=== PATIENT | female | born 1990 | race Caucasian/White ===

== ENCOUNTER 2019-12-25 09:53 | Emergency (ER) | payer OTHER, SELFPAY ==
[2019-12-25 10:19] VITALS: BP 121/73; PULSE 72; RESP 16; TEMP 36.8; O2SAT 100
--- NOTE | 2019-12-25 10:58 | ED.HA ---
HPI - Headache General Chief Complaint: Headache Stated Complaint: Migraine pain Time Seen by Provider: 12/25/19 10:40 Source: patient Mode of arrival: ambulatory Limitations: no limitations History of Present Illness HPI Narrative: This is a 39-year-old female that presents the emergency department for migraine x2 days. Reports history of migraines. Reports she is to be on a preventative medication for migraines, but did not like the way it made her feel. Reports a pounding left-sided headache. Reports she had taken Tylenol and ibuprofen at home without relief. Denies fever, vision changes, vomiting, numbness or weakness. Related Data Home Medications Medication Instructions Recorded Confirmed paliperidone [Invega] 3 mg PO QAM 12/25/19 Allergies Allergy/AdvReac Type Severity Reaction Status Date / Time latex Allergy Unknown Rash Verified 12/25/19 10:23 crab Allergy Unknown Verified 12/25/19 10:23 shellfish derived Allergy Unknown Verified 12/25/19 10:23 Review of Systems Review of Systems: Narrative: CONSTITUTIONAL: Denies fever EYES: Denies visual changes GASTROINTESTINAL: Denies vomiting NEUROLOGIC: Reports headache. Denies numbness, or weakness. All systems reviewed & are unremarkable except as noted in HPI and below PMFSH Past Medical History Medical History (Updated 12/25/19 @ 13:14 by Chrsita Masetrson PA-C) History of schizophrenia Social History Social History (Updated 12/25/19 @ 11:00 by Christa Masterson PA-C) Substance use: never Gender identity (if verbalized by the patient): Female Exam Narrative: Exam Narrative: GENERAL: Well-appearing, well-nourished, and in no acute distress. HEAD: Normocephalic, atraumatic. EYES: PERRLA and EOMI. ENT: Nares clear, no rhinorrhea or epistaxis. Mucous membranes moist. Oropharynx without tonsillar hypertrophy exudate or other lesions. Bilateral TMs pearly yates non-bulging NECK: Supple. No adenopathy or masses. Normal range of motion CHEST: Clear to auscultation. No respiratory distress. No wheezes rales or rhonchi HEART: Regular rate and rhythm. No murmur heard. Normal peripheral pulses. EXTREMITIES: Normal range of motion. No edema. SKIN: Warm, dry, no rash. NEURO: No focal deficits. Alert and oriented x3. Cranial nerves II through XII grossly intact PSYCH: Normal mood and affect Course Vital Signs Vital signs: Vital Signs Temperature 98.3 F 12/25/19 10:19 Pulse Rate 72 12/25/19 10:19 Respiratory Rate 16 12/25/19 10:19 Blood Pressure 121/73 12/25/19 10:19 Pulse Oximetry 100 12/25/19 10:19 Temperature 98.3 F 12/25/19 10:19 Pulse Rate 72 12/25/19 10:19 Respiratory Rate 16 12/25/19 10:19 Blood Pressure 121/73 12/25/19 10:19 Pulse Oximetry 100 12/25/19 10:19 MDM - Headache MDM Narrative Medical decision making narrative: Patient presents the emergency department for migraine x2 days. Reports history of migraines. She is afebrile and nontoxic-appearing. Patient is neurologically intact. Reports relief with migraine cocktail. Patient is stable and felt appropriate for further outpatient evaluation. She is to follow-up with her primary care doctor. She was given warnings to return to the ER Critical Care Time Critical Care Time Critical Care Time: No Discharge Plan Discharge Clinical Impression: Migraine Qualifiers: Migraine type: without aura Status migrainosus presence: without status migrainosus Intractability: not intractable Qualified Code(s): G43.009 - Migraine without aura, not intractable, without status migrainosus Patient Disposition: Home, Self-Care Condition: Stable Instructions: Migraine Headache (ED) Additional Instructions: Return to the emergency department if you experience fever, stiff neck, vision changes, vomiting, numbness, weakness, or any other symptoms that are concerning to you Remain well-hydrated. Tylenol or ibuprofen as needed for pain. Rest. Follow-u
[2019-12-25] MEDS: SODIUM CHLORIDE 0.9% IV 1,000 ML 999 ML IV CONT (11:19)
[2019-12-25] MEDS: METOCLOPRAMIDE HCL INJ 10 MG/2 ML VIAL IV PUSH (11:20)
[2019-12-25] MEDS: KETOROLAC 30 MG/ML VIAL (*BKC) IV PUSH (11:20)
--- NOTE | 2019-12-25 13:07 | PC.NURSE ---
Up in halls. Denies further headache.
== END 2019-12-25 13:35 | disposition home or self-care (01) ==
PROVIDERS: Emergency Provider Emergency Medicine
DX: G43.009 Migraine without aura, not intractable, without status migrainosus (principal); F20.9 Schizophrenia, unspecified
CPT/HCPCS: 96361; 96365; 96375; 99284; J0131; J1885; J2765; J7030

== ENCOUNTER 2019-12-28 15:53 | Emergency (ER) | payer OTHER, SELFPAY ==
[2019-12-28 16:00] VITALS: BP 125/84; PULSE 83; RESP 18; TEMP 37; O2SAT 100
[2019-12-28 17:21] VITALS: BP 123/72; PULSE 79; RESP 18; O2SAT 100
[2019-12-28] MEDS: SODIUM CHLORIDE 0.9% IV 1,000 ML 999 ML IV CONT (18:16)
[2019-12-28] MEDS: METOCLOPRAMIDE HCL INJ 10 MG/2 ML VIAL IV PUSH (18:16)
[2019-12-28] MEDS: diphenhydrAMINE HCl INJ 50 MG/ML VIAL 25 MG IV PUSH (18:16)
--- NOTE | 2019-12-28 18:37 | ED.HA ---
HPI - Headache General Chief Complaint: Headache Stated Complaint: migraine headache Time Seen by Provider: 12/28/19 16:57 Source: patient History of Present Illness HPI Narrative: 29 years old white female history of migraine headache since she was in the eighth grade. Been having sharp stabbing left frontal headache for months, get worse with stress, get better with beer. Patient been taking [id number] medication with intermittent improvement. Patient used to be on migraine headache medication, does not remember the name,. Patient lives with her family, unemployed, does not have a or a boyfriend. Related Data Home Medications Medication Instructions Recorded Confirmed paliperidone [Invega] 3 mg PO QAM 12/25/19 Allergies Allergy/AdvReac Type Severity Reaction Status Date / Time latex Allergy Unknown Rash Verified 12/25/19 10:23 crab Allergy Unknown Verified 12/25/19 10:23 shellfish derived Allergy Unknown Verified 12/25/19 10:23 Review of Systems Review of Systems: Narrative: CONSTITUTIONAL: Denies fever, chills, or sweats. EYES: Denies visual changes, redness, or discharge. ENT: Denies rhinorrhea, congestion, sore throat, or otalgia. CARDIOVASCULAR: Denies chest pain, palpitations, or edema. RESPIRATORY: Denies cough or dyspnea. GASTROINTESTINAL: Denies abdominal pain, nausea, vomiting, or diarrhea. GENITOURINARY: Denies dysuria or hematuria. SKIN: Denies rash or itching. MUSCULOSKELETAL: Denies back pain, joint pain, or myalgia. NEUROLOGIC: Denies headache, numbness, or weakness. PSYCHIATRIC: Denies anxiety or depression. PMFSH Past Medical History Medical History History of schizophrenia Social History Social History Substance use: never Gender identity (if verbalized by the patient): Female Exam Narrative: Exam Narrative: General appearance: Well-developed, well-nourished Skin: Normal color Head: Normocephalic, nontraumatic Eyes: Clear conjunctiva ENT: Oropharynx normal, ears normal, nose normal Neck: Supple, nontender Chest and respiratory: Airway patent, no respiratory distress, no accessory muscle use Heart: Regular rate/rhythm Abdomen: Soft, nontender, no organomegaly, quiet bowel sounds Vascular: Normal peripheral pulses, normal capillary refill. Musculoskeletal: Normal range of motion, nontender back Neurologic: Alert and oriented ?3, [employer] is normal as tested, no gross motor deficit Course Course Emergency Course: Improving Vital Signs Vital signs: Vital Signs Temperature 37.0 C 12/28/19 16:00 Pulse Rate 83 12/28/19 16:00 Respiratory Rate 18 12/28/19 16:00 Blood Pressure 125/84 12/28/19 16:00 Pulse Oximetry 100 12/28/19 16:00 Temperature 37.0 C 12/28/19 16:00 Pulse Rate 83 12/28/19 16:00 Respiratory Rate 18 12/28/19 16:00 Blood Pressure 125/84 12/28/19 16:00 Pulse Oximetry 100 12/28/19 16:00 MDM - Headache MDM Narrative Medical decision making narrative: Migraine headache high likely secondary to stress. I plan to give Reglan, Benadryl and Toradol. Patient headache resolved from 7 out of 10 to 1 out of 10 after IV Reglan and Benadryl. Resolved to 0 out of 10 after Toradol 30 mg IV once. Critical Care Time Critical Care Time Critical Care Time: No Discharge Plan Discharge Clinical Impression: Migraine Qualifiers: Migraine type: without aura Status migrainosus presence: without status migrainosus Intractability: not intractable Qualified Code(s): G43.009 - Migraine without aura, not intractable, without status migrainosus Patient Disposit
[2019-12-28] MEDS: KETOROLAC 30 MG/ML VIAL (*BKC) IV PUSH (18:52)
[2019-12-28 18:54] VITALS: BP 127/73; PULSE 80; RESP 18; O2SAT 100
--- NOTE | 2020-01-02 18:31 | PC.NURSE ---
LATE ENTRY This note is being entered to document information to the patient's record. The following information was omitted on [01/02/20], by [Kerry LAZARO stopped at 1915 on 12/28/19].
== END 2019-12-28 18:55 | disposition home or self-care (01) ==
PROVIDERS: Emergency Provider Emergency Medicine
DX: G43.009 Migraine without aura, not intractable, without status migrainosus (principal)
CPT/HCPCS: 96361; 96374; 96375; 99284; J1200; J1885; J2765; J7030

== ENCOUNTER → 2020-04-08 12:15 | Outpatient (CLI) | payer OTHER, SELFPAY ==
--- NOTE | ~2020-04-08 | XR_ITS ---
EXAMINATION: XR chest 2V EXAM DATE: 04/08/2020 12:32 INDICATION: Tobacco Use. TECHNIQUE: Frontal and lateral projections of the chest obtained and reviewed. There is no prior [place] for comparison. FINDINGS: The lungs are clear. There are no pleural effusions. The cardiomediastinal silhouette is within normal limits. There is no pneumothorax suspected. The bones and soft tissues are unremarkab le. IMPRESSION: Normal chest x-ray exam. Reviewed, dictated and finalized at location A. ETEER IMPRESSION: Normal chest x-ray exam.
== END ==
PROVIDERS: PCP Emergency Medicine; Visit Provider Emergency Medicine
DX: Z72.0 Tobacco use (principal)
CPT/HCPCS: 71046

== ENCOUNTER 2020-06-02 10:33 | Outpatient (CLI) | payer OTHER, SELFPAY ==
--- NOTE | 2020-06-03 11:37 | WPDNEUROLOGY ---
Neurology EEG Report General Information Date of Study: 06/02/20 TEST EEG DIAGNOSIS migraines CONDITION OF RECORDING awake and drowsy EEG NUMBER [id number] CLINICAL HISTORY patient reported she has been getting migraines for a couple of years. EEG DESCRIPTION Basic resting occipital frequency consists of medium to high voltage 8 to 10 hertz per 2nd alpha admixed with minimal amount of low-voltage 15 to 18 hertz per 2nd beta. Low-voltage beta activity seen diffusely during drowsiness. Photic stimulation produced normal response. Hyperventilation not done. Non paroxysmal. Nonfocal. Nonlateralizing. IMPRESSION Normal record no evidence of seizure-like activity or any focal slow activity clinical correlation recommended
== END 2020-06-02 10:34 | disposition home or self-care (01) ==
LOC: ANHNEURO 10:36
PROVIDERS: PCP Physician Assistant; Visit Provider Psychiatry & Neurology Neurology
DX: G43.909 Migraine, unspecified, not intractable, without status migrainosus (principal)
CPT/HCPCS: 95816

== ENCOUNTER 2020-07-04 11:11 | Outpatient (CLI) | payer OTHER, SELFPAY ==
--- NOTE | ~2020-07-04 | CT_ITS ---
EXAMINATION: CT brain wo con DATE: 07/04/2020 12:21 INDICATION: Left migraines for 5 months TECHNIQUE: Computed tomography (CT) of the head was performed without intravenous contrast. The mA wa s adjusted according to patient size. Iterative reconstruction technique was employed. Exam dose: 60 5.33 mGy-cm total exam DLP. COMPARISON: None FINDINGS: Cavum septum pellucidum and cavum birdie, anatomic variants. Normal ventricular size. Normal yates-white matter differentiation. No intracranial mass lesion or hemorrhage or cerebrovascular accident. No midline shift or mass effec t effect. No subdural or epidural hematoma. The orbital contents are unremarkable. Some soft tissue thickening in the mid to posterior right ethmoid. The included paranasal sinuses and mastoid air cells are otherwise normally developed and aerated. No fracture or bone destruction of the cranial vault. IMPRESSION: No significant intracranial abnormality Reviewed, dictated and finalized at [facility]. Reviewed, dictated and finalized at location A. MIC INTERPRETER
== END 2020-07-04 11:12 | disposition home or self-care (01) ==
PROVIDERS: PCP Emergency Medicine; Visit Provider Psychiatry & Neurology Neurology
DX: G43.909 Migraine, unspecified, not intractable, without status migrainosus (principal)
CPT/HCPCS: 70450

== ENCOUNTER 2020-09-09 02:39 | Emergency (ER) | payer OTHER, SELFPAY ==
--- NOTE | ~2020-09-09 | XR_ITS ---
EXAMINATION: XR chest 1V portable EXAM DATE: 09/09/2020 03:39 INDICATION: Cough for 2 weeks. TECHNIQUE: Portable AP frontal chest x-ray was obtained. Comparison is made to prior examination from 04/08/2020. FINDINGS: The lungs are clear. There are no pleural effusions. Cardiomediastinal silhouette is norm al. There is no pneumothorax suspected. The bones and soft tissues are unremarkable. IMPRESSION: No acute cardiopulmonary findings. Reviewed, dictated and finalized at location A.
[2020-09-09 02:45] VITALS: BP 129/86; PULSE 93; RESP 16; TEMP 36.8; O2SAT 98
--- NOTE | 2020-09-09 03:01 | ED.URI ---
HPI - URI/Sore Throat General Chief Complaint: Upper Respiratory Infection Stated Complaint: pna Time Seen by Provider: 09/09/20 02:48 History of Present Illness HPI Narrative: Cough, pleuritic chest pain and wheezing for the past 5-6 days. She is concerned that she may have pneumonia. She tried cough syrup without relief. No fever, chills, nausea, diarrhea. Related Data Home Medications Medication Instructions Recorded Confirmed paliperidone [Invega] 3 mg PO QAM 12/25/19 risperidone mg 09/09/20 Allergies Allergy/AdvReac Type Severity Reaction Status Date / Time latex Allergy Unknown Rash Verified 12/25/19 10:23 crab Allergy Unknown Verified 12/25/19 10:23 shellfish derived Allergy Unknown Verified 12/25/19 10:23 Review of Systems Review of Systems: All systems reviewed & are unremarkable except as noted in HPI and below Constitutional: Constitutional: Denies chills and Denies fever(s) ENT: Reports system reviewed and no additional complaints, except as documented and Denies sore throat Cardiovascular: Cardiovascular: Reports chest pain Respiratory: Respiratory: Reports cough, Reports dyspnea and Reports wheezing Gastrointestinal: Gastrointestinal: Denies diarrhea, Denies nausea and Denies vomiting Genitourinary: Genitourinary: Reports no additional female genitourinary complaints Neurologic: Reports system reviewed and no additional complaints, except as documented [facility] Past Medical History Medical History (Updated 09/09/20 @ 03:54 by Navneet Gross MD) History of schizophrenia Social History Social History Substance use: never Gender identity (if verbalized by the patient): Female Exam Const: General: healthy appearing, no acute distress and alert Orientation/consciousness: patient oriented x3 HENMT: Head: normal to inspection Neck: Neck: normal visual inspection and no lymphadenopathy Chest: Chest palpation & inspection: tenderness sternum Resp: Effort & Inspection: normal respiratory effort Auscultation: clear to auscultation bilaterally, no rales, no rhonchi and no wheezes Cardio: Jugular venous distension: no JVD Rate: regular rate Rhythm: regular rhythm Heart sounds: no murmurs GI: Inspection: non-distended GI Palp: Yes Soft to palpation and No Tenderness to palpation present (GI) Skin: General skin exam: normal color Neuro: General: patient oriented x3, moves all extremities, no focal motor deficits and CN's II-XI intact bilaterally Speech: normal speech Extrem: General: no edema Psych: Appearance: well kempt Affect: normal affect Course Vital Signs Vital signs: Vital Signs Temperature 36.8 C 09/09/20 02:45 Pulse Rate 93 09/09/20 02:45 Respiratory Rate 16 09/09/20 02:45 Blood Pressure 129/86 09/09/20 02:45 Pulse Oximetry 98 09/09/20 02:45 Temperature 36.8 C 09/09/20 02:45 Pulse Rate 93 09/09/20 02:45 Respiratory Rate 16 09/09/20 02:45 Blood Pressure 129/86 09/09/20 02:45 Pulse Oximetry 98 09/09/20 02:45 MDM - URI/Sore Throat Differential Diagnosis Differential diagnosis: Likely upper respiratory infection and other (Pneumonia) Medical Records Attestation: I reviewed the patient's medical records. Imaging Data My impression: Negative chest x-ray Discharge Plan Discharge Clinical Impression: Upper respiratory infection Qualifiers: URI type: unspecified URI Qualified Code(s): J06.9 - Acute upper respiratory infection, unspecified Patient Disposition: Home, Self-Care Condition: Stable Instructions: Upper Respiratory Infection (ED) Prescriptions: New benzonatate [Tessalon Perles] 100 mg capsule 100 mg PO TID PRN (Reason: cough) Qty: 30 RF: 0 No Action paliperidone [Invega] 1.5 mg Tablet Extended Release 24hr 3 mg PO QAM RF: 0 sumatriptan succinate [Imitrex] 25 mg tablet 25 mg PO ONCE Qty: 30 RF: 0 risperidone 1 mg table
== END 2020-09-09 04:05 | disposition home or self-care (01) ==
PROVIDERS: Emergency Provider Emergency Medicine; PCP Emergency Medicine
DX: J06.9 Acute upper respiratory infection, unspecified (principal); F20.9 Schizophrenia, unspecified
CPT/HCPCS: 71045; 99283

== ENCOUNTER 2020-11-11 16:32 | Emergency (ER) | payer OTHER, SELFPAY ==
[2020-11-11 16:41] VITALS: BP 127/69; PULSE 93; RESP 16; TEMP 36.3; O2SAT 99
--- NOTE | 2020-11-11 18:03 | PC.NURSE ---
Not in lobby when called to go to exam room.
== END 2020-11-12 03:21 | disposition left against medical advice (07) ==
LOC: ANHED 18:09
PROVIDERS: PCP Emergency Medicine
DX: R05 Cough (principal)
CPT/HCPCS: 99199

== ENCOUNTER 2020-11-13 17:06 | Emergency (ER) | payer OTHER, SELFPAY ==
--- NOTE | ~2020-11-13 | XR_ITS ---
XR knee RT 3V DATE: 11/13/2020 17:50 INDICATION: Pain and swelling since yesterday. No injury. TECHNIQUE: 3 views COMPARISON: None FINDINGS: No fracture or dislocation or joint effusion, radiopaque intra-articular loose body or saeid drocalcinosis or joint space narrowing. No periosteal reaction or bone destruction. IMPRESSION: Negative Reviewed, dictated and finalized at location A. IMPRESSION: Negative
--- NOTE | ~2020-11-13 | XR_ITS ---
XR knee LT 3V DATE: 11/13/2020 17:50 INDICATION: Pain and swelling throughout the knee since yesterday; no injury. TECHNIQUE: 3 views COMPARISON: None FINDINGS: No fracture or dislocation or joint effusion. Joint spaces are well preserved. No periostea l reaction or bone destruction. No radiopaque intra-articular loose body or chondrocalcinosis. IMPRESSION: Negative Reviewed, dictated and finalized at location A. IMPRESSION: Negative
[2020-11-13 17:14] VITALS: BP 124/72; PULSE 102; RESP 20; TEMP 36.5; O2SAT 99
--- NOTE | 2020-11-13 17:22 | ED.LOWEXIN ---
HPI - Extremity Injury (Lower) General Chief Complaint: Extremity Injury, Lower Stated Complaint: BILATERAL KNEE PAIN Time Seen by Provider: 11/13/20 17:08 History of Present Illness HPI Narrative: History limited by psychiatric illness Bilateral knee pain since this morning. Beter with them bent. Worse with walking. This is new pain. She tried ibuprofen without significant improvement. She also reports dry mouth and concern for dehydration, but she has been drinking without a problem. Related Data Home Medications Medication Instructions Recorded Confirmed paliperidone [Invega] 3 mg PO QAM 12/25/19 risperidone mg 09/09/20 Allergies Allergy/AdvReac Type Severity Reaction Status Date / Time latex Allergy Unknown Rash Verified 11/13/20 17:18 crab Allergy Unknown Verified 11/13/20 17:18 shellfish derived Allergy Unknown Verified 11/13/20 17:18 Review of Systems Review of Systems: All systems reviewed & are unremarkable except as noted in HPI and below Constitutional: Constitutional: Denies chills and Denies fever(s) ENT: Reports system reviewed and no additional complaints, except as documented Cardiovascular: Cardiovascular: Denies chest pain Respiratory: Respiratory: Denies dyspnea Gastrointestinal: Gastrointestinal: Reports no additional gastrointestinal complaints Musculoskeletal: Musculoskeletal: Denies back pain Neurologic: Reports system reviewed and no additional complaints, except as documented [facility] Past Medical History Medical History (Updated 11/14/20 @ 00:00 by Erasto Sanabria) History of schizophrenia Social History Social History Substance use: never Gender identity (if verbalized by the patient): Female Exam Const: General: healthy appearing, no acute distress and alert Orientation/consciousness: patient oriented x3 HENMT: Head: normal to inspection Resp: Effort & Inspection: normal respiratory effort Auscultation: clear to auscultation bilaterally Cardio: Rate: regular rate Rhythm: regular rhythm Skin: General skin exam: normal color Rashes: no rashes Wounds: no wounds Neuro: General: patient oriented x3, moves all extremities and no focal motor deficits Speech: normal speech Extrem: Other: Grossly normal knee exam. Mild anterior tenderness. Course Vital Signs Vital signs: Vital Signs Temperature 36.5 C 11/13/20 17:14 Pulse Rate 102 H 11/13/20 17:14 Respiratory Rate 20 11/13/20 17:14 Blood Pressure 124/72 11/13/20 17:14 Pulse Oximetry 99 11/13/20 17:14 Temperature 36.5 C 11/13/20 17:14 Pulse Rate 102 H 11/13/20 17:14 Respiratory Rate 20 11/13/20 17:14 Blood Pressure 124/72 11/13/20 17:14 Pulse Oximetry 99 11/13/20 17:14 MDM - Extremity Injury (Lower) MDM Narrative Medical decision making narrative: negative x-rays. Medical Records Attestation: I reviewed the patient's medical records. Discharge Plan Discharge Clinical Impression: Bilateral knee pain Patient Disposition: Home, Self-Care Condition: Stable Instructions: Knee Pain (ED) Prescriptions: No Action paliperidone [Invega] 1.5 mg Tablet Extended Release 24hr 3 mg PO QAM RF: 0 sumatriptan succinate [Imitrex] 25 mg tablet 25 mg PO ONCE Qty: 30 RF: 0 risperidone 1 mg tablet RF: 0 Follow-up/Referrals: Darrin Price MD [Primary Care Provider] -
[2020-11-13] MEDS: KETOROLAC 30 MG/ML VIAL (*BKC) IM (17:59)
[2020-11-13] MEDS: ACETAMINOPHEN 500 MG TABLET 1000 MG PO (17:59)
== END 2020-11-13 18:43 | disposition home or self-care (01) ==
PROVIDERS: Emergency Provider Emergency Medicine; PCP Emergency Medicine
DX: M25.562 Pain in left knee (principal); M25.561 Pain in right knee; F20.9 Schizophrenia, unspecified
CPT/HCPCS: 73562; 96372; 99284; A9270; J1885

== ENCOUNTER 2020-12-02 04:28 | Emergency (ER) | payer OTHER, SELFPAY ==
[2020-12-02 04:35] VITALS: BP 141/82; PULSE 91; RESP 17; TEMP 36.8; O2SAT 98
[2020-12-02] MEDS: diphenhydrAMINE HCl INJ 50 MG/ML VIAL 25 MG IV PUSH (05:02)
[2020-12-02] MEDS: KETOROLAC 30 MG/ML VIAL (*BKC) IV PUSH (05:04)
[2020-12-02] MEDS: METOCLOPRAMIDE HCL INJ 10 MG/2 ML VIAL IV PUSH (05:05)
[2020-12-02] MEDS: SODIUM CHLORIDE 0.9% IV 1,000 ML 999 ML IV CONT (05:05)
--- NOTE | 2020-12-02 05:23 | ED.GENADULT ---
HPI - General Adult General Chief complaint: Headache Stated complaint: migraine Time Seen by Provider: 12/02/20 04:38 History of Present Illness HPI narrative: Patient is a 30-year-old female presents emerged department with chief complaint of migraine headache. Patient reports she has history of migraines and reports that over the last day or 2 she has been having discomfort in her head. Patient states that she is felt a little foggy reports the light bothers her eyes reports she has felt nauseated. Patient reports she had one episode of emesis. The patient denies focal neurological deficit. Related Data Home Medications Medication Instructions Recorded Confirmed paliperidone [Invega] 3 mg PO QAM 12/25/19 11/24/20 risperidone mg 09/09/20 11/24/20 Allergies Allergy/AdvReac Type Severity Reaction Status Date / Time latex Allergy Unknown Rash Verified 11/24/20 15:33 crab Allergy Unknown Verified 11/24/20 15:33 shellfish derived Allergy Unknown Verified 11/24/20 15:33 Review of Systems Review of Systems: Narrative: A 10 system review of systems was completed on the patient and is negative except for what is stated in the HPI. Nursing and ancillary documentation was reviewed. [facility] Past Medical History Medical History (Updated 12/02/20 @ 05:24 by Larry Sawyer MD) History of schizophrenia Social History Social History Smoking status: Light tobacco smoker Alcohol intake: never Substance use: never Gender identity (if verbalized by the patient): Female Exam Narrative: Exam Narrative: GENERAL: Well-appearing, well-nourished, and in no acute distress. HEAD: Normocephalic, atraumatic. EYES: PERRLA and EOMI. ENT: Nares clear, no rhinorrhea or epistaxis. Mucous membranes moist. NECK: Supple. CHEST: Clear to auscultation. No respiratory distress. HEART: Regular rate and rhythm. No murmur heard. Normal peripheral pulses. ABDOMEN: Soft, nontender, nondistended, normal active bowel sounds. EXTREMITIES: Normal range of motion. No edema. SKIN: Warm, dry, no rash. NEURO: No focal deficits. Alert and oriented x3. PSYCH: Normal mood and affect. Course Vital Signs Vital signs: Vital Signs Temperature 36.8 C 12/02/20 04:35 Pulse Rate 91 12/02/20 04:35 Respiratory Rate 17 12/02/20 04:35 Blood Pressure 141/82 H 12/02/20 04:35 Pulse Oximetry 98 12/02/20 04:35 Temperature 36.8 C 12/02/20 04:35 Pulse Rate 72 12/02/20 05:54 Respiratory Rate 20 12/02/20 05:54 Blood Pressure 122/76 12/02/20 05:54 Pulse Oximetry 100 12/02/20 05:54 Medical Decision Making Vital Signs Vital Signs: Vital Signs Temperature 36.8 C 12/02/20 04:35 Pulse Rate 91 12/02/20 04:35 Respiratory Rate 17 12/02/20 04:35 Blood Pressure 141/82 H 12/02/20 04:35 Pulse Oximetry 98 12/02/20 04:35 Temperature 36.8 C 12/02/20 04:35 Pulse Rate 72 12/02/20 05:54 Respiratory Rate 20 12/02/20 05:54 Blood Pressure 122/76 12/02/20 05:54 Pulse Oximetry 100 12/02/20 05:54 Discharge Plan Discharge Clinical Impression: Migraine Qualifiers: Migraine type: unspecified Status migrainosus presence: without status migrainosus Intractability: not intractable Qualified Code(s): G43.909 - Migraine, unspecified, not intractable, without status migrainosus Patient Disposition: Home, Self-Care Condition: Stable Instructions: Antibiotic Form Prescriptions: No Action paliperidone [Invega] 1.5 mg Tablet Extended Release 24hr 3 mg PO QAM RF: 0 sumatriptan succinate [Imitrex] 25 mg tablet 25 mg PO ONCE Qty: 30 RF: 0 risperidone 1 mg tablet RF: 0 Follow-up/Referrals: Darrin Price MD [Primary Care Provider] - Time of Disposition: 06:03
[2020-12-02 05:54] VITALS: BP 122/76; PULSE 72; RESP 20; O2SAT 100
--- NOTE | 2020-12-02 06:24 | PC.NURSE ---
Pt stated during discharge that she didn't feel safe going home, I asked if she was being abused, she answer no, my mom just gets mad when i spend my SSI money, and I don't really feel wanted at home, I just don't have anywhere to go I gave the patient a list of shelters in the area. Dr. Sawyer and Charge nurse aware. Pt states thank you, this is a good resource.
[2020-12-02 06:27] VITALS: BP 124/76; PULSE 79; RESP 20; TEMP 36.8; O2SAT 100
== END 2020-12-02 06:28 | disposition home or self-care (01) ==
PROVIDERS: Emergency Provider Emergency Medicine; PCP Emergency Medicine
DX: G43.909 Migraine, unspecified, not intractable, without status migrainosus (principal); F20.9 Schizophrenia, unspecified; F17.200 Nicotine dependence, unspecified, uncomplicated
CPT/HCPCS: 96361; 96374; 96375; 99284; J1200; J1885; J2765; J7030

== ENCOUNTER 2020-12-04 15:24 | Emergency (ER) | payer OTHER, SELFPAY ==
--- NOTE | 2020-12-04 15:39 | PC.NURSE ---
Patient states she feels better and does not wish to be seen.
== END 2020-12-04 15:39 | disposition left against medical advice (07) ==
PROVIDERS: PCP Emergency Medicine
DX: Z53.21 Procedure and treatment not carried out due to patient leaving prior to being seen by health care provider (principal)
CPT/HCPCS: 99199

== ENCOUNTER 2021-01-04 03:49 | Emergency (ER) | payer OTHER, SELFPAY ==
[2021-01-04 03:54] VITALS: BP 116/78; PULSE 76; RESP 16; TEMP 37.1; O2SAT 99
--- NOTE | 2021-01-04 04:31 | ED.PSYCH ---
HPI - Psych General Chief Complaint: Psychiatric Symptoms Stated Complaint: I'm having a schizophrenic attack Time Seen by Provider: 01/04/21 04:21 History of Present Illness HPI Narrative: She reports that she was having auditory hallucinations. She did not like the things that the voices were saying to her and she needed to come to a safe place. She reports taking her medications as prescribed. No thoughts of harming herself or others. She reports that she is feeling better now Related Data Home Medications Medication Instructions Recorded Confirmed risperidone 2 mg HS 09/09/20 11/24/20 paliperidone palmitate [Invega 234 mg IM 01/04/21 Sustenna] Allergies Allergy/AdvReac Type Severity Reaction Status Date / Time latex Allergy Unknown Rash Verified 01/04/21 04:07 crab Allergy Unknown Verified 01/04/21 04:07 shellfish derived Allergy Unknown Verified 01/04/21 04:07 Review of Systems Review of Systems: All systems reviewed & are unremarkable except as noted in HPI and below PMFSH Past Medical History Medical History History of schizophrenia Social History Social History Smoking status: Light tobacco smoker Alcohol intake: never Substance use: never Gender identity (if verbalized by the patient): Female Exam Const: General: healthy appearing, no acute distress and alert Orientation/consciousness: patient oriented x3 HENMT: Head: normal to inspection Eyes: Pupils: Equal, round and reactive pupils present Resp: Effort & Inspection: normal respiratory effort Auscultation: clear to auscultation bilaterally Cardio: Rate: regular rate Rhythm: regular rhythm Skin: General skin exam: normal color Neuro: General: patient oriented x3, moves all extremities and CN's II-XI intact bilaterally Speech: normal speech Psych: Mental Status: mental status grossly normal Attitude: cooperative Course Vital Signs Vital signs: Vital Signs Temperature 37.1 C 01/04/21 03:54 Pulse Rate 76 01/04/21 03:54 Respiratory Rate 16 01/04/21 03:54 Blood Pressure 116/78 01/04/21 03:54 Pulse Oximetry 99 01/04/21 03:54 Temperature 37.1 C 01/04/21 03:54 Pulse Rate 76 01/04/21 03:54 Respiratory Rate 16 01/04/21 03:54 Blood Pressure 116/78 01/04/21 03:54 Pulse Oximetry 99 01/04/21 03:54 MDM - Psych MDM Narrative Medical decision making narrative: Feeling better. Not a harm to herself or others. Left without discharge papers Medical Records Attestation: I reviewed the patient's medical records. Discharge Plan Discharge Clinical Impression: Schizophrenia Qualifiers: Schizophrenia type: unspecified Qualified Code(s): F20.9 - Schizophrenia, unspecified Patient Disposition: Home, Self-Care Condition: Stable Instructions: Schizophrenia (ED) Prescriptions: No Action risperidone 1 mg tablet 2 mg HS RF: 0 Invega Sustenna 234 mg/1.5 mL syringe 234 mg IM RF: 0 Follow-up/Referrals: Darrin Price MD [Primary Care Provider] -
--- NOTE | 2021-01-04 05:33 | PC.NURSE ---
pt ambulated out of facility at this time, states she doesnt want to wait. notified.
== END 2021-01-04 05:34 | disposition home or self-care (01) ==
PROVIDERS: Emergency Provider Emergency Medicine; PCP Emergency Medicine
DX: F20.9 Schizophrenia, unspecified (principal); F17.200 Nicotine dependence, unspecified, uncomplicated
CPT/HCPCS: 99283

== ENCOUNTER 2021-02-04 02:19 | Emergency (ER) | payer OTHER, SELFPAY ==
--- NOTE | ~2021-02-04 | XR_ITS ---
EXAMINATION: XR elbow RT min 3V DATE: 02/04/2021 02:38 INDICATION: Right elbow pain. Fall. TECHNIQUE: 4 views of right elbow were obtained. COMPARISON: None. FINDINGS: Bone alignment is normal. No fracture. Joint spaces are well maintained. There is no elbow joint effusion. IMPRESSION: 1. Normal right elbow. Reviewed, dictated and finalized at location A. IMPRESSION: 1. Normal right elbow.
--- NOTE | 2021-02-04 04:00 | PC.NURSE ---
PT seen walking out the ED door. Pt left without being triaged or seen by provider.
== END 2021-02-04 04:00 | disposition left against medical advice (07) ==
PROVIDERS: Emergency Provider Emergency Medicine; PCP Emergency Medicine
DX: M25.521 Pain in right elbow (principal)
CPT/HCPCS: 73080; 99199

== ENCOUNTER 2021-02-07 07:36 | Emergency (ER) | payer OTHER, SELFPAY ==
[2021-02-07 07:51] VITALS: BP 132/78; PULSE 89; RESP 20; TEMP 36.8; O2SAT 100
[2021-02-07 08:23] LABS: Basophils Absolute Auto 0.1 K/mm3 (0.0-0.1); Basophils Percent Auto 1.4 % (0.2-1.2); Eosinophils Absolute Auto 0.4 K/mm3 (0-0.3); Eosinophils Percent Auto 6.6 % (0-4.4); Hematocrit 43.7 % (37.0-47.0); Hemoglobin 14.4 g/dL (12.0-15.0); Immature Granulocyte Absolute 0.02 K/mm3 (0.00-0.031); Immature Granulocyte Percent A 0.3 % (0-0.5); Lymphocytes Absolute Auto 1.62 K/mm3 (0.9-3.2); Mean Corpuscular Hemoglobin 32.1 pg (26-34); Mean Corpuscular Volume 97.3 fl (80-100); Monocytes Absolute Auto 0.8 K/mm3 (0.1-0.6); Monocytes Percent Auto 13.1 % (2.6-8.5); Neutrophils Absolute Auto 2.9 K/mm3 (1.3-6.7); Neutrophils Percent Auto 50.6 % (45.5-73.1); Platelet Count Result 214 k/mm3 (150-375); Red Blood Count 4.49 M/mm3 (4.2-5.4); White Blood Count 5.8 K/mm3 (4.5-10.0)
[2021-02-07 08:25] LABS: Add Urine Microscopic? NO; Appearance Urine Clear (Clear); Bilirubin Urine Negative (Negative); Blood Urine Negative (Negative); Color Urine Yellow (Yellow); Glucose Urine UA Negative (Negative); Ketones Urine Negative (Negative); Leukocyte Esterase Ur Negative LEU/UL (Negative); Nitrate Urine Negative (Negative); Protein Urine Negative (Negative); Specific Grav Ur 1.017 (1.001-1.035); Urobilinogen Urine Negative mg/dL (<2.0)
[2021-02-07 08:33] LABS: Alanine Aminotransferase 15 U/L (4-35); Albumin Level 4.4 g/dL (3.5-5.1); Alkaline Phosphatase 80 U/L (38-126); Anion Gap 9 mmol/L (8-16); Aspartate Amino Transferase 22 U/L (14-36); Bilirubin,Total 0.1 mg/dL (0.2-1.3); Blood Urea Nitrogen 8 mg/dL (7-17); Calcium 9.2 mg/dL (8.4-10.2); Carbon Dioxide 25 mmol/L (22-30); Chloride 107 mmol/L (98-107); Estimated CRCL calculation 110 ml/min; Estimated Glomerular Filt Rate > 60; Glucose 97 mg/dL (65-110); Potassium 3.1 mmol/L (3.4-5.0); Sodium 141 mmol/L (137-145)
[2021-02-07 08:37] LABS: Ethanol < 10 mg/dL (<10)
[2021-02-07 08:41] LABS: Amphetamine Screen Urine Negative (Negative); Barbiturate Screen Urine Negative (Negative); Benzodiazepines Screen Urine Negative (Negative); Cannabinoid Screen Urine Negative (Negative); Cocaine Screen Urine Negative (Negative); Methadone Screen Urine Negative (Negative); Opiate Screen Urine Negative (Negative); Phencyclidine Screen Urine Negative (Negative)
[2021-02-07 08:48] LABS: EDCOVIDSCREEN Negative (Negative)
--- NOTE | 2021-02-07 09:19 | PC.NURSE ---
[facility] called to evaluate patient. message left
--- NOTE | 2021-02-07 09:58 | ED.PSYCH ---
HPI - Psych General Chief Complaint: Psychiatric Symptoms Stated Complaint: pt wants Time Seen by Provider: 02/07/21 09:57 Source: patient History of Present Illness HPI Narrative: Patient is 30 years old white female came to the emergency room because of delusions, claiming that she does not want to be here anymore, referring to herself as her roommate, and telling me that her roommate which is herself does not do anything good except smoking and she does not want her to be there anymore and she went to pass away. Related Data Home Medications Medication Instructions Recorded Confirmed risperidone 2 mg HS 09/09/20 11/24/20 paliperidone palmitate [Invega 234 mg IM 01/04/21 Sustenna] Allergies Allergy/AdvReac Type Severity Reaction Status Date / Time latex Allergy Unknown Rash Verified 01/04/21 04:07 crab Allergy Unknown Verified 01/04/21 04:07 shellfish derived Allergy Unknown Verified 01/04/21 04:07 Review of Systems Review of Systems: ROS unobtainable: Yes unobtainable due to mental status [facility] Past Medical History Medical History (Updated 02/07/21 @ 10:33 by Josue Enciso MD) History of schizophrenia Social History Social History Smoking status: Light tobacco smoker Alcohol intake: never Substance use: never Gender identity (if verbalized by the patient): Female Exam Narrative: General appearance: Well-developed, well-nourished Skin: Normal color Head: Normocephalic, nontraumatic Eyes: Clear conjunctiva ENT: Oropharynx normal, ears normal, nose normal Neck: Supple, nontender Chest and respiratory: Airway patent, no respiratory distress, no accessory muscle use Heart: Regular rate/rhythm Abdomen: Soft, nontender, no organomegaly, quiet bowel sounds Vascular: Normal peripheral pulses, normal capillary refill. Musculoskeletal: Normal range of motion, nontender back Neurologic: Alert and oriented ?3, SALVAGE GR[employer]ER is normal as tested, no gross motor deficit Course Course Emergency Course: Stable Vital Signs Vital signs: Vital Signs Temperature 36.8 C 02/07/21 07:51 Pulse Rate 89 02/07/21 07:51 Respiratory Rate 20 02/07/21 07:51 Blood Pressure 132/78 02/07/21 07:51 Pulse Oximetry 100 02/07/21 07:51 Temperature 36.8 C 02/07/21 07:51 Pulse Rate 89 02/07/21 07:51 Respiratory Rate 20 02/07/21 07:51 Blood Pressure 132/78 02/07/21 07:51 Pulse Oximetry 100 02/07/21 07:51 MDM - Psych MDM Narrative Medical decision making narrative: Patient presents with acute psychosis, unknown duration, labs ordered to clear patient medically, psych evaluation ordered Differential Diagnosis Differential diagnosis: Likely acute psychosis, suicidal ideation, depression and acute anxiety Lab Data Result diagrams: 02/07/21 08:12 02/07/21 08:12 Labs: Lab Results 02/07/21 02/07/21 02/07/21 Range/Units 08:12 08:12 08:12 WBC 5.8 (4.5-10.0) K/mm3 RBC 4.49 (4.2-5.4) M/mm3 Hgb 14.4 (12.0-15.0) g/dL Hct 43.7 (37.0-47.0) % MCV 97.3 (80-100) fl MCH 32.1 (26-34) pg MCHC 33.0 (32-36) g/dl RDW 13.0 (11.5-14.5) % Plt Count 214 (150-375) k/mm3 MPV 11.0 H (7.4-10.4) fl Immature Gran % (Auto) 0.3 (0-0.5) % Neut % (Auto) 50.6 (45.5-73.1) % Lymph % (Auto) 28.0 (18.3-44.2) % [place] % (Auto) 13.1 H (2.6-8.5) % Eos % (Auto) 6.6 H (0-4.4) % Baso % (Auto) 1.4 H (0.2-1.2) % Lymph # (Auto) 1.62 (0.9-3.2) K/mm3 [place] # (Auto) 0.8 H (0.1-0.6) K/mm3 Eos # (Auto) 0.4 H (0-0.3) K/mm3 Baso # (Auto) 0.1 (0.0-0.1) K/mm3 Abs Immat Gran (
[2021-02-07 15:34] VITALS: BP 102/53; PULSE 64; RESP 19; TEMP 36.6; O2SAT 97
--- NOTE | 2021-02-07 16:36 | PC.NURSE ---
Paperwork faxed to [facility]
[2021-02-07 23:20] VITALS: PULSE 80; O2SAT 97
[2021-02-07 23:22] VITALS: BP 112/66; PULSE 76; RESP 20; O2SAT 94
[2021-02-07 23:30] VITALS: PULSE 58; RESP 16; O2SAT 95
[2021-02-07] MEDS: POTASSIUM CHLORIDE 20 MEQ PACKET (FOR LIQUID) PO (23:31)
[2021-02-07 23:45] VITALS: PULSE 67; RESP 15; O2SAT 96
[2021-02-07] MEDS: SODIUM CHLORIDE 0.9% IV 1,000 ML 150 ML (23:54)
--- NOTE | 2021-02-07 23:57 | PC.NURSE ---
2350 patient states the kcl is burning. NS used for dilution as concurrent IV.
[2021-02-08] VITALS (51 sets, daily range): BP systolic 93–132; BP diastolic 52–84; PULSE 41–96; RESP 12–21; TEMP 36.1–36.9; O2SAT 95–98
--- NOTE | 2021-02-08 06:24 | PC.NURSE ---
ED labeler in room to redraw potassium.
[2021-02-08 06:48] LABS: Potassium 3.9 mmol/L (3.4-5.0)
--- NOTE | 2021-02-08 12:00 | PC.NURSE ---
pt in room,sleeping, chest rise noted.
--- NOTE | 2021-02-08 13:30 | PC.NURSE ---
pt calm, somewhat distracted. asking about her Invega Sustenna injection. did receive order for risperdal 1 mg po bid
[2021-02-08] MEDS: ONDANSETRON INJ 4 MG/2 ML VIAL IV PUSH (14:44)
--- NOTE | 2021-02-08 15:00 | PC.NURSE ---
pt in room, calm, asked for drink. pt cooperative. sitter at bedside. crisis here to be see pt. invol papers filled out. expires 02/11/21 at 1296
--- NOTE | 2021-02-08 16:57 | PC.NURSE ---
pt c/o of headache, nausea. order for Tylenol and Zofran received
--- NOTE | 2021-02-08 18:33 | PC.NURSE ---
made contact with [facility] to transfer pt to [facility]. eta [id number]
== END 2021-02-08 21:34 ==
PROVIDERS: Emergency Medicine; Emergency Provider Emergency Medicine; PCP Emergency Medicine
DX: F23 Brief psychotic disorder (principal); F20.9 Schizophrenia, unspecified; Z20.822 Contact with and (suspected) exposure to COVID-19; F17.200 Nicotine dependence, unspecified, uncomplicated
CPT/HCPCS: 36415; 80053; 80307; 81003; 81025; 84132; 84443; 85025; 87426; 96365; 96366; 96375; 99285; A9270; C9803; J0131; J2405; J3480; J7030

== ENCOUNTER 2021-02-22 21:24 | Emergency (ER) | payer OTHER, SELFPAY ==
[2021-02-22 21:30] VITALS: BP 131/65; PULSE 86; RESP 18; TEMP 36.1; O2SAT 99
--- NOTE | 2021-02-22 22:35 | ED.PSYCH ---
HPI - Psych General Chief Complaint: Psychiatric Symptoms <Jimbo Odom MD - Last Filed: 02/22/21 22:42> Stated Complaint: Migraine, SI? <Jimbo Odom MD - Last Filed: 02/22/21 22:42> Time Seen by Provider: 02/22/21 22:32 <Jimbo Odom MD - Last Filed: 02/22/21 22:42> Source: patient <Jimbo Odom MD - Last Filed: 02/22/21 22:42> Mode of arrival: ambulatory <Jimbo Odom MD - Last Filed: 02/22/21 22:42> Limitations: no limitations <Jimbo Odom MD - Last Filed: 02/22/21 22:42> History of Present Illness HPI Narrative: Patient is a 30-year-old female complaining of suicidal ideation x1 week. Patient states that the voices in her head are conflicting, telling her different things, some voices telling her to kill herself. Patient states that when she gets stressed at home these voices appear. Denies homicidal ideations. Patient has had multiple ER visits secondary to suicidal ideation and schizophrenia exacerbations. Patient states that she is compliant with her medication, takes Invega and Risperdal. Patient also takes Tegretol for mood stabilizer. Denies alcohol or drug use. <Jimbo Odom MD - Last Filed: 02/22/21 22:42> Related Data Home Medications: Home Medications Medication Instructions Recorded Confirmed risperidone 2 mg HS 09/09/20 11/24/20 paliperidone palmitate [Invega 234 mg IM 01/04/21 Sustenna] carbamazepine 200 mg DAILY 02/22/21 02/22/21 <Jimbo Odom MD - Last Filed: 02/22/21 22:42> Allergies/Adverse Reactions: Allergies Allergy/AdvReac Type Severity Reaction Status Date / Time latex Allergy Unknown Rash Verified 02/22/21 22:24 crab Allergy Unknown Verified 02/22/21 22:24 shellfish derived Allergy Unknown Verified 02/22/21 22:24 <Jimbo Odom MD - Last Filed: 02/22/21 22:42> Review of Systems Review of Systems: All systems reviewed & are unremarkable except as noted in HPI and below <Jimbo Odom MD - Last Filed: 02/22/21 22:42> Constitutional: Constitutional: Denies body ache(s), Denies chills, Denies excessive sweating, Denies fatigue, Denies fever(s), Denies headache(s), Denies lethargy, Denies malaise, Denies weakness and Denies weight loss <Jimbo Odom MD - Last Filed: 02/22/21 22:42> Eyes: Eyes: Denies blurry vision, Denies change in vision and Denies loss of vision <Jimbo Odom MD - Last Filed: 02/22/21 22:42> ENT: Denies dizziness, Denies ear discharge, Denies headache(s), Denies lip swelling, Denies epistaxis, Denies nasal congestion, Denies neck pain, Denies throat swelling and Denies tongue swelling <Jimbo Odom MD - Last Filed: 02/22/21 22:42> Cardiovascular: Cardiovascular: Denies chest pain, Denies chest pain at rest, Denies chest pain with activity, Denies diaphoresis, Denies rapid heart rate, Denies edema, Denies irregular heart rhythm, Denies lightheadedness, Denies palpitations, Denies dyspnea and Denies dyspnea on exertion <Jimbo Odom MD - Last Filed: 02/22/21 22:42> Respiratory: Respiratory: Denies chest congestion, Denies cough, Denies hemoptysis, Denies dyspnea and Denies dyspnea on exertion <Jimbo Odom MD - Last Filed: 02/22/21 22:42> Gastrointestinal: Gastrointestinal: Denies abdominal pain, Denies melena, Denies hematochezia, Denies diarrhea, Denies nausea, Denies vomiting and Denies hematemesis <Jimbo Odom MD - Last Filed: 02/22/21 22:42> Musculoskeletal: Musculoskeletal: Denies abnormal gait, Denies deformity, Denies joint swelling, Denies limited range of motion, Denies neck pain and Denies numbness <Jimbo Odom MD - Last Filed: 02/22/21 22:42> Neurologic: Denies Abnormal speech present, Denies abnormal gait, Denies confusion, Denies dizziness, Denies headache(s), Denies focal weakness, Denies loss of vision, Denies numbness, Denies Other visual disturbances, Denies Sensory deficit (Neuro) and Den
[2021-02-22 22:41] LABS: Add Urine Microscopic? NO; Appearance Urine Clear (Clear); Bilirubin Urine Negative (Negative); Blood Urine Negative (Negative); Color Urine Colorless (Yellow); Glucose Urine UA Negative (Negative); Ketones Urine Negative (Negative); Leukocyte Esterase Ur Negative LEU/UL (Negative); Nitrate Urine Negative (Negative); Protein Urine Negative (Negative); Urobilinogen Urine Negative mg/dL (<2.0)
[2021-02-22 22:48] LABS: Specific Grav Ur 1.002 (1.001-1.035)
[2021-02-22 23:05] LABS: Basophils Absolute Auto 0.1 K/mm3 (0.0-0.1); Basophils Percent Auto 0.8 % (0.2-1.2); Eosinophils Absolute Auto 0.4 K/mm3 (0-0.3); Eosinophils Percent Auto 4.6 % (0-4.4); Hematocrit 39.9 % (37.0-47.0); Hemoglobin 13.6 g/dL (12.0-15.0); Immature Granulocyte Absolute 0.02 K/mm3 (0.00-0.031); Immature Granulocyte Percent A 0.2 % (0-0.5); Lymphocytes Absolute Auto 2.31 K/mm3 (0.9-3.2); Lymphocytes Percent Auto 26.4 % (18.3-44.2); Mean Corpuscular HGB Conc 34.1 g/dl (32-36); Mean Corpuscular Hemoglobin 33.3 pg (26-34); Mean Corpuscular Volume 97.6 fl (80-100); Mean Platelet Volume 10.9 fl (7.4-10.4); Monocytes Absolute Auto 0.9 K/mm3 (0.1-0.6); Monocytes Percent Auto 10.4 % (2.6-8.5); Neutrophils Percent Auto 57.6 % (45.5-73.1); Platelet Count Result 259 k/mm3 (150-375); Red Blood Count 4.09 M/mm3 (4.2-5.4); Red Cell Distribution Width 12.6 % (11.5-14.5); White Blood Count 8.7 K/mm3 (4.5-10.0)
[2021-02-22 23:43] LABS: Alanine Aminotransferase 14 U/L (4-35); Albumin Level 4.3 g/dL (3.5-5.1); Alkaline Phosphatase 89 U/L (38-126); Anion Gap 7 mmol/L (8-16); Aspartate Amino Transferase 22 U/L (14-36); Bilirubin,Total < 0.1 mg/dL (0.2-1.3); Blood Urea Nitrogen 11 mg/dL (7-17); Calcium 9.4 mg/dL (8.4-10.2); Carbon Dioxide 28 mmol/L (22-30); Chloride 105 mmol/L (98-107); Estimated CRCL calculation 108 ml/min; Estimated Glomerular Filt Rate > 60; Glucose 100 mg/dL (65-110); Potassium 3.2 mmol/L (3.4-5.0); Sodium 140 mmol/L (137-145)
[2021-02-22 23:44] LABS: Ethanol < 10 mg/dL (<10)
[2021-02-22 23:52] LABS: Barbiturate Screen Urine Negative (Negative); Benzodiazepines Screen Urine Negative (Negative)
[2021-02-22 23:58] LABS: Amphetamine Screen Urine Negative (Negative); Cannabinoid Screen Urine Negative (Negative); Cocaine Screen Urine Negative (Negative); Methadone Screen Urine Negative (Negative); Opiate Screen Urine Negative (Negative); Phencyclidine Screen Urine Negative (Negative)
[2021-02-23] MEDS: POTASSIUM CHLORIDE 20 MEQ TABLET 40 MEQ PO (00:35)
--- NOTE | 2021-02-23 00:40 | PC.NURSE ---
states pt is medically clean. Called crisis for eval. Crisis states they will be out within 2 hours
--- NOTE | 2021-02-23 04:30 | PC.NURSE ---
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 Pt is being sent home with a safety contract.
== END 2021-02-23 02:53 | disposition home or self-care (01) ==
PROVIDERS: Emergency Medicine; Emergency Provider Emergency Medicine; PCP Emergency Medicine
DX: F20.9 Schizophrenia, unspecified (principal); Z79.899 Other long term (current) drug therapy; Z91.040 Latex allergy status; Z91.013 Allergy to seafood; Z72.0 Tobacco use
CPT/HCPCS: 36415; 80053; 80307; 81003; 81025; 84443; 85025; 99284; A9270

== ENCOUNTER 2021-03-26 21:03 | Emergency (ER) | payer OTHER, SELFPAY ==
--- NOTE | 2021-03-26 21:47 | PC.NURSE ---
pt approached intake desk and states she talked to her dad and feels better now and does not want to be seen. pt ambulated out main entrance.
== END 2021-03-26 21:47 | disposition left against medical advice (07) ==
LOC: ANHED 21:59
PROVIDERS: PCP Emergency Medicine
DX: Z53.21 Procedure and treatment not carried out due to patient leaving prior to being seen by health care provider (principal)
CPT/HCPCS: 99199

== ENCOUNTER 2021-03-31 02:26 | Emergency (ER) | payer OTHER, SELFPAY ==
[2021-03-31 02:36] VITALS: PULSE 66; RESP 18; TEMP 36.6; O2SAT 97
[2021-03-31 02:43] VITALS: BP 124/74; PULSE 69
[2021-03-31 02:44] VITALS: PULSE 69; RESP 18; O2SAT 97
--- NOTE | 2021-03-31 02:45 | ECG_ITS ---
Measurements Intervals [employer] Rate: 58 P: 51 AL: 179 QRS: 48 QRSD: 84 T: 41 QT: 412 QTc: 407 Interpretive Statements SINUS BRADYCARDIA BASELINE ARTIFACT- V2 BORDERLINE ECG Electronically Signed On 03-31-2021 6:18:06 CDT by Ras Dia D.O.
[2021-03-31 03:08] LABS: Basophils Absolute Auto 0.1 K/mm3 (0.0-0.1); Basophils Percent Auto 0.8 % (0.2-1.2); Eosinophils Absolute Auto 0.4 K/mm3 (0-0.3); Eosinophils Percent Auto 5.2 % (0-4.4); Hemoglobin 13.4 g/dL (12.0-15.0); Immature Granulocyte Absolute 0.02 K/mm3 (0.00-0.031); Immature Granulocyte Percent A 0.3 % (0-0.5); Lymphocytes Absolute Auto 2.13 K/mm3 (0.9-3.2); Lymphocytes Percent Auto 26.9 % (18.3-44.2); Mean Corpuscular HGB Conc 34.4 g/dl (32-36); Mean Corpuscular Hemoglobin 33.6 pg (26-34); Mean Corpuscular Volume 97.7 fl (80-100); Mean Platelet Volume 10.5 fl (7.4-10.4); Neutrophils Absolute Auto 4.3 K/mm3 (1.3-6.7); Neutrophils Percent Auto 53.8 % (45.5-73.1); Platelet Count Result 232 k/mm3 (150-375); Red Blood Count 3.99 M/mm3 (4.2-5.4); Red Cell Distribution Width 12.8 % (11.5-14.5); White Blood Count 7.9 K/mm3 (4.5-10.0)
[2021-03-31 03:32] LABS: Acetaminophen < 10 ug/mL (10-30); Alanine Aminotransferase 14 U/L (4-35); Albumin Level 4.1 g/dL (3.5-5.1); Alkaline Phosphatase 86 U/L (38-126); Anion Gap 7 mmol/L (8-16); Aspartate Amino Transferase 20 U/L (14-36); Bilirubin,Total 0.3 mg/dL (0.2-1.3); Blood Urea Nitrogen 10 mg/dL (7-17); Calcium 9.1 mg/dL (8.4-10.2); Carbon Dioxide 26 mmol/L (22-30); Chloride 104 mmol/L (98-107); Estimated CRCL calculation 124 ml/min; Estimated Glomerular Filt Rate > 60; Ethanol < 10 mg/dL (<10); Glucose 100 mg/dL (65-110); Lipase 61 U/L (23-300); Potassium 3.4 mmol/L (3.4-5.0); Sodium 137 mmol/L (137-145)
--- NOTE | 2021-03-31 03:33 | ED.GENADULT ---
HPI - General Adult General Chief complaint: Unspecified Stated complaint: I had a mild stroke, then depression, SOB Time Seen by Provider: 03/31/21 02:38 Source: patient Mode of arrival: ambulatory Limitations: no limitations History of Present Illness HPI narrative: 30 year old female with history of schizophrenia complaining of abdominal pain and being sad for one day Onset (ago): hour(s) (2) Location: abdomen Radiation: periumbilical Severity: mild Severity scale (1-10): 3 Quality: dull Pain Consistency: intermittent Relieving factors: none Exacerbating factors: eating Associated symptoms: other (depression, denies SI/HI) Treatments prior to arrival: other (pepcid) Related Data Home Medications Medication Instructions Recorded Confirmed risperidone 2 mg HS 09/09/20 11/24/20 paliperidone palmitate [Invega 234 mg IM 01/04/21 Sustenna] carbamazepine 200 mg DAILY 02/22/21 02/22/21 Allergies Allergy/AdvReac Type Severity Reaction Status Date / Time latex Allergy Unknown Rash Verified 02/22/21 22:24 crab Allergy Unknown Verified 02/22/21 22:24 shellfish derived Allergy Unknown Verified 02/22/21 22:24 Review of Systems Review of Systems: CONSTITUTIONAL: no fever, no weight loss, no confusion EYES: no vision changes, no eye pain ENT: no rhinorrhea, no sore throat, no difficulty swallowing CARDIOVASCULAR: no chest pain, no leg edema, no palpitations RESPIRATORY: no cough, no shortness of breath, no hemoptysis GASTROINTESTINAL: positive for abdominal pain, no nausea, no vomiting, no diarrhea GENITOURINARY: no flank pain, no dysuria, no hematuria SKIN: no rash, no jaundice MUSCULOSKELETAL: no back pain, no trauma. NEUROLOGIC: No headache, no dizziness, no focal weakness PSYCHIATRIC: No hallucinations, no suicidal ideation just feels sad [facility] Past Medical History Medical History (Updated 04/01/21 @ 00:00 by Erasto Sanabria) History of schizophrenia Social History Social History Smoking status: Light tobacco smoker Alcohol intake: never Substance use: never Substance use type: does not use Gender identity (if verbalized by the patient): Female Course Reevaluation(s) Date: 03/31/21 Time: 04:02 Reevaluation #2: Abdomen soft, afebrile, no vomiting in the ED. tolerating p.o. all labs are normal. Patient denies suicidal homicidal ideation. Patient understands that she can return to the ED for any symptoms. States she is taking all of her psych medications and her last hospitalization was a ago. Patient is alert and oriented x3 drove herself here and is considered safe for discharge. Vital Signs Vital signs: Vital Signs Temperature 36.6 C 03/31/21 02:36 Pulse Rate 66 03/31/21 02:36 Respiratory Rate 18 03/31/21 02:36 Pulse Oximetry 97 03/31/21 02:36 Temperature 36.6 C 03/31/21 02:36 Pulse Rate 63 03/31/21 04:09 Respiratory Rate 18 03/31/21 04:09 Blood Pressure 112/66 03/31/21 04:09 Pulse Oximetry 98 03/31/21 04:09 Medical Decision Making MDM Narrative Medical decision making narrative: Patient with history of schizophrenia states she walked to hospital for abdominal pain. No fever, no vomiting, no hematemesis, no dysuria, no hematuria,no pelvic pain, denies STD risk factors, no vaginal discharge, no vaginal bleeding. Differential Diagnosis Differential Diagnosis: Gastritis, enteritis, ileus, small bowel obstruction, diverticulitis, hepatobiliary disease electrolyte disorder UTI , dehydration Plan: IV fluids, CBC, BMP, LFTs TSH and medical clearance labs in case patient requests admission to psychiatric hospital. Medical Records Medical records reviewed: Yes I reviewed the external patient's medical records. Vital Signs Vital Signs: Vital Signs Temperature 36.6 C 03/31/21 02:36 Pulse Rate 66 03/31/21 02:36 Respiratory Rate 18 03/31/21 02:36 Pulse Oximetry 97 03/31/21 02:36 Temperat
[2021-03-31 03:53] LABS: Add Urine Microscopic? YES; Appearance Urine Cloudy (Clear); Bacteria Urine Trace /hpf; Bilirubin Urine Negative (Negative); Blood Urine Negative (Negative); Color Urine Yellow (Yellow); Glucose Urine UA Negative (Negative); Ketones Urine Negative (Negative); Leukocyte Esterase Ur Negative LEU/UL (Negative); Nitrate Urine Negative (Negative); Protein Urine Negative (Negative); RBC Urine 0-2 /hpf (0-2); Specific Grav Ur 1.014 (1.001-1.035); Squamous Epithelial Cell Urine Many /hpf (Few); Urobilinogen Urine Negative mg/dL (<2.0); WBC Urine 0-3 /hpf
[2021-03-31 04:02] LABS: Amphetamine Screen Urine Negative (Negative); Barbiturate Screen Urine Negative (Negative); Benzodiazepines Screen Urine Negative (Negative); Cannabinoid Screen Urine Negative (Negative); Cocaine Screen Urine Negative (Negative); Methadone Screen Urine Negative (Negative); Opiate Screen Urine Negative (Negative); Phencyclidine Screen Urine Negative (Negative)
[2021-03-31 04:09] VITALS: BP 112/66; PULSE 63; RESP 18; O2SAT 98
== END 2021-03-31 04:17 | disposition home or self-care (01) ==
PROVIDERS: Emergency Provider Emergency Medicine; PCP Emergency Medicine
DX: R10.33 Periumbilical pain (principal); F32.A Depression, unspecified; F20.9 Schizophrenia, unspecified; R00.1 Bradycardia, unspecified
CPT/HCPCS: 36415; 80053; 80307; 81001; 81025; 83690; 84443; 85025; 93005; 99283

== ENCOUNTER 2021-04-19 15:01 | Emergency (ER) | payer OTHER, SELFPAY ==
[2021-04-19 15:04] VITALS: BP 133/84; PULSE 85; RESP 18; TEMP 35.7; O2SAT 100
--- NOTE | 2021-04-19 16:57 | ED.GENADULT ---
HPI - General Adult General Chief complaint: Unspecified Stated complaint: i have menengitis Time Seen by Provider: 04/19/21 16:30 Source: patient Mode of arrival: ambulatory Limitations: no limitations History of Present Illness HPI narrative: This is a 22-year-old female that presents to the emergency department for sore throat. Ongoing over the last 3 days. Associated with fever. Reports the pain is making it hard to swallow. Denies cough. Related Data Home Medications Medication Instructions Recorded Confirmed risperidone 2 mg HS 09/09/20 11/24/20 paliperidone palmitate [Invega 234 mg IM 01/04/21 Sustenna] carbamazepine 200 mg DAILY 02/22/21 02/22/21 paliperidone palmitate [Invega mg IM 04/19/21 Sustenna] risperidone mg 04/19/21 Allergies Allergy/AdvReac Type Severity Reaction Status Date / Time latex Allergy Unknown Rash Verified 04/19/21 15:01 crab Allergy Unknown Verified 04/19/21 15:01 shellfish derived Allergy Unknown Verified 04/19/21 15:01 Review of Systems Review of Systems: CONSTITUTIONAL: Reports fever, ENT: Reports sore throat RESPIRATORY: Denies cough All systems reviewed & are unremarkable except as noted in HPI and below PMFSH Past Medical History Medical History (Updated 04/19/21 @ 17:00 by Christa Masterson PA-C) History of schizophrenia Social History Social History Smoking status: Light tobacco smoker Alcohol intake: never Substance use: never Substance use type: does not use Gender identity (if verbalized by the patient): Female Exam Narrative: GENERAL: Well-appearing, well-nourished, and in no acute distress. HEAD: Normocephalic, atraumatic. EYES: EOMI. ENT: Nares clear, no rhinorrhea or epistaxis. Mucous membranes moist. Oropharynx with mild, symmetric tonsillar hypertrophy, no exudate or other lesions. Uvula is midline. No trismus. Bilateral TMs pearly yates non-bulging NECK: Supple. No adenopathy or masses. CHEST: Clear to auscultation. No respiratory distress. No wheezes rales or rhonchi HEART: Regular rate and rhythm. No murmur heard. Normal peripheral pulses. EXTREMITIES: Normal range of motion. No edema. SKIN: Warm, dry, no rash. NEURO: No focal deficits. Alert and oriented x3. PSYCH: Normal mood and affect Course Vital Signs Vital signs: Vital Signs Temperature 96.3 F L 04/19/21 15:04 Pulse Rate 85 04/19/21 15:04 Respiratory Rate 18 04/19/21 15:04 Blood Pressure 133/84 04/19/21 15:04 Pulse Oximetry 100 04/19/21 15:04 Temperature 96.3 F L 04/19/21 15:04 Pulse Rate 85 04/19/21 15:04 Respiratory Rate 18 04/19/21 15:04 Blood Pressure 133/84 04/19/21 15:04 Pulse Oximetry 100 04/19/21 15:04 Medical Decision Making MDM Narrative Medical decision making narrative: Patient presents the emergency department for sore throat present over the last 3 days. She is afebrile and nontoxic-appearing. Mild, symmetric tonsillar erythema atrophy on exam. Patient's rapid strep is negative, this will be sent for culture. Tell patient I will send antibiotics to the pharmacy for any worsening symptoms and for now will treat as likely viral pharyngitis. Patient is stable and felt appropriate for further outpatient evaluation. She was instructed to follow-up with her primary care doctor. She was given warnings to return to the ER Vital Signs Vital Signs: Vital Signs Temperature 96.3 F L 04/19/21 15:04 Pulse Rate 85 04/19/21 15:04 Respiratory Rate 18 04/19/21 15:04 Blood Pressure 133/84 04/19/21 15:04 Pulse Oximetry 100 04/19/21 15:04 Temperature 96.3 F L 04/19/21 15:04 Pulse Rate 85 04/19/21 15:04 Respiratory Rate 18 04/19/21 15:04 Blood Pressure 133/84 04/19/21 15:04 Pulse Oximetry 100 04/19/21 15:04 Lab Data Lab results reviewed: Yes I reviewed the patient's lab results. Labs: Strep Screen Presumptive Nega
== END 2021-04-20 01:28 | disposition home or self-care (01) ==
PROVIDERS: Emergency Provider Emergency Medicine; PCP Emergency Medicine
DX: J02.9 Acute pharyngitis, unspecified (principal); F17.200 Nicotine dependence, unspecified, uncomplicated; F20.9 Schizophrenia, unspecified
CPT/HCPCS: 87081; 87880; 99283

== ENCOUNTER 2021-05-08 20:05 | Emergency (ER) | payer OTHER, SELFPAY ==
[2021-05-08 20:08] VITALS: BP 121/68; PULSE 69; RESP 18; TEMP 36.6; O2SAT 99
--- NOTE | 2021-05-08 20:45 | PC.NURSE ---
talked with pt. Pt denies wanting to hurt herself or hurt anyone else at this time. Pt states she is just sad and depressed and wants to talk to a counselor.
--- NOTE | 2021-05-08 21:12 | ED.PSYCH ---
HPI - Psych General Chief Complaint: Psychiatric Symptoms Stated Complaint: Anxiety Time Seen by Provider: 05/08/21 20:17 Source: patient and RN notes reviewed Mode of arrival: ambulatory Limitations: no limitations History of Present Illness HPI Narrative: This is a 30 year old female with history of anxiety and schizophrenia who presents for evaluation of increased anxiety and racing thoughts. She is having thoughts that she is not good enough and other thoughts. She states she does not know what to do and she is unable to see her psychiatrist for 2 days. She states she has been taking all of her medications. She denies being suicidal currently. She also denies homicidal thoughts.. Related Data Home Medications Medication Instructions Recorded Confirmed risperidone 2 mg HS 09/09/20 11/24/20 paliperidone palmitate [Invega 234 mg IM 01/04/21 Sustenna] carbamazepine 200 mg DAILY 02/22/21 02/22/21 paliperidone palmitate [Invega mg IM 04/19/21 Sustenna] risperidone mg 04/19/21 Allergies Allergy/AdvReac Type Severity Reaction Status Date / Time latex Allergy Unknown Rash Verified 04/19/21 15:01 crab Allergy Unknown Verified 04/19/21 15:01 shellfish derived Allergy Unknown Verified 04/19/21 15:01 Review of Systems Review of Systems: All systems reviewed & are unremarkable except as noted in HPI and below Constitutional: Constitutional: Denies chills, Denies fever(s) and Denies weakness ENT: Denies nasal congestion Cardiovascular: Cardiovascular: Denies chest pain Respiratory: Respiratory: Denies cough and Denies dyspnea Gastrointestinal: Gastrointestinal: Denies abdominal pain, Denies nausea and Denies vomiting Psychiatric: Psychiatric: Reports anxiety, Denies homicidal ideation and Denies suicidal ideation [facility] Past Medical History Medical History (Updated 05/09/21 @ 02:17 by Mary Dumont MD) History of schizophrenia Social History Social History Smoking status: Light tobacco smoker Alcohol intake: never Substance use: never Substance use type: does not use Gender identity (if verbalized by the patient): Female Exam Const: General: no acute distress and alert Orientation/consciousness: patient oriented x3 Eyes: EOM: EOMs intact bilaterally Chest: Chest palpation & inspection: normal inspection of the chest Resp: Effort & Inspection: normal respiratory effort and no retractions Auscultation: clear to auscultation bilaterally Cardio: Rate: regular rate Rhythm: regular rhythm Heart sounds: no murmurs GI: GI Palp: Yes Soft to palpation, No Tenderness to palpation present (GI) and No Guarding due to palpation present (GI) Auscultation: normal bowel sounds Back/Spine/Pelvis: Back: no CVA tenderness Skin: General skin exam: normal color Rashes: no rashes Neuro: General: patient oriented x3, moves all extremities and CN's II-XI intact bilaterally Psych: Appearance: grossly normal and well kempt Attitude: cooperative Thought content: Yes Depressive thoughts present Course Reevaluation(s) Reevaluation #1: PAtient was evaluated by Chest nut photographic process worker. She had safety contract and she is stable for discharge. She was given resources. Date: 05/09/21 Time: 02:16 Vital Signs Vital signs: Vital Signs Temperature 97.9 F 05/08/21 20:08 Pulse Rate 69 05/08/21 20:08 Respiratory Rate 18 05/08/21 20:08 Blood Pressure 121/68 05/08/21 20:08 Pulse Oximetry 99 05/08/21 20:08 Temperature 97.9 F 05/08/21 20:08 Pulse Rate 69 05/08/21 20:08 Respiratory Rate 18 05/08/21 20:08 Blood Pressure 121/68 05/08/21 20:08 Pulse Oximetry 99 05/08/21 20:08 MDM - Psych Lab Data Attestation: I reviewed the patient's lab results. Result diagrams: 05/08/21 23:21 05/08/21 23:21 Labs: Lab Results 05/08/21 05/08/21 05/08/21 Range/Units 23:21 23:21 2
[2021-05-08 23:34] LABS: Basophils Absolute Auto 0.1 K/mm3 (0.0-0.1); Eosinophils Absolute Auto 0.4 K/mm3 (0-0.3); Eosinophils Percent Auto 3.7 % (0-4.4); Hematocrit 42.2 % (37.0-47.0); Hemoglobin 14.3 g/dL (12.0-15.0); Immature Granulocyte Absolute 0.03 K/mm3 (0.00-0.031); Immature Granulocyte Percent A 0.3 % (0-0.5); Lymphocytes Percent Auto 26.7 % (18.3-44.2); Mean Corpuscular HGB Conc 33.9 g/dl (32-36); Mean Corpuscular Hemoglobin 33.2 pg (26-34); Mean Corpuscular Volume 97.9 fl (80-100); Mean Platelet Volume 10.4 fl (7.4-10.4); Monocytes Absolute Auto 1.3 K/mm3 (0.1-0.6); Monocytes Percent Auto 12.2 % (2.6-8.5); Neutrophils Absolute Auto 6.1 K/mm3 (1.3-6.7); Neutrophils Percent Auto 56.1 % (45.5-73.1); Platelet Count Result 314 k/mm3 (150-375); Red Blood Count 4.31 M/mm3 (4.2-5.4); Red Cell Distribution Width 12.8 % (11.5-14.5); White Blood Count 10.9 K/mm3 (4.5-10.0)
[2021-05-08 23:37] LABS: Add Urine Microscopic? NO; Appearance Urine Clear (Clear); Bilirubin Urine Negative (Negative); Blood Urine Negative (Negative); Color Urine Yellow (Yellow); Glucose Urine UA Negative (Negative); Ketones Urine Negative (Negative); Leukocyte Esterase Ur Negative LEU/UL (Negative); Nitrate Urine Negative (Negative); Protein Urine Negative (Negative); Specific Grav Ur 1.011 (1.001-1.035); Urobilinogen Urine Negative mg/dL (<2.0)
[2021-05-08 23:42] LABS: Ethanol < 10 mg/dL (<10)
[2021-05-08 23:43] LABS: Alanine Aminotransferase 27 U/L (4-35); Albumin Level 4.3 g/dL (3.5-5.1); Alkaline Phosphatase 101 U/L (38-126); Anion Gap 10 mmol/L (8-16); Aspartate Amino Transferase 29 U/L (14-36); Bilirubin,Total 0.4 mg/dL (0.2-1.3); Blood Urea Nitrogen 11 mg/dL (7-17); Calcium 9.5 mg/dL (8.4-10.2); Carbon Dioxide 27 mmol/L (22-30); Chloride 103 mmol/L (98-107); Estimated CRCL calculation 128 ml/min; Estimated Glomerular Filt Rate > 60; Glucose 91 mg/dL (65-110); Potassium 3.9 mmol/L (3.4-5.0); Sodium 140 mmol/L (137-145)
[2021-05-08 23:48] LABS: Amphetamine Screen Urine Negative (Negative); Barbiturate Screen Urine Negative (Negative); Benzodiazepines Screen Urine Negative (Negative); Cannabinoid Screen Urine Negative (Negative); Cocaine Screen Urine Negative (Negative); Methadone Screen Urine Negative (Negative); Opiate Screen Urine Negative (Negative); Phencyclidine Screen Urine Negative (Negative)
--- NOTE | 2021-05-09 01:03 | PC.NURSE ---
Dr states pt is medically clear.
--- NOTE | 2021-05-09 01:04 | PC.NURSE ---
called crisis for evaluation of pt.
--- NOTE | 2021-05-09 02:16 | PC.NURSE ---
utility worker [employer] states pt is going home on a safety plan.
== END 2021-05-09 02:35 | disposition home or self-care (01) ==
PROVIDERS: Emergency Provider General Practice; PCP Emergency Medicine
DX: F41.9 Anxiety disorder, unspecified (principal); F20.9 Schizophrenia, unspecified; F17.200 Nicotine dependence, unspecified, uncomplicated
CPT/HCPCS: 36415; 80053; 80307; 81003; 81025; 84443; 85025; 99284

== ENCOUNTER 2021-05-29 03:35 | Emergency (ER) | payer OTHER, SELFPAY ==
[2021-05-29 03:39] VITALS: BP 129/60; PULSE 101; RESP 17; TEMP 36.5; O2SAT 97
--- NOTE | 2021-05-29 04:01 | PC.NURSE ---
triaged pt walked out before seeing provider at this time
== END 2021-05-29 04:01 | disposition left against medical advice (07) ==
PROVIDERS: PCP Emergency Medicine
DX: Z53.21 Procedure and treatment not carried out due to patient leaving prior to being seen by health care provider (principal)
CPT/HCPCS: 99199

== ENCOUNTER 2021-06-17 00:28 | Emergency (ER) | payer OTHER, SELFPAY ==
[2021-06-17 00:32] VITALS: BP 111/72; PULSE 96; RESP 18; TEMP 36.1; O2SAT 97
--- NOTE | 2021-06-17 01:34 | PC.NURSE ---
Pt to intake desk, states my migraine is better . states no longer needs to be seen.
== END 2021-06-17 01:33 | disposition left against medical advice (07) ==
LOC: ANHED 02:00
PROVIDERS: PCP Emergency Medicine
DX: G43.909 Migraine, unspecified, not intractable, without status migrainosus (principal)
CPT/HCPCS: 99199

== ENCOUNTER 2021-06-24 22:25 | Emergency (ER) | payer OTHER, SELFPAY ==
[2021-06-24 22:40] VITALS: BP 125/73; PULSE 68; RESP 18; TEMP 36.7
--- NOTE | 2021-06-24 22:51 | ED.GENADULT ---
HPI - General Adult General Chief complaint: Psychiatric Symptoms Stated complaint: Suicidal Time Seen by Provider: 06/24/21 22:37 History of Present Illness HPI narrative: Patient 30-year-old female presents to emergency department with chief complaint of suicidal ideation. Patient reports that she got an argument with her family this evening and started having thoughts of wanting to harm herself. The patient has no planned reports that she has not actually tried to hurt herself tonight. The patient states she was last in the hospital about a week ago for similar type experiences. Patient reports the symptoms are worse whenever she interacts with her mother Related Data Home Medications Medication Instructions Recorded Confirmed risperidone 2 mg HS 09/09/20 11/24/20 paliperidone palmitate [Invega 234 mg IM 01/04/21 Sustenna] carbamazepine 200 mg DAILY 02/22/21 02/22/21 paliperidone palmitate [Invega mg IM 04/19/21 Sustenna] risperidone mg 04/19/21 Allergies Allergy/AdvReac Type Severity Reaction Status Date / Time latex Allergy Unknown Rash Verified 05/29/21 03:44 crab Allergy Unknown Verified 05/29/21 03:44 shellfish derived Allergy Unknown Verified 05/29/21 03:44 Review of Systems Review of Systems: A 10 system review of systems was completed on the patient and is negative except for what is stated in the HPI. Nursing and ancillary documentation was reviewed. [facility] Past Medical History Medical History (Updated 06/25/21 @ 02:31 by Larry Sawyer MD) History of schizophrenia Social History Social History Smoking status: Light tobacco smoker Alcohol intake: never Substance use: never Substance use type: unknown Gender identity (if verbalized by the patient): Female Exam Narrative: GENERAL: Well-appearing, well-nourished, and in no acute distress. HEAD: Normocephalic, atraumatic. EYES: PERRLA and EOMI. ENT: Nares clear, no rhinorrhea or epistaxis. Mucous membranes moist. NECK: Supple. CHEST: Clear to auscultation. No respiratory distress. HEART: Regular rate and rhythm. No murmur heard. Normal peripheral pulses. ABDOMEN: Soft, nontender, nondistended, normal active bowel sounds. EXTREMITIES: Normal range of motion. No edema. SKIN: Warm, dry, no rash. NEURO: No focal deficits. Alert and oriented x3. PSYCH: Normal mood and affect. Course Course Emergency Course: Patient is medically cleared for psychiatric evaluation placement and transport Patient was seen by the steel worker and was cleared to discharge home with safety contract Vital Signs Vital signs: Vital Signs Temperature 36.7 C 06/24/21 22:40 Pulse Rate 68 06/24/21 22:40 Respiratory Rate 18 06/24/21 22:40 Blood Pressure 125/73 06/24/21 22:40 Temperature 36.7 C 06/24/21 22:40 Pulse Rate 68 06/24/21 22:40 Respiratory Rate 18 06/24/21 22:40 Blood Pressure 125/73 06/24/21 22:40 Medical Decision Making Vital Signs Vital Signs: Vital Signs Temperature 36.7 C 06/24/21 22:40 Pulse Rate 68 06/24/21 22:40 Respiratory Rate 18 06/24/21 22:40 Blood Pressure 125/73 06/24/21 22:40 Temperature 36.7 C 06/24/21 22:40 Pulse Rate 68 06/24/21 22:40 Respiratory Rate 18 06/24/21 22:40 Blood Pressure 125/73 06/24/21 22:40 Lab Data Result diagrams: 06/24/21 22:48 06/24/21 22:48 Labs: Lab Results 06/24/21 06/24/21 06/24/21 Range/Units 22:48 22:48 22:48 WBC 8.4 (4.5-10.0) K/mm3 RBC 4.10 L (4.2-5.4) M/mm3 Hgb 13.7 (12.0-15.0) g/dL Hct 40.6 (37.0-47.0) % MCV 99.0 (80-100) fl MCH 33.4 (26-34) pg MCHC 33.7 (32-36) g/dl RDW 12.7 (11.5-14.5) % Plt Count 233 (150-375) k/mm3 MPV 10.8 H (7.4-10.4) fl Immature Gran % (Auto) 0.2 (0-0.5) % Neut % (Auto) 47.7 (45.5-73.1) % Lymph % (Auto) 29.7 (18.3-44.2
[2021-06-24 22:59] LABS: Basophils Absolute Auto 0.1 K/mm3 (0.0-0.1); Basophils Percent Auto 0.8 % (0.2-1.2); Eosinophils Absolute Auto 0.6 K/mm3 (0-0.3); Eosinophils Percent Auto 7.3 % (0-4.4); Hematocrit 40.6 % (37.0-47.0); Hemoglobin 13.7 g/dL (12.0-15.0); Immature Granulocyte Absolute 0.02 K/mm3 (0.00-0.031); Immature Granulocyte Percent A 0.2 % (0-0.5); Lymphocytes Absolute Auto 2.49 K/mm3 (0.9-3.2); Lymphocytes Percent Auto 29.7 % (18.3-44.2); Mean Corpuscular HGB Conc 33.7 g/dl (32-36); Mean Corpuscular Hemoglobin 33.4 pg (26-34); Mean Platelet Volume 10.8 fl (7.4-10.4); Monocytes Absolute Auto 1.2 K/mm3 (0.1-0.6); Monocytes Percent Auto 14.3 % (2.6-8.5); Neutrophils Percent Auto 47.7 % (45.5-73.1); Platelet Count Result 233 k/mm3 (150-375); Red Cell Distribution Width 12.7 % (11.5-14.5); White Blood Count 8.4 K/mm3 (4.5-10.0)
[2021-06-24 23:04] LABS: Add Urine Microscopic? YES; Appearance Urine Cloudy (Clear); Bacteria Urine Trace /hpf; Bilirubin Urine Negative (Negative); Blood Urine 2+ (Negative); Color Urine Straw (Yellow); Glucose Urine UA Negative (Negative); Ketones Urine Negative (Negative); Leukocyte Esterase Ur Trace LEU/UL (Negative); Mucus Urine Rare /lpf; Nitrate Urine Negative (Negative); Protein Urine Negative (Negative); Squamous Epithelial Cell Urine Many /hpf (Few); Urobilinogen Urine Negative mg/dL (<2.0); WBC Urine 0-3 /hpf
[2021-06-24 23:14] LABS: Alanine Aminotransferase 26 U/L (4-35); Albumin Level 4.3 g/dL (3.5-5.1); Alkaline Phosphatase 77 U/L (38-126); Anion Gap 9 mmol/L (8-16); Aspartate Amino Transferase 22 U/L (14-36); Bilirubin,Total 0.2 mg/dL (0.2-1.3); Blood Urea Nitrogen 8 mg/dL (7-17); Carbon Dioxide 27 mmol/L (22-30); Chloride 102 mmol/L (98-107); Estimated CRCL calculation 146 ml/min; Estimated Glomerular Filt Rate > 60; Glucose 95 mg/dL (65-110); Potassium 3.8 mmol/L (3.4-5.0); Sodium 138 mmol/L (137-145)
[2021-06-24 23:15] LABS: Amphetamine Screen Urine Negative (Negative); Barbiturate Screen Urine Negative (Negative); Benzodiazepines Screen Urine Negative (Negative); Cannabinoid Screen Urine Negative (Negative); Cocaine Screen Urine Negative (Negative); Methadone Screen Urine Negative (Negative); Opiate Screen Urine Negative (Negative); Phencyclidine Screen Urine Negative (Negative)
[2021-06-24 23:18] LABS: Specific Grav Ur 1.003 (1.001-1.035)
[2021-06-24 23:18] LABS: Acetaminophen < 10 ug/mL (10-30); Ethanol < 10 mg/dL (<10); Salicylate < 1.0 mg/dL (2-20)
--- NOTE | 2021-06-25 00:08 | ECG_ITS ---
Measurements Intervals Valentine Rate: 65 P: 52 FL: 184 QRS: 49 QRSD: 87 T: 40 QT: 384 QTc: 399 Interpretive Statements SINUS RHYTHM WITH SINUS ARRHYTHMIA LOW QRS VOLTAGE IN PRECORDIAL LEADS BORDERLINE ECG Electronically Signed On 06-25-2021 6:49:22 [employer]ION EDUCATOR by Ras Dia D.O.
--- NOTE | 2021-06-25 00:51 | PC.NURSE ---
PT MEDICALLY CLEARED, CRISIS STEPHANIE NOTIFIED AND WILL SEND OUT SOMEONE TO EVALUATE THE PATIENT.
[2021-06-25 00:58] LABS: SARS-CoV-2 RNA PCR Negative
[2021-06-25 03:11] VITALS: BP 107/62; PULSE 68; RESP 18; O2SAT 95
== END 2021-06-25 03:11 | disposition home or self-care (01) ==
PROVIDERS: Emergency Provider Emergency Medicine; PCP Emergency Medicine
DX: F32.A Depression, unspecified (principal); Z20.822 Contact with and (suspected) exposure to COVID-19; F20.9 Schizophrenia, unspecified; F17.200 Nicotine dependence, unspecified, uncomplicated
CPT/HCPCS: 36415; 80053; 80307; 81001; 84443; 85025; 93005; 99284; C9803; U0003; U0005

== ENCOUNTER 2021-09-17 22:05 | Emergency (ER) | payer OTHER, SELFPAY ==
[2021-09-17 22:31] VITALS: BP 118/65; PULSE 64; RESP 18; TEMP 36.2; O2SAT 100
== END 2021-09-17 23:59 | disposition left against medical advice (07) ==
LOC: ANHED 23:27
PROVIDERS: PCP Emergency Medicine
DX: T23.011A Burn of unspecified degree of right thumb (nail), initial encounter (principal)
CPT/HCPCS: 99199

== ENCOUNTER 2021-12-28 22:50 | Emergency (ER) | payer OTHER, SELFPAY ==
[2021-12-28 23:03] VITALS: BP 115/61; PULSE 68; RESP 14; TEMP 36.4; O2SAT 99
--- NOTE | 2021-12-28 23:23 | PC.NURSE ---
triaged pt left before being seen by provider at this time
== END 2021-12-28 23:23 | disposition left against medical advice (07) ==
LOC: ANHED 23:32
PROVIDERS: PCP Emergency Medicine
DX: R10.9 Unspecified abdominal pain (principal)
CPT/HCPCS: 99199

== ENCOUNTER 2022-02-27 07:01 | Outpatient (CLI) | payer OTHER, SELFPAY ==
[2022-02-27 07:49] LABS: Alanine Aminotransferase 25 U/L (6-35); Albumin Level 4.1 g/dL (3.5-5.1); Alkaline Phosphatase 72 U/L (38-126); Anion Gap 7 mmol/L (8-16); Aspartate Amino Transferase 25 U/L (14-36); Bilirubin,Total 0.3 mg/dL (0.2-1.3); Blood Urea Nitrogen 9 mg/dL (7-17); Calcium 8.9 mg/dL (8.4-10.2); Carbon Dioxide 26 mmol/L (22-30); Chloride 105 mmol/L (98-107); Cholesterol 180 mg/dL (0-200); Estimated Glomerular Filt Rate > 60; Glucose 86 mg/dL (65-110); HDL Direct 64 mg/dL; Potassium 3.5 mmol/L (3.4-5.0); Sodium 138 mmol/L (137-145); Triglycerides 54 mg/dL (<150)
[2022-02-27 07:53] LABS: Basophils Absolute Auto 0.1 K/mm3 (0.0-0.1); Basophils Percent Auto 1.1 % (0.2-1.2); Eosinophils Absolute Auto 0.5 K/mm3 (0-0.3); Eosinophils Percent Auto 7.5 % (0-4.4); Hematocrit 42.8 % (37.0-47.0); Hemoglobin 14.5 g/dL (12.0-15.0); Immature Granulocyte Absolute 0.02 K/mm3 (0.00-0.031); Immature Granulocyte Percent A 0.3 % (0-0.5); Mean Corpuscular HGB Conc 33.9 g/dl (32-36); Mean Corpuscular Hemoglobin 33.9 pg (26-34); Mean Platelet Volume 10.8 fl (7.4-10.4); Monocytes Absolute Auto 0.8 K/mm3 (0.1-0.6); Monocytes Percent Auto 12.9 % (2.6-8.5); Neutrophils Absolute Auto 2.9 K/mm3 (1.3-6.7); Neutrophils Percent Auto 45.2 % (45.5-73.1); Platelet Count Result 241 k/mm3 (150-375); Red Blood Count 4.28 M/mm3 (4.2-5.4); White Blood Count 6.4 K/mm3 (4.5-10.0)
[2022-02-27 07:54] LABS: Appearance Urine Clear (Clear); Bilirubin Urine Negative (Negative); Blood Urine Negative (Negative); Color Urine Yellow (Yellow); Glucose Urine UA Negative (Negative); Ketones Urine Negative (Negative); Leukocyte Esterase Ur Negative LEU/UL (NEGATIVE); Nitrate Urine Negative (Negative); Protein Urine Negative (Negative); Specific Grav Ur 1.015 (1.001-1.035); Urobilinogen Urine 0.2 mg/dL (<2.0)
[2022-02-27 07:58] LABS: Bacteria Urine Trace /hpf; Squamous Epithelial Cell Urine Occasional /hpf (Few); WBC Urine 0-3 /hpf (0-3)
[2022-02-27 08:00] LABS: LDL Cholesterol Direct 83 mg/dL
[2022-02-27 08:08] LABS: Add Urine Microscopic? NO
[2022-02-27 08:25] LABS: Free T4 Free Thyroxine 1.02 ng/mL (0.78-2.19)
[2022-02-27 08:32] LABS: Hemoglobin A1C 4.6 % (<5.7)
[2022-02-27 10:13] LABS: Creatinine Urine 36.7 mg/dL
[2022-02-27 11:13] LABS: Microalbumin Urine Random < 6.0 mg/L (0-16.7)
== END 2022-02-27 07:02 | disposition home or self-care (01) ==
PROVIDERS: PCP Emergency Medicine; Visit Provider Emergency Medicine
DX: D72.10 Eosinophilia, unspecified (principal); G43.909 Migraine, unspecified, not intractable, without status migrainosus
CPT/HCPCS: 36415; 80053; 80061; 81003; 82043; 83036; 84439; 84443; 85025

== ENCOUNTER 2022-03-01 16:22 | Outpatient (CLI) | payer OTHER, SELFPAY ==
--- NOTE | ~2022-03-01 | XR_ITS ---
EXAMINATION: XR chest 2V 03/01/2022 16:47 INDICATION: Cough PROCEDURE: 2 view chest COMPARISON: 09/09/2020 FINDINGS: The lungs are clear. The cardiomediastinal silhouette is within normal limits. There are no pleural effusions. There is no pneumothorax suspected. IMPRESSION: 1: NO ACUTE CARDIOPULMONARY DISEASE. Reviewed, dictated and finalized at location A.
== END 2022-03-01 16:23 | disposition home or self-care (01) ==
LOC: ANHIMG 16:26
PROVIDERS: PCP Emergency Medicine; Visit Provider Emergency Medicine
DX: R05.9 Cough, unspecified (principal)
CPT/HCPCS: 71046

== ENCOUNTER 2022-03-20 21:58 | Emergency (ER) | payer OTHER, SELFPAY ==
[2022-03-20 22:01] VITALS: BP 122/75; PULSE 68; RESP 14; TEMP 36.2; O2SAT 99
--- NOTE | 2022-03-21 01:46 | PC.NURSE ---
Patient left department after triage
== END 2022-03-21 02:00 | disposition left against medical advice (07) ==
LOC: ANHED 03-21 01:51
PROVIDERS: PCP Emergency Medicine
DX: S60.410A Abrasion of right index finger, initial encounter (principal)
CPT/HCPCS: 99199

== ENCOUNTER 2022-06-21 22:30 | Emergency (ER) | payer MEDICARE, MEDICAID, SELFPAY ==
--- NOTE | 2022-06-21 22:35 | PC.NURSE ---
pt states she did not want to see an ER doc, just wanted a test.
== END 2022-06-21 22:35 | disposition left against medical advice (07) ==
LOC: ANHED 22:43
PROVIDERS: PCP Emergency Medicine
DX: Z53.21 Procedure and treatment not carried out due to patient leaving prior to being seen by health care provider (principal)
CPT/HCPCS: 99199

== ENCOUNTER 2022-12-16 02:38 | Emergency (ER) | payer MEDICARE, MEDICAID, SELFPAY ==
[2022-12-16 02:51] VITALS: BP 125/74; PULSE 73; RESP 16; TEMP 36.8; O2SAT 96
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
[2022-12-16 04:18] VITALS: BP 116/76; PULSE 60; RESP 16; O2SAT 96
== END 2022-12-16 04:19 | disposition home or self-care (01) ==
PROVIDERS: Emergency Provider Emergency Medicine; PCP Emergency Medicine
DX: L03.115 Cellulitis of right lower limb (principal); F20.9 Schizophrenia, unspecified
CPT/HCPCS: 73610; 99283

== ENCOUNTER 2022-12-25 14:11 | Emergency (ER) | payer MEDICARE, MEDICAID, SELFPAY ==
--- NOTE | ~2022-12-25 | XR_ITS ---
EXAM: XR knee RT 3V DATE: 12/25/2022 15:03 HISTORY: pain, injury NON SPECIFIC PAIN IN RT KNEE X 2-3 WEEKS . COMPARISON: 11/13/2020. FINDINGS: Normal mineralization. No fracture or dislocation. No lytic or blastic lesion. Joint space s are maintained. No erosion or periosteal change. Soft tissues within normal limits. Small knee join t effusion. IMPRESSION: No acute osseous finding in the right knee. Reviewed, dictated and finalized at location K.
[2022-12-25 14:14] VITALS: BP 123/64; PULSE 78; RESP 17; TEMP 36.6; O2SAT 98
--- NOTE | 2022-12-25 15:32 | ED.LOWEXIN ---
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 Denies any obvious recent injury that she can think of. Related Data Home Medications Medication Instructions Recorded Confirmed risperidone 1 mg tablet 2 mg HS 09/09/20 11/24/20 paliperidone palmitate 234 mg/1.5 234 mg IM 01/04/21 mL intramuscular syringe (Invega Sustenna) carbamazepine 200 mg tablet 200 mg DAILY 02/22/21 02/22/21 Allergies Allergy/AdvReac Type Severity Reaction Status Date / Time latex Allergy Unknown Rash Verified 12/25/22 15:19 crab Allergy Unknown Verified 12/25/22 15:19 shellfish derived Allergy Unknown Verified 12/25/22 15:19 Review of Systems Review of Systems: M/S: Right knee pain SKIN: No rash. NEURO: [No focal weakness] [facility] Past Medical History Medical History (Updated 12/25/22 @ 15:31 by Maureen Sunshine MD) History of schizophrenia Family History Family History Father No problems noted. Mother No problems noted. Sibling No problems noted. Social History Social History Smoking status: Light tobacco smoker Alcohol intake: never Substance use: never Substance use type: unknown Gender identity (if verbalized by the patient): Female Exam Narrative: EXAMINATION OF ORGAN SYSTEMS/BODY AREAS: Constitutional: Vital signs per nursing GENERAL:[No acute distress, non-toxic appearing.] HEAD: Normal with no signs of head trauma. EYES: EOMI, conjunctiva normal ENT: Hearing grossly intact LUNGS: Nonlabored breathing. HEART: [Regular rate and rhythm] EXT: Normal range of motion, able to ambulate, there is an effusion medial R knee, no joint laxity; normal DP pulses SKIN: [No rashes or lesions.] NEURO: [No gross focal sensory or strength deficits.] PSYCH: Flat affect Course Vital Signs Vital signs: Vital Signs Temperature 97.8 F 12/25/22 14:14 Pulse Rate 78 12/25/22 14:14 Respiratory Rate 17 12/25/22 14:14 Blood Pressure 123/64 12/25/22 14:14 Pulse Oximetry 98 12/25/22 14:14 Oxygen Delivery Room Air 12/25/22 14:14 Temperature 97.8 F 12/25/22 14:14 Pulse Rate 78 12/25/22 14:14 Respiratory Rate 17 12/25/22 14:14 Blood Pressure 123/64 12/25/22 14:14 Pulse Oximetry 98 12/25/22 14:14 Oxygen Delivery Room Air 12/25/22 14:14 MDM - Extremity Injury (Lower) MDM Narrative Medical decision making narrative: 32-year-old female presenting with multiple weeks of knee pain, she is able to bear weight and ambulate, on exam neurovascularly intact with small joint effusion, knee x-rays are obtained and on my own interpretation I did not note any obvious fracture. Given has been multiple weeks of symptoms I do feel patient will probably benefit from outpatient MRI and orthopedic follow-up, I have discussed this with her and she is agreeable with that plan. Return precautions discussed. Discharge Plan Discharge Clinical Impression: Right knee sprain Patient Disposition: Home, Self-Care Condition: Stable Instructions: Antibiotic Form, Knee Sprain (DC) Additional Instructions: Please follow up with your doctor; you can always return for any further issues. Prescriptions: New ibuprofen 600 mg tablet 600 mg PO TID PRN (Reason: fever or pain) Qty: 30 0RF No Action carbamazepine 200 mg tablet 200 mg DAILY risperidone 1 mg tablet 2 mg HS Invega Sustenna 234 mg/1.5 mL syringe 234 mg IM
[2022-12-25 15:42] VITALS: BP 111/61; PULSE 66; RESP 18; O2SAT 97
== END 2022-12-25 15:44 | disposition home or self-care (01) ==
PROVIDERS: Emergency Provider Emergency Medicine; PCP Emergency Medicine
DX: S83.91XA Sprain of unspecified site of right knee, initial encounter (principal); F20.9 Schizophrenia, unspecified; F17.200 Nicotine dependence, unspecified, uncomplicated; X50.9XXA Other and unspecified overexertion or strenuous movements or postures, initial encounter; Y93.02 Activity, running
CPT/HCPCS: 73562; 99283

== ENCOUNTER 2023-10-11 15:19 | Emergency (ER) | payer OTHER, SELFPAY ==
--- NOTE | ~2023-10-11 | CT_ITS ---
EXAMINATION: CT brain wo con DATE: 10/11/2023 16:19 INDICATION: Altered mental status. TECHNIQUE: Computed tomography (CT) of the head was performed without intravenous contrast. The mA wa s adjusted according to patient size. Iterative reconstruction technique was employed. The dose-lengt h product was 605.33 mGy-cm. COMPARISON: Head CT 07/04/2020 FINDINGS: There is no intracranial hemorrhage, acute infarction, or abnormal intracranial mass lesio n. The ventricles are normal in size. There is cavum septum pellucidum and vergae. The paranasal sinu ses are clear. The orbits are normal. The mastoid air cells are normal. IMPRESSION: 1. Normal brain. Reviewed, dictated and finalized at location A. IMPRESSION: 1. Normal brain.
[2023-10-11 15:21] VITALS: BP 127/85; PULSE 79; RESP 16; TEMP 36.6; O2SAT 98
--- NOTE | 2023-10-11 16:16 | ED.FEMALEGU ---
HPI - Female Genitourinary General Chief complaint: Vaginal Bleeding Stated complaint: vaginal bleeding Time Seen by Provider: 10/11/23 15:48 Source: patient Mode of arrival: ambulatory Limitations: no limitations History of Present Illness HPI Narrative: Patient is a 32-year-old female who presents the ED with report of vaginal bleeding. Patient reports having bleeding for the last 4 days. She states she is currently on her menstrual cycle. Has been going through 3-5 pads/tampons per day. Denies pain. Denies urinary complaints. Patient has flight of ideas, paranoid thoughts, difficult to follow conversation. Reporting that people have been outside of her house and that she does not feel safe being at home. History of schizophrenia in records. Per med rec, on fluoxetine, carbamazepine, Invega. Related Data Home Medications Medication Instructions Recorded Confirmed risperidone 1 mg tablet 2 mg HS 09/09/20 11/24/20 paliperidone palmitate 234 mg/1.5 234 mg IM 01/04/21 mL intramuscular syringe (Invega Sustenna) carbamazepine 200 mg tablet 200 mg DAILY 02/22/21 02/22/21 Allergies Allergy/AdvReac Type Severity Reaction Status Date / Time latex Allergy Unknown Rash Verified 12/25/22 15:19 crab Allergy Unknown Verified 12/25/22 15:19 shellfish derived Allergy Unknown Verified 12/25/22 15:19 Review of Systems Review of Systems: CONSTITUTIONAL: Denies fever, chills, or sweats. GASTROINTESTINAL: Denies abdominal pain, nausea, vomiting, or diarrhea. GENITOURINARY: See HPI. MUSCULOSKELETAL: Denies back pain, extremity pain, myalgia. PSYCHIATRIC: See HPI All systems reviewed & are unremarkable except as noted in HPI and below PMFSH Past Medical History Medical History (Updated 10/11/23 @ 18:58 by Kimberli Roque PA-C) History of schizophrenia Family History Family History Father No problems noted. Mother No problems noted. Sibling No problems noted. Social History Social History Smoking status: Light tobacco smoker Alcohol intake: never Substance use: never Substance use type: unknown Gender identity (if verbalized by the patient): Female Exam Narrative: GENERAL: Mildly unkempt appearing, obese with BMI of 30.7, non-toxic, in no acute distress. HEAD: Normocephalic, atraumatic. RESPIRATORY: Airway patent, respirations nonlabored. Clear to auscultation bilaterally, no rales, rhonchi, wheezing. CARDIOVASCULAR: Regular rate and rhythm without murmurs, rubs, or gallops. ABDOMINAL: Soft, no tenderness throughout abdomen, nondistended. Normoactive BS. MUSCULOSKELETAL: Moves all extremities. No gross deformities. SKIN: Warm, dry, normal color. NEURO: A&O X3. Speech clear. Cranial nerves II-XII grossly intact. Steady gait. No ataxic movements. PSYCHIATRIC: Delusional, paranoid, flight of ideas. Difficult to follow conversation, easily re-directable. Course Vital Signs Vital signs: Vital Signs Temperature 97.9 F 10/11/23 15:21 Pulse Rate 79 10/11/23 15:21 Respiratory Rate 16 10/11/23 15:21 Blood Pressure 127/85 10/11/23 15:21 Pulse Oximetry 98 10/11/23 15:21 Oxygen Delivery Room Air 10/11/23 15:21 Temperature 97.9 F 10/11/23 15:21 Pulse Rate 79 10/11/23 15:21 Respiratory Rate 16 10/11/23 15:21 Blood Pressure 127/85 10/11/23 15:21 Pulse Oximetry 98 10/11/23 15:21 Oxygen Delivery Room Air 10/11/23 15:21 MDM - Female Genitourinary MDM Narrative Medical decision making narrative: Patient presented to ED with concern for vaginal bleeding, currently on menstrual cycle. Vital signs are stable upon arrival. No evidence of hemodynamic instability. Patient also with paranoid thoughts, delusions, flight of ideas. She does have history of schizophrenia. Unknown if she is taking her medications.
[2023-10-11 16:21] LABS: Basophils Absolute Auto 0.1 K/mm3 (0.0-0.1); Basophils Percent Auto 0.8 % (0.2-1.2); Eosinophils Absolute Auto 0.3 K/mm3 (0-0.3); Eosinophils Percent Auto 3.4 % (0-4.4); Hematocrit 44.9 % (37.0-47.0); Hemoglobin 15.3 g/dL (12.0-15.0); Immature Granulocyte Absolute 0.02 K/mm3 (0.00-0.031); Immature Granulocyte Percent A 0.2 % (0-0.5); Lymphocytes Percent Auto 20.1 % (18.3-44.2); Mean Corpuscular HGB Conc 34.1 g/dl (32-36); Mean Corpuscular Hemoglobin 34.1 pg (26-34); Mean Platelet Volume 10.2 fl (7.4-10.4); Monocytes Absolute Auto 1.3 K/mm3 (0.1-0.6); Neutrophils Absolute Auto 5.5 K/mm3 (1.3-6.7); Neutrophils Percent Auto 61.5 % (45.5-73.1); Platelet Count Result 219 k/mm3 (150-375); Red Blood Count 4.49 M/mm3 (4.2-5.4); Red Cell Distribution Width 13.2 % (11.5-14.5)
[2023-10-11 16:34] LABS: Appearance Urine Cloudy (Clear); Bacteria Urine 1+ /hpf; Bilirubin Urine Negative (Negative); Blood Urine 3+ (Negative); Color Urine Yellow (Yellow); Glucose Urine UA Negative (Negative); Ketones Urine Negative (Negative); Leukocyte Esterase Ur Trace LEU/UL (Negative); Nitrate Urine Negative (Negative); Non Pathogenic Casts 0-2; Protein Urine 1+ mg/dL (Negative); RBC Urine >100 /hpf (0-2); Specific Grav Ur 1.014 (1.001-1.035); Squamous Epithelial Cell Urine Few /hpf (Few); Urobilinogen Urine 0.2 mg/dL (<2.0); WBC Urine 0-5 /hpf (0-3)
[2023-10-11 16:35] LABS: Acetaminophen < 10 ug/mL (10-30); Ethanol < 10 mg/dL (<10); Salicylate < 1.0 mg/dL (2-20)
[2023-10-11 16:36] LABS: Alanine Aminotransferase 17 U/L (6-35); Albumin Level 4.4 g/dL (3.5-5.1); Alkaline Phosphatase 58 U/L (38-126); Anion Gap 7 mmol/L (4-12); Aspartate Amino Transferase 23 U/L (14-36); Bilirubin,Total 0.4 mg/dL (0.2-1.3); Blood Urea Nitrogen 10 mg/dL (7-17); Calcium 9.2 mg/dL (8.4-10.2); Carbon Dioxide 24 mmol/L (22-30); Chloride 107 mmol/L (98-107); Estimated CRCL calculation 132 ml/min; Estimated Glomerular Filt Rate > 60; Glucose 99 mg/dL (65-110); Potassium 3.5 mmol/L (3.4-5.0); Sodium 138 mmol/L (137-145)
[2023-10-11 16:36] LABS: Add Urine Microscopic? YES
[2023-10-11 16:58] LABS: SARS-CoV-2 RNA PCR Negative (Negative)
[2023-10-11 17:07] LABS: Amphetamine Screen Urine Negative (Negative); Barbiturate Screen Urine Negative (Negative); Benzodiazepines Screen Urine Negative (Negative); Cannabinoid Screen Urine Negative (Negative); Cocaine Screen Urine Negative (Negative); Methadone Screen Urine Negative (Negative); Opiate Screen Urine Negative (Negative); Phencyclidine Screen Urine Negative (Negative)
== END 2023-10-11 19:17 | disposition home or self-care (01) ==
PROVIDERS: Emergency Provider Physician Assistant
DX: Z04.89 Encounter for examination and observation for other specified reasons (principal); F20.9 Schizophrenia, unspecified; F17.200 Nicotine dependence, unspecified, uncomplicated; Z79.899 Other long term (current) drug therapy; Z11.52 Encounter for screening for COVID-19
CPT/HCPCS: 36415; 70450; 80053; 80307; 81001; 81025; 84443; 85025; 87086; 87088; 87635; 99284

== ENCOUNTER 2023-10-20 10:55 | Emergency (ER) | payer OTHER, SELFPAY ==
[2023-10-20 10:57] VITALS: BP 120/62; PULSE 71; RESP 16; TEMP 35.9; O2SAT 98
--- NOTE | 2023-10-20 15:04 | PC.NURSE ---
pt called for room, not in waiting area. LWBS
== END 2023-10-20 15:42 | disposition left against medical advice (07) ==
LOC: ANHED 15:07
DX: R11.0 Nausea (principal)
CPT/HCPCS: 99199

== ENCOUNTER 2024-06-03 15:11 | Emergency (ER) | payer OTHER, SELFPAY ==
--- NOTE | 2024-06-03 15:27 | ED_ITS ---
HPI - Wound/Laceration General Stated Complaint: Wound check Time Seen by Provider: 06/03/24 15:17 History of Present Illness HPI narrative: 33-year-old female with history of chronic schizophrenia presenting to the emergency room with a chief complaint of wound evaluation. She states she accidentally cut the dorsum of her right middle finger on some keys today. Is a very small abrasion that appears to be a skin avulsion without any laceration. Denies any other injuries. Thinks her tetanus is already up-to-date. Patient has no other complaints at this time. She is otherwise pleasant but does have a longstanding history of schizophrenia on multiple medications. Patient is awake alert and ambulatory. Related Data Home Medications ?Medication ?Instructions ?Recorded ?Confirmed ?Last Taken ?Type risperidone 1 mg tablet 2 mg HS 09/09/20 11/24/20 Unknown History paliperidone palmitate 234 mg/1.5 234 mg IM 01/04/21 12/14/20 History mL intramuscular syringe (Invega Sustenna) carbamazepine 200 mg tablet 200 mg DAILY 02/22/21 02/22/21 Unknown History Allergies Allergy/AdvReac Type Severity Reaction Status Date / Time latex Allergy Unknown Rash Verified 10/20/23 11:00 crab Allergy Unknown Verified 10/20/23 11:00 shellfish derived Allergy Unknown Verified 10/20/23 11:00 Review of Systems Review of Systems: As reviewed [facility] Past Medical History Medical History History of schizophrenia Family History Family History Father No problems noted. Mother No problems noted. Sibling No problems noted. Social History Social History Smoking status: Light tobacco smoker Alcohol intake: never Substance use: never Substance use type: unknown Gender identity (if verbalized by the patient): Female Exam Narrative: GENERAL: Somewhat disheveled but otherwise well-appearing not any acute distress and awake and answering questions appropriately HEAD: [Normocephalic, atraumatic.] EYES: [PERRLA and EOMI.] ENT: Nares clear, no rhinorrhea or epistaxis. Mucous membranes moist. NECK: Supple. CHEST: [Clear to auscultation. No respiratory distress.] HEART: [Regular rate and rhythm]. No murmur heard. [Normal peripheral pulses.] ABDOMEN: [Soft, nondistended], [nontender], [No rigidity or guarding] EXTREMITIES: Normal range of motion. [No edema.] SKIN: Very small 0.5 cm avulsion flap in between the PIP and D IP joint of the dorsum of the right middle finger, no laceration or evidence of bleeding. Otherwise warm and dry extremities with no other injuries or lesions NEURO: [No focal deficits]. Alert and oriented [x3.] PSYCH: [Normal mood and affect.] Procedures Laceration Laceration 1: Date: 06/03/24 Time: 15:29 Site: hand Side (If applicable): right Size (cm): 0.5 Description: flap and clean Depth: simple, single layer Local Anesthetic: none Pre-repair: wound explored and deep structures intact ====== Skin Level ====== Skin layer closed with: other (Bandage) ====== Subcutaneous Layer ====== ====== Muscle Layer ====== ====== Tendon Layer ====== Dressing: Bandage MDM - Wound/Laceration MDM Narrative Medical decision making narrative: 33-year-old female presenting for a small skin avulsion to the dorsum of the right middle finger. No obvious injuries otherwise, no laceration, there is a skin avulsion but no deep structure involvement, no active bleeding. Full range of motion, otherwise well-appearing but has history of schizophrenia. No other complaints at this time according to the patient and she is safe and stable for discharge home after wound was cleaned and bandage applied. Differential Diagnosis Differential diagnosis: Likely avulsion of skin Medical Records Attestation: I reviewed the patient's medical records. Discharge Plan Discharge Clinical Impression: Avulsion of skin of right hand Patient Disposition: Home, Self-Care Condition: Stable Instructions: Antibiotic Form Additional Instructions: Return with any new or worsening concerns at any time Patient Language: Greenlandic Prescriptions: No Action carbamazepine 200 mg tablet 200 mg DAILY ibuprofen 600 mg tablet 600 mg PO TID PRN (Reason: fever or pain) Qty: 30 0RF risperidone 1 mg tablet 2 mg HS Invega Sustenna 234 mg/1.5 mL syringe 234 mg IM penicillin V potassium 500 mg tablet 500 mg PO Q12H 10 Days Qty: 20 0RF cephalexin 500 mg capsule 500 mg PO QID 7 Days Qty: 28 0RF Follow-up/Referrals: UNKNOWN,DOCTOR [Primary Care Provider] - Time of Disposition: 15:22
[2024-06-03 15:32] VITALS: BP 119/72; PULSE 79; RESP 18; TEMP 36.5; O2SAT 100
--- OUTSIDE RECORDS SUMMARY | 2024-06-10 06:33 | XMS_ITS | Encounter Summary ---
Author Organization [facility] Address [facility] [address] [place] [address] Care Team Providers Care Weasand Trimmer Name Role Phone Teetee Bertrand Primary Care Provider [phone] Encounter Details Date Type Department Care Team (Late st Contact Info) Description 05/02/2018 Orders Only [facility] Family & Internal Medicine [facility] [address] [place] [phone] Tesha Larios MA Social History Tobacco Use Types Packs/Day Years Used Date Smoking Tobacco: Never Assessed AUDIT-C Answer Date Recorded Frequency of Alcohol Consumption Monthly or less 05/04/2018 Average Number of Drinks Not on file 018 Frequency of Binge Drinking Not on file 10/2017 Comments Unknown Sex and Gender Information Value Date Recorded Sex Assigned at Not on file Legal Sex Female 8:27 PM CDT Gender Identity Not on file Sexual Orientation Not on file documented as of this encounter Plan of Treatment Not on file documented as of this encounter Visit Diagnoses Not on filedocumented in this encounter Care Teams Weasand Trimmer Relationship Specialty Start Date End Date Teetee Bertrand APNP [facility] [place], [place] [id number] PCP - General FAMILY PRACTICE 05/01/18 documented as of this encounter
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
--- OUTSIDE RECORDS SUMMARY | 2024-06-10 06:44 | XMS_ITS | Encounter Summary ---
Author Organization [facility] Address [address] [place] [address] Care Team Providers Care Guest Service Host Name Role Phone Thuy Chowdhury MD Unavailable Thuy Chowdhury MD Primary Care Provider [phone] Reason for Visit * Reason Comments Follow-up stitch removal to le ft hand Encounter Details Date Type Department Care Team (Late st Contact Info) Description 12/28/2011 1:15 PM CDT Office Visit [facility] Medical [facility] - Pediatrics [address] [place] [phone] Thuy Chowdhury MD [address] [place] [phone] Open wound of left hand (Primary Dx) Social History Tobacco Use Types Packs/Day Years Used Date Smoking Tobacco: Never Alcohol Use Standard Drinks/Week Comments Not Asked 0 (1 standard drink = 0.6 oz pur e alcohol) Sex and Gender Information Value Date Recorded Sex Assigned at Not on file Gender Identity Not on file Sexual Orientation Not on file documented as of this encounter Last Filed Vital Signs Vital Sign Reading Time Taken Comments Blood Pressure - - Pulse - - Temperature 37 ??C (98.6 ??F) 12/28/2011 1:00 PM CDT Respiratory Rate - - Oxygen Saturation - - Inhaled Oxygen Concentration - - Weight 61.9 kg (136 lb 6.4 oz) 12/28/2011 1:00 P M CDT Height - - Body Mass Index - - documented in this encounter Progress Notes * Thuy Chowdhury MD - 12/28/2011 1:01 PM CDT SUBJECTIVE: Tesha Liu is a 21 y.o. female accompanied to office today by brother for f/u after stitch removal to left palm yesterday. OBJECTIVE: Temp(Src) 98.6 ??F (Temporal Artery) Wt 136 lb 6.4 oz (61.871 kg) General appearance: alert, well appearing, and in no distress. Skin:wound on the palm of left hand, pink with slight white edges trimmed with scissors, wound cleaned with betadine and Hydrogen peroxide and applied neosporin. ASSESSMENT: Wound left hand - healing well PLAN: Continue with keflex for a week Wound dressing change at home documented in this encounter Plan of Treatment Not on file documented as of this encounter Visit Diagnoses Diagnosis Open wound of left hand- Primary Open wound of hand except finger(s) alone, without mention of complication documented in this encounter Care Teams Guest Service Host Relationship Specialty Start Date End Date Thuy Chowdhury MD PCP - Pediatrics 07/14/09 10/09/18 Thuy Chowdhury MD PCP - General Pediatrics 11/16/11 10/08/18 documented as of this encounter
--- OUTSIDE RECORDS SUMMARY | 2024-06-10 06:44 | XMS_ITS | Encounter Summary ---
Author Organization [facility] Address [facility] [facility] [place] [address] Care Team Providers Care Dance Master Name Role Phone Thuy Chowdhury MD Unavailable Reason for Visit * Reason Onset Date Comments Refill Request 05/18/2010 Encounter Details Date Type Department Care Team (Late st Contact Info) Description 05/18/2010 Telephone [facility] Medical [facility] - Pediatrics [address] [place] [address] [address] [place] [phone] Thuy Chowdhury MD [address] [place] [phone] Refill Request Social History Tobacco Use Types Packs/Day Years Used Date Smoking Tobacco: Never Assessed Sex and Gender Information Value Date Recorded Sex Assigned at Not on file Gender Identity Not on file Sexual Orientation Not on file documented as of this encounter Miscellaneous Notes * Telephone Encounter - Scotty Matos - 05/18/2010 1:48 PM CST Mom called and said she needs a refill on sumapriptan 25mg but the pharmacies don't have the 25mg and they were supposed to call you to see if 50mg is okay or if they can cut pill in half? Michelle in [place]-let mom know. IPPING CLERK documented in this encounter Plan of Treatment Not on file documented as of this encounter Visit Diagnoses Not on filedocumented in this encounter Care Teams Dance Master Relationship Specialty Start Date End Date Thuy Chowdhury MD PCP - Pediatrics 07/14/09 10/09/18 documented as of this encounter
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
--- OUTSIDE RECORDS SUMMARY | 2024-06-10 06:44 | XMS_ITS | Encounter Summary ---
Author Organization [facility] Address [address] [place] [address] Care Team Providers Care Heel Sander Name Role Phone Thuy Chowdhury MD Unavailable Thuy Chowdhury MD Primary Care Provider [phone] Reason for Visit * Reason Onset Date Comments Psychiatric Problem 10/11/2017 Encounter Details Date Type Department Care Team (Late st Contact Info) Description 10/11/[address] [facility] [address] [place] [address] Kaity Lanier RN Psychiatric Problem Social History Tobacco Use Types Packs/Day Years Used Date Smoking Tobacco: Never Alcohol Use Standard Drinks/Week Comments Not Asked 0 (1 standard drink = 0.6 oz pur e alcohol) Sex and Gender Information Value Date Recorded Sex Assigned at Not on file Gender Identity Not on file Sexual Orientation Not on file documented as of this encounter Progress Notes * Elza Alberto - 10/11/2017 10:08 AM CDT CI received a call from Kaity in [facility] Center re a 26 yr old female at [facility] presenting with psychosis. lithopone mill worker is [place] [phone].CI requested chart to be faxed. documented in this encounter Plan of Treatment Not on file documented as of this encounter Visit Diagnoses Not on filedocumented in this encounter Care Teams Heel Sander Relationship Specialty Start Date End Date Thuy Chowdhury MD PCP - Pediatrics 07/14/09 10/09/18 Thuy Chowdhury MD PCP - General Pediatrics 11/16/11 10/08/18 documented as of this encounter
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
--- OUTSIDE RECORDS SUMMARY | 2024-06-10 06:44 | XMS_ITS | Encounter Summary ---
Author Organization [facility] Address [facility] [place] [address] Care Team Providers Care Pig Machine Supervisor Name Role Phone Thuy Chowdhury MD Unavailable Reason for Visit * Reason Onset Date Comments Medication Issue 02/26/2010 Encounter Details Date Type Department Care Team (Late st Contact Info) Description 02/26/2010 Telephone [facility] - Pediatrics [address] [place] [phone] Thuy Chowdhury MD [address] [place] [phone] Medication Issue Social History Tobacco Use Types Packs/Day Years Used Date Smoking Tobacco: Never Assessed Sex and Gender Information Value Date Recorded Sex Assigned at Not on file Gender Identity Not on file Sexual Orientation Not on file documented as of this encounter Miscellaneous Notes * Telephone Encounter - Thuy Chowdhury MD - 02/26/2010 11:15 AM CDT Scotty, tell her to discontinue zyrtec, I called it a nasal spray for her. * Telephone Encounter - Scotty Matos - 02/26/2010 10:53 AM CDT Mom called and said the allergy medicine is making her dizzy and it's 10mg-can she try something else or lower the dose? Please call mom bk and they use [facility] in [place]. documented in this encounter Plan of Treatment Not on file documented as of this encounter Visit Diagnoses Not on filedocumented in this encounter Care Teams Pig Machine Supervisor Relationship Specialty Start Date End Date Thuy Chowdhury MD PCP - Pediatrics 07/14/09 10/09/18 documented as of this encounter
--- OUTSIDE RECORDS SUMMARY | 2024-06-10 06:44 | XMS_ITS ---
Author Organization [facility] Address [address] [place] [address] Care Team Providers Care Head Turning Machine Operator Name Role Phone Bowen Ortiz Primary Care Provider Results Component Value Reference Range Notes TSH Rfx on Abnormal to Free T4 Reviewed date:05/18/2024 03:02:36 PM Interpretation: Performing Lab:[facility], [address] [facility], Phone - [phone], Director - PhDMayo Clinic Health System– Oakridgebrenda Notes/Report: TSH 2.210 0.450-4.500 uIU/mL Carbamazepine(Tegretol), S Reviewed date:05/18/2024 03:02:18 PM Interpretation: Performing Lab:[facility], [address] [facility], Phone - [phone], Director - PhDMayo Clinic Health System– Oakridgehunteri Notes/Report: Carbamazepine(Tegretol), S 3.9 4.0-12.0 ug/mL In conjunction with other antiepileptic drugs Therapeutic 4.0 - 8.0 Toxicity 9.0 - 12.0 . Carbamazepine alone Therapeutic 8.0 - 12.0 . Detection Limit = 2.0 <2.0 indicates None Detected CBC With Differential/Platel et* Reviewed date:05/18/2024 03:03:05 PM Interpretation: Performing Lab:[facility], [address] [facility], Phone - [phone], Director - PhDRosarioi Notes/Report: WBC 5.7 3.4-10.8 x10E3/uL RBC 4.70 3.77-5.28 x10E6/uL Hemoglobin 16.3 11.1-15.9 g/dL Hematocrit 47.7 34.0-46.6 % MCV 102 79-97 fL MCH 34.7 26.6-33.0 pg MCHC 34.2 31.5-35.7 g/dL RDW 11.8 11.7-15.4 % Platelets 254 150-450 x10E3/uL Neutrophils 53 Not Estab. % Lymphs 24 Not Estab. % Monocytes 17 Not Estab. % Eos 5 Not Estab. % Basos 1 Not Estab. % Neutrophils (Absolute) 3.0 1.4-7.0 x10E3/uL Lymphs (Absolute) 1.4 0.7-3.1 x10E3/uL Monocytes(Absolute) 1.0 0.1-0.9 x10E3/uL Eos (Absolute) 0.3 0.0-0.4 x10E3/uL Baso (Absolute) 0.1 0.0-0.2 x10E3/uL Immature Granulocytes 0 Not Estab. % Immature Grans (Abs) 0.0 0.0-0.1 x10E3/uL Vitamin B12 and Folate Reviewed date:05/18/2024 03:03:17 PM Interpretation: Performing Lab:[facility] [place], [address] [facility], [place], Phone - [phone], Director - Muriel Notes/Report: Vitamin B12 752 574-4422 pg/mL Folate (Folic Acid), Serum 9.8 >3.0 ng/mL A serum folate concentration of less than 3.1 ng/mL is considered to represent clinical deficiency. REASON FOR VISIT Labs-fasting Social History Sex Assigned At : Social History Observation Description Sex Assigned At Female Encounters Encounter Location Date Provider Diagnosis [address] [place] [address] 05/16/2024 Arif Habib Macrocytosis without anemia D75.89 ; Fatigue R53.83 and Medication monitoring encounter Z51.81 Assessments Encounter Date Diagnosis (ICD Code) Assessment Notes Treatment Notes Treatment Clinical Notes Section Notes 05/16/2024 Macrocytosis without anemia (ICD-10 - D75.89) 05/16/2024 Fatigue (ICD-10 - R53.83) 05/16/2024 Medication monitoring encounter (ICD-10 - Z51.81) Plan Of Treatment Pending Test Test Name Order Date CMP 14 Comprehensive Metabolic Panel* Next Appt Details Provider Name:Bowen Ortiz, 11:00:00 AM, [address], [place], [address], Progress Notes * Shen ARNETTOB:1990 (33 yo F)Acc No.[id number]:05/16/2024 Patient:?Tesha ARNETT Provider:?Bowen Ortiz :1990???Age:33 Y???Sex:Female D ate:05/16/2024 Phone: Address:[address] [place], [place] Subjective: * Chief Complaints: * ???1. Labs-fasting. * Medical History:? Objective: * Vitals:? Assessment: * Assessment: 1.?Macrocytosis without anem ia - D75.89???2.?Fatigue - R53.83???3.?Medication monitoring encounter - Z51.81??? Plan: * Treatment: ? Value Reference Range ?Vitamin B12 940 147-8648 - pg/mL * ?Folate (Folic Acid), Serum 9.8 >3.0 - ng/mL * Mamadou 05/16/2024 1 1:32:03 AM STRIP MACHINE TENDER > Specimen collected, patient tolerated well.This lab was reviewed by Bowen Ortiz on 05/18/2024 at 15:03 PM STRIP MACHINE TENDER 2.?Fatigue?LAB: CBC With Differential/Platelet* (Collection Date & Time - 05/16/2024) * ? Value Reference Range ?Immature Grans (Abs) 0.0 0. 0-0.1 - x10E3/uL * ?Immature Granulocytes 0 N ot Estab. - % * ?Baso (Absolute) 0.1 0.0-0.2 - x10E3/uL * ?Neutrophils (Absolute) 3.0 1.4-7.0 - x10E3/uL * ?RBC 4.70 3.77-5.28 - x10 E6/uL * ?Monocytes(Absolute) 1.0 H 0.1 -0.9 - x10E3/uL * ?WBC 5.7 3.4-10.8 - x10E 3/uL * ?Eos (Absolute) 0.3 0.0-0.4 - x10E3/uL * ?Hemoglobin 16.3 H 11.1-15.9 - g/dL * ?Hematocrit 47.7 H 34.0-46.6 - % * ?MCV 102 H 79-97 - fL * ?MCH 34.7 H 26.6-33.0 - pg * ?MCHC 34.2 31.5-35.7 - g/d L * ?RDW 11.8 11.7-15.4 - % * ?Lymphs (Absolute) 1.4 0.7-3 .1 - x10E3/uL * ?Basos 1 Not Estab. - % * ?Eos 5 Not Estab. - % * ?Monocytes 17 Not Estab. - % * ?Lymphs 24 Not Estab. - % * ?Neutrophils 53 Not Estab. - % * ?Platelets 254 150-450 - x10 E3/uL * Mamadou 05/16/2024 1 1:32:12 AM STRIP MACHINE TENDER > Specimen collected, patient tolerated well.This lab was reviewed by Bowen Ortiz on 05/18/2024 at 15:03 PM STRIP MACHINE TENDER ?LAB: TSH Rfx on Abnormal to Free T4 (Collection Date & Time - 05/16/2024)* ? Value Reference Range ?TSH 2.210 0.450-4.500 - u IU/mL * Mamadou 05/16/2024 1 1:32:22 AM STRIP MACHINE TENDER > Specimen collected, patient tolerated well.This lab was reviewed by Bowen Ortiz on 05/18/2024 at 15:02 PM STRIP MACHINE TENDER 3.?Medication monitoring encounter?LAB: Carbamazepine(Tegretol), S (Collection Date & Time - 05/16/2024)* ? Value Reference Range ?Carbamazepine(Tegretol), S 3.9 L 4.0-12.0 - ug/mL * Mamadou 05/16/2024 1 1:32:29 AM STRIP MACHINE TENDER > Specimen collected, patient tolerated well.This lab was reviewed by Bowen Ortiz on 05/18/2024 at 15:02 PM STRIP MACHINE TENDER ?LAB: CMP 14 Comprehensive Metabolic Panel* (Collection Date & Time - 05/16/2024) * * P MACHINE TENDER Sign off status: Completed true * Provider:?Bowen Ortiz Date:?05/16/2024 Generated for Bri garcía/Amaya/eTgerardoitting on:?06/10/2024 06:44 AM STRIP MACHINE TENDER
--- OUTSIDE RECORDS SUMMARY | 2024-06-10 06:44 | XMS_ITS | Encounter Summary ---
Author Organization [facility] Address [facility] [facility] [place] [address] Care Team Providers Care Cargo Services Coordinator Name Role Phone Roland Chowdhury MD Unavailable Roland Chowdhury MD Primary Care Provider [phone] Reason for Visit * Reason Comments Complete Physical Exam Encounter Details Date Type Department Care Team (Late st Contact Info) Description 01/11/2013 10:30 AM CDT Office Visit [facility] - Pediatrics [address] [place] [phone] Roland Chowdhury MD [address] [place] [address] Need for prophylactic vaccination and inoculation against other specified disease (Primary Dx); Routine general medical examination at a health care facility Social History Tobacco Use Types Packs/Day Years [...] Sign Reading Time Taken Comments Blood Pressure 97/60 01/11/2013 10:52 AM CDT Pulse 67 01/11/2013 10:52 AM CDT Temperature 36.9 ??C (98.4 ??F) 01/11/2013 10:52 AM C DT Respiratory Rate - - Oxygen Saturation - - Inhaled Oxygen Concentration - - Weight 58.6 kg (129 lb 3.2 oz) 01/11/2013 10:52 AM CDT Height 171.5 cm (5' 7.5 ) 01/11/2013 10:52 AM CD T Body Mass Index 19.94 01/11/2013 10:52 AM CDT documented in this encounter Patient Instructions * Patient Instructions* Heather Waller RN - 01/11/2013 11:14 AM CDT YOUR GROWING CHILD: ADOLESCENT Child???s Name: Tesha Liu Today???s Date: 01/11/2013 Facility age limit for growth percentiles is 20 years. Wt Readings from Last 3 Encounters: 01/11/13 58.605 kg (129 lb 3.2 oz) 12/28/11 61.871 kg (136 lb 6.4 oz) (66.31%*) 12/27/11 62.506 kg (137 lb 12.8 oz) (68.30%*) * Growth percentiles are based on [facility] 2-20 Years data. Ht Readings from Last 3 Encounters: 01/11/13 1.715 m (5' 7.5 ) 07/20/10 1.67 m (5' 5.75 ) (72.78%*) * Growth percentiles are based on CDC 2-20 Years data. Body mass index is 19.94 kg/(m^2). Normalized BMI data available only for age 2 to 20 years. Normalized dcksxm-sum-vcn data available only for age 0 to 20 years. Normalized cfeyoli-mas-snm data available only for age 0 to 20 years. IMMUNIZATIONS At the time of high school physical you will receive a Tdap booster. Other immunizations which we recommend, but that are not required are Menactra (protects again one type of bacterial meningitis), Gardisil (protects girls and women against Human Papilloma Virus), and Hepatitis A vaccine if not already given. PROMOTION OF HEALTHY AND SAFE HABITS: Try to get 8 hours of sleep a night. Engage in moderately strenuous to vigorous physical activity (e.G walking, biking, aerobics for 30 - 60 minutes at least three times a week). Limit TV viewing, computer and video games. Practice time management skills. INJURY AND VIOLENCE PREVENTION: Always wear safety belt when driving or riding in a car. If you are driving, insist that your passengers wear safety belts. Follow the speed limit and drive responsibly. Concentrate when driving and avoid distractions(e.g talking on the phone, texting, playing loud music,eating). Do not drink alcohol, especially when driving, swimming, boating or operating farm equipment or other machinery. Plan to ride with a designated restaurant delivery driver or to call for a ride if drinking. Write and sign a no drinking and driving contract with your parents. Learn how to swim(if you haven't already learned). Learn first aid and CPR. Reduce your risk of developing skin cancer by limiting time in the sun and applying sunscreen before going outside. Avoid tanning salons. Help your parents test smoke alarms in your home to be sure they work properly, and help change the batteries yearly. Know what to do in case of fire or other emergency. Review fire safety plans at home. Always wear a helmet when riding on a motorcycle, bike, or all-terrain vehicle. However, ATV's and motorcycles are dangerous, even with a helmet. Wear protective gear(e.g eye protection, mouth guard,helmet, knee and elbow pads) for sports and other physical activities such as in-line skating. Wearappropriate protective gear at work and follow job safety procedures. Avoid high noise levels, especially when using ear phones. Do not carry or use a weapon of any kind. Develop skills in conflict resolution, negotiation, and dealing with anger constructively. Learn techniques to protect yourself from physical, emotional, and sexual abuse or rape. Seek help if you are physically or sexually abused or fear that you are in danger. MENTAL HEALTH: Take on new challenges that will increase your self confidence. Continue to develop your sense of identity, clarifying your values and beliefs. Accept who you are and enjoy both the child and adult in you. Trust your own feelings, and also listen to the ideas of good friends and valued adults. Seekhelp if you often feel angry, depressed, or hopeless. Learn how to deal with stress. Set reasonablebut challenging goals. Understand the importance of your spiritual needs and try to fulfill them. NUTRITION: Choose and prepare a variety of healthy foods. Eat three nutritious meals a day at regularly scheduled times; breakfast is especially important. Select a nutritious lunch from the school cafeteria orpack a balanced lunch. Choose plenty of fruits and vegetables;breads, cereals, and other whole grain products; low-fat dairy; lean meats, chicken, fish and foods prepared with little or not fat. Include foods rich in calcium and iron in your diet. Choose nutritious snacks that are rich in complex carbohydrates. Limit high-fat or low-nutrient foods and beverages such as candy, chips, or soft drinks. Achieve and maintain a healthy weight. Manage weight through eating habits and regular physical ac tivity. ORAL HEALTH: Dickinson your teeth twice a day with a pea-size amount of fluoridated toothpaste, and floss between your teeth daily. Schedule a dental appointment every 6 months or as advised, ask your dental professional how to handle dental emergencies, especially the loss or fracture of a tooth. Do not smoke or use chewing tobacco. SEXUALITY: Identify a supportive adult who can give you accurate information about sex. Ask the health professional for information on sexual development and maturity, contraception, and prevention of sexually transmitted diseases. Discuss any questions you have. If you are confused or concerned about your sexual feelings( for the same or opposite sex), talk with the health professional or a trusted adult. Recognize that sexual feelings are normal, but having sex should be a omsi-yzegwrk-gsj decision. Delay having sex until you and your partner are mature enough to assume responsibility for sexual relations. Share your feelings about sexuality with your partner. Abstaining from sexual intercourse is the safest way to prevent and sexually transmitted diseases, including HIV/AIDS. Learn ways to resist sexual pressures and say no to sex. If you are sexually active, discuss contraceptivemethods and STD prevention with your doctor. Learn about and practice safer sex. Limit the number of partners and use latex condoms and other barriers correctly. PREVENTION OF SUBSTANCE USE/ABUSE: Do not smoke, use smokeless tobacco, drink alcohol, or use drugs, inhalants, diet pills, or steroids. Do not become involved in selling drugs. If you smoke, talk with the health professional about how to stop smoking. If you use drugs or alcohol, discuss this with your health professional and ask for help. Support your friends who choose not to use tobacco, alcohol, drugs, steroids, or diet pills. PROMOTION OF SOCIAL COMPETENCE: Spend time with your family doing things you all enjoy.Participate in social activities, community groups, or team sports.Make sure you understand the limits your parents have set and the consequences they have established for unacceptable behavior. Talk with your family and friends about your strategies and coping mechanisms for handling negative peer pressure. Continue your progress in making independent decisions and understanding the consequences of your behavior. PROMOTION OF RESPONSIBILITY: Respect the rights and needs of others. Follow family rules, such as those for curfews or driving. Share in talent development specialist. Learn about how you can take on new responsibility in your family, peer group, and community. Learn new skills(e.g lifesaving, peer mentoring) that can be useful in helping your friends, familyor community. Talk to your health professional about taking responsibility for you own health and becoming fully informed about preventive health services. PROMOTION OF SCHOOL ACHIEVEMENT: Be responsible for your own school attendance, home work , course selection and extracurricular activities. If you feel frustrated with school or are thinking about dropping out, discuss your feelings with a trusted adult. Identify talents and interests that you want to pursue for a career or for personal enrichment. Make plans for after high school(e.g college options, vocational training, the , other career choices) PROMOTION OF COMMUNITY INTERACTION: Participate in social, confucianism, cultural, volunteer or recreational activities. Advocate for community programs(recreational, athletic, artistic, and educational activities) Talk with friends and family about current events and community responsibilities such as voting, conservation and recycling. Explore your cultural heritage and learn about other cultures. Participate in culturally diverse activities. SUGGESTED INTERNET-SAFETY WEB SITES: Don't consume more than two hour of entertainment media. Avoid having a TV or computer in your room. www.[employer]: A great site for older teens that includes ways to communicate with peers when they experience online bullying that is not cool . www.wiredkids.org: A site for younger and older teens, as well as parents, with many suggestions oninternet safety www.[employer].org: A site presented by the National Center for Missing and Exploited Children with information for kids, teens and parents, much of it focused on avoiding cyber bullying. documented in this encounter Progress Notes * Roland Chowdhury MD - 01/11/2013 10:52 AM CDT [facility] Nurse Note Parental Concerns: Mom thinks that she is withdrawn, she denies being depressed or down, sleep and appetite is normal.She was going to college in [place] but now wants to go here at [facility], she does not want to see a pyshciatrist as mom had suggested Diet: Milk Skim, 4 ounces per day. Vegetables: good, fruits: good, meats: good, Dental: Tooth brushing twice daily: Yes Regular dental visits: Yes Concerns re: Hearing / Vision: No MD Note: Medications: none Exercise/Sports: School: in college, now at home will take on line classes ROS: no wheezing, cough or dyspnea, no chest pain. No problems during sports participation in the past. PMH: Past Medical History Diagnosis Date ??? Routine infant or child health check 03/08/08 ??? Acute tonsillitis 06/17/08 ??? Hip, thigh, leg, and ankle, abrasion or friction burn, infected 12/26/08 ??? Chest pain, unspecified 03/10/09 ??? Varicella without mention of complication 1996 had disease FH: Early Heart Disease No Sudden No Diabetes No Physical Exam: Wt Readings from Last 3 Encounters: 01/11/13 58.605 kg (129 lb 3.2 oz) 12/28/11 61.871 kg (136 lb 6.4 oz) (66.31%*) 12/27/11 62.506 kg (137 lb 12.8 oz) (68.30%*) * Growth percentiles are based on CDC 2-20 Years data. Ht Readings from Last 3 Encounters: 01/11/13 1.715 m (5' 7.5 ) 07/20/10 1.67 m (5' 5.75 ) (72.78%*) * Growth percentiles are based on CDC 2-20 Years data. Normalized head circumference data available only for age 0 to 36 months. Normalized tqiivg-exc-nzn data available only for age 0 to 20 years. Normalized ztipqzy-hil-wns data available only for age 0 to 20 years. BP 97/60 Pulse 67 Temp 98.4 ??F (Temporal Artery) Wt 58.605 kg (129 lb 3.2 oz) BMI 19.94 kg/m2 Facility age limit for growth percentiles is 20 years. GENERAL: Alert, NAD EYES: PERRLA, EOMI, red reflex bilaterally EARS: TM's wnl NOSE: nasal passages clear NECK: supple, no masses, no lymphadenopathy RESP: clear to auscultation bilaterally CV: RRR, normal S1/S2, no murmurs, clicks, or rubs. ABD: soft, nontender, no masses, no hepatosplenomegaly, normal bowel sounds : normal female exam EXTREMITIES: Full range of motion of all extremities SPINE: Straight SKIN: no rashes or lesions Impression: Well child Normalized BMI data available only for age 2 to 20 years. Plan: Anticipatory guidance discussed included nutrition, safety, dentist, limiting media, exercise. Vaccines: Meningococcal Follow up in 1 year. documented in this encounter Miscellaneous Notes * Addendum Note - Roland Chowdhury MD - 01/11/2013 2:13 PM CDTAddended by: ROLAND CHOWDHURY on: 01/11/2013 02:13 PM Modules accepted: Level of Service documented in this encounter Plan of Treatment Not on file documented as of this encounter Visit Diagnoses Diagnosis Need for prophylactic vaccination and inoculation against other specified disease- Primary Routine general medical examination at a health care facility documented in this encounter Care Teams Cargo Services Coordinator Relationship Specialty Start Date End Date Roland Chowdhury MD PCP - Pediatrics 07/14/09 10/09/18 Roland Chowdhury MD PCP - General Pediatrics 11/16/11 10/08/18 documented as of this encounter
--- OUTSIDE RECORDS SUMMARY | 2024-06-10 06:44 | XMS_ITS | Encounter Summary ---
Author Organization [facility] Address [address] [facility] [place] [address] Care Team Providers Care International Project Manager Name Role Phone Thuy Chowdhury MD Unavailable Thuy Chowdhury MD Primary Care Provider [phone] Reason for Visit * Reason Comments Suture Removal left hand Encounter Details Date Type Department Care Team (Late st Contact Info) Description 12/27/2011 10:45 AM CDT Office Visit [facility] Medical [facility] - Pediatrics [address] [place] [phone] Thuy Chowdhury MD [address] [place] [address] Laceration of second finger of left hand with complication (Primary Dx); Dressing change/suture removal Social History Tobacco Use Types Packs/Day Years [...] Pressure - - Pulse - - Temperature - - Respiratory Rate - - Oxygen Saturation - - Inhaled Oxygen Concentration - - Weight 62.5 kg (137 lb 12.8 oz) 012 11:06 AM CDT Height - - Body Mass Index - - documented in this encounter Progress Notes * Thuy Chowdhury MD - 12/27/2011 11:06 AM CDT SUBJECTIVE: Tesha Liu is a 21 y.o. female here for suture removal from a repaired laceration on the palm of her left hand sustained when she feel on a parking lot at school while roller skating. She is taking Keflex. OBJECTIVE: Wt 137 lb 12.8 oz (62.506 kg) General appearance: alert, well appearing, and in no distress. Skin:Irregular laceration on the palm of left hand, with whitish yellow skin and non healed wound, wound cleaned and debrided with H2O2, whitish areas removed, and Betadine, applied neosprin and dressed. ASSESSMENT: Sutures removed from left hand wound due to non healing wound, debrided the wound dressed with neosporin and bandage PLAN: Continue with oral Antibiotic Keflex from Hospital. Will allow the wound to heal by secondary intention. Wound check in the am documented in this encounter Plan of Treatment Not on file documented as of this encounter Visit Diagnoses Diagnosis Laceration of second finger of left hand with complication- Primary Open wound of finger(s) , complicated Dressing change/suture removal Encounter for removal of sutures documented in this encounter Care Teams International Project Manager Relationship Specialty Start Date End Date Thuy Chowdhury MD PCP - Pediatrics 07/14/09 10/09/18 Thuy Chowdhury MD PCP - General Pediatrics 11/16/11 10/08/18 documented as of this encounter
--- OUTSIDE RECORDS SUMMARY | 2024-06-10 06:44 | XMS_ITS ---
Author Organization [facility] Address [address] [place] [address] Care Team Providers Care Meat Stringer Name Role Phone Bowen Ortiz Primary Care Provider Allergies No Known Allergies REASON FOR VISIT Injection Medications Medication SIG (Take, Route, Frequency, Duration) Notes Start Date End Date Status risperiDONE 2 MG 1 tablet Orally Once a day for 30 days Active Multi Vitamin - 1 tablet Orally Once a day for 30 days 04/23/2024 Active FLUoxetine HCl 20 MG 1 tablet Orally Onc e a day for 30 days Active carBAMazepine 200 MG 1 tablet Orally onc e daily for 30 days Active GoodSense Nicotine 2 MG 1 LOZENGE Mouth/Throat EVERY 2 HOURS As needed SMOKING CESSATION 11/17/2023 Active Invega Sustenna 234 MG/1.5ML as directed Intramuscular monthly for 30 days Active Social History Sex Assigned At : Social History Observation Description Sex Assigned At Female Vital Signs Weight 160 lbs 05/16/2024 Blood pressure systolic 110 mm Hg 05/16/20 24 Blood pressure diastolic 62 mm Hg 024 Heart Rate 74 /min 05/16/2024 Temperature 97.9 degrees Fahrenheit 05/16/20 24 Respiratory Rate 16 /min 05/16/2024 Oximetry 98 % 05/16/2024 Encounters Encounter Location Date Provider Diagnosis [address] [place] [address] 05/16/2024 Bowen Ortiz Schizophrenia F20.9 Assessments Encounter Date Diagnosis (ICD Code) Assessment Notes Treatment Notes Treatment Clinical Notes Section Notes 05/16/2024 Schizophrenia (ICD-10 - F20.9) Plan Of Treatment Next Appt Details Provider Name:Bowen Ortiz, 11:00:00 AM, [address], [place], [address], Medications Administered Medication Instructions Date of Administration Dosage Notes Invega Sustenna 05/16/2024 234 mg Manufact by Geovanna Andrew baez. Progress Notes * Shen ARNETTOB:1990 (33 yo F)Acc No.[id number]:05/16/2024 Progress Note Patient:?Tesha ARNETT Provider:?Bowen Angel :1990???Age:33 Y???Sex:Female D ate:05/16/2024 Phone: Address:[address] [place], [place] [id number] Check In:10:48 AM ALL SOURCE INTELLIGENCE ANALYST Subjective: * Chief Complaints: * ???Injection * Medical History:? * Surgical History:? * Hospitalization/Major Diagno stic Procedure:? * Medications:?TakingGoodSense Nicotine 2 MG Lozenge 1 LOZENGE Mouth/Throat EVERY 2 HOURS As needed SMOKING CESSATIONInvega Sustenna 234 MG/1.5ML Suspension Prefilled Syringe as directed Intramuscular monthly FLUoxetine HCl 20 MG Tablet 1 tablet Orally Once a day carBAMazepine 200 MG Tablet 1 tablet Orally once daily risperiDONE 2 MG Tablet 1 tablet Orally Once a day Multi Vitamin - Tablet 1 tablet Orally Once a day Taking GoodSense Nicotine 2 MG Lozenge 1 LOZENGE Mouth/Throat EVERY 2 HOURS As needed SMOKING CESSATIONTaking Invega Sustenna 234 MG/1.5ML Suspension Prefilled Syringe as directed Intramuscular monthly Taking FLUoxetine HCl 20 MG Tablet 1 tablet Orally Once a day Taking carBAMazepine 200 MG Tablet 1 tablet Orally once daily Taking risperiDONE 2 MG Tablet 1 tablet Orally Once a day Taking Multi Vitamin - Tablet 1 tablet Orally Once a day * Allergies:?N.K.D.A.no[Allerg ies Verified] Objective: * Vitals:?Initials: ws, Wt:160 , BP:110/62, HR:74, Oxygen sat %:98, Temp:97.9, RR:16, LMP: Mar 2024, Pain scale:0. Assessment: * Assessment: 1.?Schizophrenia - F20.9??? Plan: * Treatment: * Therapeutic Injections:? Invega Sustenna : 234 mg (Dose No:1) (Route: Intramuscular) given by Dione Bowman RN on left gluteus * Procedure Codes:?56806 THER/ PROPH/DIAG INJ, SC/IM * * SOURCE INTELLIGENCE ANALYST Sign off status: Completed true * Provider:Mitchell Ortiz Date:?05/16/2024 Generated for Bri garcía/Amaya/Bartolosmitting on:?06/10/2024 06:44 AM ALL SOURCE INTELLIGENCE ANALYST
--- OUTSIDE RECORDS SUMMARY | 2024-06-10 06:44 | XMS_ITS | Encounter Summary ---
Author Organization [facility] Address [facility] [facility] [place] [address] Care Team Providers Care Manager Of Financial Reporting Name Role Phone Thuy Chowdhury MD Unavailable Reason for Visit * Reason Onset Date Comments Medication Issue 05/19/2010 Encounter Details Date Type Department Care Team (Late st Contact Info) Description 05/19/2010 Telephone [facility] - Pediatrics [address] [place] [phone] Thuy Chowdhury MD [address] [place] [address] Medication Issue Social History Tobacco Use Types Packs/Day Years Used Date Smoking Tobacco: Never Assessed Sex and Gender Information Value Date Recorded Sex Assigned at Not on file Gender Identity Not on file Sexual Orientation Not on file documented as of this encounter Miscellaneous Notes * Telephone Encounter - Thuy Chowdhury MD - 05/19/2010 10:48 AM CST I called it in. ALL METAL STUD WORKER * Telephone Encounter - Scotty Matos - 05/19/2010 10:34 AM CST Mom called bk again today after talking to Tesha and she doesn't want the nose spray and wants the 50 mg tab since she only takes like 1 a month called into [facility] in [place]. ALL METAL STUD WORKER documented in this encounter Plan of Treatment Not on file documented as of this encounter Visit Diagnoses Not on filedocumented in this encounter Care Teams Manager Of Financial Reporting Relationship Specialty Start Date End Date Thuy Chowdhury MD PCP - Pediatrics 07/14/09 10/09/18 documented as of this encounter
--- OUTSIDE RECORDS SUMMARY | 2024-06-10 06:44 | XMS_ITS | Encounter Summary ---
Author Organization [facility] Address [address] [facility] [place] [address] Care Team Providers Care Psychotherapist Social Worker Name Role Phone Thuy Chowdhury MD Unavailable Thuy Chowdhury MD Primary Care Provider [phone] Reason for Referral * Evaluate & Treat - Closed Specialty Diagnoses / Procedures Referred By Gina wilkins Referred To Contact Diagnoses Acute sinusitis, unspecified Thuy Chowdhury MD [address] [place] [address] Nancy Hugo MD [address] [place] [address] Referral ID Status Reason Start Date Expiration Date V isits Requested Visits Authorized [id number] Closed Specialty Services Required 11/17/2011 05/15/2012 1 1 Reason for Visit * Reason Comments Cold Symptoms occasional sneezing, stuffy/runny nose with clear to yellowish exudate x4-5 days Encounter Details Date Type Department Care Team (Late st Contact Info) Description 11/17/2011 9:30 AM CDT Office Visit [facility] [address] [facility] [address] [place] [phone] Thuy Chowdhury MD [address] [place] [address] Acute sinusitis, unspecified (Primary Dx) Social History Tobacco Use Types [...] Pressure - - Pulse - - Temperature 36.6 ??C (97.8 ??F) 11/17/2011 9:52 AM CD T Respiratory Rate - - Oxygen Saturation - - Inhaled Oxygen Concentration - - Weight 64.2 kg (141 lb 9.6 oz) 11/17/2011 9:52 A M CDT Height - - Body Mass Index - - documented in this encounter Progress Notes * Thuy Chowdhury MD - 11/17/2011 9:53 AM CDT SUBJECTIVE: Tesha Liu is a 21 y.o. female brought by mother with complaints of coryza, congestion, sneezing, headache, clear to yellowish nasal discharge and facial painfor 4-5 days Sore Throat :No Fever: No normal activity, mood and playfulness, normal appetite and normal fluid intake. Has tried ibuprofenfor H/A with good relief. OBJECTIVE: Temp(Src) 97.8 ??F (Temporal Artery) Wt 141 lb 9.6 oz (64.229 kg) General appearance: alert, well appearing, and in no distress. Ears: bilateral TM's and external ear canals normal Nose: normal and patent, no erythema, discharge or polyps Oropharynx: mucous membranes moist, pharynx normal without lesions Neck: supple, no significant adenopathy Lungs: clear to auscultation, no wheezes, rales or rhonchi, symmetric air entry Heart - regular rate and rhythm, normal S1 and S2, no murmurs ASSESSMENT: sinusitis PLAN: See orders for this visit as documented in the electronic medical record Symptomatic therapy suggested: push fluids, rest and return office visit prn if symptoms persist orworsen. documented in this encounter Plan of Treatment Scheduled Referrals Name Type Priority Associated Diagnoses Orde r Schedule AMB REFERRAL TO OB-PULMONARY DISEASE SPECIALIST Outpatient Referral Routine Acute sinusitis, unspecified Ordered: 11/17/2011 documented as of this encounter Visit Diagnoses Diagnosis Acute sinusitis, unspecified- Primary documented in this encounter Care Teams Psychotherapist Social Worker Relationship Specialty Start Date End Date Thuy Chowdhury MD PCP - Pediatrics 07/14/09 10/09/18 Thuy Chowdhury MD PCP - General Pediatrics 11/16/11 10/08/18 documented as of this encounter
--- OUTSIDE RECORDS SUMMARY | 2024-06-10 06:44 | XMS_ITS | Encounter Summary ---
Author Organization [facility] Address [address] [facility] [place] [address] Care Team Providers Care Data Warehouse Consultant Name Role Phone Unavailable Primary Care Provider Unavailabl e Encounter Details Date Type Department Care Team (Late st Contact Info) Description 06/17/2008 Orders Only [facility] - Pediatrics [address] [place] [address] [address] [place] [address] Thuy Chowdhury MD [address] [place] [phone] Social History Tobacco Use Types Packs/Day Years Used Date Smoking Tobacco: Never Assessed Sex and Gender Information Value Date Recorded Sex Assigned at Not on file Gender Identity Not on file Sexual Orientation Not on file documented as of this encounter Plan of Treatment Not on file documented as of this encounter Procedures Procedure Name Priority Date/Time Associated Diagnosis Comments HETEROPHILE ANTIBODY SCREEN 06/17/2008 3:51 PM CLEANER DHRUV-MCDERMOTT VIRUS ANTIBODY PANEL 06/17/2008 3:51 PM CLEANER CULTURE THROAT 06/17/2008 3:51 PM CLEANER CBC W AUTO DIFFERENTIAL 06/17/2008 3:51 PM CLEANER documented in this encounter Results * CULTURE THROAT (06/17/2008 3:51 PM CLEANER) Culture [facility] Comment: ??CULTURE, THROAT ?MICRO NUMBER: ?[id number] ??TEST STATUS: ? FINAL ??SPECIMEN SOURCE: ?? THROAT ??SPECIMEN COMMENTS: ADEQUATE ??RESULT: ?HEAVY GROWTH OF ? BETA-HEMOLYTIC STREPTOCOCCUS, NOT GROUP A,C OR G ? BETA-HEMOLYTIC STREPTOCOCCI ARE ? PREDICTABLY SUSCEPTIBLE TO PENICILLIN ? AND OTHER BETA-LACTAMS. ? SUSCEPTIBILITY TESTING NOT ROUTINELY ? PERFORMED. ? NORMAL OROPHARYNGEAL SONNY ALSO PRESENT. Test Performed at: [facility] [address] [place], [place] ??[address] BRITTANY BAY MD 06/17/2008 3:51 PM CLEANER 06/17/2008 5:08 PM CLEANER Thuy Chowdhury MD LAB - MICROBIOLOGY O RDERABLES Performing Organization Address City/State/[facility] Co de Phone Number [facility] [address] [place] [address] * (ABNORMAL) HETEROPHILE ANTIBODY SCREEN (06/17/2008 3:51 PM CLEANER) Heterophile Harmon Screen POSITIVE( A) NEGATIVE [facility] Comment: Test Performed at: [facility] [address] [place], [place] ??[address] BRITTANY BAY MD 06/17/2008 3:51 PM CLEANER 06/17/2008 5:08 PM CLEANER Thuy Chowdhury MD LAB - SEROLOGY ORDER [facility] [address] [place] [address] * (ABNORMAL) DHRUV-BAR VIRUS PANEL (06/17/2008 3:51 PM CLEANER) Dhruv-Mcdermott Virus Antibody To Viral Capsid Antigen IgM >5.00(H) EIA value [facility] Comment: ?EIA VALUE ?INTERPRETATION ?< OR = 0.90 ?NEGATIVE - NO ANTIBODY DETECTED ?0.91 - 1.09 ?EQUIVOCAL ?> OR = 1.10 ?POSITIVE - ANTIBODY DETECTED A POSITIVE RESULT IS INDICATIVE OF IGM ANTIBODY TO EBV VCA. THE CLINICAL DIAGNOSIS MUST BE INTERPRETED IN CONJUNCTION WITH THE CLINICAL SIGNS AND SYMPTOMS OF THE PATIENT. Dhruv-Mcdermott Virus Antibody To Viral Capsid Antigen IgG 1.85(H) EIA value [facility] Comment: ?EIA VALUE ?INTERPRETATION ?< OR = 0.90 ?NEGATIVE - NO ANTIBODY DETECTED ?0.91 - 1.09 ?EQUIVOCAL ?> OR = 1.10 ?POSITIVE - ANTIBODY DETECTED A POSITIVE RESULT INDICATES THAT THE PATIENT HAS ANTIBODY TO EBV VCA. IT DOES NOT DIFFERENTIATE BETWEEN AN ACTIVE OR PAST INFECTION. THE CLINICAL DIAGNOSIS MUST BE INTERPRETED IN CONJUNCTION WITH THE CLINICAL SIGNS AND SYMPTOMS OF THE PATIENT. Dhruv-Mcdermott Nuclear Antibody IgG Nuclear Antigen IV < OR = 0.90 EIA value [facility] Comment: ?EIA VALUE ?INTERPRETATION ?< OR = 0.90 ?NEGATIVE - NO ANTIBODY DETECTED ?0.91 - 1.09 ?EQUIVOCAL ?> OR = 1.10 ?POSITIVE - ANTIBODY DETECTED A POSITIVE RESULT INDICATES THAT THE PATIENT HAS ANTIBODY TO EBV EBNA. IT DOES NOT DIFFERENTIATE BETWEEN AN ACTIVE OR PAST INFECTION. THE CLINICAL DIAGNOSIS MUST BE INTERPRETED IN CONJUNCTION WITH THE CLINICAL SIGNS AND SYMPTOMS OF THE PATIENT. Interpretation SEE NOTE [facility] Comment: SUGGESTIVE OF A CURRENT DHRUV-MCDERMOTT VIRUS INFECTION. Test Performed at: [facility] [address] [place], [place] ??[phone] BRITTANY BAY MD 06/17/2008 3:51 PM CLEANER 06/17/2008 5:08 PM CLEANER Thuy Chowdhury MD LAB - CHEMISTRY ORDE RABSUSU Performing Organization Address [facility] Co de Phone Number [facility] [address] [place] [address] * (ABNORMAL) CBC W AUTO DIFFERENTIAL (06/17/2008 3:51 PM CLEANER) White Blood Cell Count 8.9 4.5 - 13.0 Thousand/ uL [facility] RBC 3.94 3.80 - 5.10 Million/u L [facility] Hemoglobin 12.5 11.5 - 15.3 g/dL [facility] Hematocrit 36.9 34.0 - 46.0 % [facility] MCV 93.6 78.0 - 98.0 fL [facility] MCH 31.7 25.0 - 35.0 pg [facility] MCHC 33.8 31.0 - 36.0 g/dL [facility] RDW 13.3 11.0 - 15.0 % [facility] Platelet Count 152 140 - 400 Thousand/ uL [facility] Neutrophil Absolute 1513(L) 1800 - 8000 cells/uL [facility] Absolute Bands 178 0 - 750 cells/uL [facility] Lymphocytes Absolute 6942(H) 1200 - 5200 cells/uL [facility] Absolute Monocytes 178(L) 200 - 900 cells/uL [facility] Eosinophils Absolute 89 15 - 500 cells/uL [facility] Basophils Absolute 0 0 - 200 cells/uL [facility] Granulocytes % 17 % [facility] Band Neutrophil 2 % [facility] Lymphocytes % 78 % [facility] Comment:20 OF 78 ARE REACTIV E Monocytes % 2 % [facility] Eosinophils % 1 % [facility] Basophils % 0 % [facility] Comments SEE NOTE [facility] Comment: THE SMEAR HAS BEEN MANUALLY REVIEWED AND THE MANUAL DIFFERENTIAL HAS BEEN REPORTED. Test Performed at: [facility] [address] [place], [place] ??[address] BRITTANY BAY MD 06/17/2008 3:51 PM CLEANER 06/17/2008 5:08 PM CLEANER Thuy Chowdhury MD LAB - HEMATOLOGY ORD ERABLES [facility] [address] [place] [address] documented in this encounter Visit Diagnoses Not on filedocumented in this encounter
--- OUTSIDE RECORDS SUMMARY | 2024-06-10 06:44 | XMS_ITS ---
Author Organization [facility] Address [address] [place] [address] Care Team Providers Care Hand Launderer Name Role Phone Bowen Ortiz Primary Care Provider Rai Mehta Unavailable [phone] Allergies No Known Allergies REASON FOR VISIT 1 year Follow up Medications Medication SIG (Take, Route, Frequency, Duration) Notes Start Date End Date Status risperiDONE 2 MG 1 tablet Orally Once a day for 30 days Active carBAMazepine 200 MG 1 tablet Orally onc e daily for 30 days Active FLUoxetine HCl 20 MG 1 tablet Orally Onc e a day for 30 days Active Invega Sustenna 234 MG/1.5ML as directed Intramuscular monthly for 30 days Active GoodSense Nicotine 2 MG 1 LOZENGE Mouth/Throat EVERY 2 HOURS As needed SMOKING CESSATION 11/17/2023 Active Multi Vitamin - 1 tablet Orally Once a day for 30 days 04/23/2024 Active Social History Tobacco Use: Social History Observation Description Date Details (start date - stop date) Never Smoker NA - NA Sex Assigned At : Social History Observation Description Sex Assigned At Female Tobacco Control (Standard) Question Answer Notes Tobacco use: Nonsmoker Problems Problem Type SNOMED Code ICD Code Onset Dates Problem Status W/U Status Risk Notes Problem Macrocytosis - no anemia (368297347) Macrocytosis without anemia (D75.89) Active confirmed Vital Signs Weight 160.0 lbs 04/23/2024 Height 70 in 04/23/2024 BMI 22.96 kg/m2 04/23/2024 Blood pressure systolic 102 mm Hg 04/23/20 24 Blood pressure diastolic 70 mm Hg 024 Heart Rate 69 /min 04/23/2024 Oximetry 98 % 04/23/2024 Respiratory Rate 16 /min 04/23/2024 Encounters Encounter Location Date Provider Diagnosis [facility] [address] [facility] [place] [address] 04/23/2024 Rai Mehta Macrocytosis without anemia D75.89 ; Fatigue R53.83 and Medication monitoring encounter Z51.81 Assessments Encounter Date Diagnosis (ICD Code) Assessment Notes Treatment Notes Treatment Clinical Notes Section Notes 04/23/2024 Macrocytosis without anemia (ICD-10 - D75.89) 04/23/2024 Fatigue (ICD-10 - R53.83) 04/23/2024 Medication monitoring encounter (ICD-10 - Z51.81) Plan Of Treatment Medication Medication Name Sig Start Date Stop Date Notes Multi Vitamin - 1 tablet Orally Once a day for 30 days Pending Test Test Name Order Date CMP 14 Comprehensive Metabolic Panel* Next Appt Details Follow Up: 6 Months, Reason: MEDICATION F/U Provider Name:Bowen Ortiz, 11:00:00 AM, [address] [facility] , [place], [address], Progress Notes * Shen ARNETTOB:1990 (33 yo F)Acc No.[id number]:04/23/2024 Progress Notes Patient:?HOPE Tesha Provider:?Rai Mehta :1990???Age:33 Y???Sex:Female D ate:04/23/2024 Phone: Address:[address] [place], [place] [id number] Pcp:Bowen Ortiz Check In:11:41 AM PROFESSOR OF RELIGIOUS STUDIES Subjective: * Chief Complaints: * ???1 year Follow up * HPI: ???Interim History:? F/U MEDS, LABS. HAD LABS AT [facility] 01/24/2024. MCV AND HCT A LITTLE HIGH. TEGRETOL AND OTHERS ALL OK. TIRED. AWAKENS THAT WAY. SOMETIMES? AGITATED IN AM. SOMETIMES EXHAUSTED. [place]. DRINKS ALCOHOL ABOUT TWO BEERS EVERY 3 DAYS. SLEEPING ABOUT 6 HOURS PER NIGHT. AWAKENS AT 5 AM. WILL LIE BACK DOWN WHEN SHE GETS TIRED AGIN. NO ISSUES WITH PERFFORMING ADLS. SOMETIMES THERE IS 'THIS MASS AROUND MY HOUSE THAT SMELLS LIKE URINE.'. ?Emergency room visit?No.?Was hospitalized?No.?Depression Screening:?PHQ-9?Little interest or pleasure in doing things?Not at all ?Feeling down, depressed, or hopeless?Several days ?Trouble falling or staying asleep, or sleeping too much?Several days ?Feeling tired or having little energy?Several days ?Poor appetite or overeating?Not at all ?Feeling bad about yourself or that you are a failure, or have let yourself or your family down?Several days ?Trouble concentrating on things, such as reading the newspaper or watching television?Not at all ?Moving or speaking so slowly that other people could have noticed; or the opposite, being so fidgety or restless that you have been moving around a lot more than usual?Not at all ?Thoughts that you would be better off or of hurting yourself in some way?Not at all ?Total Score?4 ?Interpretation?Minimal Depression ???Screening:?Ute Suicide Severity Rating Scale (LF)?Do you want to initiate with?Screener form ?1. Wish to be : Have you wished you were or wished you could go to sleep and not wake up??No ?2. Suicidal Thoughts: Have you actually had any thoughts of killing yourself??No ?6. Suicide Behaviour: Have you ever done anything,started to do anything, or prepared to end your life??No ?Interpretation:?Low Risk ???CSSRS Interpretation and Follow Up Plan:?CSSRS Interpretation and Follow Up Plan. ?CSSRS Interpretation and Follow Up Plan?CSSRS Screen documented using SF?Yes ?Moderate or High risk requires selection of a follow up plan?CSSRS No/Low: intervention not needed at this time * ROS:?Basic ROS:?Denies?Weight loss or gain.?Admits?Psychiatric Condition.? * Medical History:? * Surgical History:?Denies Pas t Surgical History * Hospitalization/Major Diagno stic Procedure:?Denies Past Hospitalization * Family History:?Father: dece ased.?Mother: alive.?2 brother(s) , 1 sister(s) - healthy. .? Mom has osteopenia and arthritis. * Social History:?Primary Social History:?Living Arrangement?Living Arrangement:?Independent Living Lives with Mom ?Is this a supportive environment??Yes ?Alcohol Use?Alcohol Use Frequency:?Monthly or less ?Illicit Substance Usage?Illicit Substance Usage:?No ?Employment Status?Employment Status:?Unemployed ???Tobacco Use:?Tobacco Control (Standard)?Tobacco use:?Nonsmoker ???Miscellaneous:?Method of learning?Preferred method of learning:?Reading * Medications:?TakingGoodSense Nicotine 2 MG Lozenge 1 [...] * Allergies:?N.K.D.A.no[Allerg ies Verified] Objective: * Vitals:?Initials: dt, Wt:160 .0, Ht: 70, BMI:22.96, BP:102/70, HR:69, Oxygen sat %:98, RR:16, LMP: 03/2024, Pain scale:0. * Examination: ???General Examination: ?GENERAL APPEARANCE:?well developed, well nourished, in no acute distress.?HEAD:?normocephalic, atraumatic.?EYES:?PERRLA, sclera and conjunctiva clear.?EARS? External ears intact.?NOSE:?nares patent, no lesions, septum intact.?ORAL CAVITY:?mucosa moist.?THROAT:?no erythema, no exudate, pharynx normal.?NECK/THYROID:?no JVD, no goiter.?SKIN:?warm and dry, no rashes.?HEART:?regular rate and rhythm, no murmurs.?LUNGS:?respirations regular and easy, clear to auscultation bilaterally.?ABDOMEN:?bowel sounds present, soft, nontender, nondistended, no masses palpable, no organomegaly .?MUSCULOSKELETAL:?no joint deformity, swelling, redness, or warmth , JONY upper and lower extremities.?EXTREMITIES:?no clubbing, cyanosis, or edema.?NEUROLOGIC:?cranial nerves 2-12 grossly intact, DTR'S 2+ BTKA.?PSYCH:?AFFECT BLUNTED, SPEECH CLEAR AND COHERENT..? Assessment: * Assessment: 1.?Macrocytosis without anem ia - D75.89 (Primary)???2.?Fatigue - R53.83???3.?Medication monitoring encounter - Z51.81??? Plan: * Treatment: 2.?Fatigue? Start Multi Vitamin Tablet, -, 1 tablet, Orally, Once a day, 30 days, 30, Refills 11.?LAB: CBC With Differential/Platelet* (Ordered for 04/23/2024) ?LAB: TSH Rfx on Abnormal to Free T4 (Ordered for 04/23/2024) 3.?Medication monitoring enc ounter?LAB: Carbamazepine(Tegretol), S (Ordered for 04/23/2024) ?LAB: CMP 14 Comprehensive Metabolic Panel* (Ordered for 04/23/2024) * Recommended Wellness and Pre vention Guidelines: * ?Status ?Alert ?Last Done ?Next Due ?Action Taken ?NONCOMPLIANT ?Alcohol use screening ?- ? 4 ?- ?NONCOMPLIANT ?Allergy List Verification ?- ?04/23 ?- ?NONCOMPLIANT ?Cervical cancer screening ?- ?04/23 ?- ?NONCOMPLIANT ?HIV screening ?- ?04/23/2024 ?- ?NONCOMPLIANT ?Influenza vaccine (high risk) ?- ?1 06/23/2023 ?- * Procedure Codes:?[id number] [facility] VISIT ESTABLISHED PATIENT * Follow Up:?6 Months (Reason: MEDICATION F/U) * * ESSOR OF RELIGIOUS STUDIES Sign off status: Completed true * Provider:?Rai Mehta Date:? 4 Generated for Bri garcía/Amaya/eTransmcamilla on:?06/10/2024 06:44 AM PROFESSOR OF RELIGIOUS STUDIES History and Physical Notes * HPI (History of Present Illness) Category Sub-Category Detail Notes Category Not es Interim History Was hospitalized No Emergency room visit No Depression Screening PHQ-9 Little inte rest or pleasure in doing things: Not at all Feeling down, depressed, or hopeless: Se veral days Trouble falling or staying asleep, or sl eeping too much: Several days Feeling tired or having little energy: S everal days Poor appetite or overeating: Not at all Feeling bad about yourself o r that you are a failure, or have let yourself or your family down: Several days Trouble concentrating on thi ngs, such as reading the newspaper or watching television: Not at all Moving or speaking so slowly that other people could have noticed; or the opposite, being so fidgety or restless that you have been moving around a lot more than usual: Not at all Thoughts that you would be b ashley off or of hurting yourself in some way: Not at all Total Score: 4 Interpretation: Minimal Depression Screening Ute Suicide Sev erity Rating Scale (LF) Do you want to initiate with: Screener form ?1. Wish to be : Have yo u wished you were or wished you could go to sleep and not wake up?: No ?2. Suicidal Thoughts: Have you actually had any thoughts of killing yourself?: No ?6. Suicide Behaviour: Have you ever done anything,started to do anything, or prepared to end your life?: No ?Interpretation:: Low Risk Do Not Use CSSRS Interpretation and Follow Up Plan CSSRS Interpretation and Follow Up Plan CSSRS Screen documented using SF: Yes Moderate or High risk requir es selection of a follow up plan: CSSRS No/Low: intervention not needed at this time Examination Category Sub-Category Detail Notes Category Not es General Examination GENERAL APPEARANCE: well dev eloped, well nourished, in no acute distress HEAD: normocephalic, atrau matic EYES: PERRLA, sclera and c onjunctiva clear EARS External ears intact NOSE: nares patent, no les ions, septum intact THROAT: no erythema, no exud ate, pharynx normal NECK/THYROID: no JVD, no goiter HEART: regular rate and rhy thm, no murmurs LUNGS: respirations regular and easy, clear to auscultation bilaterally ABDOMEN: bowel sounds present , soft, nontender, nondistended, no masses palpable, no organomegaly NEUROLOGIC: cranial nerves 2-12 grossly intact, DTR'S 2+ BTKA SKIN: warm and dry, no merle hes EXTREMITIES: no clubbing, cyanosi s, or edema MUSCULOSKELETAL: no joint deformity, swelling, redness, or warmth , JONY upper and lower extremities PSYCH: AFFECT BLUNTED, SPEE CH CLEAR AND COHERENT. ORAL CAVITY: mucosa moist
--- OUTSIDE RECORDS SUMMARY | 2024-06-10 06:44 | XMS_ITS | Encounter Summary ---
Author Organization [facility] Address [address] [place] [address] Care Team Providers Care Nitrocellulose Operator Name Role Phone Thuy Chowdhury MD Unavailable Thuy Chowdhury MD Primary Care Provider [phone] Reason for Visit * Reason Onset Date Comments Med Question 12/02/2011 Encounter Details Date Type Department Care Team (Late st Contact Info) Description 12/02/2011 Telephone [facility] - Pediatrics [address] [place] [phone] Radhika Walter MD [address] [place] [phone] Med Question Social History Tobacco Use Types Packs/Day Years Used Date Smoking Tobacco: Never Alcohol Use Standard Drinks/Week Comments Not Asked 0 (1 standard drink = 0.6 oz pur e alcohol) Sex and Gender Information Value Date Recorded Sex Assigned at Not on file Gender Identity Not on file Sexual Orientation Not on file documented as of this encounter Patient Instructions * Patient Instructions* Suzanne Stevens MA - 12/02/2011 3:03 PM CDT Requesting stronger medication for neck injury. The ibuprofen is not working. documented in this encounter Miscellaneous Notes * Telephone Encounter - Suzanne Stevens MA - 12/02/2011 4:56 PM CDT Informed pt of prescription at pharmacy. * Telephone Encounter - Radhika Walter MD - 12/02/2011 4:47 PM CDT Ok, i have ordered a muscle relaxer for her to use as needed. documented in this encounter Plan of Treatment Not on file documented as of this encounter Visit Diagnoses Not on filedocumented in this encounter Care Teams Nitrocellulose Operator Relationship Specialty Start Date End Date Thuy Chowdhury MD PCP - Pediatrics 07/14/09 10/09/18 Thuy Chowdhury MD PCP - General Pediatrics 11/16/11 10/08/18 documented as of this encounter
--- OUTSIDE RECORDS SUMMARY | 2024-06-10 06:44 | XMS_ITS | Encounter Summary ---
Author Organization [facility] Address [facility] [place] [address] Care Team Providers Care Truck Rental Service Attendant Name Role Phone Thuy hCowdhury MD Unavailable Reason for Visit * Reason Comments Pain Abdominal Fatigue Cough Encounter Details Date Type Department Care Team (Late st Contact Info) Description 02/20/2010 3:20 PM CDT Office Visit [facility] - Pediatrics [address] [place] [phone] Thuy Chowdhury MD [address] [place] [address] Viral illness (Primary Dx); Allergic rhinitis Social History Tobacco Use Types Packs/Day Years Used Date Smoking Tobacco: Never Assessed Sex and Gender Information Value Date Recorded Sex Assigned at Not on file Gender Identity Not on file Sexual Orientation Not on file documented as of this encounter Last Filed Vital Signs Vital Sign Reading Time Taken Comments Blood Pressure - - Pulse - - Temperature 36.4 ??C (97.6 ??F) 02/20/2010 3:12 PM CD T Respiratory Rate - - Oxygen Saturation - - Inhaled Oxygen Concentration - - Weight - - Height - - Body Mass Index - - documented in this encounter Progress Notes * Thuy Chowdhury MD - 02/20/2010 3:18 PM CDT SUBJECTIVE: MAGGIE LIU is a 19 y.o. female presents alone with complaints of coryza, sore throat, fatigue, abdominal pain for 1 day and stayed home from school. Today she went to school and is feeling run down , fatigues, tired, and she has developed a dry cough. She has not been running a fever, denies ear pain. She has had history of [place] 2 yrs ago, and say feels like symptoms I had with [place] . Denies any sick contacts. Sore Throat :Yes, 1 day ago, resolved now Fever: No reduced activity, reduced appetite and normal fluid intake. OBJECTIVE: Temp(Src) 97.6 ??F (Oral) General appearance: alert, well appearing, and in no distress, oriented to person, place, and time,normal appearing weight and well hydrated. Ears: bilateral TM's and external ear canals normal Nose: normal and patent, no erythema, discharge or polyps Oropharynx: mucous membranes moist, pharynx normal without lesions, minimal cobblestoning on posterior pharyn Neck: supple, no significant adenopathy Lungs: clear to auscultation, no wheezes, rales or rhonchi, symmetric air entry Heart - regular rate and rhythm, normal S1 and S2, no murmurs ASSESSMENT: viral illness PLAN: See orders for this visit as documented in the electronic medical record Symptomatic therapy suggested: push fluids, rest, use acetaminophen prn if fever develops and return office visit prn if symptoms persist or worsen. Pt educated on probable course of viral illness and that it could take up to 5 days to feel better documented in this encounter Plan of Treatment Not on file documented as of this encounter Visit Diagnoses Diagnosis Viral illness- Primary Unspecified viral infection, in conditions classified elsewhere and of unspecified site Allergic rhinitis Allergic rhinitis, cause unspecified documented in this encounter Care Teams Truck Rental Service Attendant Relationship Specialty Start Date End Date Thuy Chowdhury MD PCP - Pediatrics 07/14/09 10/09/18 documented as of this encounter
--- OUTSIDE RECORDS SUMMARY | 2024-06-10 06:44 | XMS_ITS | Encounter Summary ---
Author Organization [facility] Address [address] [facility] [place] [address] Care Team Providers Care Overnight Associate Name Role Phone Thuy Chowdhury MD Unavailable Reason for Visit * Reason Onset Date Comments Med Question 09/24/2010 Encounter Details Date Type Department Care Team (Late st Contact Info) Description 09/24/2010 Telephone [facility] Medical [facility] - Pediatrics [address] [place] [phone] Radhika Walter MD [address] [place] [phone] Med Question Social History Tobacco Use Types Packs/Day Years Used Date Smoking Tobacco: Never Assessed Sex and Gender Information Value Date Recorded Sex Assigned at Not on file Gender Identity Not on file Sexual Orientation Not on file documented as of this encounter Miscellaneous Notes * Telephone Encounter - Joann Valdes RN - 09/24/2010 4:55 PM CDT Pt informed. Verbalized understanding and willingness to comply. Asking if she can get it refilled early. Dr Walter aware and says that it may have to be paid out of pocket if refilled too early. Asked pt to notify office if told she would need to pay for it out of pocket for filling to early. Verbalized understanding and willingness to comply. * Telephone Encounter - Radhika Walter MD - 09/24/2010 4:46 PM CDT Since she started her period, she can stop this pack and then start another pack on Tuesday. You can have some break through when you first start taking OCP pills. If she continues to have break through, she may need a pill with higher level of hormones. * Telephone Encounter - Joann Valdes RN - 09/24/2010 2:46 PM CDT Pt says that she started taking the BCP pill about 2.5 weeks ago, on the first Tuesday after her first period after last OV. Says that she started her period yesterday, which is week 3 of the packet. Seems that she is having more cramping with this period but flow seems to be about the same. Questioning what she should do now since period started before expected. documented in this encounter Plan of Treatment Not on file documented as of this encounter Visit Diagnoses Not on filedocumented in this encounter Care Teams Overnight Associate Relationship Specialty Start Date End Date Thuy Chowdhury MD PCP - Pediatrics 07/14/09 10/09/18 documented as of this encounter
--- OUTSIDE RECORDS SUMMARY | 2024-06-10 06:44 | XMS_ITS | Patient Health Summary ---
Author Organization [facility] Address [address] [place] [address] Care Team Providers Care Group Sales Manager Name Role Phone Alli Reid MD Primary Care Provide r Note from [facility],non-owned Affiliates and Associated Physician Practices is amultiple site organization consisting of ambulatory clinics and hospital sitesin [place], [place], [place] and [place]. This disclosure is being madepursuant to the Care Everywhere program and may not contain all information available regarding this patient. Last updated 18.[facility] Allergies * Shellfish Allergy(Angioedema) -High Criticality Medications * Be aware that medications may not be up to date on this document. Alwaysverify current medications with the patient. * benzoyl peroxide (BENZOYL PEROXIDE) 5 % wash(Started 06/22/2013) Apply to affected area 2 times daily. 3 refills left * adapalene-benzoyl peroxide (EPIDUO) 0.1-2.5 % gel(Started 06/22/2013) Apply to affected area at bedtime. 3 refills left Active Problems Problem Noted Date Diagnosed Date Allergic rhinitis 02/20/2010 Immunizations * DPT(Given 10/08/1997, 06/07/1994, 05/25/1993, 03/09/1993, 01/05/1993) * HEP A PEDS 2 DOSE(Given 02/24/2007, 03/11/2006) * HEP B VACCINE, PED/ADOL(Given 07/27/1993, 1992, 1992) * HIB BOOSTER(Given 02/25/1994, 05/25/1993, 03/09/1993, 01/05/1993) * Human Papilloma Virus Quadrivalent Vaccine(Given 07/20/2010) * Human Papilloma Virus Vaccine(Given 03/10/2009, 03/08/2008) * MEASLES(Given 11/09/1993) * MENINGOCOCAL MENINGITIS(Given 03/11/2006) * MENINGOCOCCAL CONJUGATE (MCV4P)(Given 01/11/2013) * MMR(Given 11/04/1997) * MUMPS(Given 02/09/1994) * POLIO OPV(Given 10/08/1997, 06/07/1994, 05/25/1993, 03/09/1993, 01/05/1993) * RUBELLA(Given 02/09/1994) * TDAP (7yrs+)(Given 03/11/2006) Social History Tobacco Use Types Packs/Day Years Used Date Smoking Tobacco: Never Smokeless Tobacco: Never Alcohol Use Standard Drinks/Week Comments No 0 (1 standard drink = 0.6 oz pur e alcohol) Sex and Gender Information Value Date Recorded Sex Assigned at Not on file Gender Identity Not on file Sexual Orientation Not on file Last Filed Vital Signs Vital Sign Reading Time Taken Comments Blood Pressure 134/60 10/10/2018 12:24 AM CDT Pulse 64 10/10/2018 12:24 AM CDT Temperature 36.8 ??C (98.2 ??F) 10/10/2018 1 2:24 AM CDT Respiratory Rate 14 10/10/2018 12:2 4 AM CDT Oxygen Saturation 99% 10/10/2018 12: 24 AM CDT Inhaled Oxygen Concentration - - Weight 70.8 kg (156 lb) 10/10/2018 12:2 4 AM CDT actual weight Height 177.8 cm (5' 10 ) 10/10/2018 12: 24 AM CDT Body Mass Index 22.38 10/10/2018 12:24 AM CDT Procedures * XR WRIST LEFT 3VW OR MORE(Performed 10/10/2018) Performed for Left wrist pain * XR HAND LEFT 3VW OR MORE(Performed 10/10/2018) Performed for Left hand pain * XR FOREARM LEFT 2VW OR MORE(Performed 10/10/2018) Performed for Left arm pain * XR CHEST 2VW(Performed 03/13/2013) * XR CERVICAL SPINE 4 OR 5VW(Performed 03/13/2013) * IMAGING/RADIOLOGY/XRAY RESULTS ORDER(Performed 12/21/2011) * XR CERVICAL SPINE 4 OR 5VW(Performed 12/02/2011) Performed for Neck pain * CHLAMYDIA + GC AMPLIFIED PROBE(Performed 08/15/2010) * CULTURE URINE(Performed 08/15/2010) Performed for Frequency, UTI (lower urinary tract infection) * URINALYSIS - POINT OF CARE(Performed 08/15/2010) Performed for Frequency, UTI (lower urinary tract infection) * CULTURE AEROBIC+GRAM STAIN(Performed 12/15/2009) Performed for Friction Burn of Ankle with Infection * HETEROPHILE ANTIBODY SCREEN(Performed 06/17/2008) * ROLANDO-MCDERMOTT VIRUS ANTIBODY PANEL(Performed 06/17/2008) * CBC W AUTO DIFFERENTIAL(Performed 06/17/2008) * CULTURE THROAT(Performed 06/17/2008) Results * XR WRIST LEFT 3VW OR MORE (10/10/2018 12:43 AM CDT) Anatomical Region Laterality Modality Wrist / Hand Radiographic Jennifer ging 10/10/2018 1:03 AM CDT Impressions 10/10/2018 12:35 PM CDT IMPRESSION: No acute fracture or dislocation identified. Report dictated by Marcello Rayo M.D. (residential remodeling subcontractor). I, Dr. MARK CANSECO have personally reviewed and interpreted this examination/study. This report was electronically signed by MARK CANSECO ??on 10/10/2018 12:35 PM . Narrative 10/10/2018 12:35 PM CDT EXAMINATION: 1.XR FOREARM LEFT 2VW, 2.XR WRIST LEFT 3VW OR MORE, 3.XR HAND LEFT 3VW OR MORE HISTORY: trauma to arm COMPARISON: No prior study is available for comparison. FINDINGS: Left forearm: The radius and ulna are intact without evidence of acute fracture. Bone density and texture are normal. No soft tissue swelling is present. wrist: The osseous structures are intact and well aligned without acute fracture or dislocation. The joint spaces are preserved. Bone density and texture are normal. No soft tissue swelling is present. hand: The osseous structures are intact and well aligned without acute fracture or dislocation. The joint spaces are preserved. Bone density and texture are normal. No soft tissue swelling is present. Procedure Note Mark Canseco MD - 10/10/2018 EXAMINATION: 1.XR FOREARM LEFT 2VW, 2.XR WRIST LEFT 3VW OR MORE, 3.XR HAND LEFT 3VW OR MORE HISTORY: trauma to arm COMPARISON: No prior study is available for comparison. FINDINGS: Left forearm: The radius and ulna are intact without evidence of acute fracture. Bone density and texture are normal. No soft tissue swelling is present. wrist: The osseous structures are intact and well aligned without acutefracture or dislocation. The joint spaces are preserved. Bone density and texture are normal. No soft tissue swelling is present. hand: The osseous structures are intact and well aligned without acutefracture or dislocation. The joint spaces are preserved. Bone density and texture are normal. No soft tissue swelling is present. IMPRESSION: No acute fracture or dislocation identified. Report dictated by Marcello Rayo M.D. (residential remodeling subcontractor). Dr. MARK Montano have personally reviewed and interpreted this examination/study. This report was electronically signed by MARK CANSECO on 10/10/201812:35 PM . Keli Peck ANALYST MICROBIOLOGY LAB-STRIPPING [employer] DIAGNOSTIC JENNIFER GING ORDERABLES * XR HAND LEFT 3VW OR MORE (10/10/2018 12:42 AM CDT) Anatomical Region Laterality Modality Wrist / Hand Radiographic Jennifer ging 10/10/2018 1:03 AM CDT Impressions 10/10/2018 12:35 PM CDT IMPRESSION: No acute fracture or dislocation identified. Report dictated by Marcello Rayo M.D. (residential remodeling subcontractor). Dr. MARK Montano have personally reviewed and interpreted this examination/study. This report was electronically signed by MARK CANSECO ??on 10/10/2018 12:35 PM . Narrative 10/10/2018 12:35 PM CDT EXAMINATION: 1.XR FOREARM LEFT 2VW, 2.XR WRIST LEFT 3VW OR MORE, 3.XR HAND LEFT 3VW OR MORE HISTORY: trauma to arm COMPARISON: No prior study is available for comparison. FINDINGS: Left forearm: The radius and ulna are intact without evidence of acute fracture. Bone density and texture are normal. No soft tissue swelling is present. wrist: The osseous structures are intact and well aligned without acute fracture or dislocation. The joint spaces are preserved. Bone density and texture are normal. No soft tissue swelling is present. hand: The osseous structures are intact and well aligned without acute fracture or dislocation. The joint spaces are preserved. Bone density and texture are normal. No soft tissue swelling is present. Procedure Note Mark Canseco MD - 10/10/2018 EXAMINATION: 1.XR FOREARM LEFT 2VW, 2.XR WRIST LEFT 3VW OR MORE, 3.XR HAND LEFT 3VW OR MORE HISTORY: trauma to arm COMPARISON: No prior study is available for comparison. FINDINGS: Left forearm: The radius and ulna are intact without evidence of acute fracture. Bone density and texture are normal. No soft tissue swelling is present. wrist: The osseous structures are intact and well aligned without acutefracture or dislocation. The joint spaces are preserved. Bone density and texture are normal. No soft tissue swelling is present. hand: The osseous structures are intact and well aligned without acutefracture or dislocation. The joint spaces are preserved. Bone density and texture are normal. No soft tissue swelling is present. IMPRESSION: No acute fracture or dislocation identified. Report dictated by Marcello Rayo M.D. (residential remodeling subcontractor). Dr. MARK Montano have personally reviewed and interpreted this examination/study. This report was electronically signed by MARK CANSECO on 10/10/201812:35 PM . Anahortencia ChengCisco ANALYST MICROBIOLOGY LAB-STRIPPING [employer] DIAGNOSTIC JENNIFER GING ORDERABLES * XR FOREARM LEFT 2VW (10/10/2018 12:42 AM CDT) Anatomical Region Laterality Modality Upper Extremity Radiographic Jennifer ging 10/10/2018 1:03 AM CDT Impressions 10/10/2018 12:35 PM CDT IMPRESSION: No acute fracture or dislocation identified. Report dictated by Marcello Rayo M.D. (residential remodeling subcontractor). Dr. MARK Montano have personally reviewed and interpreted this examination/study. This report was electronically signed by MARK CANSECO ??on 10/10/2018 12:35 PM . Narrative 10/10/2018 12:35 PM CDT EXAMINATION: 1.XR FOREARM LEFT 2VW, 2.XR WRIST LEFT 3VW OR MORE, 3.XR HAND LEFT 3VW OR MORE HISTORY: trauma to arm COMPARISON: No prior study is available for comparison. FINDINGS: Left forearm: The radius and ulna are intact without evidence of acute fracture. Bone density and texture are normal. No soft tissue swelling is present. wrist: The osseous structures are intact and well aligned without acute fracture or dislocation. The joint spaces are preserved. Bone density and texture are normal. No soft tissue swelling is present. hand: The osseous structures are intact and well aligned without acute fracture or dislocation. The joint spaces are preserved. Bone density and texture are normal. No soft tissue swelling is present. Procedure Note Mark Canseco MD - 10/10/2018 EXAMINATION: 1.XR FOREARM LEFT 2VW, 2.XR WRIST LEFT 3VW OR MORE, 3.XR HAND LEFT 3VW OR MORE HISTORY: trauma to arm COMPARISON: No prior study is available for comparison. FINDINGS: Left forearm: The radius and ulna are intact without evidence of acute fracture. Bone density and texture are normal. No soft tissue swelling is present. wrist: The osseous structures are intact and well aligned without acutefracture or dislocation. The joint spaces are preserved. Bone density and texture are normal. No soft tissue swelling is present. hand: The osseous structures are intact and well aligned without acutefracture or dislocation. The joint spaces are preserved. Bone density and texture are normal. No soft tissue swelling is present. IMPRESSION: No acute fracture or dislocation identified. Report dictated by Marcello Rayo M.D. (residential remodeling subcontractor). I, Dr. MARK CANSECO have personally reviewed and interpreted this examination/study. This report was electronically signed by MARK CANSECO on 10/10/201812:35 PM . Keli Peck ANALYST MICROBIOLOGY LAB-STRIPPING [employer] DIAGNOSTIC JENNIFER GING ORDERABLES * XR CERVICAL SPINE MIN 4+ VW (03/13/2013) Only the most recent of2 resultswithin the time period is included. Anatomical Region Laterality Modality Spine Other Emergency Physician DIAGNOSTIC IMAGING O RDERABLES * XR CHEST PA AND LATERAL (03/13/2013) Anatomical Region Laterality Modality Chest Other Emergency Physician DIAGNOSTIC IMAGING O RDERABLES * IMAGING/RADIOLOGY/XRAY RESULTS ORDER (12/21/2011) Anatomical Region Laterality Modality Other Emergency Physician IMAGING * CHLAMYDIA + GC DNA PROBE AMPLIFIED (08/15/2010 11:52 AM CDT) Chlamydia NILO Urine Negative Negative [facility] ACCOUNT BILL GC NILO Urine Negative Negative [facility] ACCOUNT BILL Please Note [facility] ACCOUNT BILL Comment: Acceptable specimens for this test are male urethral swab, endocervical swab and liquid based pap specimens, vaginal swabs in APTIMA transports and first void urine. See online Directory of Services for test number for rectal and pharyngeal specimens. ENTIRE URETHRA / Unknown 08/15/2010 11:52 AM CDT 08/15/2010 5:41 PM CDT Narrative Resulting Agency Comment [facility] [address] ??[facility] [id number] Thuy Chowdhury MD LAB - MICROBIOLOGY O RDERABLES [facility] ACCOUNT BILL * CULTURE URINE (08/15/2010 11:48 AM CDT) Urine Culture Routine Final report [facility] ACCOUNT BILL Result 1 Escherichia coli [facility] ACCOUNT BILL Comment:Greater than 100,000 colony forming units per mL Antimicrobial Susceptibility [facility] ACCOUNT BILL Comment: ?? S = Susceptible; I = Intermediate; R = Resistant ? P = Positive; N = Negative ?MICS are expressed in micrograms per mL ?? Antibiotic ? RSLT#1 ?RSLT#2 ?RSLT#3 ?RSLT#4 Amikacin ? S Amoxicillin/Clavulanic Acid ?S Ampicillin ? R Cefazolin ?S Cefepime ? S Cefoxitin ?S Ceftriaxone ?S Ciprofloxacin ?S ESBL ? N Ertapenem ?S Gentamicin ? S Imipenem ? S Levofloxacin ? S Nitrofurantoin ? S Tobramycin ? S Trimethoprim/Sulfa ? R URINE SPECIMEN OBTAINED BY CLEAN CATCH PROCEDURE / Unknown 08/15/2010 11:48 AM CDT 08/15/2010 5:41 PM CDT Narrative Resulting Agency Comment [facility] [place] [address] ??[place] [id number] Thuy Chowdhury MD LAB - MICROBIOLOGY O RDERABLES [facility] ACCOUNT BILL * (ABNORMAL) URINALYSIS - POINT OF CARE (08/15/2010 11:30 AM CDT) Clarity UA POCT clear Color UA POCT selvin Leukocyte UA 1 Negative Nitrite UA POCT neg Negative Urobilinogen UA POCT neg 0.1 - 1.0 EU/dL Protein UA POCT trace Negative pH UA 7 5.0 - 8.0 pH units Blood UA about 250 Negative Specific [place] UA POCT 1.005 1.002 - 1.030 Ketone UA neg Negative Bilirubin UA POCT neg Negative Glucose UA neg Negative Urine specimen (specimen) URINE / Unknown 08/15/2010 11:30 AM CDT Thuy Chowdhury MD LAB - POINT OF CARE ORDERABLES * CULTURE ROUTINE (12/15/2009 10:25 AM CDT) Aerobic Bacterial Culture Final report [facility] ACCOUNT BILL Result 1 [facility] ACCOUNT BILL Comment:No growth in 36 - 48 hours. ENTIRE FOOT / Unknown 12/15/2009 10:25 AM CDT 12/15/2009 10:32 PM CDT Narrative Resulting Agency Comment [facility] [address] ??[facility] [id number] Thuy Chowdhury MD LAB - MICROBIOLOGY O RDERABLES Performing Organization Address City/[facility]/ZIP Co de Phone Number [facility] ACCOUNT BILL * (ABNORMAL) HETEROPHILE ANTIBODY SCREEN (06/17/2008 3:51 PM CORN HUSK BALER) Pathologist [facility] Heterophile [place] Screen POSITIVE( A) NEGATIVE [facility] Comment: Test Performed at: [employer] [facility] [address] [place] [address] ??[id number] BRITTANY BAY MD 06/17/2008 3:51 PM [facility] 06/17/2008 5:08 PM [facility] Thuy Chowdhury MD LAB - SEROLOGY ORDER SATHYA Performing Organization Address City/[facility] Co de Phone Number [facility] [address] [place] [address] * (ABNORMAL) ROLANDO-BAR VIRUS PANEL (06/17/2008 3:51 PM CORN HUSK BALER) Pathologist [facility] Rolando-Mcdermott Virus Antibody To Viral Capsid Antigen IgM [...] CLINICAL SIGNS AND SYMPTOMS OF THE PATIENT. Rolando-Mcdermott Virus Antibody To Viral Capsid Antigen IgG [...] CLINICAL SIGNS AND SYMPTOMS OF THE PATIENT. Rolando-Mcdermott Nuclear Antibody IgG Nuclear Antigen IV < [...] NOTE [facility] Comment: SUGGESTIVE OF A CURRENT ROLANDO-MCDERMOTT VIRUS INFECTION. Test Performed at: [employer] [facility] [id number] [place] [address] ??[id number] BRITTANY BAY MD 06/17/2008 3:51 PM [facility]ER 06/17/2008 5:08 PM [facility]K [facility]ER Thuy Chowdhury MD LAB - CHEMISTRY GERMAN CISNEROS Performing Organization Address City/State/[facility] de Phone Number [facility] [address] [place] [address] * CULTURE THROAT (06/17/2008 3:51 PM CORN HUSK BALER) Pathologist [facility] Culture [facility] Comment: ??CULTURE, THROAT ?MICRO NUMBER: ?[id number] ??TEST STATUS: ? FINAL ??SPECIMEN SOURCE: ?? THROAT ??SPECIMEN COMMENTS: ADEQUATE ??RESULT: ?HEAVY GROWTH OF ? BETA-HEMOLYTIC STREPTOCOCCUS, NOT GROUP A,C OR G ? BETA-HEMOLYTIC STREPTOCOCCI ARE ? PREDICTABLY SUSCEPTIBLE TO PENICILLIN ? AND OTHER BETA-LACTAMS. ? SUSCEPTIBILITY TESTING NOT ROUTINELY ? PERFORMED. ? NORMAL OROPHARYNGEAL SONNY ALSO PRESENT. Test Performed at: [employer] [facility] [address] [place], [place] ??[id number] BRITTANY BAY MD 06/17/2008 3:51 PM CORN HUSK BALER 06/17/2008 5:08 PM CORN HUSK BALER Thuy Chowdhury MD LAB - MICROBIOLOGY O RDERABLES Performing Organization Address [facility] de Phone Number [facility] [address] [place] [address] * (ABNORMAL) CBC W AUTO DIFFERENTIAL (06/17/2008 3:51 PM CORN HUSK BALER) White Blood Cell Count 8.9 4.5 - [...] DIFFERENTIAL HAS BEEN REPORTED. Test Performed at: [employer] [address] ??[id number] BRITTANY BAY MD 06/17/2008 3:51 PM CORN HUSK BALER 06/17/2008 5:08 PM CORN HUSK BALER Thuy Chowdhury MD LAB - HEMATOLOGY ORD ERABLES [facility] [address] [place] [address] Care Teams Group Sales Manager Relationship Specialty Start Date End Date Alli Reid MD PCP - General Family Medicine 10/09/18
--- OUTSIDE RECORDS SUMMARY | 2024-06-10 06:44 | XMS_ITS | Encounter Summary ---
Author Organization [facility] Address [address] [place] [address] Care Team Providers Care Personnel Arbitrator Name Role Phone Thuy Chowdhury MD Unavailable Thuy Chowdhury MD Primary Care Provider [phone] Reason for Visit * Reason Onset Date Comments Question 12/14/2012 Encounter Details Date Type Department Care Team (Late st Contact Info) Description 12/14/2012 Telephone [facility] Medical Group - Pediatrics [address] [place] [phone] Thuy Chowdhury MD [facility] [address] [place] [address] Question Social History Tobacco Use Types Packs/Day [...] Telephone Encounter - Thuy Chowdhury MD - 12/14/2012 1:48 PM CDT Spoke to mom and advised to call me after Psyc visit today. * Telephone Encounter - Maria G Ortiz - 12/14/2012 9:09 AM CDT Mother called requesting to speak to you regarding Tesha and her mental health. She has been picked up by the police for hichicking to [place], then again [facility]. They reccommended a mental health evaluation. She did have an appt in [place] today at the hospital. Wants to speak with you before they go to appt. She said she is beside herself And doesn't want anything bad to happen to her and wants your opinion on what she should do and where to go for treatment. documented in this encounter Plan of Treatment Not on file documented as of this encounter Visit Diagnoses Not on filedocumented in this encounter Care Teams Personnel Arbitrator Relationship Specialty Start Date End Date Thuy Chowdhury MD PCP - Pediatrics 07/14/09 10/09/18 Thuy Chowdhury MD PCP - General Pediatrics 11/16/11 10/08/18 documented as of this encounter
--- OUTSIDE RECORDS SUMMARY | 2024-06-10 06:44 | XMS_ITS | Encounter Summary ---
Author Organization [facility] Address [facility] [place] [address] Care Team Providers Care Horse Race Timer Name Role Phone Thuy Chowdhury MD Unavailable Reason for Visit * Reason Onset Date Comments UTI 08/24/2010 Encounter Details Date Type Department Care Team (Late st Contact Info) Description 08/24/2010 Telephone [facility] Medical Group - Pediatrics [address] [place] [phone] Thuy Chowdhury MD [address] [place] [address] UTI Social History Tobacco Use Types Packs/Day Years Used Date Smoking Tobacco: Never Assessed Sex and Gender Information Value Date Recorded Sex Assigned at Not on file Gender Identity Not on file Sexual Orientation Not on file documented as of this encounter Miscellaneous Notes * Telephone Encounter - Joann Valdes RN - 08/24/2010 11:03 AM CDT Attempted to inform Mom of new prescription. No answer. Message left on cell phone voice mail that new prescription called in and to call office for further concerns or questions. * Telephone Encounter - Thuy Chowdhury MD - 08/24/2010 10:33 AM CDT I called in cipro for her, she has uti which is resistant to bactrim. * Telephone Encounter - Scotty Matos - 08/24/2010 10:07 AM CDT Mom called and said [place] and sorry so late in returning fup call. Tesha finished medicine and feels symptoms returning. Urinates frequently,no burning,but discomfort. Please call mom bk with what to do nx. documented in this encounter Plan of Treatment Not on file documented as of this encounter Visit Diagnoses Not on filedocumented in this encounter Care Teams Horse Race Timer Relationship Specialty Start Date End Date Thuy Chowdhury MD PCP - Pediatrics 07/14/09 10/09/18 documented as of this encounter
--- OUTSIDE RECORDS SUMMARY | 2024-06-10 06:44 | XMS_ITS | Encounter Summary ---
Author Organization [facility] Address [facility] [place] [address] Care Team Providers Care Cad Design Engineer Name Role Phone Thuy Chowdhury MD Unavailable Reason for Visit * Reason Comments Complete Physical Exam college physical Encounter Details Date Type Department Care Team (Late st Contact Info) Description 07/20/2010 11:00 AM HORSE EXERCISER Office Visit [facility] - Pediatrics [address] [place] [phone] Thuy Chowdhury MD [address] [place] [address] Routine infant or child health check (Primary Dx); Chest pain; Need vaccination-viral disease Social History Tobacco Use Types Packs/Day Years Used Date Smoking Tobacco: Never Assessed Sex and Gender Information Value Date Recorded Sex Assigned at Not on file Gender Identity Not on file Sexual Orientation Not on file documented as of this encounter Last Filed Vital Signs Vital Sign Reading Time Taken Comments Blood Pressure 106/58 07/20/2010 10:54 AM HORSE EXERCISER Pulse 60 07/20/2010 10:54 AM HORSE EXERCISER Temperature - - Respiratory Rate - - Oxygen Saturation - - Inhaled Oxygen Concentration - - Weight 54.9 kg (121 lb) 07/20/2010 10:54 AM HORSE EXERCISER Height 167 cm (5' 5.75 ) 07/20/2010 10:54 AM HORSE EXERCISER Body Mass Index 19.68 07/20/2010 10:54 AM HORSE EXERCISER Body Mass Index Percentile 29.45% 07/20/2010 10: 54 AM HORSE EXERCISER Growth Chart: CDC (Girls, 2- 20 Years) documented in this encounter Patient Instructions * Patient Instructions* Thuy Chowdhury MD - 07/20/2010 11:12 AM HORSE EXERCISER Establish realistic expectations for family rules, giving your adolescent increasing autonomy and responsibility. Reach agreement with your adolescent about limits, cosequences for breaking rules, and independent decision making. Four I's of adolescent development: Initiative, Individualism, [place] and Intimacy. Six Guides for Decision Makin-Is it safe? 2-Is it legal? 3-Does it conflict with responsibilities? 4-Does it meet a developmental need? 5-Does it interfere with others? 6-Could it harm his/her development? Teens are very sensitive to Hypocricy They will reject their parent's moral code if they see them being hypocritical. Don't react to provocation. Enhance your adolescent's self-esteem by showing affection, praising positive behavior, and recognizing efforts and achievements. Continue to affirm and model family values such as respect for self and others. Minimize criticism and avoid nagging, derogatory comments and other belittling or demeaning messages. Spend time with your adolescent and continue to show interest in his plans and activities. Respect your adolescent's need for privacy. Model safe driving practises(e.g avoid alcohol, using safety belts) and disucss family rules about driving before your adolescent is eligible to drive. Talk with your own health professional about your own preventive and health- promoting practises(e.gavoiding tobacco, eating nutritiously, being physically active, doing breast self-exams or testicular self-exams) Help your adolescent understand that driving is a privilege and a responsibility. Remind your adolescent to concentrate when driving and to avoid distractions(e.g loud music, talking or texting on the phone, eating while driving) Discuss with your adolescent the dangers of drinking and driving. Write and sign a no drinking anddriving contract with your adolescent. Urge your adolescent to always call you for a ride if he or another starting gate driver has been drinking. Be sure your adolescent understands that you will pick him up at any time if he has been drinking. Advocate for and participate in alcohol-free community evetns(e.g proms, graduation parties) E EXERCISER documented in this encounter Progress Notes * Thuy Chowdhury MD - 07/20/2010 10:57 AM CST SUBJECTIVE: MAGGIE LIU is a 19 y.o. female presenting for well adolescent and/or school/sports physical. She is seen today accompanied by mother. PARENTAL CONCERNS: None DIET: Milk: yes, 8 oz skim milk/day Good variety of fruits and vegatables: yes, occasional vitamins. ANTICIPATORY GUIDANCE: School:Milk: yes Good variety of fruits and vegatables: yes Helment: yes Seat belt: yes Dental hygene: yes ROS: She complains of chest pain on and off with running, her ekg and echo were normal no wheezing, cough or dyspnea, no abdominal pain, no headaches. No problems during sports participation in the past. Social History: Denies the use of tobacco, alcohol or street drugs. Sexual history: not sexually active FH: Early Heart Disease No Sudden No OBJECTIVE: General appearance: WDWN female. ENT: ears and throat normal Eyes: extra occular movements intact,PERRTL Neck: supple, thyroid normal, no adenopathy Lungs: clear, no wheezing or rales Heart: no murmur, regular rate and rhythm, normal S1 and S2 Abdomen: no masses palpated, no organomegaly or tenderness Genitalia: normal female external genitalia, pelvic not performed Spine: normal, no scoliosis Skin: Normal with mild acne noted. Neuro: normal Extremities: normal ASSESSMENT: Well Adolescent Chest Pain- conditioning issue PLAN: Plan per records. Immunnizations per electronic medical record. Discussed weight management: no Acne treatment discussed: yes, she does not want to treat it at the moment. Begin counseling related to alcohol, drugs, tobacco, inhalants, sex; ensure seat belt use; anticipate some errors in judgment and increased risk-taking; prepare child for sexual development, menstruation, wet dreams; teach how to say no to peer pressure; encourage mentally and physically rewarding pursuit of talents and hobbies; promote interaction with friends, team sports; reinforce limits and be firm with consequences; foster conversation and open communication; participate in activities together; contribute to self-esteem with affection and praise; handle anger constructively and do not allow violence. Follow in one year. E EXERCISER documented in this encounter Plan of Treatment Not on file documented as of this encounter Visit Diagnoses Diagnosis Routine infant or child health check- Primary Chest pain Chest pain, unspecified Need for prophylactic vaccination and inoculation against other viral diseases(V04.89) Need for prophylactic vaccination and inoculation against other viral diseases documented in this encounter Care Teams Cad Design Engineer Relationship Specialty Start Date End Date Thuy Chowdhury MD PCP - Pediatrics 07/14/09 10/09/18 documented as of this encounter
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
--- OUTSIDE RECORDS SUMMARY | 2024-06-10 06:44 | XMS_ITS | Encounter Summary ---
Author Organization [facility] Address [address] [facility] [place] [address] Care Team Providers Care Laborer Construction Or Leak Gang Name Role Phone Thuy Chowdhury MD Unavailable Encounter Details Date Type Department Care Team (Late st Contact Info) Description 08/15/2010 Orders Only [facility] Medical [facility] - Pediatrics [address] [place] [address] [address] [place] [phone] Thuy Chowdhury MD [address] [place] [phone] Social History Tobacco Use Types Packs/Day Years Used Date Smoking Tobacco: Never Assessed Sex and Gender Information Value Date Recorded Sex Assigned at Not on file Gender Identity Not on file Sexual Orientation Not on file documented as of this encounter Progress Notes * Joann Valdes RN - 08/17/2010 1:27 PM CDTQuick Note: Attempted to notify pt of normal results per Dr Chowdhury's request. No answer on pt's phone. Message left for pt relaying results and to call office for further questions or concerns. * Thuy Chowdhury MD - 08/17/2010 1:18 PM CDTQuick Note: Please call the parent and let him/her know the results are normal. documented in this encounter Plan of Treatment Not on file documented as of this encounter Procedures Procedure Name Priority Date/Time Associated Diagnosis Comments CHLAMYDIA + GC AMPLIFIED PROBE 08/15/2010 11:52 AM CDT documented in this encounter Results * CHLAMYDIA + GC DNA PROBE AMPLIFIED [...] PM CDT Narrative Resulting Agency Comment [facility] [address] ??[facility] [phone] Thuy Chowdhury MD LAB - MICROBIOLOGY O RDERABLES [facility] ACCOUNT BILL documented in this encounter Visit Diagnoses Not on filedocumented in this encounter Care Teams Laborer Construction Or Leak Gang Relationship Specialty Start Date End Date Thuy Chowdhury MD PCP - Pediatrics 07/14/09 10/09/18 documented as of this encounter
--- OUTSIDE RECORDS SUMMARY | 2024-06-10 06:44 | XMS_ITS | Encounter Summary ---
Author Organization [facility] Address [facility] [facility] [place] [address] Care Team Providers Care Drill Press Operator Name Role Phone Thuy Chowdhury MD Unavailable Reason for Visit * Reason Onset Date Comments Pain Urinary 08/15/2010 Encounter Details Date Type Department Care Team (Late st Contact Info) Description 08/15/2010 Telephone [facility] - Pediatrics [address] [place] [phone] Thuy Chowdhury MD [address] [place] [phone] Pain Urinary Social History Tobacco Use Types Packs/Day Years Used Date Smoking Tobacco: Never Assessed Sex and Gender Information Value Date Recorded Sex Assigned at Not on file Gender Identity Not on file Sexual Orientation Not on file documented as of this encounter Miscellaneous Notes * Telephone Encounter - Joann Valdes RN - 08/15/2010 10:51 AM CDT Spoke with Mom. Says pt has been having frequency. Urinating about qhr. Abd discomfort after voiding. Sx for the last 4-5 days. Recommended OV today for evaluation. OV scheduled. documented in this encounter Plan of Treatment Not on file documented as of this encounter Visit Diagnoses Not on filedocumented in this encounter Care Teams Drill Press Operator Relationship Specialty Start Date End Date Thuy Chowdhury MD PCP - Pediatrics 07/14/09 10/09/18 documented as of this encounter
--- OUTSIDE RECORDS SUMMARY | 2024-06-10 06:44 | XMS_ITS | Encounter Summary ---
Author Organization [facility] Address [address] [facility] [place] [address] Care Team Providers Care Sports Cartoonist Name Role Phone Unavailable Primary Care Provider Unavailabl e Encounter Details Date Type Department Care Team (Late st Contact Info) Description 04/07/2009 Orders Only [facility] - Pediatrics [address] [place] [phone] Thuy Chowdhury MD [address] [phone] Migraine Social History Tobacco Use Types Packs/Day Years Used Date Smoking Tobacco: Never Assessed Sex and Gender Information Value Date Recorded Sex Assigned at Not on file Gender Identity Not on file Sexual Orientation Not on file documented as of this encounter Plan of Treatment Not on file documented as of this encounter Visit Diagnoses Diagnosis Migraine- Primary Migraine, unspecified, without mention of intractable migraine without mention of status migrainosus documented in this encounter
--- OUTSIDE RECORDS SUMMARY | 2024-06-10 06:44 | XMS_ITS | Encounter Summary ---
Author Organization [facility] Address [address] [facility] [place] [address] Care Team Providers Care Mandrel Cleaner Name Role Phone Thuy Chowdhury MD Unavailable Thuy Chowdhury MD Primary Care Provider [phone] Encounter Details Date Type Department Care Team (Late st Contact Info) Description 12/15/[address] [facility] Medical [facility] - Pediatrics [address] [place] [phone] Radhika Walter MD [address] [place] [phone] Neck pain Social History Tobacco Use Types Packs/Day Years [...] Procedure Name Priority Date/Time Associated Diagnosis Comments XR CERVICAL SPINE 4 OR 5VW Routine 12/02/2011 Neck pain documented in this encounter Results * XR CERVICAL SPINE MIN 4+ VW (12/02/2011) Anatomical Region Laterality Modality Spine Other Radhika Walter MD DIAGNOSTIC IMAGING O RDERABLES documented in this encounter Visit Diagnoses Diagnosis Neck pain Cervicalgia documented in this encounter Care Teams Mandrel Cleaner Relationship Specialty Start Date End Date Thuy Chowdhury MD PCP - Pediatrics 07/14/09 10/09/18 Thuy Chowdhury MD PCP - General Pediatrics 11/16/11 10/08/18 documented as of this encounter
--- OUTSIDE RECORDS SUMMARY | 2024-06-10 06:44 | XMS_ITS | Referral Summary ---
Author Organization [facility] Address [address] [facility] [place] [address] Care Team Providers Care Forest Fire Fighters Dispatcher Name Role Phone Alli Reid MD Primary Care Provide r Source Comments [facility] [employer],non-owned Affiliates and Associated Physician Practices is amultiple site organization consisting of ambulatory clinics and hospital sitesin [place], [place], [place] and [place]. This disclosure is being madepursuant to the Care Everywhere program and may not contain all information available regarding this patient. Last updated 18.[facility] [employer] Allergies Active Allergy Reactions Criticality Noted Date Comments Shellfish Allergy Angioedema High 10/10/2018 Medications * Be aware that medications may not be up to date on this document. Alwaysverify current medications with the patient. Medication Sig Dispensed Refills Start Date End Date Status benzoyl peroxide (BENZOYL PEROXIDE) 5 % wash Apply to affected area 2 times daily. 148 g 3 06/22/2013 Active adapalene-benzoyl peroxide (EPIDUO) 0.1-2.5 % gel Apply to affected area at bedtime. 45 g 3 06/22/2013 Active Active Problems Problem Noted Date Diagnosed Date Allergic rhinitis 02/20/2010 Immunizations Name Administration Dates Next Due DPT 10/08/1997, 5,05/25/1993,03/09,01/05/1993 HEP A PEDS 2 DOSE 02/24/2007,03/11/2006 HEP B VACCINE, PED/ADOL 07/27/1993,1992, HIB BOOSTER 02/25/1994, 3,03/09/1993,01/05 Human Papilloma Virus Sherry valent Vaccine 07/20/2010 Human Papilloma Virus Vaccine 03/10/2009, 008 MEASLES 11/09/1993 MENINGOCOCAL MENINGITIS 03/11/2006 MENINGOCOCCAL CONJUGATE (MCV4P) 01/11/2013 MMR 11/04/1997 MUMPS 02/09/1994 POLIO OPV 10/08/1997, 5,05/25/1993,03/09,01/05/1993 RUBELLA 02/09/1994 TDAP (7yrs+) 03/11/2006 Social History Tobacco Use Types Packs/Day Years [...] Mass Index 22.38 10/10/2018 12:24 AM CDT Plan of Treatment Not on file Administered Medications Care Teams Forest Fire Fighters Dispatcher Relationship Specialty Start Date End Date Alli Reid MD PCP - General Family Medicine 10/09/18
--- OUTSIDE RECORDS SUMMARY | 2024-06-10 06:44 | XMS_ITS | Encounter Summary ---
Author Organization [facility] Address [facility] [place] [address] Care Team Providers Care Travel Guide Name Role Phone Alli Reid MD Primary Care Provide r Reason for Visit * Reason Comments Pain Wrist States she purposely struck her left wrist repeatedly 5 days ago in effort to hurt herself, states she was an inpatient @ [facility], and wanted to be discharged, so she hurt herself. Discharged 5 days ago. Bruises noted left dorsal wrist and forearm. Denies thoughts of hurting herself now. Encounter Details Date Type Department Care Team (Late st Contact Info) Description 10/10/2018 3:44 AM CDT - 10/10/2018 5:41 AM CDT Emergency [facility] EMERGENCY DEPARTMENT [address] [place] [address] Christa Pennington MD [address] [place] [address] Left arm pain; Left hand pain; Left wrist pain Discharge Disposition: Home or Self Care Social History Tobacco Use Types Packs/Day Years [...] Mass Index 22.38 10/10/2018 12:24 AM CDT documented in this encounter Discharge Instructions * Discharge Instructions* Keli Peck APRN-EDUCATION AND TRAINING MANAGER - 10/10/2018 4:39 AM CDT Wrist Sprain Rehabilitation Exercises The first 5 exercises are stretching exercises. You may do these when the sharp wrist pain goes away. The last 3 exercises are strengthening exercises. You may do these exercises when stretching is nearly painless. Stretching Exercises Wrist: Active range of motion Flexion: Gently bend your wrist forward. Hold for 5 seconds. Do 3 sets of 10. Extension: Gently bend your wrist backward. Hold this position 5 seconds. Do 3 sets of 10. Side to side: Gently move your wrist from side to side (a handshake motion). Hold for 5 seconds at each end. Do 3 sets of 10. Wrist stretch: With your uninjured hand, help to bend the injured wrist down by pressing the back of your hand and holding it down for 15 to 30 seconds. Next, stretch the hand back by pressing the fingers in a backward direction and holding it for 15 to 30 seconds. Do 3 sets. Wrist extension stretch: Stand at a table with your palms down, fingers flat, and elbows straight. Lean your body weight forward. Hold this position for 15 seconds. Repeat 3 times. Wrist flexion stretch: Stand with the back of your hands on a table, palms facing up, fingers pointing toward your body, and elbows straight. Lean away from the table. Hold this position for 15 to 30seconds. Repeat 3 times. Pronation and supination of the forearm: With your elbow bent 90??, turn your palm upward and hold for 5 seconds. Slowly turn your palm downward and hold for 5 seconds. Make sure you keep your elbow at your side and bent 90?? throughout this exercise. Do 3 sets of 10. Strengthening exercises Wrist flexion exercise: Hold a can or hammer handle in your hand with your palm facing up. Bend your wrist upward. Slowly lower the weight and return to the starting position. Do 3 sets of 10. Gradually increase the weight of the can or weight you are holding. Wrist extension exercise: Hold a soup can or hammer handle in your hand with your palm facing down.Slowly bend your wrist upward. Slowly lower the weight down into the starting position. Do 3 sets of 10. Gradually increase the weight of the object you are holding. [employer] strengthening: Squeeze a rubber ball and hold for 5 seconds. Do 3 sets of 10. Wrist Injury WHAT YOU NEED TO KNOW: A wrist injury happens when the tissues of your wrist joint are damaged. Your wrist joint is made up of tendons, ligaments, nerves, and bones. Two common types of injuries that can happen to your wrist are sprains and strains. A sprain can happen when the ligaments are stretched or torn. Ligaments are bands of elastic tissue that connect and hold the bones together. A strain happens when a tendonor muscle is overused, stretched, or torn. Tendons attach your hand and arm muscles to the bones ofthe wrist. DISCHARGE INSTRUCTIONS: Medicines: ?? NSAIDs: These medicines decrease swelling, pain, and fever. NSAIDs are available without a doctor's order. Ask which medicine is right for you. Ask how much to take and when to take it. Take as directed. NSAIDs can cause stomach bleeding and kidney problems if not taken correctly. ?? Pain medicine: You may be given a prescription medicine to decrease pain. Do not wait until the pain is severe before you take this medicine. ?? Take your medicine as directed. Contact your healthcare provider if you think your medicine is not helping or if you have side effects. Tell him of her if you are allergic to any medicine. Keep a list of the medicines, vitamins, and herbs you take. Include the amounts, and when and why you take them. Bring the list or the pill bottles to follow-up visits. Carry your medicine list with you in case of an emergency. Follow up with your healthcare provider as directed: Write down your questions so you remember to ask them during your visits. Manage your symptoms: ?? Wrist supports: A cast or splint may be put on your fingers, hand, and wrist to support your wrist and prevent further damage. Wear these as directed. Ask for instructions on how to bathe while you are wearing a splint or case. ?? Rest: You may need to rest your wrist for at least 48 hours and avoid activities that cause pain. Ask what activities you should avoid and for how long. ?? Ice: Ice helps decrease swelling and pain. Ice may also help prevent tissue damage. Use an ice pack or put crushed ice in a plastic bag. Cover it with a towel and place it on your injured wrist for 15 to 20 minutes every hour as directed. ?? Compression: Your healthcare provider may suggest you wrap your wrist with an elastic bandage. This will help decrease swelling, support your wrist, and help it heal. Wear your wrist wrap as directed. Ask for instructions on how to wrap your wrist. ?? Elevation: When you sit or lie down, keep your wrist at or above the level of your heart. This may help decrease pain and swelling. Physical therapy: Your healthcare provider may recommend that you go to physical therapy. A physical therapist shows you how to do exercises that can help to strengthen your wrist and improve its range of movement. These exercises may also help decrease your pain. Prevent another wrist injury: ?? Do strengthening exercises: Your healthcare provider or physical therapist may suggest that you do exercises to strengthen your hand and arm muscles. Ask when you may return to your regular physical activities or sports. If you start to exercise too soon it may cause you to injure your wrist again. ?? Protect your wrists: Wrist guard splints or protective tape can help to support your wrist during exercise and sports. These devices may also keep your wrist from bending too far back. Ask for more information about the type of wrist support that you should use. Contact your healthcare provider if: ?? You have a fever. ?? The bruising, swelling, or pain in your wrist gets worse. ?? You have questions or concerns about your condition or care. Return to the emergency department if: ?? The skin on or near your wrist or hand feels cold, or it turns blue or white. ?? The skin on or near your wrist or hand is very tight, raised, and swollen. ?? You have new trouble moving and using your hands, fingers, or wrist. ?? Your wrist, hands, or fingers become swollen, red, numb, or they tingle. ?? Your wrist has any open wounds, including from surgery, that are red, swollen, warm, or have puscoming from them. ?? Copyright [employer] 2018 Information is for End User's use only and may not be sold, redistributed or otherwise used for commercial purposes. All illustrations and images included in CareNotes?? are the copyrighted property of [employer]. or [employer] The above information is an guest service aide only. It is not intended as medical advice for individual conditions or treatments. Talk to your doctor, nurse or pharmacist before following any medical regimen to see if it is safe and effective for you. documented in this encounter Medications at Time of Discharge Medication Sig Dispensed Refills Start Date End Date adapalene-benzoyl peroxide (EPIDUO) 0.1-2.5 % gel Apply to affected area at bedtime. 45 g 3 06/22/2013 benzoyl peroxide (BENZOYL PEROXIDE) 5 % wash Apply to affected area 2 times daily. 148 g 3 06/22/2013 documented as of this encounter ED Notes * Argenis Gonzalez RN - 10/10/2018 5:41 AM CDT GCS 15 at time of discharge. Respirations even and unlabored. Pt stable and ambulatory at discharge. Pt left ED before patient was provided discharge instructions. * Karolina Hoover RN - 10/10/2018 5:39 AM CDT Patient left department prior to receiving discharge paperwork. Tylenol given and maulik bandage applied prior to patient departure. Patient ambulatory out of department with steady gait and no distressnoted. * Karolina Hoover RN - 10/10/2018 4:59 AM CDT Maulik bandage placed around left wrist. * Keli Peck APRN-CNP - 10/10/2018 3:44 AM CDT Provider contact with the patient: 10/10/2018 03:44 Tesha Liu [id number] [facility] EMERGENCY DEPARTMENT History Patient is a 27 year old female presenting with hand injury. History provided by: Patient vehicle service attendant used: No Injury Hand Location: Wrist Wrist location: L wrist Injury: yes Time since incident: 5 days Mechanism of injury comment: Pt hit her left hand with her right hand to inflict harm Pain details: Quality: Aching Radiates to: Does not radiate Severity: Moderate Onset quality: Sudden Duration: 5 days Timing: Constant Progression: Waxing and waning Handedness: Right-handed Dislocation: no Foreign body present: No foreign bodies Tetanus status: Up to date Prior injury to area: No Relieved by: Nothing Worsened by: Movement Ineffective treatments: wrapped wrist with coban. Associated symptoms: no back pain, no decreased range of motion, no fatigue, no fever, no muscle weakness, no neck pain, no numbness, no stiffness, no swelling and no tingling Associated symptoms comment: Bruising to left wrist Risk factors: no concern for non-accidental trauma, no known bone disorder, no frequent fractures and no recent illness Past Medical History: Diagnosis Date ??? Acute tonsillitis 06/17/08 ??? Chest pain, unspecified 03/10/09 ??? Hip, thigh, leg, and ankle, abrasion or friction burn, infected 12/26/08 ??? Routine infant or child health check 03/08/08 ??? Varicella without mention of complication 1996 had disease No past surgical history on file. No family history on file. Social History Social History ??? Marital status: Single Spouse name: N/A ??? Number of children: N/A ??? Years of education: N/A Occupational History ??? Not on file. Social History Main Topics ??? Smoking status: Never Smoker ??? Smokeless tobacco: Never Used ??? Alcohol use No ??? Drug use: No ??? Sexual activity: Not on file Other Topics Concern ??? Not on file Social History Narrative Review of Systems Review of Systems Constitutional: Negative for chills, diaphoresis, fatigue, fever, malaise/fatigue and weight loss. HENT: Negative for congestion, ear discharge, ear pain, hearing loss, nosebleeds, sinus pain, sore throat and tinnitus. Eyes: Negative for blurred vision, double vision, photophobia, pain, discharge and redness. Respiratory: Negative for cough, hemoptysis, sputum production, shortness of breath, wheezing and stridor. Cardiovascular: Negative for chest pain, palpitations, orthopnea, claudication, leg swelling and PND. Gastrointestinal: Negative for abdominal pain, blood in stool, constipation, diarrhea, heartburn, melena, nausea and vomiting. Genitourinary: Negative for dysuria, flank pain, frequency, hematuria and urgency. Musculoskeletal: Negative for back pain, falls, myalgias, neck pain and stiffness. Joint pain: leftwrist pain. Skin: Negative for itching and rash. Neurological: Negative for dizziness, tingling, tremors, sensory change, speech change, focal weakness, seizures, loss of consciousness, weakness and headaches. Endo/Heme/Allergies: Negative for environmental allergies and polydipsia. Does not bruise/bleed easily. Psychiatric/Behavioral: Negative for depression, hallucinations, memory loss, substance abuse and suicidal ideas. The patient is not nervous/anxious and does not have insomnia. Physical Exam BP 134/60 Pulse 64 Temp 98.2 ??F (36.8 ??C) Resp 14 Ht 1.778 m (5' 10 ) Wt 70.8 kg (156 lb) LMP 10/10/2018 (Exact Date) SpO2 99% ? No BMI 22.38 kg/m2 Physical Exam Constitutional: She is oriented to person, place, and time. She appears well- developed and well-nourished. HENT: Head: Normocephalic and atraumatic. Right Ear: External ear normal. Left Ear: External ear normal. Nose: Nose normal. Mouth/Throat: Oropharynx is clear and moist. Eyes: Pupils are equal, round, and reactive to light. Conjunctivae and EOM are normal. Neck: Normal range of motion. Neck supple. Cardiovascular: Normal rate, regular rhythm, normal heart sounds and intact distal pulses. Pulmonary/Chest: Effort normal and breath sounds normal. Abdominal: Soft. Bowel sounds are normal. Musculoskeletal: Normal range of motion. She exhibits tenderness. She exhibits no edema or deformity. Left wrist: She exhibits tenderness. She exhibits normal range of motion, no bony tenderness, no swelling, no effusion, no crepitus, no deformity and no laceration. Neurological: She is alert and oriented to person, place, and time. Skin: Skin is warm and dry. Psychiatric: She has a normal mood and affect. Her behavior is normal. Judgment and thought contentnormal. Nursing note and vitals reviewed. Medications Current Outpatient Prescriptions Medication Sig Dispense Refill ??? adapalene-benzoyl peroxide (EPIDUO) 0.1-2.5 % gel Apply to affected area at bedtime. 45 g 3 ??? benzoyl peroxide (BENZOYL PEROXIDE) 5 % wash Apply to affected area 2 times daily. 148 g 3 Procedures Procedures ECG Interpretation ECG Interpretation Lab/SPO2 Interpretation No results found for this visit on 10/10/18. XR FOREARM LEFT 2VW Final Result EXAMINATION: 1.XR FOREARM LEFT 2VW, 2.XR WRIST [...] identified. Report dictated by Marcello Rayo M.D. (resident care associate). I, Dr. MITCH CANSECO have personally reviewed and interpreted this examination/study. This report was electronically signed by MITCH CANSECO on 10/10/2018 12:35 PM . XR WRIST LEFT 3VW OR MORE Final Result EXAMINATION: 1.XR FOREARM LEFT 2VW, 2.XR WRIST [...] identified. Report dictated by Marcello Rayo M.D. (resident care associate). Dr. MITCH Montano have personally reviewed and interpreted this examination/study. This report was electronically signed by MITCH CANSECO on 10/10/2018 12:35 PM . XR HAND LEFT 3VW OR MORE Final Result EXAMINATION: 1.XR FOREARM LEFT 2VW, 2.XR WRIST [...] identified. Report dictated by Marcello Rayo M.D. (resident care associate). Dr. MITCH Montano have personally reviewed and interpreted this examination/study. This report was electronically signed by MITCH CANSECO on 10/10/2018 12:35 PM . Progress Notes Pt has no acute injury. Will order wrist to be wrapped with maulik and given tylenol and discharged. ED Course ED Course Medical Decision Making I have reviewed the: Nursing Notes, Vitals. I have interpreted the following results: X-Ray. Orders Placed This Encounter ??? BANDAGE MAULIK 4IN ??? XR WRIST LEFT 3VW OR MORE ??? XR HAND LEFT 3VW OR MORE ??? XR FOREARM LEFT 2VW ??? HCG URINE QUALITATIVE - POINT OF CARE ??? acetaminophen (TYLENOL) tablet 650 mg Clinical Impression Final diagnoses: Left arm pain Left hand pain Left wrist pain Follow-up Information Follow-up With Details Why Contact Info Alli Reid MD Schedule an appointment as soon as possible for a visit As needed, If symptoms worsen [address] [facility] [address] User Date/Time Keli Peck APRN-CNP phong October 10, 2018 4:39 AM * Keli Peck APRN-CNP - 10/10/2018 12:27 AM CDT Medical Screening Exam 10/10/2018 12:27 AM I have reviewed the patient's chief complaint, onset of chief complaints, vital signs, level of distress, allergies, current medications, immunization status, as well as completed a focused localizedexam. I have completed a focused limited exam, further evaluation will be necessary in the emergency department to determine if an emergency medical condition exists. This plan has been articulated to the patient/family. Vitals: 10/10/18 0024 BP: 134/60 Pulse: 64 Resp: 14 Temp: 98.2 ??F (36.8 ??C) SpO2: 99% Weight: 70.8 kg (156 lb) Height: 1.778 m (5' 10 ) Patient Evaluated: pt says that pt was in a facility and tried to pull her own hand out of the socket to get out of the facility becuase the food was bad and dshe felt [facility] d[facility]. she took her other hand and hit the left hand. pt pulse 2+, capp refill less than 2 sec, bruising to left dorsal wrist and lower forearm. pt has no decresed ROm, but pain with passive ROM. documented in this encounter Plan of Treatment Not on file documented as of this encounter Procedures Procedure Name Priority Date/Time Associated Diagnosis Comments XR WRIST LEFT 3VW OR MORE STAT 10/10/2018 12:43 AM CDT Left wrist pain XR HAND LEFT 3VW OR MORE STAT 10/10/2018 12:42 AM CDT Left hand pain XR FOREARM LEFT 2VW OR MORE STAT 10/10/2018 12:42 AM CDT Left arm pain documented in this encounter Results * XR WRIST LEFT 3VW OR MORE (10/10/2018 12:43 AM CDT) Anatomical Region Laterality Modality Wrist / Hand Radiographic Miguel ging 10/10/2018 1:03 AM CDT Impressions 10/10/2018 12:35 PM CDT IMPRESSION: No acute fracture or dislocation identified. Report dictated by Marcello Rayo M.D. (resident care associate). I, Dr. MITCH CANSECO have personally reviewed and interpreted this examination/study. This report was electronically signed by MITCH CANSECO ??on 10/10/2018 12:35 PM . Narrative [...] soft tissue swelling is present. Procedure Note Mitch Canseco MD - 10/10/2018 EXAMINATION: 1.XR FOREARM [...] identified. Report dictated by Marcello Rayo M.D. (resident care associate). Dr. MITCH Montano have personally reviewed and interpreted this examination/study. This report was electronically signed by MITCH CANSECO on 10/10/201812:35 PM . Keli Peck STEEL WHEEL ENGRAVER-EDUCATION AND TRAINING MANAGER DIAGNOSTIC MIGUEL GING ORDERABLES * XR HAND LEFT 3VW OR MORE (10/10/2018 12:42 AM CDT) Anatomical Region Laterality Modality Wrist / Hand Radiographic Miguel ging 10/10/2018 1:03 AM CDT Impressions 10/10/2018 12:35 PM CDT IMPRESSION: No acute fracture or dislocation identified. Report dictated by Marcello Rayo M.D. (resident care associate). Dr. MITCH Montano have personally reviewed and interpreted this examination/study. This report was electronically signed by MITCH CANSECO ??on 10/10/2018 12:35 PM . Narrative [...] soft tissue swelling is present. Procedure Note Mitch Canseco MD - 10/10/2018 EXAMINATION: 1.XR FOREARM [...] identified. Report dictated by Marcello Rayo M.D. (resident care associate). Dr. MITCH Montano have personally reviewed and interpreted this examination/study. This report was electronically signed by MITCH CANSECO on 10/10/201812:35 PM . Keli Peck STEEL WHEEL ENGRAVER-EDUCATION AND TRAINING MANAGER DIAGNOSTIC MIGUEL GING ORDERABLES * XR FOREARM LEFT 2VW (10/10/2018 12:42 AM CDT) Anatomical Region Laterality Modality Upper Extremity Radiographic Miguel ging 10/10/2018 1:03 AM CDT Impressions 10/10/2018 12:35 PM CDT IMPRESSION: No acute fracture or dislocation identified. Report dictated by Marcello Rayo M.D. (resident care associate). Dr. MITCH Montano have personally reviewed and interpreted this examination/study. This report was electronically signed by MITCH CANSECO ??on 10/10/2018 12:35 PM . Narrative [...] soft tissue swelling is present. Procedure Note Mitch Canseco MD - 10/10/2018 EXAMINATION: 1.XR FOREARM [...] identified. Report dictated by Marcello Rayo M.D. (resident care associate). I, Dr. MITCH CANSECO have personally reviewed and interpreted this examination/study. This report was electronically signed by MITCH CANSECO on 10/10/201812:35 PM . Keli Peck STEEL WHEEL ENGRAVER-EDUCATION AND TRAINING MANAGER DIAGNOSTIC MIGUEL GING ORDERABLES documented in this encounter Visit Diagnoses Diagnosis Left arm pain Pain in limb Left hand pain Pain in limb Left wrist pain Pain in joint, forearm Striking against or struck by other objects, initial encounter documented in this encounter Administered Medications Inactive Administered Medications - up to 3 most recent administrations Medication Order MAR Action Action Date Dose Rate Site acetaminophen (TYLENOL) tablet 650 mg 650 mg, Oral, NOW, 1 dose, On Tue10/10/18 at 0315 $ Given 10/10/2018 4:52 AM CDT 650 mg documented in this encounter Active and Recently Administered Medications Times are shown in CDT. Scheduled Medication Order 10/08/2018 10/09/2018 10/10/2018 acetaminophen (TYLENOL) tablet 650 mg (COMPLETED) 650 mg, Oral, NOW, 1 dose, On Tue10/10/18 at 0315 0452 ($ Given - Prov ider: Karolina Hoover RN) documented in this encounter Care Teams Travel Guide Relationship Specialty Start Date End Date Alli Reid MD PCP - General Family Medicine 10/09/18 documented as of this encounter
--- OUTSIDE RECORDS SUMMARY | 2024-06-10 06:44 | XMS_ITS | Clinical Summary ---
Author Organization [facility] Address [address] [place] [address] Care Team Providers Care Steward/Stewardess Banquet Name Role Phone Alli Reid MD Primary Care Provide r Source Comments [facility],non-owned Affiliates and Associated Physician Practices is amultiple site organization consisting of ambulatory clinics and hospital sitesin [place], [place], [place] and [place]. This disclosure is being madepursuant to the Care Everywhere program and may not contain all information available regarding this patient. Last updated 18.[facility] Allergies Active Allergy Reactions Criticality Noted Date [...] 10/10/2018 12:24 AM CDT Plan of Treatment Health Maintenance Due Date Last Done Comments PAP SMEAR 1992 HIV SCREENING 10/24/2007 HEPATITIS C SCREENING 10/19/2010 DTAP/TDAP/TD VACCINES (7 - Td or Tdap) 03/11/2016 03/11/2006, 10/08/1997, 06/07/1994, Additional history exists COVID-19 VACCINE ( season) 2024 INFLUENZA VACCINE (#1) 2024 DEPRESSION SCREENING 05/30/2024 ZOSTER VACCINE (1 of 2) 2042 HEPATITIS B VACCINE Completed 07/27/1993, 1992, 1992 HIB VACCINE Completed 02/25/1994, 04/30, 03/09/1993, Additional history exists HPV VACCINE Completed 07/20/2010, 02/27, 03/08/2008 MENINGOCOCCAL VACCINE Aged Out 01/11/2013, 006 No longer eligible based on patient's age to complete this topic MENINGOCOCCAL (Group B) VACCINE Aged Out No longer eligible based on patient's age to complete this topic PNEUMOCOCCAL VACCINE Aged Out No long er eligible based on patient's age to complete this topic Care Teams Steward/Stewardess Banquet Relationship Specialty Start Date End Date Alli Reid MD PCP - General Family Medicine 10/09/18
--- OUTSIDE RECORDS SUMMARY | 2024-06-10 06:44 | XMS_ITS | Encounter Summary ---
Author Organization [facility] Address [facility] [place] [address] Care Team Providers Care Presiding Steward Name Role Phone Roland Corley MD Unavailable Reason for Visit * Reason Comments Bladder infection frequency x4-5 days Encounter Details Date Type Department Care Team (Late st Contact Info) Description 08/15/2010 11:10 AM CDT Office Visit [facility] - Pediatrics [address] [place] [phone] Roland Corley MD [address] [place] [phone] Frequency (Primary Dx); UTI (lower urinary tract infection) Social History Tobacco Use Types Packs/Day Years Used Date Smoking Tobacco: Never Assessed Sex and Gender Information Value Date Recorded Sex Assigned at Not on file Gender Identity Not on file Sexual Orientation Not on file documented as of this encounter Last Filed Vital Signs Vital Sign Reading Time Taken Comments Blood Pressure - - Pulse - - Temperature 37.3 ??C (99.2 ??F) 08/15/2010 11:28 AM C DT Respiratory Rate - - Oxygen Saturation - - Inhaled Oxygen Concentration - - Weight 56.9 kg (125 lb 6.4 oz) 08/15/2010 11:28 AM CDT Height - - Body Mass Index - - documented in this encounter Patient Instructions * Patient Instructions* Roland oCrley MD - 08/15/2010 11:39 AM CDT The use of the oral contraceptive has been fully discussed with the patient. This includes the proper method to initiate (i.e. Tuesday start after next normal menstrual onset) and continue the pills, the need for regular compliance to ensure adequate contraceptive effect, the physiology which make the pill effective, the instructions for what to do in event of a missed pill, and warnings about anticipated minor side effects such as breakthrough spotting, nausea, breast tenderness, weight changes, acne, headaches, etc. She has been told of the more serious potential side effects such as MO, stroke, and deep vein thrombosis, all of which are very unlikely. She has been asked to report any signs of such serious problems immediately. She should back up the pill with a condom during any cycle in which antibiotics are prescribed, and during the first cycle as well. The need for additional protection, such as a condom, to prevent exposure to sexually transmitted diseases has also been discussed- the patient has been clearly reminded that OCP's cannot protect her against diseases such as HIVand others. She understands and wishes to take the medication as prescribed. documented in this encounter Progress Notes * Roland Corley MD - 08/15/2010 11:51 AM CDTAddended by: ROLAND CORLEY on: 08/15/2010 Modules accepted: Orders * Roland Corley MD - 08/15/2010 11:36 AM CDT SUBJECTIVE: MAGGIE ARNETT is a 19 y.o. female accompanied to office today for evaluation of freq and feelings of incomplete emptying of bladder after urination x4-5 days. Some abd discomfort. She has been sexually active in the past, not recently. No complain of vaginal discharge. Her cycle is not regular and she has frequent cramps. Maggie's number [phone] OBJECTIVE: Wt 125 lb 6.4 oz (56.881 kg) General appearance: alert, well appearing, and in no distress. Abdomen:NT, ND, normal BS's, no HSM Skin:Skin color, texture, turgor normal. No rashes or lesions ASSESSMENT: uti r/o gc and chlamydia PLAN: Labs sent gc, chlamydia See orders for this visit as documented in the electronic medical record The use of the oral contraceptive has been fully discussed with the patient. This includes the proper method to initiate (i.e. Tuesday start after next normal menstrual onset) and continue the pills, the need for regular compliance to ensure adequate contraceptive effect, the physiology which make the pill effective, the instructions for what to do in event of a missed pill, and warnings about anticipated minor side effects such as breakthrough spotting, nausea, breast tenderness, weight changes, acne, headaches, etc. She has been told of the more serious potential side effects such as MO, stroke, and deep vein thrombosis, all of which are very unlikely. She has been asked to report any signs of such serious problems immediately. She should back up the pill with a condom during any cycle in which antibiotics are prescribed, and during the first cycle as well. The need for additional protection, such as a condom, to prevent exposure to sexually transmitted diseases has also been discussed- the patient has been clearly reminded that OCP's cannot protect her against diseases such as HIVand others. She understands and wishes to take the medication as prescribed. documented in this encounter Plan of Treatment Scheduled Orders Name Type Priority Associated Diagnoses Orde r Schedule CHLAMYDIA + GC DNA PROBE W REFLEX (PO REF) Microbiology Routine Frequency UTI (lower urinary tract infection) Ordered: 08/15/2010 documented as of this encounter Procedures Procedure Name Priority Date/Time Associated Diagnosis Comments CULTURE URINE Routine 08/15/2010 11:48 AM CDT Frequency UTI (lower urinary tract infection) URINALYSIS - POINT OF CARE Routine 08/15/2010 11:30 AM CDT Frequency UTI (lower urinary tract infection) documented in this encounter Results * CULTURE URINE (08/15/2010 11:48 AM CDT) [...] PM CDT Narrative Resulting Agency Comment [facility] [address] [facility] ??[facility] [phone] Roland Corley MD LAB - MICROBIOLOGY O RDERABLES [facility] [...] units Blood UA about 250 Negative Specific [place] UA POCT 1.005 1.002 - 1.030 Ketone UA neg Negative Bilirubin UA POCT neg Negative Glucose UA neg Negative Urine specimen (specimen) URINE / Unknown 08/15/2010 11:30 AM CDT Roland Corley MD LAB - POINT OF CARE ORDERABLES documented in this encounter Visit Diagnoses Diagnosis Frequency- Primary Urinary frequency UTI (lower urinary tract infection) Urinary tract infection, site not specified documented in this encounter Care Teams Presiding Steward Relationship Specialty Start Date End Date Roland Corley MD PCP - Pediatrics 07/14/09 10/09/18 documented as of this encounter
--- OUTSIDE RECORDS SUMMARY | 2024-06-10 06:44 | XMS_ITS | Encounter Summary ---
Author Organization [facility] Address [address] [facility] [place] [address] Care Team Providers Care Professional Driver Name Role Phone Thuy Chowdhury MD Unavailable Thuy Chowdhury MD Primary Care Provider [phone] Reason for Visit * Reason Comments Acne Encounter Details Date Type Department Care Team (Late st Contact Info) Description 06/22/2013 3:15 PM OFFICE MACHINE SERVICE SUPERVISOR Office Visit [facility] Medical [facility] - Pediatrics [address] [place] [phone] Dinora Dinh MD [address] [place] [phone] Acne (Primary Dx); Special screening for other specified conditions Social History Tobacco Use Types Packs/Day Years [...] - - Temperature 36.7 ??C (98.1 ??F) 06/22/2013 3:36 PM CS T Respiratory Rate - - Oxygen Saturation - - Inhaled Oxygen Concentration - - Weight 64.8 kg (142 lb 12.8 oz) 06/22/2013 3:36 PM OFFICE MACHINE SERVICE SUPERVISOR Height - - Body Mass Index 22.04 01/11/2013 10:52 AM CDT documented in this encounter Patient Instructions * Patient Instructions* Dinora Dinh MD - 06/22/2013 4:13 PM OFFICE MACHINE SERVICE SUPERVISOR benzoyl peroxide wash -- panoxyl --Note: products with benzoyl peroxide can cause bleaching of towels CE MACHINE SERVICE SUPERVISOR documented in this encounter Progress Notes * Dinora Dinh MD - 06/22/2013 4:09 PM CST Tesha is a 22 y/o female who presents with complaint of acne. She has had acne for months. Acne on shoulders: No Acne on back: No Scarring: Yes Current skin care: OTC face wash Medications: none PHQ-9: 6 PE Gen-flat affect, distracted Skin: papular acne to cheeks, chin, forehead. No acne to chest, shoulder, back CV:nL S1S2 w/o M Resp:CTA Impression: Acne 2. Depression screen done2. Plan: B.P. Face wash BID Rx: epiduo daily. Discussed side effects of medications, expected course of acne with tx. Follow up in 2-3 months to check on progress. 2.Depression screen done due to flat affect, and pt seemed to be distant, strange demeanor. CE MACHINE SERVICE SUPERVISOR documented in this encounter Miscellaneous Notes * Addendum Note - Dinora Dinh MD - 06/23/2013 9:08 AM CSTAddended by: DINORA DINH on: 06/23/2013 09:08 AM Modules accepted: Orders CE MACHINE SERVICE SUPERVISOR documented in this encounter Plan of Treatment Not on file documented as of this encounter Visit Diagnoses Diagnosis Acne- Primary Other acne Special screening for other specified conditions(V82.89) Special screening for other specified conditions documented in this encounter Care Teams Professional Driver Relationship Specialty Start Date End Date Thuy Chowdhury MD PCP - Pediatrics 07/14/09 10/09/18 Thuy Chowdhury MD PCP - General Pediatrics 11/16/11 10/08/18 documented as of this encounter
--- OUTSIDE RECORDS SUMMARY | 2024-06-10 06:44 | XMS_ITS | Encounter Summary ---
Author Organization [facility] Address [address] [facility] [place] [address] Care Team Providers Care Correction Officer Name Role Phone Thuy Chowdhury MD Unavailable Reason for Visit * Reason Comments Sore Throat off and on x3 weeks URI stuffy nose with loga ar exudate, occas cough off and on x3 weeks Encounter Details Date Type Department Care Team (Late st Contact Info) Description 08/01/2009 3:40 PM SLATE CUTTER Office Visit [facility] Medical [facility] - Pediatrics [address] [place] [phone] Thuy Chowdhury MD [address] [place] [phone] Acute Sinusitis (Primary Dx) Social History Tobacco Use Types Packs/Day Years Used Date Smoking Tobacco: Never Assessed Sex and Gender Information Value Date Recorded Sex Assigned at Not on file Gender Identity Not on file Sexual Orientation Not on file documented as of this encounter Last Filed Vital Signs Vital Sign Reading Time Taken Comments Blood Pressure - - Pulse - - Temperature 36.7 ??C (98 ??F) 08/01/2009 3:57 PM SLATE CUTTER Respiratory Rate - - Oxygen Saturation - - Inhaled Oxygen Concentration - - Weight 59.6 kg (131 lb 6.4 oz) 08/01/2009 3:57 P M SLATE CUTTER Height - - Body Mass Index - - documented in this encounter Progress Notes * Thuy Chowdhury MD - 08/01/2009 3:58 PM CST SUBJECTIVE: Tesha Liu is a 18 y.o.brought by mother who complains of sore throat for 21 day(s). Fever: No Headache:No Stomach ache:No URI symptoms: Yes, cough and post nasal drainage OBJECTIVE: Temp (Src) 98 ??F (Oral) Wt 59.603 kg (131 lb 6.4 oz) General appearance: alert, well appearing, and [...] documented in the electronic medical record Symptomatic treatment discussed. E CUTTER documented in this encounter Plan of Treatment Not on file documented as of this encounter Visit Diagnoses Diagnosis Acute sinusitis- Primary Acute sinusitis, unspecified documented in this encounter Care Teams Correction Officer Relationship Specialty Start Date End Date Thuy Chowdhury MD PCP - Pediatrics 07/14/09 10/09/18 documented as of this encounter
--- OUTSIDE RECORDS SUMMARY | 2024-06-10 06:45 | XMS_ITS | Patient Health Record ---
Author Organization [facility] Address [address] [place] [address] Care Team Providers Care Cast Iron Drain Pipe Layer Name Role Phone Bowen Ortiz Primary Care Provider Rai Mehta Unavailable [phone] Allergies No Known Allergies Results Component Value Reference Range Notes TSH Rfx on Abnormal to Free T4 Reviewed date:05/18/2024 03:02:36 PM Interpretation: Performing Lab:[facility] [place], [place] [facility], Phone - [phone], Director - PhDGood Samaritan Medical Centerjada Notes/Report: TSH 2.210 0.450-4.500 uIU/mL Carbamazepine(Tegretol), S Reviewed date:05/18/2024 03:02:18 PM Interpretation: Performing Lab:[facility], [address] [facility], Phone - [phone], Director - PhDHospital Sisters Health System St[facility] Centerhunteri Notes/Report: Carbamazepine(Tegretol), S 3.9 4.0-12.0 ug/mL In conjunction with other antiepileptic drugs Therapeutic 4.0 - 8.0 Toxicity 9.0 - 12.0 . Carbamazepine alone Therapeutic 8.0 - 12.0 . Detection Limit = 2.0 <2.0 indicates None Detected CBC With Differential/Platel et* Reviewed date:05/18/2024 03:03:05 PM Interpretation: Performing Lab:[facility] [place], [employer] [facility], Phone - [phone], Director - PhDHospital Sisters Health System St. Mary[facility] Hospital Medical Centerhunteri Notes/Report: WBC 5.7 3.4-10.8 x10E3/uL RBC 4.70 [...] Folate Reviewed date:05/18/2024 03:03:17 PM Interpretation: Performing Lab:[facility] [place], [address] [facility], Phone - [phone], Director - [facility] Notes/Report: Vitamin B12 729 837-2199 pg/mL Folate (Folic Acid), Serum 9.8 >3.0 ng/mL A serum folate concentration of less than 3.1 ng/mL is considered to represent clinical deficiency. CBC With Differential/Platel et* Reviewed date:02/10/2024 09:58:25 AM Interpretation: Performing Lab: Notes/Report: Carbamazepine(Tegretol), S Reviewed date:02/10/2024 09:57:42 AM Interpretation: Performing Lab: Notes/Report: CMP 14 Comprehensive Metabol ic Panel* Reviewed date:02/10/2024 09:58:04 AM Interpretation: Performing Lab: Notes/Report: Hemoglobin A1c* Reviewed date:08/16/2023 04:11:15 PM Interpretation: Performing Lab:[facility] [place], [address] [facility], Phone - [phone], Director - PhDJuan Notes/Report: Hemoglobin A1c 5.0 4.8-5.6 % . Prediabetes: 5.7 - 6.4 Diabetes: >6.4 Glycemic control for adults with diabetes: <7.0 CBC With Differential/Platel et* Reviewed date:08/16/2023 04:10:47 PM Interpretation: Performing Lab:[facility] [employer] [facility] [place], [address] [facility], Phone - [phone], Director - Muriel Notes/Report: WBC 5.5 3.4-10.8 x10E3/uL RBC 4.76 3.77-5.28 x10E6/uL Hemoglobin 15.9 11.1-15.9 g/dL Hematocrit 46.8 34.0-46.6 % MCV 98 79-97 fL MCH 33.4 26.6-33.0 pg MCHC 34.0 31.5-35.7 g/dL RDW 12.0 11.7-15.4 % Platelets 247 150-450 x10E3/uL Neutrophils 57 Not Estab. % Lymphs 28 Not Estab. % Monocytes 11 Not Estab. % Eos 3 Not Estab. % Basos 1 Not Estab. % Neutrophils (Absolute) 3.0 1.4-7.0 x10E3/uL Lymphs (Absolute) 1.6 0.7-3.1 x10E3/uL Monocytes(Absolute) 0.6 0.1-0.9 x10E3/uL Eos (Absolute) 0.2 0.0-0.4 x10E3/uL Baso (Absolute) 0.1 0.0-0.2 x10E3/uL Immature Granulocytes 0 Not Estab. % Immature Grans (Abs) 0.0 0.0-0.1 x10E3/uL Carbamazepine(Tegretol), S Reviewed date:08/16/2023 04:10:30 PM Interpretation: Performing Lab[facility], [address] [facility], Phone - [phone], Director - Muriel Notes/Report: Carbamazepine(Tegretol), S 4.5 4.0-12.0 ug/mL In conjunction with other antiepileptic drugs Therapeutic 4.0 - 8.0 Toxicity 9.0 - 12.0 . Carbamazepine alone Therapeutic 8.0 - 12.0 . Detection Limit = 2.0 <2.0 indicates None Detected Lipid Panel* Reviewed date:08/16/2023 04:11:02 PM Interpretation: Performing Lab[facility], [address] [facility], Phone - [phone], Director - [facility] Notes/Report: Cholesterol, Total 204 100-199 mg/dL Triglycerides 47 0-149 mg/dL HDL Cholesterol 93 >39 mg/dL VLDL Cholesterol Agustin 9 5-40 mg/dL LDL Chol Calc (NIH) 102 0-99 mg/dL CMP 14 Comprehensive Metabol ic Panel* Reviewed date:08/16/2023 04:11:34 PM Interpretation: Performing Lab:[facility] [place], [address] [facility], Phone - [phone], Director - [facility] Notes/Report: Glucose 84 70-99 mg/dL BUN 9 6-20 mg/dL Creatinine 0.74 0.57-1.00 mg/dL eGFR 112 >59 mL/min/1.73 BUN/Creatinine Ratio 12 9-23 Sodium 140 134-144 mmol/L Potassium 4.0 3.5-5.2 mmol/L Chloride 104 96-106 mmol/L Carbon Dioxide, Total 22 20-29 mmol/L Calcium 9.5 8.7-10.2 mg/dL Protein, Total 7.3 6.0-8.5 g/dL Albumin 4.6 4.0-5.0 g/dL Globulin, Total 2.7 1.5-4.5 g/dL A/G Ratio 1.7 1.2-2.2 Bilirubin, Total 0.2 0.0-1.2 mg/dL Alkaline Phosphatase 78 44-121 IU/L AST (SGOT) 19 0-40 IU/L ALT (SGPT) 16 0-32 IU/L CMP 14 Comprehensive Metabol ic Panel* Reviewed date:12/08/2023 04:51:18 PM Interpretation: Performing Lab: Notes/Report: Calcium, Serum 9.5 AST (SGOT) 19 Alkaline Phosphatase, S 78 Bilirubin, Total 0.2 A/G Ratio 1.7 Protein, Total, Serum 7.3 Albumin, Serum 4.6 ALT (SGPT) 16 Carbon Dioxide, Total 22 Globulin, Total 2.7 Chloride, Serum 104 Potassium, Serum 4.0 Sodium, Serum 140 BUN/Creatinine Ratio 12 Creatinine, Serum 0.74 BUN 9 Glucose, Serum 84 eGFR 112 TSH Rfx on Abnormal to Free T4 Reviewed date:08/16/2023 04:11:52 PM Interpretation: Performing Lab:[facility] [place], [address] [facility], [place], Phone - [phone], Director - Muriel Notes/Report: TSH 1.870 0.450-4.500 uIU/mL Reason For Referral No Information Medications Medication SIG (Take, Route, Frequency, Duration) [...] monthly for 30 days Active Social History Tobacco Use: Social History Observation Description Date Details (start date - stop date) Never Smoker NA - NA Sex Assigned At : Social History Observation Description Sex Assigned At Female Tobacco Control (Standard) Question Answer Notes Tobacco use: Nonsmoker Problems Problem Type SNOMED Code ICD Code Onset Dates Problem Status W/U Status Risk Notes Problem Tobacco user (326019722) Nicotine dependence, unspecified, uncomplicated (F17.200) Active confirmed Problem Schizophrenia (02688243) Schizophrenia (F20.9) Active confirmed Problem Macrocytosis - no anemia (568944502) Macrocytosis without anemia (D75.89) Active confirmed Problem 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) 04/20/20 23 Active confirmed Vital Signs Heart Rate 74 /min 05/16/2024 Temperature 97.9 degrees Fahrenheit 05/16/2024 Respiratory Rate 16 /min 05/16/2024 Blood pressure diastolic 62 mm Hg 05/16/2024 Oximetry 98 % 05/16/2024 Height 70 in 04/23/2024 Blood pressure systolic 110 mm Hg 05/16/2024 Weight 160 lbs 05/16/2024 BMI 22.96 kg/m2 04/23/2024 Encounters Encounter Location Date Provider Diagnosis [address] [place] [address] 08/09/2023 Arif Habib [address] [place] [address] 06/15/2023 Arif Habib Schizophrenia F20.[address] [place] [address] 07/14/2023 Arif Habib Schizophrenia F20.[address] [place] [address] 08/09/2023 Arif Habib Nicotine dependence, unspecified, uncomplicated F17.200 ; Schizophrenia F20.9 ; Metabolic syndrome E88.810 and Tremor due to multiple drugs G25.[address] [place] [address] 09/07/2023 Arif Habib Schizophrenia F20.[address] [place] [address] 10/05/2023 Arif Habib Schizophrenia F20.[address] [place] [address] 11/03/2023 Arif Habib Schizophrenia F20.[address] [place] [address] 11/08/2023 Arif Habib Nicotine dependence, unspecified, uncomplicated F17.200 ; Schizophrenia F20.9 ; Metabolic syndrome E88.810 and Tremor due to multiple drugs G25.[address] [place] [address] 11/17/2023 Rai Mehta Patellofemoral arthralgia of right knee M25.561 and Nicotine dependence, unspecified, uncomplicated F17.[address] [place] [address] 11/30/2023 Arif Habib Schizophrenia F20.[address] [place] [address] 12/28/2023 Arif Habib Schizophrenia F20.[address] [address] 01/24/2024 Arif Habib Nicotine dependence, unspecified, uncomplicated F17.200 ; Schizophrenia F20.9 ; Metabolic syndrome E88.810 and Tremor due to multiple drugs G25.[address] [address] 02/22/2024 Arif Habib Schizophrenia F20.[address] [place] [address] 03/21/2024 Arif Habib Schizophrenia F20.[address] [place] [address] 04/17/2024 Arif Habib Schizophrenia F20.[address] [address] 04/23/2024 Rai Mehta Macrocytosis without anemia D75.89 ; Fatigue R53.83 and Medication monitoring encounter Z51.[address] [place] [address] 05/16/2024 Arif Habib Schizophrenia F20.[address] [place] [address] 05/16/2024 Arif Habib Macrocytosis without anemia D75.89 ; Fatigue R53.83 and Medication monitoring encounter Z51.[address] [place] [address] 08/04/2023 Arif Habib Assessments Encounter Date Diagnosis (ICD Code) Assessment Notes Treatment Notes Treatment Clinical Notes Section Notes 04/23/2024 Macrocytosis without anemia (ICD-10 - D75.89) 05/16/2024 Schizophrenia (ICD-10 - F20.9) 12/28/2023 Schizophrenia (ICD-10 - F20.9) 02/22/2024 Schizophrenia (ICD-10 - F20.9) 04/17/2024 Schizophrenia (ICD-10 - F20.9) risk & benefits discussed. Continue current treatment . Tegretol level was 4.5 on 08/09/23. Was 6.1 on 11/23/22. 03/21/2024 Schizophrenia (ICD-10 - F20.9) 04/23/2024 Fatigue (ICD-10 - R53.83) 11/03/2023 Schizophrenia (ICD-10 - F20.9) 09/07/2023 Schizophrenia (ICD-10 - F20.9) 10/05/2023 Schizophrenia (ICD-10 - F20.9) 11/30/2023 Schizophrenia (ICD-10 - F20.9) 11/17/2023 Patellofemoral arthralgia of right knee (ICD-10 - M25.561) DISCUSSED AVOIDING PRESSURE, STRENGTHENING QUADS, INFO SENT 01/24/2024 Nicotine dependence, unspecified, uncomplicated (ICD-10 - F17.200) 08/09/2023 Nicotine dependence, unspecified, uncomplicated (ICD-10 - F17.200) 06/15/2023 Schizophrenia (ICD-10 - F20.9) 07/14/2023 Schizophrenia (ICD-10 - F20.9) 11/08/2023 Nicotine dependence, unspecified, uncomplicated (ICD-10 - F17.200) 05/16/2024 Macrocytosis without anemia (ICD-10 - D75.89) 11/08/2023 Schizophrenia (ICD-10 - F20.9) risk & benefits discussed. Continue current treatment . Tegretol level was 4.5 on 08/09/23. Was 6.1 on 11/23/22. 08/09/2023 Schizophrenia (ICD-10 - F20.9) risk & benefits discussed. Continue current treatment . Tegretol level was 6.1 on 11/23/22. Repeta labs 01/24/2024 Schizophrenia (ICD-10 - F20.9) risk & benefits discussed. Continue current treatment . Tegretol level was 4.5 on 08/09/23. Was 6.1 on 11/23/22. 11/17/2023 Nicotine dependence, unspecified, uncomplicated (ICD-10 - F17.200) DISCUSSED HEALTHY DIET, EXERCISE, INFO SENT OF MED DIET. 04/23/2024 Medication monitoring encounter (ICD-10 - Z51.81) 05/16/2024 Fatigue (ICD-10 - R53.83) 05/16/2024 Medication monitoring encounter (ICD-10 - Z51.81) 01/24/2024 Metabolic syndrome (ICD-10 - E88.810) 08/09/2023 Metabolic syndrome (ICD-10 - E88.810) 11/08/2023 Metabolic syndrome (ICD-10 - E88.810) 01/24/2024 Tremor due to multiple drugs (ICD-10 - G25.1) 08/09/2023 Tremor due to multiple drugs (ICD-10 - G25.1) 11/08/2023 Tremor due to multiple drugs (ICD-10 - G25.1) Plan Of Treatment Pending Test Test Name Order Date CMP 14 Comprehensive Metabolic Panel* Next Appt Details Provider Name:Bowen Ortiz, 11:00:00 AM, [address], [place], [address], Insurance Providers Payer Name Payer Address Payer Phone Subscriber Number Group Number Insured Name Patient Relationship to Insured Coverage Start Date Coverage End Date [employer] [address] [place] [address] [id number] Bhavana Tesha de la rosa Self - patient is the insured 3 [employer] [facility] [address] [place] [address] [id number] Bhavana Tesha de la rosa Self - patient is the insured 3 MEDICARE PART A [address] [place] [address] [id number] Bhavana Tesha de la rosa Self - patient is the insured 2 MEDICAID [address] [place] [address] [id number] Bhavana Tesha de la rosa Self - patient is the insured 2 3 Medications Administered Medication Instructions Date of Administration Dosage Notes Invega Sustenna 08/24/2022 234 mg Pt arabella we ll. Invega Sustenna 09/21/2022 234 mg Pt arabella we ll. Manufact by Geovanna Invega Sustenna 10/19/2022 234 mg Pt arabella we ll. Manufact by Geovanna Invega Sustenna 11/23/2022 234 mg Pt arabella we ll. Invega Sustenna 12/21/2022 234 mg Pt arabella we ll. Invega Sustenna 01/25/2023 234 mg Pt arabella we ll. Invega Sustenna 02/23/2023 234 mg Pt arabella we ll. Manufact by Proficiency Invega Sustenna 03/22/2023 234 mg Pt arabella we ll. Invega Sustenna 04/20/2023 234 mg Invega Sustenna 05/17/2023 234 mg Pt arabella we ll. Invega Sustenna 06/15/2023 234 mg Pt arabella we ll. Manufact by Geovanna Invega Sustenna 07/14/2023 234 mg Pt arabella we ll. Invega Sustenna 08/09/2023 234 mg Manufact by Proficiency Pt arabella well. Invega Sustenna 09/07/2023 234 mg Pt raabella we ll. Manufact by Proficiency Invega Sustenna 10/05/2023 234 mg Manufact by Proficiency Pt arabella well. Invega Sustenna 11/03/2023 234 mg Pt arabella we ll. Invega Sustenna 11/30/2023 234 mg Pt arabella we ll. Invega Sustenna 12/28/2023 234 mg Manufact by Proficiency Pt arabella well. Invega Sustenna 01/24/2024 234 mg Manufact by Proficiency Pt arabella well. Invega Sustenna 02/22/2024 234 mg Shaun 02/22/2024 10:37:40 AM CDT >Pt tolerated well Invega Sustenna 03/21/2024 234 mg Manufact by Proficiency Pt arabella well. Invega Sustenna 04/17/2024 234 mg Manufact by Proficiency Pt arabella well. Invega Sustenna 05/16/2024 234 mg Manufact by Proficiency Pt arabella well.
--- OUTSIDE RECORDS SUMMARY | 2024-06-10 06:45 | XMS_ITS | Encounter Summary ---
Author Organization [facility] Address [facility] [facility] [place] [address] [place] [address] Care Team Providers Care Food Prep Worker Name Role Phone Unavailable Primary Care Provider Unavailabl e Encounter Details Date Type Department Care Team (Latest Contact Info) Description 10/06/2017 Abstract [facility] Medical Group Teetee Bertrand APNP [address], [place] [id number] Social History Tobacco Use Types Packs/Day Years Used Date Smoking Tobacco: Never Assessed Comments Unknown Sex and Gender Information Value Date Recorded Sex Assigned at Not on file Legal Sex Female 8:27 PM CDT Gender Identity Not on file Sexual Orientation Not on file documented as of this encounter Plan of Treatment Not on file documented as of this encounter Procedures Procedure Name Priority Date/Time Associated Diagnosis Comments COMPREHENSIVE METABOLIC PANEL Routine 10/06/2017 8:55 AM CDT CBC W/DIFF AUTOMATED Routine 10/06/2017 8:55 AM CDT THYROID STIM HORMONE TSH Routine 10/06/2017 8:55 AM CDT documented in this encounter Results * THYROID STIM HORMONE, TSH (10/06/2017 8:55 AM CDT) TSH 2.200 0.358 - 3.74 uIU/ML [facility] TO EPIC CONVERSION Comment: Result Comment: HIGH DOSES OF BIOTIN MAY INTERFERE WITH THIS TEST RESULT. CORRELATION TO CLINICAL HISTORY AND PRESENTATION RECOMMENDED. 10/06/2017 8:55 AM CDT 10/06/2017 8:55 AM CDT Narrative [facility] TO EPIC CONVERSION - 10/06/2017 8:58 PM CDT Result Communication: Call patient with results Teetee Adria Elza [facility] Final Resul t [facility] TO EPIC CONVERSION * (ABNORMAL) COMPREHENSIVE METABOLIC PANEL (10/06/2017 8:55 AM CDT) SODIUM S/P/B 143 136 - 145 MMOL/L [facility] TO EPIC CONVERSION POTASSIUM S/P/B 3.8 3.5 - 5.1 MMOL/L [facility] TO EPIC CONVERSION CHLORIDE S/P/B 108 100 - 108 MMOL/L [facility] TO EPIC CONVERSION CO2 26.2 21 - 32 MMOL/L [facility] TO EPIC CONVERSION ANION GAP 12.6 8 - 20 MMOL/L [facility] TO EPIC CONVERSION BUN 9 7 - 18 MG/DL [facility] TO EPIC CONVERSION CREATININE S/P/B 0.68 0.55 - 1.02 MG/DL [facility] TO EPIC CONVERSION GFR ESTIMATE >90 >90 ML/MIN/1.7 3 M2 [facility] TO EPIC CONVERSION EGFR AFR. AMER. >90 >90 ML/MIN/1.7 3 M2 [facility] TO EPIC CONVERSION Comment: Result Comment: NOTE: eGFR is not calculated for patients <18 years of age. This is an estimated GFR (CKD EPI) and should not be used for calculating drug doses. BUN CREATININE RATIO 13.3 6 - 26 [facility] TO EPIC CONVERSION GLUCOSE 87 70 - 99 MG/DL [facility] TO [facility]IC CONVERSION CALCIUM S/P/B 8.9 8.5 - 10.1 MG/DL [facility] TO EPIC CONVERSION BILIRUBIN TOTAL S/P/B 0.8 0.2 - 1.2 MG/DL [facility] TO EPIC CONVERSION AST 11(L) 15 - 37 U/L [facility] TO [facility]IC CONVERSION ALT 20 14 - 55 U/L [facility] TO [facility]IC CONVERSION ALKALINE PHOSPHATASE S/P/B 74 50 - 136 U/L [facility] TO EPIC CONVERSION TOTAL PROTEIN S/P/B 6.7 6.4 - 8.2 G/DL [facility] TO EPIC CONVERSION ALBUMIN S/P/B 3.8 3.4 - 5.0 G/DL [facility] TO EPIC CONVERSION A/G RATIO 1.3 1.0 - 2.0 RATIO [facility] TO [facility]IC CONVERSION 10/06/2017 8:55 AM CDT 10/06/2017 8:55 AM CDT Narrative [facility] TO EPIC CONVERSION - 10/06/2017 8:58 PM CDT Result Communication: Call patient with results Teetee H Elza APNP LABORATORY Final Resul t [facility] TO EPIC CONVERSION * (ABNORMAL) CBC W/DIFF AUTOMATED (10/06/2017 8:55 AM CDT) WBC 6.5 4.8 - 10.8 x10'3/uL [facility] TO EPIC CONVERSION RBC 4.28 4.20 - 5.40 x10'6/uL [facility] TO EPIC CONVERSION HGB 13.6 12.0 - 16.0 G/DL [facility] TO EPIC CONVERSION HCT 43.8 38.0 - 48.0 % [facility] TO EPIC CONVERSION MCV 102.3(H) 81.0 - 99.0 FL [facility] TO EPIC CONVERSION MCH 31.8(H) 27.0 - 31.0 PG [facility] TO EPIC CONVERSION MCHC 31.1(L) 32.0 - 36.0 G/DL [facility] TO EPIC CONVERSION RDW 13.3 11.5 - 14.5 % [facility] TO [facility]IC CONVERSION PLT 258 130 - 400 x10'3/uL [facility] TO EPIC CONVERSION GLUCOSE 11.6 9.3 - 12.2 FL [facility] TO EPIC CONVERSION BASOPHILS % 0.9 0.0 - 1.0 % [facility] TO EPIC CONVERSION EOSINOPHILS % 2.6 1.0 - 3.0 % [facility] TO EPIC CONVERSION NEUTROPHILS % 55.0 43.0 - 65.0 % [facility] TO EPIC CONVERSION LYMPHOCYTES % 27.6 20.0 - 46.0 % [facility] TO EPIC CONVERSION IMMATURE GRANS % 0.2 0.0 - 1.0 % [facility] TO EPIC CONVERSION MONOCYTES 13.7(H) 5.0 - 12.0 % [facility] TO EPIC CONVERSION 10/06/2017 8:55 AM CDT 10/06/2017 8:55 AM CDT Narrative [facility] TO EPIC CONVERSION - 10/06/2017 8:34 PM CDT Result Communication: Call patient with results us Teetee [facility] Final [facility]ul t [facility] CONVERSION documented in this encounter Visit Diagnoses Not on filedocumented in this encounter
--- OUTSIDE RECORDS SUMMARY | 2024-06-10 06:45 | XMS_ITS | Encounter Summary ---
Author Organization [facility] Address [facility] [facility] [place] [address] [place] [address] Care Team Providers Care Turpentine Distiller Name Role Phone Teetee Bertrand Primary Care Provider [phone] Reason for Visit * Reason Comments Lab (SCAN) Encounter Details Date Type Department Care Team (Latest Contact Info) Description 05/27/2018 Scan HEALTH INFO SRVCS Scanned, Documents Lab (SCAN) Social History Tobacco Use Types Packs/Day Years Used Date Smoking Tobacco: Former Cigarettes Electronic Cigarettes Smokeless Tobacco: Former Alcohol Use Standard Drinks/Week Comments Yes 0 (1 standard drink = 0.6 oz pur e alcohol) AUDIT-C Answer Date Recorded Frequency of Alcohol Consumption Monthly or less 05/04/2018 Average Number of Drinks Not on file 018 Frequency of Binge Drinking Not on file 10/2017 Comments No Sex and Gender Information Value Date Recorded Sex Assigned at Not on file Legal Sex Female 8:27 PM CDT Gender Identity Not on file Sexual Orientation Not on file documented as of this encounter Plan of Treatment Not on file documented as of this encounter Procedures Procedure Name Priority Date/Time Associated Diagnosis Comments OUTSIDE LAB (SCAN ORDER) Routine 05/27/2018 documented in this encounter Results * OUTSIDE LAB (05/27/2018) 05/27/2018 us Documents Scanned SCANNING Final Result documented in this encounter Visit Diagnoses Not on filedocumented in this encounter Care Teams Turpentine Distiller Relationship Specialty Start Date End Date Teetee Bertrand APNP [address] [place] [address] PCP - General FAMILY PRACTICE 05/01/18 documented as of this encounter
--- OUTSIDE RECORDS SUMMARY | 2024-06-10 06:45 | XMS_ITS | Encounter Summary ---
Author Organization [facility] Address [facility] [place] [address] [place] [address] Care Team Providers Care Lithograph Press Operator Name Role Phone Unavailable Primary Care Provider Unavailabl e Encounter Details Date Type Department Care Team (Latest Contact Info) Description 11/03/2017 Abstract [facility] Medical Group Teetee Bertrand APNP [address] [place] [address] Social History Tobacco Use Types Packs/Day Years [...] Procedure Name Priority Date/Time Associated Diagnosis Comments THINPREP PAP AND HPV DNA, WI GC/CHMD Routine 11/03/2017 11:27 AM CDT documented in this encounter Results * THINPREP PAP AND HPV DNA, WI GC/CHMD (11/03/2017 11:27 AM CDT) SOURCE (QST) SEE NOTE [facility] TO EPIC CONVERSION Comment:Result Comment: Info rmation not provided CLINICAL INFORMATION: SEE NOTE [facility] TO EPIC CONVERSION Comment:Result Comment: Info rmation not provided Clinical Information: SEE NOTE [facility] TO EPIC CONVERSION Comment:Result Comment: INFO RMATION NOT PROVIDED Date of Last Pap SEE NOTE [facility] TO EPIC CONVERSION Comment:Result Comment: INFO RMATION NOT PROVIDED Previous Biopsy? SEE NOTE [facility] TO EPIC CONVERSION Comment:Result Comment: INFO RMATION NOT PROVIDED COMMENT SEE NOTE [facility] T O EPIC CONVERSION Comment: Result Comment: Satisfactory for evaluation. Endocervical/transformation zone component present. Age and/or menstrual status not provided PAP INTERPRETATION/RESUL TS SEE NOTE [facility] TO EPIC CONVERSION Comment:Result Comment: Nega tive for intraepithelial lesion or malignancy. COMMENT: SEE NOTE [facility] T O EPIC CONVERSION Comment: Result Comment: This Pap test has been evaluated with computer assisted technology. PIANO MOVER SEE NOTE [facility] TO EPIC CONVERSION Comment: Result Comment: KMY, CT(ASCP) CT screening location: [address] [place] [address] COMMENT SEE NOTE [facility] T O EPIC CONVERSION Comment: Result Comment: EXPLANATORY NOTE: The Pap is a screening test for cervical cancer. It is not a diagnostic test and is subject to false negative and false positive results. It is most reliable when a satisfactory sample, regularly obtained, is submitted with relevant clinical findings and history, and when the Pap result is evaluated along with historic and current clinical information. Test Performed at: [address] ??[id number] ? BENSON DEAN MD 11/03/2017 11:2 7 AM CDT 11/03/2017 11:27 AM CDT Narrative [facility] TO EPIC CONVERSION - 11/08/2017 2:00 PM CDT Result Communication: Call patient with results us Teetee [facility] ORDER[facility]L ES Final Result [facility] TO EPIC CONVERSION documented in this encounter Visit Diagnoses Not on filedocumented in this encounter
--- OUTSIDE RECORDS SUMMARY | 2024-06-10 06:45 | XMS_ITS | Encounter Summary ---
Author Organization [facility] Address Formerly [facility], [id number] [facility] [place] [address] [place] [address] Care Team Providers Care Housing Inspector Name Role Phone Unavailable Primary Care Provider Unavailabl e Encounter Details Date Type Department Care Team (Late st Contact Info) Description 12/07/2017 Abstract [facility] Family & Internal Medicine [facility] [address] [place] [address] Suzanne Beard FNP [address] [place] [address] Social History Tobacco Use Types Packs/Day Years Used Date Smoking Tobacco: Never Assessed Comments Unknown Sex and Gender Information Value Date Recorded Sex Assigned at Not on file Legal Sex Female 8:27 PM CDT Gender Identity Not on file Sexual Orientation Not on file documented as of this encounter Last Filed Vital Signs Vital Sign Reading Time Taken Comments Blood Pressure 100/60 12/07/2017 9:13 AM CDT Pulse 71 12/07/2017 9:13 AM CDT Temperature - - Respiratory Rate - - Oxygen Saturation - - Inhaled Oxygen Concentration - - Weight 73.9 kg (163 lb) 12/07/2017 9:13 AM CDT Height 175.3 cm (5' 9 ) 12/07/2017 9:13 AM CDT Body Mass Index 24.07 12/07/2017 9:13 AM CDT documented in this encounter Progress Notes * HOLLEY Roland - 12/07/2017 9:00 AM CDT Reason For Visit Acute Visit Chief Complaint Patient is following up from [place] for abdominal pain, nausea and light headedness History of Present Illness HPI Free Text: Tesha presents to the office today for follow up after her visit to the ER on Tuesday. This past Tuesday she states eating breakfast and immediately following having a throbbing 7/10 pain in her upper abdomen worsened with movement and deep breathing as well as feeling drowsy and not well . She reports taking ibuprofen and a nap and still having the pain upon waking. She went to ED that afternoon where she got labs, IVF, and an abdominal CT. She states the pain resolved that night after leaving the ED and has not experienced the pain again. She reports having a normal appetite, and has not noticed the pain associated with eating fatty foods. She denies N/V/D, incontinence, vaginal bleeding. PHQ-9 Depression Questionnaire: Over the past 2 weeks, how often have you been bothered by the following problems? 1.) Little interest or pleasure in doing things? Not at all. 2.) Feeling down, depressed or hopeless? Not at all. 3.) Trouble falling asleep or sleeping too much? Not at all. 4.) Feeling tired or having little energy? Several days. 5.) Poor appetite or overeating? Not at all. 6.) Feeling bad about yourself, or that you are a failure, or have let yourself or your family down? Not at all. 7.) Trouble concentrating on things, such as reading a newspaper or watching television? Several days. 8.) Moving or speaking so slowly that other people could have noticed, or the opposite, moving or speaking faster than usual? Not at all. 9.) Thoughts that you would be off or of hurting yourself in some way? Not at all. TOTAL SCORE: 2. How difficult have these problems made it for you to do your work, take care of things at home, or get along with people? Not at all. Review of Systems See HPI for pertinent positives. Active Problems 1. Abnormal CBC (790.6) (R79.89) 2. Bacterial vaginosis (616.10,041.9) (N76.0,B96.89) 3. Hematuria (599.70) (R31.9) 4. Immunizations incomplete (V15.89) (Z91.89) 5. Macrocytosis (289.89) (D75.89) 6. Pelvic pain (R10.2) 7. Schizophrenia (295.90) (F20.9) 8. Weight gain (783.1) (R63.5) Surgical History 1. Denied: History of Surgery Family History Mother 1. No pertinent family history Father 2. No pertinent family history Paternal Grandmother 3. Family history of cerebrovascular accident (CVA) (V17.1) (Z82.3) Social History ?? Never a smoker ?? Single Current Meds 1. Latuda 40 MG Oral Tablet; TK 1 PO DAILY WITH FOOD; Therapy: 06Jul2017 to Recorded 2. MetroNIDAZOLE 0.75 % Vaginal Gel; INSERT 1 APPLICATORFUL INTRAVAGINALLY AT BEDTIME NIGHTLY 5 NIGHTS; Therapy: 08Nov2017 to (Last Rx:08Nov2017) Requested for: 08Nov2017 Ordered 3. Vitamin D3 400 UNIT Oral Capsule; TK 2 CAPS PO QAM FOR 30 DAYS; Therapy: 17Oct2017 to Recorded Allergies 1. No Known Drug Allergies Immunizations Meningococcal --- Series1: 20-Jul-2016 Tdap --- Series1: 20-Jul-2016 Vitals Recorded: [id number] 09:13AM Temperature 98.6 F Heart Rate 71 Respiration 16 Systolic 100 Diastolic 60 O2 Saturation 98 Height 5 ft 9 in Weight 163 lb BMI Calculated 24.07 BSA Calculated 1.89 Physical Exam Constitutional General appearance: No acute distress, well appearing and well nourished. Eyes Conjunctiva and lids: No swelling, erythema or discharge. Pupils and irises: Equal, round and reactive to light. Ears, Nose, Mouth, and Throat External inspection of ears and nose: Normal. Pulmonary Respiratory effort: No increased work of breathing or signs of respiratory distress. Auscultation of lungs: Clear to auscultation. Cardiovascular Auscultation of heart: Normal rate and rhythm, normal S1 and S2, without murmurs. Examination of extremities for edema and/or varicosities: Normal. Abdomen Abdomen: Non-tender, no masses. Liver and spleen: No hepatomegaly or splenomegaly. Lymphatic Palpation of lymph nodes in neck: No lymphadenopathy. Musculoskeletal Gait and station: Normal. Digits and nails: Normal without clubbing or cyanosis. Inspection/palpation of joints, bones, and muscles: Normal. Skin Skin and subcutaneous tissue: Normal without rashes or lesions. Psychiatric Orientation to person, place, and time: Normal. Mood and affect: Normal. Counseling The patient was counseled regarding diagnostic results, instructions for management, risk factor reductions, prognosis, patient and family education, impressions, risks and benefits of treatment options and importance of compliance with treatment. total time of encounter was 40 minutes and 25 minutes was spent counseling. Plan Abdominal pain 1. Call if: New symptoms occur.; Status:Complete; Done: [id number] 03:38PM Ordered; For:Abdominal pain; Ordered By:Suzanne Beard; 2. Call if: Your temperature is higher than 101 degrees Fahrenheit.; Status:Complete; Done: [id number] 03:38PM Ordered; For:Abdominal pain; Ordered By:Suzanne Beard; 3. Call 911 if: The symptoms are suddenly worse.; Status:Complete; Done: [id number] 03:38PM Ordered; For:Abdominal pain; Ordered By:Suzanne Beard; 4. Call 911 if: You become dehydrated.; Status:Complete; Done: 15Szw2173 03:38PM Ordered; For:Abdominal pain; Ordered By:Suzanne Beard; Discussion/Summary Suicide Risk Assessment Completed. Negative adult depression screen. Evaluation of Psychiatric State Completed.. Tobacco use screening completed. Suicide risk assessment completed. Alcohol consumption screening completed. Assessment of substance use completed. PHQ-9 Completed (Score 2). Signatures Electronically signed by : Suzanne Beard CNP; Dec 12 2017 3:40PM PLASTIC MAKER (Author) documented in this encounter Plan of Treatment Not on file documented as of this encounter Visit Diagnoses Not on filedocumented in this encounter
--- OUTSIDE RECORDS SUMMARY | 2024-06-10 06:45 | XMS_ITS | Encounter Summary ---
Author Organization [facility] Address Formerly [facility] [place] [address] [place] [address] Care Team Providers Care Machine Stripper Cutter Name Role Phone Unavailable Primary Care Provider Unavailabl e Encounter Details Date Type Department Care Team (Latest Contact Info) Description 10/06/2017 7:28 PM CDT - 10/06/2017 11:59 PM CDT Hospital Encounter [facility] [place] [address] Teetee Bertrand H, JONY [address] [place] [address] Discharge Disposition: Home or Self Care (Routine Discharge) Social History Tobacco Use Types Packs/Day Years Used Date Smoking Tobacco: Never Assessed Comments Unknown Sex and Gender Information Value Date Recorded Sex Assigned at Not on file Legal Sex Female 8:27 PM CDT Gender Identity Not on file Sexual Orientation Not on file documented as of this encounter Medications at Time of Discharge Medication Sig Dispense Quantity Refills Last Filled Start D ate End Date lurasidone (LATUDA) 40 MG Tab tablet 07/06/2017 05/04/20 18 documented as of this encounter Plan of Treatment Not on file documented as of this encounter Procedures Procedure Name Priority Date/Time Associated Diagnosis Comments COMPREHENSIVE METABOLIC PANEL Routine 10/06/2017 8:55 AM CDT Schizophrenia ([facility]) CBC W/DIFF AUTOMATED Routine 10/06/2017 8:55 AM CDT Schizophrenia ([facility]) THYROID STIM HORMONE TSH Routine 10/06/2017 8:55 AM CDT Schizophrenia (CMS/HCC HHS/HCC) documented in this encounter Results * THYROID STIM HORMONE, TSH (10/06/2017 8:55 AM CDT) TSH 2.200 0.358 - 3.74 uIU/ML 10/06/2017 8:58 PM CDT [facility] Comment: HIGH DOSES OF BIOTIN MAY INTERFERE WITH THIS TEST RESULT. CORRELATION TO CLINICAL HISTORY AND PRESENTATION RECOMMENDED. 10/06/2017 8:55 AM CDT us Teetee [facility] Final Resul t [facility] [address] [address], [place] [phone] * (ABNORMAL) COMPREHENSIVE METABOLIC PANEL (10/06/2017 8:55 AM CDT) GLUCOSE 87 70 - 99 MG/DL 10/06/2017 8:58 PM CDT [facility] BUN 9 7 - 18 MG/DL 10/06/2017 8:58 PM CDT [facility] CREATININE S/P/B 0.68 0.55 - 1.02 MG/DL 10/06/2017 8:58 PM CDT [facility] SODIUM S/P/B 143 136 - 145 MMOL/L 10/06/2017 8:58 PM CDT [facility] POTASSIUM S/P/B 3.8 3.5 - 5.1 MMOL/L 10/06/2017 8:58 PM CDT [facility] CHLORIDE S/P/B 108 100 - 108 MMOL/L 10/06/2017 8:58 PM CDT [facility] CO2 26.2 21 - 32 MMOL/L 10/06/2017 8:58 PM CDT [facility] CALCIUM S/P/B 8.9 8.5 - 10.1 MG/DL 10/06/2017 8:58 PM [facility] BILIRUBIN TOTAL S/P/B 0.8 0.2 - 1.2 MG/DL 10/06/2017 8:58 PM [facility] TOTAL PROTEIN S/P/B 6.7 6.4 - 8.2 G/DL 10/06/2017 8:58 PM T [facility] ALBUMIN S/P/B 3.8 3.4 - 5.0 G/DL 10/06/2017 8:58 PM [facility] AST 11(L) 15 - 37 U/L 10/06/2017 8:58 PM [facility] ALT 20 14 - 55 U/L 10/06/2017 8:58 PM [facility] ALKALINE PHOSPHATASE S/P/B 74 50 - 136 U/L 10/06/2017 8:58 PM [facility] ANION GAP 12.6 8 - 20 MMOL/L 10/06/2017 8:58 PM [facility] BUN CREATININE RATIO 13.3 6 - 26 10/06/2017 8:58 PM [facility] A/G RATIO 1.3 1.0 - 2.0 RATIO 10/06/2017 8:58 PM [facility] EGFR NON-AFR. AMER. >90 >90 ML/MIN/1.7 3 M2 10/06/2017 8:58 PM [facility] EGFR AFR. AMER. >90 >90 ML/MIN/1.7 3 M2 10/06/2017 8:58 PM [facility] Comment: NOTE: eGFR is not calculated for patients <18 years of age. This is an estimated GFR (CKD EPI) and should not be used for calculating drug doses. 10/06/2017 8:55 AM CDT Teetee Adria Elza [facility] Final Resul t [facility] [address] [place] [address], [place] [phone] * (ABNORMAL) CBC W/DIFF AUTOMATED (10/06/2017 8:55 AM CDT) Pathologist [facility] WBC 6.5 4.8 - 10.8 x10'3/uL 10/06/2017 8:34 PM CDT [facility] RBC 4.28 4.20 - 5.40 x10'6/uL 10/06/2017 8:34 PM CDT [facility] HGB 13.6 12.0 - 16.0 G/DL 10/06/2017 8:34 PM CDT [facility] HCT 43.8 38.0 - 48.0 % 10/06/2017 8:34 PM CDT [facility] MCV 102.3(H) 81.0 - 99.0 FL 10/06/2017 8:34 PM CDT [facility] MCH 31.8(H) 27.0 - 31.0 PG 10/06/2017 8:34 PM CDT [facility] MCHC 31.1(L) 32.0 - 36.0 G/DL 10/06/2017 8:34 PM CDT [facility] RDW 13.3 11.5 - 14.5 % 10/06/2017 8:34 PM CDT [facility] PLT 258 130 - 400 x10'3/uL 10/06/2017 8:34 PM CDT [facility] MPV 11.6 9.3 - 12.2 FL 10/06/2017 8:34 PM CDT [facility] NEUTROPHILS % 55.0 43.0 - 65.0 % 10/06/2017 8:34 PM CDT [facility] LYMPHOCYTES % 27.6 20.0 - 46.0 % 10/06/2017 8:34 PM CDT [facility] MONOCYTES % 13.7(H) 5.0 - 12.0 % 10/06/2017 8:34 PM CDT [facility] EOSINOPHILS 2.6 1.0 - 3.0 % 10/06/2017 8:34 PM CDT [facility] BASOPHILS 0.9 0.0 - 1.0 % 10/06/2017 8:34 PM CDT [facility] IMMATURE GRANS % 0.2 0.0 - 1.0 % 10/06/2017 8:34 PM CDT [facility] 10/06/2017 8:55 AM CDT us Teetee [facility] Final Resul t [facility] [address] [place] [address], [place] [phone] documented in this encounter Visit Diagnoses Diagnosis Schizophrenia (CMS/HCC [facility])- Primary Unspecified schizophrenia, unspecified condition documented in this encounter
--- OUTSIDE RECORDS SUMMARY | 2024-06-10 06:45 | XMS_ITS | Encounter Summary ---
Author Organization [facility] Address [facility] [place] [address] [place] [address] Care Team Providers Care Home Hospice Aide Name Role Phone Unavailable Primary Care Provider Unavailabl e Encounter Details Date Type Department Care Team (Late st Contact Info) Description 08/17/2016 Abstract [facility] Family & Internal Medicine - [place] [address] [place] [address] Alli Reid MD Social History Tobacco Use Types Packs/Day Years Used Date Smoking Tobacco: Never Assessed Comments Unknown Sex and Gender Information Value Date Recorded Sex Assigned at Not on file Legal Sex Female 8:27 PM CDT Gender Identity Not on file Sexual Orientation Not on file documented as of this encounter Last Filed Vital Signs Vital Sign Reading Time Taken Comments Blood Pressure 102/64 08/17/2016 8:34 AM CDT Pulse 76 08/17/2016 8:34 AM CDT Temperature - - Respiratory Rate - - Oxygen Saturation - - Inhaled Oxygen Concentration - - Weight 75.8 kg (167 lb) 08/17/2016 8:34 AM CDT Height 175.3 cm (5' 9 ) 08/17/2016 8:34 AM CDT Body Mass Index 24.66 08/17/2016 8:34 AM CDT documented in this encounter Progress Notes * Alli Reid MD - 08/17/2016 8:15 AM CDT Reason For Visit Weight gain History of Present Illness HPI Free Text: Here for followup of her schizophrenia. She was seen recently by her psychiatrist and it was recommended that she decrease her Risperdal 2 mg as she has had some side effects with it. She reports that she is now taking the 2 mg. She states that her mood is good. One of her biggest concerns today isthat she has been unable to gain weight. She is wondering if there is anything else that we can recommend. She has been drinking protein supplementations a couple of times a day but felt like she is still not gaining weight. However, according to the records, she has actually gained 10 pounds sinceJanuary. Review of Systems See HPI for pertinent positives. Active Problems 1. Immunizations incomplete (V15.89) (Z91.89) 2. Schizophrenia (295.90) (F20.9) 3. Weight gain (783.1) (R63.5) Surgical History 1. Denied: History of Surgery Family History Mother 1. No pertinent family history Father 2. No pertinent family history Social History ?? Never a smoker ?? Single Current Meds 1. RisperiDONE 2 MG Oral Tablet; TK 1 T PO QHS; Therapy: 07Jun2016 to Recorded Allergies 1. No Known Drug Allergies Immunizations Meningococcal --- Series1: [id number] Tdap --- Series1: [id number] Vitals Recorded: 17Aug2016 08:34AM Heart Rate 76 Systolic 102 Diastolic 64 O2 Saturation 98 Height 5 ft 9 in Weight 167 lb BMI Calculated 24.66 BSA Calculated 1.91 Physical Exam Constitutional General appearance: No acute distress, well appearing and well nourished. Musculoskeletal Gait and station: Normal. Psychiatric Orientation to person, place, and time: Normal. Mood and affect: Normal. Mood and Affect: blunted. Assessment 1. Weight gain (783.1) (R63.5) 2. Schizophrenia (295.90) (F20.9) Plan Discussed resistance training with protein drink supplementation daily. CPM and specialty F/U. Signatures Electronically signed by : Alli Reid M.D.; Aug 17 2016 9:53AM BULLET CASTING OPERATOR (Author) documented in this encounter Plan of Treatment Not on file documented as of this encounter Visit Diagnoses Not on filedocumented in this encounter
--- OUTSIDE RECORDS SUMMARY | 2024-06-10 06:45 | XMS_ITS | Encounter Summary ---
Author Organization [facility] Address [facility]. [place], [place] [address] [place] [address] Care Team Providers Care Bee Tender Name Role Phone Unavailable Primary Care Provider Unavailabl e Encounter Details Date Type Department Care Team (Latest Contact Info) Description 04/04/2018 [facility] , Generic Shari, Social History Tobacco Use Types Packs/Day Years [...]
--- OUTSIDE RECORDS SUMMARY | 2024-06-10 06:45 | XMS_ITS | Encounter Summary ---
Author Organization [facility] Address [facility] [place] [address] [place] [address] Care Team Providers Care Cocoa Bean Cleaner Name Role Phone Teetee Bertrand Primary Care Provider [phone] Encounter Details Date Type Department Care Team (Late st Contact Info) Description [facility] Family & Internal Medicine [facility] [address] [place] [address] Teetee Bertrand APNP [address] [place] [address] Social History Tobacco Use Types Packs/Day Years [...] as of this encounter Progress Notes * Wilbur Salas - 07/20/2018 4:10 PM CST Pt has came to office 6 times over the past several days to drop of cards and candy for Teetee Bertrand. In one box of candy there was drug paraphernalia found along with a concerning note. The last time she dropped something off was today Jul 18 which included more drug paraphernalia with an unknown green liquid in it and a separate vial of unknown pink liquid along with another concerning note. The police were called and they came and noted the incident and confiscated the drug paraphernaliaand unknown liquid. The patients behavior has been unusual, concerning, and a stalking behavior, causing the staff and provider to feel uncomfortable and unsafe. We contacted her psychiatrist office in order to try and help the patient and identify what is going on. The psychiatrist office states they have tried contacting the patient several times [facility] The psychiatrist office contacted the patients mother (Joya Childress) who then contacted us. After confirming Joya was on the HIPAA form signed 05/04/19, I spoke with Joya about what was going on and the concerns we had. She stated Tesha no longer lives at the house and is not currently taking her medications she is refusing help and missed her psychatrist appointment in May. We have tried to find a way for the patient to get the help she needs, but despite best efforts she is refusing to let anyone help her. According to the people that care for her she does not want help. At this point because she is refusing help and because the provider and staff are concerned for their safety we are recommending the patient be dismissed from the clinic. -Wilbur Salas (Tile And Marble Installer). PACK WORKER documented in this encounter Plan of Treatment Not on file documented as of this encounter Visit Diagnoses Not on filedocumented in this encounter Care Teams Cocoa Bean Cleaner Relationship Specialty Start Date End Date Teetee Bertrand APNP [address] [place] [address] PCP - General FAMILY PRACTICE 05/01/18 documented as of this encounter
--- OUTSIDE RECORDS SUMMARY | 2024-06-10 06:45 | XMS_ITS | Encounter Summary ---
Author Organization [facility] Address [facility] [place] [address] [place] [address] Care Team Providers Care Dynamite Cartridge Crimper Name Role Phone Teetee Bertrand Primary Care Provider [phone] Reason for Visit * Reason Comments Pinworms c/o anal discomfort for 2 weeks. has tried hemmorrhoid cream and hydrocortisone cream without relief. Encounter Details Date Type Department Care Team (Latest Contact Info) Description 05/04/2018 9:00 AM FUR EXAMINER Office Visit [facility] Family & Internal Medicine [place] [address] [place] [phone] Teetee Bertrand APNP [address] [place] [address] Pinworms (c/o anal discomfort for 2 weeks. has tried hemmorrhoid cream and hydrocortisone cream without relief. ) Social History Tobacco Use Types Packs/Day Years Used Date Smoking Tobacco: Former Cigarettes Electronic Cigarettes Smokeless Tobacco: Former Tobacco Cessation:Counseling Given: Yes Alcohol Use Standard Drinks/Week Comments Yes 0 [...] Sign Reading Time Taken Comments Blood Pressure 108/62 05/04/2018 9:13 AM FUR EXAMINER Pulse 76 05/04/2018 9:13 AM FUR EXAMINER Temperature - - Respiratory Rate 16 05/04/2018 9:13 AM FUR EXAMINER Oxygen Saturation 96% 05/04/2018 9:13 AM FUR EXAMINER Inhaled Oxygen Concentration - - Weight 72.6 kg (160 lb) 05/04/2018 9:13 AM FUR EXAMINER Height 175.3 cm (5' 9 ) 05/04/2018 9:13 AM FUR EXAMINER Body Mass Index 23.63 05/04/2018 9:13 AM FUR EXAMINER documented in this encounter Progress Notes * JONY Galvez - 05/04/2018 9:00 AM CST Images from the original note were not included. [facility] FAMILY AND INTERNAL MEDICINE OFFICE VISIT Reason for Visit: Pinworms (c/o anal discomfort for 2 weeks. has tried hemmorrhoid cream and hydrocortisone cream without relief. ) History of Present Illness: Pt here today with complaints of intermittent anal discomfort/itching that started about 2 weeks ago. She notices the symptoms worse after getting out of the shower. She describes the symptoms as itchy with a a little bit of pain with wiping. Does not associate symptoms with bowel movements. After showering, she states symptoms last for about 5 minutes before resolving. Denies any accompanying symptoms. She denies any new foods. She has been trying new soaps, but this has not really changed hersymptoms. She states she has not changed her laundry detergent or dryer sheets either. She states she is not currently sexually active and has not recently placed anything in her rectum.Denies any change in her BM. She has not noticed any blood or mucus in her stool. Denies any changein her BM's. She is unsure if there is any redness, but does not feel like there is any bumps or abnormal skin around her rectum. She denies any abd pain, N/V/D, fever or chills. She has not noticed any abnormalities in her stools. ROS: Review of Systems Constitutional: Negative for chills, fever and malaise/fatigue. Respiratory: Negative for cough and shortness of breath. Cardiovascular: Negative for chest pain and palpitations. Gastrointestinal: Negative for abdominal pain, blood in stool, constipation, diarrhea, melena, nausea and vomiting. Genitourinary: Negative for dysuria, frequency and urgency. Musculoskeletal: Negative for back pain. Skin: Positive for itching. Negative for rash. Neurological: Negative for dizziness and headaches. Endo/Heme/Allergies: Does not bruise/bleed easily. Psychiatric/Behavioral: The patient is not nervous/anxious. Medications: Current Outpatient Medications: ??? Cholecalciferol (VITAMIN D3) 400 units Cap, , Disp: , Rfl: ??? risperiDONE 2 MG tablet, Take 2 mg by mouth daily., Disp: , Rfl: 1 Allergies: No Known Allergies Medical History: Past Medical History: Diagnosis Date ??? Schizophrenia (HCC) 06/29/2016 Surgical History: History reviewed. No pertinent surgical history. Social History: Social History Socioeconomic History ??? Marital status: Single Spouse name: Not on file ??? Number of children: Not on file ??? Years of education: Not on file ??? Highest education level: Not on file Social Needs ??? Financial resource strain: Not on file ??? Food insecurity - worry: Not on file ??? Food insecurity - inability: Not on file ??? Transportation needs - medical: Not on file ??? Transportation needs - non-medical: Not on file Occupational History ??? Not on file Tobacco Use ??? Smoking status: Former Smoker Types: Cigarettes, Electronic Cigarettes ??? Smokeless tobacco: Former User Substance and Sexual Activity ??? Alcohol use: Yes Frequency: Monthly or less ??? Drug use: No ??? Sexual activity: No Other Topics Concern ??? Not on file Social History Narrative ??? Not on file Family History: Family History Problem Relation Age of Onset ??? Cancer Other Pancreatic cancer ??? Breast Cancer Maternal Aunt PE: Physical Exam Constitutional: She is oriented to person, place, and time and well-developed, well-nourished, and in no distress. No distress. HENT: Head: Normocephalic and atraumatic. Mouth/Throat: No oropharyngeal exudate. Eyes: Conjunctivae and EOM are normal. No scleral icterus. Neck: Normal range of motion. Neck supple. No tracheal deviation present. Cardiovascular: Normal rate, regular rhythm and normal heart sounds. No murmur heard. Pulmonary/Chest: Effort normal and breath sounds normal. No stridor. No respiratory distress. She has no wheezes. Abdominal: Soft. Bowel sounds are normal. She exhibits no distension and no mass. There is no tenderness. There is no rebound and no guarding. Musculoskeletal: Normal range of motion. She exhibits no deformity. Lymphadenopathy: She has no cervical adenopathy. Neurological: She is alert and oriented to person, place, and time. Gait normal. Skin: Skin is warm and dry. No rash noted. She is not diaphoretic. No erythema. No pallor. Other than a slightly lightened area of skin at bottom of rectum, there were no visual abnormalities noted. No redness, dry skin noted around anal area. Psychiatric: Mood and affect normal. Nursing note and vitals reviewed. Filed Vitals: 05/04/18 0913 BP: 108/62 Pulse: 76 Resp: 16 SpO2: 96% Weight: 72.6 kg (160 lb) Height: 5' 9 (1.753 m) Labs: Labs Reviewed Diagnoses/Impression: 1. Anal itching Recommendations and Plan: 1. Anal itching The fact that these symptoms only occur after her shower suggests a soap/lotion as the cause. We discussed hypoallergenic soaps/lotions and she is to change her detergent to one free of dyes and perfumes. She is also to use OTC benadryl cream and hydrocortisone cream for symptomatic tx. I would like to see her back in 2 weeks for reevaluation of her symptoms. If symptoms remain at that time, workup will be initiated. Orders Placed This Encounter ??? risperiDONE 2 MG tablet Cannot display discharge medications since this is not an admission. PCP: JONY Galvez 05/04/2018 EXAMINER documented in this encounter Plan of Treatment Not on file documented as of this encounter Visit Diagnoses Diagnosis Anal itching- Primary Pruritus ani documented in this encounter Care Teams Dynamite Cartridge Crimper Relationship Specialty Start Date End Date Teetee Bertrand APNP [address] [place] [id number] PCP - General FAMILY PRACTICE 05/01/18 documented as of this encounter
--- OUTSIDE RECORDS SUMMARY | 2024-06-10 06:45 | XMS_ITS | Clinical Summary ---
Author Organization [facility] Address [facility] [facility] [address] [place] [address] Care Team Providers Care Medical Detail Representative Name Role Phone Teetee Bertrand JONY Primary Care Provider Allergies No known active allergies Medications Cholecalciferol (VITAMIN D3) 400 units Cap 8 Active risperiDONE 2 MG tabletIndications:S chizophrenia, unspecified type ([facility]) Take 1 tablet (2 mg total) by mouth daily. 30 tablet 9 Active buPROPion 24 hr 150 MG 24 hr tablet TK 1 T PO QAM 0 9 Active ondansetron 4 MG disintegrating tablet TK 1 T PO Q 6 - 8 H PRN FOR NAUSEA. DISSOLVE T ON TONGUE 0 9 Active Active Problems Problem Noted Date Diagnosed Date Body mass index (BMI) 24.0-24.9, adult 8 Hematuria 11/09/2017 Abnormal CBC 10/21/2017 Macrocytosis 10/10/2017 Weight gain 08/17/2016 Immunizations incomplete 07/20/2016 Schizophrenia ([facility]) 06/29/2016 Allergic rhinitis 02/20/2010 Resolved Problems Problem Noted Date Diagnosed Date Resolved Date Abdominal pain 12/12/2017 05/04/2018 Bacterial vaginosis 11/08/2017 05/04/20 18 Pelvic pain 11/03/2017 05/04/2018 Immunizations Name Administration Dates Next Due Dpt/Hib 10/08/1997, 5,05/25/1993,03/09/1993 ,01/05/1993 HPV 07/20/2010,03/10/2009,03/08/2008 Hepatitis A Vaccine - 2 Dose 02/24/2007,03/11/20 06 Hepatitis B Pediatric 07/27/1993,1992,09/28 Hib Vaccine, Prp-D 02/25/1994,05/25/1993, 993,01/05/1993 MMR (Generic) 11/04/1997 Measles 11/09/1993 Meningococcal Vac A,C,Y,W-135 Sc 07/20/2016,12/28 Meningococcal(Mcv 4)Aka Menactra 03/11/2006 Opv 10/08/1997, 5,05/25/1993,03/09/1993 ,01/05/1993 Rubella (Generic) 02/09/1994 Tdap (Generic) 07/20/2016,03/11/2006 Family History Medical History Relation Comments Breast Cancer Maternal Aunt Cancer Other Pancreatic cance r Relation Status Comments Maternal Aunt Other Social History Tobacco Use Types Packs/Day Years [...] Sign Reading Time Taken Comments Blood Pressure 125/62 07/18/2018 11:44 AM INSIDE FINISHER Pulse 64 07/18/2018 11:44 AM INSIDE FINISHER Temperature 36.3 ??C (97.4 ??F) 07/18/2018 1 1:44 AM INSIDE FINISHER Respiratory Rate 16 07/18/2018 11:4 4 AM INSIDE FINISHER Oxygen Saturation 100% 07/18/2018 11: 44 AM INSIDE FINISHER Inhaled Oxygen Concentration - - Weight 69.3 kg (152 lb 11.2 oz) 019 11:44 AM INSIDE FINISHER Height 175.3 cm (5' 9 ) 07/18/2018 11:4 4 AM INSIDE FINISHER Body Mass Index 22.55 07/18/2018 11:44 AM INSIDE FINISHER Plan of Treatment Health Maintenance Due Date Last Done Comments Cervical Cancer Screening Pap Smear (Age 30 to 64) Every 3 Years 1992 Annual Physical 10/24/1995 Hepatitis C 2010 Cervical Cancer Screening Pap with HPV Testing (Age 30 to 64) Every 5 Years 2022 11/03/2017 Cervical Cancer Screening with HPV 2022 COVID-19 Vaccine ( season) 2024 Influenza Adult (#1) 2024 DTaP, Tdap and Td Vaccines (3 - Td or Tdap) 07/20/2026 07/20/2016, 03/11/2006, 10/08/1997, Additional history exists Hepatitis B Vaccines Completed 07/27/1993, 1992, 1992 HPV Vaccines Completed 07/20/2010, 02/27, 03/08/2008 Meningococcal Vaccine Aged Out 07/20/2016, 013 No longer eligible based on patient's age to complete this topic Pneumococcal Vaccine: Pediatrics (0 to 5 Years) and At-Risk Patients (6 to 64 Years) Aged Out No longer eligible based on patient's age to complete this topic RSV Immunizations Under 20 Months Aged Out No longer eligible based on patient's age to complete this topic Procedures Procedure Name Priority Date/Time Associated Diagnosis Comments THINPREP PAP AND HPV DNA, [facility] Routine 11/03/2017 11:27 AM CDT from Last 3 Months or Most Recently Relevant to Health Maintenance Results * THINPREP PAP AND HPV DNA, [facility] (11/03/2017 11:27 AM CDT) SOURCE (QST) SEE [...] has been evaluated with computer assisted technology. TOE STAPLER SEE NOTE MED [facility] TO EPIC CONVERSION Comment: Result Comment: PRIYA RODRIGUEZ(ASCP) CT screening location: [address] [place] [address] COMMENT SEE NOTE [facility] T O EPIC [...] and current clinical information. Test Performed at: [address] ??[id number] ? BENSON DEAN MD 11/03/2017 11:2 7 AM CDT 11/03/2017 11:27 AM CDT Narrative [facility] TO EPIC CONVERSION - 11/08/2017 2:00 PM CDT Result Communication: Call patient with results Teetee BORGES PATHOLOGY/CYTOLOGY ORDERABL ES Final Result [facility] TO EPIC CONVERSION from Last 3 Months or Most Recently Relevant to Health Maintenance Insurance [employer] Care Teams Medical Detail Representative Relationship Specialty Start Date End Date Teetee Bertrand APNP [address] [place] [id number] PCP - General FAMILY PRACTICE 05/01/18
--- OUTSIDE RECORDS SUMMARY | 2024-06-10 06:45 | XMS_ITS | Encounter Summary ---
Author Organization [facility] Address [facility] [facility] [place] [address] [place] [address] Care Team Providers Care Refinery Operator Polymerization Plant Name Role Phone Unavailable Primary Care Provider Unavailabl e Encounter Details Date Type Department Care Team (Late st Contact Info) Description 07/20/2016 Abstract [facility] Group Family & Internal Medicine [facility] [address] [place] [address] Alli Reid MD Social History Tobacco Use Types Packs/Day Years Used Date Smoking Tobacco: Never Assessed Comments Unknown Sex and Gender Information Value Date Recorded Sex Assigned at Not on file Legal Sex Female 8:27 PM CDT Gender Identity Not on file Sexual Orientation Not on file documented as of this encounter Progress Notes * Generic Conversion MD Nahun - 07/20/2016 12:11 PM CST Reason For Visit Nurse Visit: Injection Active Problems 1. Schizophrenia (295.90) (F20.9) Current Meds 1. RisperiDONE 1 MG Oral Tablet; TK 1 T PO D; Therapy: 07Jun2016 to Recorded 2. RisperiDONE 2 MG Oral Tablet; TK 1 T PO QHS; Therapy: 07Jun2016 to Recorded Allergies 1. No Known Drug Allergies Plan 1. Menactra Intramuscular Injectable For: Immunizations incomplete; Ordered By:Alli Reid; Effective Date:20Jul2016; Administered by: Ale Avina RLudwinN.: 07/20/2016 12:14:00 PM; Last Updated By: Ale Avina no rxn while in office-[facility] 2. Tdap (Boostrix) For: Immunizations incomplete; Ordered By:Alli Reid; Effective Date:20Jul2016; Administered by: Ale Avina R.N.: 07/20/2016 12:15:00 PM; Last Updated By: Ale Avina no rxn while in office-jc Signatures Electronically signed by : Ale Avina R.N.; Jul 23 2016 10:37AM DBA MANAGER (Author) documented in this encounter Plan of Treatment Not on file documented as of this encounter Visit Diagnoses Not on filedocumented in this encounter
--- OUTSIDE RECORDS SUMMARY | 2024-06-10 06:45 | XMS_ITS | Encounter Summary ---
Author Organization [facility] Address [facility] [facility]. [place], [place] [address] [place] [address] Care Team Providers Care Propulsion Systems Engineer Name Role Phone Unavailable Primary Care Provider Unavailabl e Encounter Details Date Type Department Care Team (Latest Contact Info) Description 11/26/2017 Abstract [facility] Social History Tobacco Use Types Packs/Day Years [...]
--- OUTSIDE RECORDS SUMMARY | 2024-06-10 06:45 | XMS_ITS | Encounter Summary ---
Author Organization [facility] Address [facility] [place] [address] [place] [address] Care Team Providers Care Ceramic Restorer Name Role Phone Teetee Bertrand Primary Care Provider [phone] Reason for Visit * Reason Comments Follow Up Encounter Details Date Type Department Care Team (Late st Contact Info) Description 07/18/2018 11:20 AM TOPOGRAPHICAL ENGINEER Office Visit [facility] Family & Internal Medicine [facility] [address] [place] [address] Teetee Bertrand APNP [address] [place] [address] Follow Up Social History Tobacco Use Types Packs/Day Years [...] Comments Blood Pressure 125/62 07/18/2018 11:44 AM TOPOGRAPHICAL ENGINEER Pulse 64 07/18/2018 11:44 AM TOPOGRAPHICAL ENGINEER Temperature 36.3 ??C (97.4 ??F) 07/18/2018 1 1:44 AM TOPOGRAPHICAL ENGINEER Respiratory Rate 16 07/18/2018 11:4 4 AM TOPOGRAPHICAL ENGINEER Oxygen Saturation 100% 07/18/2018 11: 44 AM TOPOGRAPHICAL ENGINEER Inhaled Oxygen Concentration - - Weight 69.3 kg (152 lb 11.2 oz) 019 11:44 AM TOPOGRAPHICAL ENGINEER Height 175.3 cm (5' 9 ) 07/18/2018 11:4 4 AM TOPOGRAPHICAL ENGINEER Body Mass Index 22.55 07/18/2018 11:44 AM TOPOGRAPHICAL ENGINEER documented in this encounter Progress Notes * Teetee Covington JONY Bertrand - 07/18/2018 11:20 AM CST Images from the original note were not included. [facility] FAMILY AND INTERNAL MEDICINE OFFICE VISIT Reason for Visit: Follow Up History of Present Illness: Pt here today for follow up after being seen in the ER for food poisoning after eating steak and Welsh. States symptoms were N/V/D. In ER states had labs drawn and was given IVF. States this visit was 2 weeks ago. As of today, pt states she is feeling much better. Denies any further symptoms. Denies any CP, SOB, NGUYEN, dizziness, abd pain, fever, chills, N/V/D. Since her last visit with me, she has been seen by her psych and is due for another follow up. She denies any SI or HI. Denies any hallucinations. ROS: Review of Systems Constitutional: Positive for malaise/fatigue. Negative for chills and fever. HENT: Negative for congestion and hearing loss. Eyes: Negative for blurred vision and double vision. Respiratory: Negative for cough, shortness of breath and wheezing. Cardiovascular: Negative for chest pain, palpitations and leg swelling. Gastrointestinal: Negative for abdominal pain, diarrhea, nausea and vomiting. Genitourinary: Negative for dysuria and urgency. Skin: Negative for itching and rash. Neurological: Negative for dizziness and headaches. Psychiatric/Behavioral: Negative for depression. The patient is not nervous/anxious. Medications: Current Outpatient Medications: ??? Cholecalciferol (VITAMIN D3) 400 units Cap, , Disp: , Rfl: ??? risperiDONE 2 MG tablet, Take 1 tablet (2 mg total) by mouth daily., Disp: 30 tablet, Rfl: 0 ??? buPROPion 24 hr 150 MG 24 hr tablet, TK 1 T PO QAM, Disp: , Rfl: 0 ??? ondansetron 4 MG disintegrating tablet, TK 1 T PO Q 6 - 8 H PRN FOR NAUSEA. DISSOLVE T ON TONGUE, Disp: , Rfl: 0 Allergies: No Known Allergies Medical History: Past Medical History: Diagnosis Date ??? Schizophrenia (CMS/HCC) 06/29/2016 Surgical History: No past surgical history on file. Social History: Social History Socioeconomic History ??? Marital status: Single Spouse name: Not on file ??? Number of children: Not on file ??? Years of education: Not on file ??? Highest education level: Not on file Occupational History ??? Not on file Social Needs ??? Financial resource strain: Not on file ??? Food insecurity: Worry: Not on file Inability: Not on file ??? Transportation needs: Medical: Not on file Non-medical: Not on file Tobacco Use ??? Smoking status: Former Smoker Types: Cigarettes, Electronic Cigarettes ??? Smokeless tobacco: Former User Substance and Sexual Activity ??? Alcohol use: Yes Frequency: Monthly or less ??? Drug use: No ??? Sexual activity: No Lifestyle ??? Physical activity: Days per week: Not on file Minutes per session: Not on file ??? Stress: Not on file Relationships ??? Social connections: Talks on phone: Not on file Gets together: Not on file Attends amish service: Not on file Active member of club or organization: Not on file Attends meetings of clubs or organizations: Not on file Relationship status: Not on file ??? Intimate partner violence: Fear of current or ex partner: Not on file Emotionally abused: Not on file Physically abused: Not on file Forced sexual activity: Not on file Other Topics Concern ??? Not on file Social History Narrative ??? Not on file Family History: Family History Problem Relation Name Age of Onset ??? Cancer Other Pancreatic [...] Normal range of motion. She exhibits no edema or deformity. Neurological: She is alert and oriented to person, place, and time. Gait normal. Skin: Skin is warm and dry. She is not diaphoretic. No erythema. Psychiatric: Mood and affect normal. Nursing note and vitals reviewed. Filed Vitals: 07/18/18 1144 BP: 125/62 Pulse: 64 Resp: 16 Temp: 97.4 ??F (36.3 ??C) SpO2: 100% Weight: 69.3 kg (152 lb 11.2 oz) Height: 5' 9 (1.753 m) Labs: Labs Reviewed Diagnoses/Impression: 1. Schizophrenia, unspecified type (CMS/HCC) Chronic 2. Delusions (CMS/HCC) Recommendations and Plan: 1. Schizophrenia, unspecified type (CMS/HCC) 2. Delusions (CMS/HCC) At the end of what I thought was a follow up visit from the ER, patient requested liquid morphine. When questioned with this was for she could not tell me. I discussed with patient that this would not be an appropriate prescription for her and she began to argue with me and said what am I supposedto do now . When questioned again about her pain, she could not tell me where she was having pain. As I was getting ready to leave the room, patient asked if I had a mishra to her house. I told her I did not have a mishra to her house and she said why would I lie about this? . After a couple of minutesof trying to convince her that I did not have a mishra to her house and that I was not coming to her house I ended the appointment and patient left uneventfully. Orders Placed This Encounter ??? buPROPion 24 hr 150 MG 24 hr tablet ??? ondansetron 4 MG disintegrating tablet Cannot display discharge medications since this is not an admission. PCP: JONY Galvez 07/20/2018 GRAPHICAL ENGINEER documented in this encounter Plan of Treatment Not on file documented as of this encounter Visit Diagnoses Diagnosis Schizophrenia, unspecified type ([facility])- Primary Delusions ([facility]) Unspecified paranoid state documented in this encounter Care Teams Ceramic Restorer Relationship Specialty Start Date End Date Teetee Bertrand APNP [address] [place] [id number] PCP - General FAMILY PRACTICE 05/01/18 documented as of this encounter
--- OUTSIDE RECORDS SUMMARY | 2024-06-10 06:45 | XMS_ITS | Encounter Summary ---
Author Organization [facility] Address [facility] [place] [address] [place] [address] Care Team Providers Care Weekend Caregiver Name Role Phone Teetee Bertrand Primary Care Provider [phone] Reason for Visit * Reason Comments Fatigue just dont feel good Encounter Details Date Type Department Care Team (Late st Contact Info) Description 05/25/2018 10:40 AM FINANCIAL SERVICES EDUCATION CONSULTANT Office Visit [facility] Family & Internal Medicine [facility] [address] [place] [address] Teetee Bertrand APNP [address] [place] [address] Fatigue ( just dont feel good ) Social History Tobacco Use Types Packs/Day [...] Sign Reading Time Taken Comments Blood Pressure 110/80 05/25/2018 10:48 AM FINANCIAL SERVICES EDUCATION CONSULTANT Pulse 66 05/25/2018 10:48 AM FINANCIAL SERVICES EDUCATION CONSULTANT Temperature 36.4 ??C (97.6 ??F) 05/25/2018 11:[address] Respiratory Rate 14 05/25/2018 10:48 AM FINANCIAL SERVICES EDUCATION CONSULTANT Oxygen Saturation 96% 05/25/2018 10:48 AM FINANCIAL SERVICES EDUCATION CONSULTANT Inhaled Oxygen Concentration - - Weight 76.7 kg (169 lb) 05/25/2018 10:48 AM FINANCIAL SERVICES EDUCATION CONSULTANT Height 175.3 cm (5' 9 ) 05/25/2018 10:48 AM FINANCIAL SERVICES EDUCATION CONSULTANT Body Mass Index 24.96 05/25/2018 10:48 AM FINANCIAL SERVICES EDUCATION CONSULTANT documented in this encounter Progress Notes * JONY Galvez - 05/25/2018 10:40 AM CST Images from the original note were not included. [facility] FAMILY AND INTERNAL MEDICINE OFFICE VISIT Reason for Visit: Fatigue ( just dont feel good ) History of Present Illness: Pt here today with complaints of not feeling good . When questioned further, her complaints include body aches, fatigue, lightheaded at times. She did have a slight NGUYEN that started last night, that resolved after lying down for a few minutes. She states her symptoms started about 2 days ago and have seemingly worsened. She states lightheaded is a little worse with standing. Denies any other sick contacts. She does note some occasional chills, but no fever. Most bothersome symptom, according to pt is weakness and fatigue. She c/o a lack of motivation. She denies any upper respiratory symptoms, sore throat, N/V/D, abd pain, chest pain or shortness ofbreath, cough. Denies any recent medication changes. It was very difficult to get any information from pt in office today. She would not offer any information with out being asked questions. Affect is flat, with mostly one word answers. She denies any depression at today's visit and denies any HI or SI. Patient is treated for schizophrenia with risperidone. She is followed by psychiatry for this and has an appointment scheduled for next month as a follow- up. According to patient her dose was increased from 2 mg to 3 mg at her last visit with her psychiatrist, however patient has not started this 3mg dose as of yet. She was last seen by her psychiatrist and it was at that time her dose was changed. LMP was 05/18/2018. ROS: Review of Systems Constitutional: Positive for malaise/fatigue. Negative for chills and fever. HENT: Negative for congestion, ear discharge, hearing loss, sinus pain and sore throat. Eyes: Negative for blurred vision, double vision and pain. Respiratory: Negative for cough, sputum production, shortness of breath and wheezing. Cardiovascular: Negative for chest pain, palpitations and leg swelling. Gastrointestinal: Negative for abdominal pain, constipation, diarrhea, nausea and vomiting. Genitourinary: Negative for dysuria, flank pain, frequency and urgency. Musculoskeletal: Negative for joint pain and myalgias. Skin: Negative for itching and rash. Neurological: Positive for dizziness and weakness. Negative for sensory change, speech change and headaches. Psychiatric/Behavioral: Negative for depression. Medications: Current Outpatient Medications: ??? Cholecalciferol (VITAMIN D3) 400 units Cap, , Disp: , Rfl: ??? risperiDONE 2 MG tablet, Take 2 mg by mouth daily., Disp: , Rfl: 1 Allergies: No Known Allergies Medical History: Past Medical History: Diagnosis Date ??? Schizophrenia ([facility]) 06/29/2016 Surgical History: History reviewed. No pertinent [...] No distress. HENT: Head: Normocephalic and atraumatic. Right Ear: External ear normal. Left Ear: External ear normal. Mouth/Throat: No oropharyngeal exudate. No erythema of oropharynx. No maxillary sinus pain or pressure with palpation. Eyes: Conjunctivae and EOM are normal. No scleral icterus. Neck: Normal range of motion. Neck supple. No tracheal deviation present. No thyromegaly present. Cardiovascular: Normal rate, regular rhythm and normal heart sounds. No murmur heard. Pulmonary/Chest: Effort normal and breath sounds normal. No stridor. No respiratory distress. She has no wheezes. She has no rales. Abdominal: Soft. Bowel sounds are normal. She exhibits no distension and no mass. There is no tenderness. There is no rebound and no guarding. Musculoskeletal: Normal range of motion. She exhibits no deformity. Lymphadenopathy: She has no cervical adenopathy. Neurological: She is alert and oriented to person, place, and time. No cranial nerve deficit. She exhibits normal muscle tone. Gait normal. Coordination normal. Skin: Skin is warm and dry. No rash noted. She is not diaphoretic. No erythema. No pallor. Psychiatric: Mood and affect normal. Nursing note and vitals reviewed. Filed Vitals: 05/25/18 1048 05/25/18 1104 BP: 110/80 Pulse: 66 Resp: 14 Temp: 97.6 ??F (36.4 ??C) SpO2: 96% Weight: 76.7 kg (169 lb) Height: 5' 9 (1.753 m) Labs: Labs Reviewed Diagnoses/Impression: 1. Fatigue, unspecified type CBC W/DIFF AUTOMATED COMPREHENSIVE METABOLIC PANEL URINALYSIS, AUTO, COMPLETE TSH W/REFLEX 2. Weakness CBC W/DIFF AUTOMATED 3. Intermittent lightheadedness CBC W/DIFF AUTOMATED Recommendations and Plan: 1. Fatigue, unspecified type - CBC W/DIFF AUTOMATED; Future - COMPREHENSIVE METABOLIC PANEL; Future - URINALYSIS, AUTO, COMPLETE - TSH W/REFLEX; Future Flu and UPT negative. In office UA dip was unremarkable. No signs of dehydration on UA. Further labs have been ordered. Will notify pt of results and make tx suggestions accordingly. Danger signs discussed and she is to go to ER if develops these. Would like for pt to follow up back up with her psychiatrist to see if these symptoms are related to her psych diagnosis as well. 2. Weakness - CBC W/DIFF AUTOMATED; Future See above note. 3. Intermittent lightheadedness - CBC W/DIFF AUTOMATED; Future Orthostatics in office today were somewhat unremarkable. Labs ordered. More plan after results. Orders Placed This Encounter ??? CBC W/DIFF AUTOMATED ??? COMPREHENSIVE METABOLIC PANEL ??? URINALYSIS, AUTO, COMPLETE ??? TSH W/REFLEX Cannot display discharge medications since this is not an admission. PCP: JONY Galvez 05/25/2018 NCIAL SERVICES EDUCATION CONSULTANT documented in this encounter Plan of Treatment Not on file documented as of this encounter Procedures Procedure Name Priority Date/Time Associated Diagnosis Comments INFLUENZA A & B Routine 05/25/2018 Fatigue, unspecified type Weakness Intermittent lightheadedness URINALYSIS, AUTO, COMPLETE Routine 05/25/2018 Fatigue, unspecified type documented in this encounter Results * INFLUENZA A & B (05/25/2018) INFULENZA A AB NEGATIVE NEGATIVE [facility] INFLUENZA B AB NEGATIVE NEGATIVE [facility] Internal Control: VALID VALID [facility] NASAL STRUCTURE / Unknown 05/25/2018 Teetee BORGES MICROBIOLOGY - GENERAL ORDHerman CISNEROS Final Result [facility] [address] [place] [address], * URINALYSIS, AUTO, COMPLETE (05/25/2018) COLOR (U) YELLOW -[facility] TRANSPARENCY CLEAR [facility] GLUCOSE (U) NEGATIVE NEGATIVE MG/DL [facility] BILIRUBIN (U) NEGATIVE NEGATIVE [facility] KETONES MG/DL (U) NEGATIVE NEGATIVE MG/DL [facility] SPECIFIC GRAVITY (U) 1.020 1.001 - 1.035 [facility] BLOOD (U) NEGATIVE NEGATIVE [facility] U PH 7.0 5.0 - 9.0 [facility] PROTEIN (U) NEGATIVE mg/dL [facility] UROBILINOGEN 0.2 0.2 - 1.0 EU/dL = mg/dL [facility] NITRITES NEGATIVE NEGATIVE MG/DL [facility] LEUKOCYTES (U) NEGATIVE NEGATIVE [facility] URINE SPECIMEN OBTAINED BY CLEAN CATCH PROCEDURE / Unknown 05/25/2018 us Teetee BORGES URINE ORDERABLES Final Resu lt [address] [address], documented in this encounter Visit Diagnoses Diagnosis Fatigue, unspecified type- Primary Weakness Other malaise and fatigue Intermittent lightheadedness Dizziness and giddiness documented in this encounter Care Teams Weekend Caregiver Relationship Specialty Start Date End Date Teetee Bertrand APNP [address] [place] [id number] PCP - General FAMILY PRACTICE 05/01/18 documented as of this encounter
--- OUTSIDE RECORDS SUMMARY | 2024-06-10 06:45 | XMS_ITS | Encounter Summary ---
Author Organization [facility] Address [facility]6 [facility] [place] [address] [place] [address] Care Team Providers Care Roll Grinder Operator Name Role Phone Unavailable Primary Care Provider Unavailabl e Encounter Details Date Type Department Care Team (Latest Contact Info) Description 11/08/2017 Abstract [facility] Social History Tobacco Use Types Packs/Day Years Used Date Smoking Tobacco: Never Assessed Comments Unknown Sex and Gender Information Value Date Recorded Sex Assigned at Not on file Legal Sex Female 8:27 PM CDT Gender Identity Not on file Sexual Orientation Not on file documented as of this encounter Progress Notes * Generic Conversion MD Nahun - 11/08/2017 9:52 AM CDT Message Recorded as Task Date: 11/05/2017 07:41 PM, Created By: Teetee Bertrand Task Name: Follow Up Assigned To: [facility] Nurse Team Regarding Patient: Tesha Liu, Status: In Progress Comment: Teetee Bertrand - 05 Nov 2017 7:41 PM TASK CREATED Can you have pt stop in for a UA, C & S Na Jiménez - 07 Nov 2017 3:56 PM TASK IN PROGRESS Na Jiménez - 07 Nov 2017 3:57 PM TASK EDITED [facility] Maria L Rivera - 08 Nov 2017 9:52 AM TASK EDITED pt states that she will come in today 11/08/17 to give UA, C&S Plan 1. Urinalysis ( UA ) Culture If Ind; Status:Hold For - Manual Activation; Requested for:08Nov2017; Perform:[facility]; Order Comments:UA with C&S; Due:[id number]; Last Updated By:Maria L Rivera; 11/08/2017 9:53:45 AM;Ordered; For:Macrocytosis, Pelvic pain; Ordered By:Teetee Bertrand; Source: : Clean Catch Signatures Electronically signed by : Maria L Rivera, ; Nov 08 2017 9:58AM UMBRELLA TIPPER (Author) documented in this encounter Plan of Treatment Not on file documented as of this encounter Procedures Procedure Name Priority Date/Time Associated Diagnosis Comments URINALYSIS AUTO DIP Routine 11/08/2017 1 :03 PM CDT documented in this encounter Results * (ABNORMAL) URINALYSIS AUTO DIP (11/08/2017 1:03 PM CDT) COLOR (U) Dark yellow [facility] TO EPIC CONVERSION TRANSPARENCY Clear [facility] P TO EPIC CONVERSION GLUCOSE Negative [facility] T O EPIC CONVERSION BILIRUBIN (U) Negative [facility] UP TO EPIC CONVERSION KETONE (U) Negative [facility] TO EPIC CONVERSION SPECIFIC GRAVITY (U) 1.020 [facility] TO [facility]IC CONVERSION BLOOD (U) 2+(Moderate) (A) [facility] TO EPIC CONVERSION PH (U) 7.0 5.0 - 7.0 [facility] T O EPIC CONVERSION PROTEIN (ELP) (U) Negative [facility] TO [facility]IC CONVERSION UROBILINOGEN 0.2 E.U./dL [facility] OUP TO EPIC CONVERSION NITRITES neg [facility] T O EPIC CONVERSION LEUKOCYTES (U) Negative [facility] OUP TO EPIC CONVERSION 11/08/2017 1:03 PM CDT 11/08/2017 1:03 PM CDT Narrative [facility] TO EPIC CONVERSION - 11/08/2017 1:03 PM CDT Result Communication: Call patient with results us Teetee Bertrand APLAYLA URINE ORDERABLES Final Resu lt [facility] TO EPIC CONVERSION documented in this encounter Visit Diagnoses Not on filedocumented in this encounter
--- OUTSIDE RECORDS SUMMARY | 2024-06-10 06:45 | XMS_ITS | Encounter Summary ---
Author Organization [facility] Address [facility]. [place], [place] [address] [place] [address] Care Team Providers Care Digital Analyst Name Role Phone Unavailable Primary Care Provider Unavailabl e Encounter Details Date Type Department Care Team (Latest Contact Info) Description 10/10/2017 Abstract [facility] Medical Group Social History Tobacco [...]
--- OUTSIDE RECORDS SUMMARY | 2024-06-10 06:45 | XMS_ITS | Encounter Summary ---
Author Organization [facility] Address [address] [place] [address]. [place] [address] [place] [address] Care Team Providers Care Professor Of Philosophy Name Role Phone Teetee Bertrand Primary Care Provider [phone] Encounter Details Date Type Department Care Team (Latest Contact Info) Description 11/21/2018 Scan HEALTH INFO SR[facility] Scanned, Documents Social History Tobacco Use Types Packs/Day Years [...] on filedocumented in this encounter Care Teams Professor Of Philosophy Relationship Specialty Start Date End Date Teetee Bertrand APNP [address] [place] [address] PCP - General FAMILY PRACTICE 05/01/18 documented as of this encounter
--- OUTSIDE RECORDS SUMMARY | 2024-06-10 06:45 | XMS_ITS | Encounter Summary ---
Author Organization [facility] Address [facility] [place] [address] [place] [address] Care Team Providers Care Insurance Account Manager Name Role Phone Teetee Bertrand Primary Care Provider [phone] Reason for Visit * Reason Comments Follow Up difficulty focusing Encounter Details Date Type Department Care Team (Late st Contact Info) Description 06/20/2018 9:20 AM REBAR BENDER Office Visit [facility] Family & Internal Medicine [facility] [address] [place] [address] Teetee Bertrand APNP [address] [place] [address] Follow Up (difficulty focusing ) Social History Tobacco Use Types Packs/Day [...] Sign Reading Time Taken Comments Blood Pressure 126/66 06/20/2018 9:12 AM REBAR BENDER Pulse 56 06/20/2018 9:12 AM REBAR BENDER Temperature 36.9 ??C (98.5 ??F) 06/20/2018 9:12 AM CS T Respiratory Rate 16 06/20/2018 9:12 AM REBAR BENDER Oxygen Saturation 100% 06/20/2018 9:12 AM REBAR BENDER Inhaled Oxygen Concentration - - Weight 71.2 kg (157 lb) 06/20/2018 9:12 AM REBAR BENDER Height 175.3 cm (5' 9 ) 06/20/2018 9:12 AM REBAR BENDER Body Mass Index 23.18 06/20/2018 9:12 AM REBAR BENDER documented in this encounter Progress Notes * Teetee Bertrand, JONY - 06/20/2018 9:20 AM CST Images from the original note were not included. [facility] FAMILY AND INTERNAL MEDICINE OFFICE VISIT Reason for Visit: Follow Up (difficulty focusing ) History of Present Illness: Pt here today with complaints of difficulty focusing over the past few days. She feels her attention span has shortened as well. She has recently started school back and she states she has difficultygetting through her classes. She has recently had er risperidone increased to 3 mg. Does not feel like her symptoms did not necessarily increase or start with the increase of her meds. She feels her depression has worsened as well. She denies any HI or SI. She denies hearing voices or hallucinations. She states her psychiatrist treats her for depression and anxiety. She denies any other diagnosis at today's visit. As far as past medications, pt is unclear of what she has tried in the past. has been on 3 different meds, but can't remember the names of any of these meds. She states some of the rest of hermeds made her sleepy and she did not really have any allergic reactions. Most recent med is the risperdal, which she started about 5 months ago. She currently sees Dr. Ortiz and states she has an appt with him later this month. Will verify withhis office. ROS: Review of Systems Constitutional: Negative for chills and fever. HENT: Negative for congestion and hearing loss. Eyes: Negative for blurred vision and double vision. Respiratory: Negative for cough, shortness of breath and wheezing. Cardiovascular: Negative for chest pain, palpitations and leg swelling. Gastrointestinal: Negative for abdominal pain, diarrhea, nausea and vomiting. Skin: Negative for itching and rash. Neurological: Negative for dizziness and headaches. Psychiatric/Behavioral: Positive for depression. Negative for hallucinations and suicidal ideas. The patient is nervous/anxious. The patient does not have insomnia. Medications: Current Outpatient Medications: ??? Cholecalciferol (VITAMIN D3) 400 units Cap, , Disp: , Rfl: ??? risperiDONE 3 MG tablet, TK 1 T PO QHS, Disp: , Rfl: 1 Allergies: No Known Allergies Medical History: Past Medical History: Diagnosis Date ??? Schizophrenia ([facility]) 06/29/2016 Surgical History: History reviewed. No pertinent [...] No respiratory distress. She has no wheezes. Musculoskeletal: Normal range of motion. She exhibits no deformity. Neurological: She is alert and oriented to person, place, and time. Gait normal. Skin: Skin is warm and dry. No rash noted. She is not diaphoretic. No erythema. No pallor. Psychiatric: Her mood appears not anxious. She does not express impulsivity. She does not exhibit adepressed mood. She expresses no homicidal and no suicidal ideation. She expresses no suicidal plans and no homicidal plans. She is not concerned with wish fulfillment. She exhibits disordered thought content. She exhibits normal new learning ability, normal recent memory and normal remote memory. She has a flat affect. Flat affect. Some disorganized thought. No slurred speech. Denies any SI or HI. No agitation. Nursing note and vitals reviewed. Filed Vitals: 06/20/18 0912 BP: 126/66 Pulse: 56 Resp: 16 Temp: 98.5 ??F (36.9 ??C) SpO2: 100% Weight: 71.2 kg (157 lb) Height: 5' 9 (1.753 m) Labs: Labs Reviewed Diagnoses/Impression: 1. Schizophrenia, unspecified type (CMS/HCC) Chronic Recommendations and Plan: 1. Schizophrenia, unspecified type (CMS/HCc Risperdal decreased to 2 mg. Order sent over. Appt verified with Dr. Ortiz's office for 06/28/2018. Left message with pt symptoms. He is to call back if needs more information. Pt is reminded to keep appt with Dr. Ortiz. Danger signs discussed and she is to go ER or follow up here if develops these. Over 50% of time of 30 min appt today spent in discussion counseling. Orders Placed This Encounter ??? risperiDONE 3 MG tablet Cannot display discharge medications since this is not an admission. PCP: JONY Galvez 06/20/2018 R BENDER documented in this encounter Plan of Treatment Not on file documented as of this encounter Visit Diagnoses Diagnosis Schizophrenia, unspecified type (CMS/HCC HHS/HCC)- Primary documented in this encounter Care Teams Insurance Account Manager Relationship Specialty Start Date End Date Teetee Bertrand APNP [address] [place] [address] PCP - General FAMILY PRACTICE 05/01/18 documented as of this encounter
--- OUTSIDE RECORDS SUMMARY | 2024-06-10 06:45 | XMS_ITS | Encounter Summary ---
Author Organization [facility] Address [facility]6 [facility]. [place], [place] [address] [place] [address] Care Team Providers Care Financial Analysis Consultant Name Role Phone Unavailable Primary Care Provider Unavailabl e Encounter Details Date Type Department Care Team (Latest Contact Info) Description 11/10/[address] [facility] Social History Tobacco Use Types Packs/Day Years Used Date Smoking Tobacco: Never Assessed Comments Unknown Sex and Gender Information Value Date Recorded Sex Assigned at Not on file Legal Sex Female 8:27 PM CDT Gender Identity Not on file Sexual Orientation Not on file documented as of this encounter Progress Notes * Luz Mccarthy Md, MD - 11/10/2017 2:41 PM CDT Message Recorded as Task Date: 11/09/2017 11:47 PM, Created By: Teetee Bertrand Task Name: Call Patient with results Assigned To: [facility] Nurse Team Regarding Patient: Tesha Liu, Status: In Progress Comment: Teetee Bertrand - 09 Nov 2017 11:47 PM Patient Let pt know her pap was normal. Na Jiménez - 10 Nov 2017 10:52 AM TASK REASSIGNED: Previously Assigned To Teetee Bertrand Theresa - 10 Nov 2017 11:06 AM TASK IN PROGRESS Bernadette Posadas - 10 Nov 2017 11:07 AM TASK EDITED LM 11-10-17 Maria L Gutierrez - 10 Nov 2017 2:41 PM TASK EDITED pt informed with understanding voiced Signatures Electronically signed by : Maria L Rivera, ; Nov 10 2017 2:41PM FIRE TENDER (Author) documented in this encounter Plan of Treatment Not on file documented as of this encounter Visit Diagnoses Not on filedocumented in this encounter
--- OUTSIDE RECORDS SUMMARY | 2024-06-10 06:45 | XMS_ITS | Encounter Summary ---
Author Organization [facility] Address [facility] [place] [address] [place] [address] Care Team Providers Care Advertising Intern Name Role Phone Unavailable Primary Care Provider Unavailabl e Encounter Details Date Type Department Care Team (Late st Contact Info) Description 10/06/2017 Abstract [facility] Family & Internal Medicine [facility] [address] [place] [address] Teetee Bertrand APNP [address] [place] [address] Social History Tobacco Use Types Packs/Day Years Used Date Smoking Tobacco: Never Assessed Comments Unknown Sex and Gender Information Value Date Recorded Sex Assigned at Not on file Legal Sex Female 8:27 PM CDT Gender Identity Not on file Sexual Orientation Not on file documented as of this encounter Last Filed Vital Signs Vital Sign Reading Time Taken Comments Blood Pressure 106/68 10/06/2017 8:08 AM CDT Pulse 62 10/06/2017 8:08 AM CDT Temperature - - Respiratory Rate - - Oxygen Saturation - - Inhaled Oxygen Concentration - - Weight 71.4 kg (157 lb 8 oz) 10/06/2017 8:08 AM CDT Height 175.3 cm (5' 9 ) 10/06/2017 8:08 AM CDT Body Mass Index 23.26 10/06/2017 8:08 AM CDT documented in this encounter Progress Notes * JONY Galvez - 10/06/2017 8:00 AM CDT Reason For Visit Chronic Recheck Visit Chief Complaint Patient is here to establish care . History of Present Illness PHQ-9 Depression Questionnaire: Over the past 2 weeks, how often have you been bothered by the following problems? 1.) Little interest or pleasure in doing things? Not at all. 2.) Feeling down, depressed or hopeless? Half the days or more. 3.) Trouble falling asleep or sleeping too much? Not at all. 4.) Feeling tired or having little energy? Not at all. 5.) Poor appetite or overeating? Several days. 6.) Feeling bad about yourself, or that you are a failure, or have let yourself or your family down? Not at all. 7.) Trouble concentrating on things, such as reading a newspaper or watching television? Not at all. 8.) Moving or speaking so slowly that other people could have noticed, or the opposite, moving or speaking faster than usual? Several days. 9.) Thoughts that you would be off or of hurting yourself in some way? Not at all. TOTAL SCORE: 4. How difficult have these problems made it for you to do your work, take care of things at home, or get along with people? Somewhat difficult. HPI Free Text: Pt here today to get established with me. She is being treated for schizophrenia, per Dr Rolbes, psychaitrist. She sees him about every 2-3 months and is due to see him in about one month. She usually sees a counselor, but was released from her last counselor for insurance purposes. Is searching for a new counselor. A list will be providedtoday. Sh e denies hearing voices, manic episodes or hallucinations. Denies any paranoia. She sees [facility] for her paps and according to pt, she is UTD. According to pt, her last pap was normal. She will call her [facility] office to see when due for next female exam. She is due for routine screening labs. Her LMP was 09/12/2017 She denies being sexually active. She has no new complaints or concerns at the current time. PHQ-9 score today was 4. She denies any HI or SI. She states her dental exams are UTd, but is due for an eye exam. Denies any difficulty seeing. Review of Systems Constitutional, ENT, Cardiovascular, Respiratory, Gastrointestinal, Genitourinary, Integumentary, Neurological, Psychiatric and Hematologic review of systems normal except as noted. Psychiatric: (see HPI). Active Problems 1. Immunizations incomplete (V15.89) (Z91.89) 2. Schizophrenia (295.90) (F20.9) 3. Weight gain (783.1) (R63.5) Surgical History 1. Denied: History of Surgery Family History 1. No pertinent family history 2. No pertinent family history 3. Family history of cerebrovascular accident (CVA) (V17.1) (Z82.3) Social History ?? Never a smoker ?? Single Current Meds 1. Latuda 40 MG Oral Tablet; TK 1 PO DAILY WITH FOOD; Therapy: 06Jul2017 to Recorded Allergies 1. No Known Drug Allergies Vitals Recorded: 06Oct2017 08:08AM Temperature 98.2 F Heart Rate 62 Respiration 16 Systolic 106 Diastolic 68 O2 Saturation 98 Height 5 ft 9 in Weight 157 lb 8 oz BMI Calculated 23.26 BSA Calculated 1.87 Physical Exam Constitutional General appearance: No acute distress, well appearing and well nourished. Eyes Conjunctiva and lids: No swelling, erythema or discharge. Pupils and irises: Equal, round and reactive to light. Ears, Nose, Mouth, and Throat External inspection of ears and nose: Normal. Otoscopic examination: Tympanic membranes translucent with normal light reflex. Canals patent without erythema. Oropharynx: Normal with no erythema, edema, exudate or lesions. Pulmonary Respiratory effort: No increased work of [...] No lymphadenopathy. Musculoskeletal Gait and station: Normal. Skin Skin and subcutaneous tissue: Normal without rashes or lesions. Neurologic Cranial nerves: Cranial nerves 2-12 intact. Reflexes: 2+ and symmetric. Sensation: No sensory loss. Psychiatric Orientation to person, place, and time: Normal. Mood and affect: Normal. Counseling The patient was counseled regarding instructions for management, risk factor reductions, patient and family education, impressions, risks and benefits of treatment options and importance of compliance with treatment. total time of encounter was 30 minutes and 20 minutes was spent counseling. Assessment 1. Encounter for preventive health examination (V70.0) (Z00.00) 2. Schizophrenia (295.90) (F20.9) Plan Health Maintenance 1. Always use a seat belt and shoulder strap when riding or driving a motor vehicle.; Status:Complete; Done: 19Ogx3269 Ordered; For:Health Maintenance; Ordered By:Teetee Bertrand; 2. Call if: You find a new or different kind of lump in your breast.; Status:Complete; Done: 22Emv2393 Ordered; For:Health Maintenance; Ordered By:Teetee Bertrand; 3. Begin or continue regular aerobic exercise. Gradually work up to at least 3 sessions of 30 minutes of exercise a week.; Status:Complete; Done: 72Lvw5631 Ordered; For:Health Maintenance; Ordered By:Teetee Bertrand; 4. Call if: You have any warning signs of skin cancer.; Status:Complete; Done: 78Mzg9920 Ordered; For:Health Maintenance; Ordered By:Teetee Bertrand; 5. Drink plenty of fluids.; Status:Complete; Done: 47Raw5002 Ordered; For:Health Maintenance; Ordered By:Teetee Bertrand; 6. There are many ways to reduce your risk of catching or spreading a sexually transmitted Infection.; Status:Complete; Done: 11Uge9272 Ordered; For:Health Maintenance; Ordered By:Teetee Bertrand; 7. Use a sun block product with an SPF of 15 or more.; Status:Complete; Done: 68Jco6535 Ordered; For:Health Maintenance; Ordered By:Teetee Bertrand; 8. We encourage all of our patients to exercise regularly. 30 minutes of exercise or physical activity five or more days a week is recommended for children and adults.; Status:Complete; Done: 74Fst9455 Ordered; For:Health Maintenance; Ordered By:Teetee Bertrand; 9. We recommend regular contraceptive use to prevent an unplanned .; Status:Complete; Done: 10Oji6980 Ordered; For:Health Maintenance; Ordered By:Teetee Bertrand; 10. We recommend routine visits to a dentist.; Status:Complete; Done: 17Wsp6835 Ordered; For:Health Maintenance; Ordered By:Teetee Bertrand; Jesus 11. Call if: The symptoms seem worse.; Status:Complete; Done: 35Tzr9672 Ordered; For:Schizophrenia; Ordered By:Teetee Bertrand; 12. Avoid alcoholic beverages.; Status:Complete; Done: 58Ufs9283 Ordered; For:Schizophrenia; Ordered By:Teetee Bertrand; 13. Call if: You are having unusual movements of your tongue, mouth, or face muscles.; Status:Complete; Done: 01Tiy9961 Ordered; For:Schizophrenia; Ordered By:Teetee Bertrand; 14. Be sure to get at least 8 hours of sleep every night.; Status:Complete; Done: 06Oct2017 Ordered; For:Schizophrenia; Ordered By:Teetee Bertrand; 15. Continue with our present treatment plan.; Status:Complete; Done: 06Oct2017 Ordered; For:Schizophrenia; Ordered By:Teetee Bertrand; 16. Call if: Your symptoms return during treatment.; Status:Complete; Done: 06Oct2017 Ordered; For:Schizophrenia; Ordered By:Teetee Bertrand; 17. Call 911 if: You are considering suicide.; Status:Complete; Done: 06Oct2017 Ordered; For:Schizophrenia; Ordered By:Teetee Bertrand; 18. Decreasing the stress in your life may help your condition improve.; Status:Complete; Done: 06Oct2017 Ordered; For:Schizophrenia; Ordered By:Teetee Bertrand; 19. Call 911 if: You are thinking about harming yourself or someone else.; Status:Complete; Done: 06Oct2017 Ordered; For:Schizophrenia; Ordered By:Teetee Bertrand; 20. Drink plenty of fluids.; Status:Complete; Done: 06Oct2017 Ordered; For:Schizophrenia; Ordered By:Teetee Bertrand; 21. Call 911 if: Your muscles are rigid, tight, or stiff and you are running a high fever.; Status:Complete; Done: 06Oct2017 Ordered; For:Schizophrenia; Ordered By:Teetee Bertrand; 22. Restrict the salt in your diet by avoiding highly salted foods.; Status:Complete; Done: 65Gub2700 Ordered; For:Schizophrenia; Ordered By:Teetee Bertrand; 23. There are ways to handle a person with paranoia.; Status:Complete; Done: 21Btj7754 Ordered; For:Schizophrenia; Ordered By:Teetee Bertrand; 24. We recommend regular contraceptive use to prevent an unplanned .; Status:Complete; Done: 89Bmn2683 Ordered; For:Schizophrenia; Ordered By:Teetee Bertrand; Jesus - Symptoms stable. Denies any HI or SI. She is to continue her meds and follow up with her psychiatrist as scheduled, sooner if needed. Routine screening labs ordered. Pt will be notified of results and tx recommendations made accordingly. She is to contact her [facility] and see when she is due for her next well woman exam. She is to schedule eye appt. She is not currently on control, but is not sexually active and does not wish to address at this time. She is to keep regular dental appts. Follow up for any problems or concerns. Signatures Electronically signed by : Na Jiménez MA; Oct 06 2017 8:18AM CHURCH ADMINISTRATOR (Author) Electronically signed by : Teetee Bertrand APN; Oct 06 2017 8:58AM CHURCH ADMINISTRATOR (Author) documented in this encounter Plan of Treatment Not on file documented as of this encounter Visit Diagnoses Not on filedocumented in this encounter
--- OUTSIDE RECORDS SUMMARY | 2024-06-10 06:45 | XMS_ITS | Encounter Summary ---
Author Organization [facility] Address [facility] [facility] [place] [address] [place] [address] Care Team Providers Care Consultant [employer]. Vice President [employer] (Ex ) Name Role Phone Unavailable Primary Care Provider Unavailabl e Encounter Details Date Type Department Care Team (Late st Contact Info) Description 11/08/2017 Abstract [facility] Family & Internal Medicine [facility] [address] [place] [address] Abner Adamson MD [address] [place] [address] Social History Tobacco Use Types Packs/Day Years Used Date Smoking Tobacco: Never Assessed Comments Unknown Sex and Gender Information Value Date Recorded Sex Assigned at Not on file Legal Sex Female 8:27 PM CDT Gender Identity Not on file Sexual Orientation Not on file documented as of this encounter Progress Notes * JONY Galvez - 11/08/2017 2:19 PM CDT Message Let pt know positive foe BV and treat with metrogel for 5 days as we discussed. Small amount of blood in her urine and would like to repeat in about a month when she is not on her period. Patient notified -sjs Verified Results *Urine dip auto In Office 08Nov2017 01:03PM Teetee Bertrand Test Name Result Flag Reference Color Dark yellow Clarity Clear Glucose Negative Bilirubin Negative Ketones Negative Specific [place] 1.020 Blood 2+(Moderate) A pH 7.0 5.0 - 7.0 Protein Negative Urobilinogen 0.2 E.U./dL Nitrites neg Leukocytes Negative QU-SURESWAB( R ), VAGINOSIS/VAGINITIS PLUS [id number] 11:42AM Teetee Bertrand Test Name Result Flag Reference CHLAMYDIA TRACHOMATIS RNA, TMA Not detected Not detected NEISSERIA GONORRHOEAE RNA, TMA Not detected Not detected This test was performed using the [employer] COMBO2 Assay (GENLavaboom). BV CATEGORY: SUPPORTIVE A See Below Reference Range: Not Supportive LACTOBACILLUS SPECIES Not detected - UNITS: Log cells/mL ATOPOBIUM VAGINAE Not detected - UNITS: Log cells/mL MEGASPHAERA SPECIES 7.4 UNITS: Log cells/mL GARDNERELLA VAGINALIS >8.0 UNITS: Log cells/mL SURESWAB(R) TRICHOMONAS VAGINALIS RNA, QL, TMA Not detected Not detected C. ALBICANS, DNA Not detected Not detected C. GLABRATA, DNA Not detected Not detected C. TROPICALIS, DNA Not detected Not detected C. PARAPSILOSIS, DNA Not detected Not detected NOT SUPPORTIVE of BV: The pattern of results is not supportive of a diagnosis of BV: 1) Presence of Lactobacillus spp., G. vaginalis levels less than 6.0 log cells/mL, and absence of A. vaginae and Megasphaera spp; or 2) Absence of all targeted organisms; or 3) Absence of Lactobacillus spp. plus G. vaginalis detected at levels less than 6.0 log cells/mL and absence of A. vaginae and Megasphaera spp. EQUIVOCAL for BV: The pattern of results is neither supportive nor not supportive of a diagnosis of BV. The patient may be in transition into or out of BV: Presence of Lactobacillus spp. plus G. vaginalis (greater or equal to 6.0 log cells/mL) and/or one of the other BV-associated pathogens SUPPORTIVE of BV: The pattern of results is supportive of a diagnosis of BV: Absence of Lactobacillus spp. and presence of G. vaginalis greater than or equal to 6.0 log cells/mL and/or one or both of the other BV-associated pathogens. Concentration for Lactobacilli (L. acidophilus/crispatus, L. jensenii) are collectively reported under the term 'Lactobacillus spp.', as these species are among the peroxide producing Lactobacilli thought to be protective against bacterial vaginosis. Atopobium vaginae, Megasphaera spp., and Gardnerella (greater than 6.0 log cells/mL) have been associated with vaginosis when present in the absence of peroxidase producing Lactobacilli. This test was developed and its analytical performance characteristics have been determined by [facility]. It has not been cleared or approved by the US Food and Drug Administration. This assay has been validated pursuant to the CLIA regulations and is used for clinical purposes. For more information on this test, go to: http://education.nediyor.com.[employer]/faq/Trichomonastma Test Performed at: [facility] [address] [address] MATT PASCUAL MD,PHD Signatures Electronically signed by : Na Jiménez MA; Nov 09 2017 7:51AM ADJUNCT LECTURER (Author) documented in this encounter Plan of Treatment Not on file documented as of this encounter Visit Diagnoses Not on filedocumented in this encounter
--- OUTSIDE RECORDS SUMMARY | 2024-06-10 06:45 | XMS_ITS | Encounter Summary ---
Author Organization [facility] Address [facility] [place] [address] [place] [address] Care Team Providers Care Tube Maker Name Role Phone Unavailable Primary Care Provider Unavailabl e Encounter Details Date Type Department Care Team (Late st Contact Info) Description 06/29/2016 Abstract [facility] Family & Internal Medicine - [place] [address] [place] [address] Alli Reid MD Social History Tobacco Use [...] Sign Reading Time Taken Comments Blood Pressure 102/68 06/29/2016 8:28 AM FLOWER SHOP MANAGER Pulse 68 06/29/2016 8:28 AM FLOWER SHOP MANAGER Temperature - - Respiratory Rate - - Oxygen Saturation - - Inhaled Oxygen Concentration - - Weight 71.2 kg (157 lb) 06/29/2016 8:28 AM FLOWER SHOP MANAGER Height 175.3 cm (5' 9 ) 06/29/2016 8:28 AM FLOWER SHOP MANAGER Body Mass Index 23.18 06/29/2016 8:28 AM FLOWER SHOP MANAGER documented in this encounter Progress Notes * Alli Reid MD - 06/29/2016 8:15 AM CST Reason For Visit Acute Follow-Up Visit Chief Complaint Patient is here for ER follow up , diagnosed with acute exacerbation of schizophrenia. History of Present Illness REALM SF: Date: 06/29/2016 Examiner: Na Grade Completed: 12+ Reading Level: 12+ Can Pronounce: Menopause, Antibiotics, Exercise, Jaundice, Rectal, Anemia, Behavior Unable to Pronounce: PHQ-9 Depression Questionnaire: Over the past 2 [...] at all. 5.) Poor appetite or overeating? Not at [...] yourself in some way? Not at all. HPI Free Text: Here for followup from a recent ER visit. She presented to [facility] a week and a half ago as she felt odd and frightened with associated nervousness and shakiness. States that she was diagnosed with schizophrenia and was kept for about a week. She was restarted on Risperdal. She reports she did pretty well as an outpatient. She continues taking the medicine and is tolerating it well without any problems. Her moods are good. She was also given trazodone but reports that she stopped taking those as it made her feel sick. She was also on sertraline several months ago but also quit those as it bothered her stomach. Overall, she feels much better on the medicine with no new concerns or complaints. Review of Systems See HPI for pertinent positives. Surgical History 1. Denied: History of Surgery Family History Mother 1. No pertinent family history Father 2. No pertinent family history Social History ?? Never a smoker ?? Single Current Meds 1. RisperiDONE 1 MG Oral Tablet; TK 1 T PO D; Therapy: 07Jun2016 to Recorded 2. RisperiDONE 2 MG Oral Tablet; TK 1 T PO QHS; Therapy: 07Jun2016 to Recorded Allergies 1. No Known Drug Allergies Vitals Recorded: 29Jun2016 08:28AM Heart Rate 68 Respiration 16 Systolic 102 Diastolic 68 O2 Saturation 98 Height 5 ft 9 in Weight 157 lb BMI Calculated 23.18 BSA Calculated 1.86 Physical Exam Constitutional General appearance: No acute distress, well appearing and well nourished. Pulmonary Respiratory effort: No increased work of breathing or signs of respiratory distress. Auscultation of lungs: Clear to auscultation. Cardiovascular Auscultation of heart: Normal rate and rhythm, normal S1 and S2, without murmurs. Examination of extremities for edema and/or varicosities: Normal. Lymphatic Palpation of lymph nodes in neck: No lymphadenopathy. Musculoskeletal Gait and station: Normal. Psychiatric Orientation to person, place, and time: Normal. Mood and affect: Normal. Assessment 1. Schizophrenia (295.90) (F20.9) Plan CPM and f/u with psychiatrist as planned. Signatures Electronically signed by : Alli Reid M.D.; Jun 30 2016 6:26AM FLOWER SHOP MANAGER (Author) documented in this encounter Plan of Treatment Not on file documented as of this encounter Visit Diagnoses Not on filedocumented in this encounter
--- OUTSIDE RECORDS SUMMARY | 2024-06-10 06:45 | XMS_ITS | Encounter Summary ---
Author Organization [facility] Address [facility] [place] [address] [place] [address] Care Team Providers Care Tour Coordinator Name Role Phone Unavailable Primary Care Provider Unavailabl e Encounter Details Date Type Department Care Team (Latest Contact Info) Description 11/09/2017 Abstract [facility] Social History Tobacco Use Types Packs/Day Years Used Date Smoking Tobacco: Never Assessed Comments Unknown Sex and Gender Information Value Date Recorded Sex Assigned at Not on file Legal Sex Female 8:27 PM CDT Gender Identity Not on file Sexual Orientation Not on file documented as of this encounter Progress Notes * JONY Galvez - 11/09/2017 11:47 PM CDT Message Let pt know her pap was normal. Verified Results QU-THINPREP TIS PAP RFX HR HPV DNA AND C. TRACHOMATIS AND N. GONORRHOEAE [id number] 11:27AM Teetee Bertrand Test Name Result Flag Reference SOURCE: SEE NOTE Information not provided CLINICAL INFORMATION: SEE NOTE Information not provided LMP: SEE NOTE INFORMATION NOT PROVIDED PREV. PAP: SEE NOTE INFORMATION NOT PROVIDED PREV. BX: SEE NOTE INFORMATION NOT PROVIDED STATEMENT OF ADEQUACY: SEE NOTE Satisfactory for evaluation. Endocervical/transformation zone component present. Age and/or menstrual status not provided INTERPRETATION/RESULT: SEE NOTE Negative for intraepithelial lesion or malignancy. COMMENT: SEE NOTE This Pap test has been evaluated with computer assisted technology. INDUSTRIAL SERVICES WORKER: SEE NOTE PRIYA RODRIGUEZ(ASCP) CT screening location: [place] [address] [place] [address] COMMENT SEE NOTE EXPLANATORY NOTE: The Pap is a screening test for cervical cancer. It is not a diagnostic test and is subject to false negative and false positive results. It is most reliable when a satisfactory sample, regularly obtained, is submitted with relevant clinical findings and history, and when the Pap result is evaluated along with historic and current clinical information. Test Performed at: [facility] [address] BENSON DEAN MD documented in this encounter Plan of Treatment Not on file documented as of this encounter Visit Diagnoses Not on filedocumented in this encounter
--- OUTSIDE RECORDS SUMMARY | 2024-06-10 06:45 | XMS_ITS | Encounter Summary ---
Author Organization [facility] Address [facility] [place] [address] [place] [address] Care Team Providers Care Registration Specialist Name Role Phone Unavailable Primary Care Provider Unavailabl e Encounter Details Date Type Department Care Team (Late st Contact Info) Description 11/03/2017 Abstract [facility] Family & Internal Medicine [facility] [address] [place] [address] Teetee Bertrand APNP [address] [place] [address] Social History Tobacco Use Types Packs/Day Years Used Date Smoking Tobacco: Never Assessed Comments Unknown Sex and Gender Information Value Date Recorded Sex Assigned at Not on file Legal Sex Female 8:27 PM CDT Gender Identity Not on file Sexual Orientation Not on file documented as of this encounter Last Filed Vital Signs Vital Sign Reading Time Taken Comments Blood Pressure 110/64 11/03/2017 10:38 AM CDT Pulse 53 11/03/2017 10:38 AM CDT Temperature - - Respiratory Rate - - Oxygen Saturation - - Inhaled Oxygen Concentration - - Weight 73.5 kg (162 lb) 11/03/2017 10:38 AM CDT Height 175.3 cm (5' 9 ) 11/03/2017 10:38 AM CDT Body Mass Index 23.92 11/03/2017 10:38 AM CDT documented in this encounter Progress Notes * JONY Galvez - 11/03/2017 10:40 AM CDT Reason For Visit Reason For Visit: Acute Visit Chief Complaint Patient c/o an intermittent tension pain in right lower groin area for 2-3 weeks , pain rates abouta 5-6/10. History of Present Illness HPI Free Text: Pt c/o intermittent right sided pelvic pain that started about 3 weeks ago. States pain occurs almost daily and lasts for most of the day. She describes the pain as throbbing/tension, feels like it is deep on the inside. She denies any aggravating or alleviating factors. She has beenstill able to exercise without difficulty. She notices pain more after exercise.Denies any fever orchills, change in bowel habits, N/V/D, pain or burning with urination, urinary frequency or urgency. Denies any lower back pain. Rates pain about a 5- 6/10. She denies any abnormal vaginal d/c or bleeding. LMP was 10/10/2017. She denies any unprotected sex in the last couple of months. Last time hadsex was about a year ago and states was protected. She does note some tension in her right upper thigh as well. Pt states last pap was about 4 years ago and was normal. Denies any new exercises. Review of Systems Constitutional: Normal. Cardiovascular: Normal. Respiratory: Normal. Gastrointestinal: abdominal pain, but no constipation, no heartburn, no melena, no diarrhea, no vomiting and no nausea. Genitourinary: pelvic pain, but no dysuria, no vaginal discharge, no unexplained vaginal bleeding, no dysmenorrhea and no incontinence. Integumentary: Normal. Neurological: Normal. Active Problems 1. Abnormal CBC (790.6) (R79.89) 2. Immunizations incomplete (V15.89) (Z91.89) 3. Macrocytosis (289.89) (D75.89) 4. Schizophrenia (295.90) (F20.9) 5. Weight gain (783.1) (R63.5) Surgical History 1. Denied: History of Surgery Family History Mother 1. No pertinent family history Father 2. No pertinent family history Paternal Grandmother 3. Family history of cerebrovascular accident (CVA) (V17.1) (Z82.3) Social History ?? Never a smoker ?? Single Immunizations Meningococcal --- Series1: 20-Jul-2016 Tdap --- Series1: 20-Jul-2016 Current Meds 1. Latuda 40 MG Oral Tablet; TK 1 PO DAILY WITH FOOD; Therapy: [id number] to Recorded Rx By: SANCHEZ; Dispense: 30 Days ; #:30; Refill: 0; MERA = N; Record; Last Updated By: Na Jiménez; 10/06/2017 8:08:15 AM 2. Vitamin D3 400 UNIT Oral Capsule; TK 2 CAPS PO QAM FOR 30 DAYS; Therapy: [id number] to Recorded Rx By: DAKOTA; Dispense: 30 Days ; #:125; Refill: 0; MERA = N; Record; Last Updated By: Na Jiménez; 11/03/2017 10:38:38 AM Allergies 1. No Known Drug Allergies Recorded By: Alberto Sanders; 10/01/2013 3:08:01 PM Vitals Recorded: 03Nov2017 10:38AM Temperature 97.5 F Heart Rate 53 Respiration 16 Systolic 110 Diastolic 64 O2 Saturation 98 Height 5 ft 9 in Weight 162 lb BMI Calculated 23.92 BSA Calculated 1.89 Physical Exam Constitutional General appearance: No acute distress, well appearing and well nourished. Pulmonary Respiratory effort: No increased work of breathing or signs of respiratory distress. Auscultation of lungs: Clear to auscultation. Cardiovascular Auscultation of heart: Normal rate and rhythm, normal S1 and S2, no murmurs. Examination of extremities for edema and/or varicosities: Normal. Chest Patient defers breast exam. Abdomen Abdomen: Non-tender, no masses. No abnormalities noted on exam today. No Asencio's sign, no psoas orobturator sign.. No Rosving's sign. No rebound tenderness or guarding on exam... Genitourinary External genitalia and vagina: Normal, no lesions appreciated. Urethra: Normal, no discharge. Bladder: Not distended, no tenderness. Cervix: Normal, no lesions. Uterus: Normal size, no tenderness, no masses. Adnexa/Parametria: Normal, no masses or tenderness. Lymphatic Palpation of lymph nodes in neck: [...] with treatment. total time of encounter was 25 minutes and 15 minutes was spent counseling. Assessment 1. Abnormal CBC (790.6) (R79.89) 2. Macrocytosis (289.89) (D75.89) 3. Pelvic pain (R10.2) Plan Abnormal CBC, Macrocytosis, Pelvic pain 1. CBC W Differential; Status:Active; Requested for:03Nov2017; Perform:Other Lab; Due:03Nov2017; Last Updated By:Na Jiménez; 11/03/2017 11:23:48 AM;Ordered; Stat;For:Abnormal CBC, Macrocytosis, Pelvic pain; Ordered By:Teetee Bertrand; 2. Compr Metabolic Prof ( CMP ); Status:Active; Requested for:03Nov2017; Perform:Other Lab; Due:03Nov2017; Last Updated By:Na Jiménez; 11/03/2017 11:23:48 AM;Ordered; Stat;For:Abnormal CBC, Macrocytosis, Pelvic pain; Ordered By:Teetee Bertrand; Pelvic pain 3. QU-SURESWAB( R ), VAGINOSIS/VAGINITIS PLUS 75127; Status:In Progress - Specimen/Data Collected; Done: 03Nov2017 Perform:[facility]; Due:[id number]; Last Updated By:Na Jiménez; 11/03/2017 11:43:45 AM;Ordered; For:Pelvic pain; Ordered By:Teetee Bertrand; 4. QU-THINPREP TIS PAP RFX HR HPV DNA AND C. TRACHOMATIS AND N. GONORRHOEAE 57297; Status:In Progress - Specimen/Data Collected; Done: 03Nov2017 Perform:[facility]; Due:[id number]; Last Updated By:Na Jiménez; 11/03/2017 11:43:45 AM;Ordered; For:Pelvic pain; Ordered By:Teetee Bertrand; Pelvic pain - Pap and aptima obtained today. Pt tolerated well. Labs and transvag US ordered. Further plan after results. Low suspicion for appendicitis as per symptoms and exam, but did order CBC today. Suspect muscle strain and ovarian cyst as possible causes as well. Pt instructed to stop exercising and rest muscle for next week. Pt is to go to ER if symptoms worsen, she has fever, chills, N/V/D. Signatures Electronically signed by : Teetee Bertrand APN; Nov 05 2017 7:38PM CLINICAL RESEARCH PHYSICIAN (Author) documented in this encounter Plan of Treatment Not on file documented as of this encounter Procedures Procedure Name Priority Date/Time Associated Diagnosis Comments VAGINITIS SCREEN Routine 11/03/2017 11:4 2 AM CDT documented in this encounter Results * (ABNORMAL) VAGINITIS SCREEN (11/03/2017 11:42 AM CDT) CHLAMYDIA TRACHOMATIS RNA TMA Not detected Not detected [facility] TO EPIC CONVERSION N.GONORRHOEAE RNA TMA (QST) Not detected Not detected [facility] TO EPIC CONVERSION Comment: Result Comment: ??This test was performed using the APTIMA COMBO2 Assay (Yushino). COMMENT SUPPORTIVE( A) See Below [facility] TO EPIC CONVERSION Comment:Result Comment: Refe rence Range: Not Supportive ORGANISM Not detected [facility] TO EPIC CONVERSION Comment:Result Comment: UNIT S: Log cells/mL BACTERIAL VAGINITIS Not detected [facility] TO EPIC CONVERSION Comment:Result Comment: UNIT S: Log cells/mL ORGANISM 7.4 [facility] T O EPIC CONVERSION Comment:Result Comment: UNIT S: Log cells/mL GARDNERELLA VAGINALIS >8.0 [facility] TO EPIC CONVERSION Comment:Result Comment: UNIT S: Log cells/mL TRICHOMONAS Not detected Not detected [facility] TO EPIC CONVERSION SAMANTHA ALBICANS PCR (BLD) Not detected Not detected [facility] TO EPIC CONVERSION SAMANTHA GLABRATA PCR (BLD) Not detected Not detected [facility] TO EPIC CONVERSION SAMANTHA TROPICALIS PCR (BLD) Not detected Not detected [facility] TO EPIC CONVERSION SAMANTHA PARAPSILOSIS PCR (BLD) Not detected Not detected [facility] TO EPIC CONVERSION Comment: Result Comment: ?? NOT SUPPORTIVE of BV: The pattern of [...] is supportive of a diagnosis of BV: ??Absence of Lactobacillus spp. and presence of G. [...] analytical performance characteristics have been determined by [facility]. It has not been cleared or approved by the US Food and Drug Administration. This assay has been validated pursuant to the CLIA regulations and is used for clinical purposes. For more information on this test, go to: http://education.DataRobot.GFRANQ/faq/Trichomonastma Test Performed at: [facility] [address] ??[id number] ? MATT PASCUAL MD,PHD 11/03/2017 11:4 2 AM CDT 11/03/2017 11:42 AM CDT Narrative [facility] TO EPIC CONVERSION - 11/07/2017 8:00 PM CDT Result Communication: Call patient with results Te[facility] CISNEROS Final Result [facility] TO EPIC CONVERSION documented in this encounter Visit Diagnoses Not on filedocumented in this encounter
--- OUTSIDE RECORDS SUMMARY | 2024-06-10 06:45 | XMS_ITS | Encounter Summary ---
Author Organization [facility] Address [facility] [place] [address] [place] [address] Care Team Providers Care Leather Worker Name Role Phone Unavailable Primary Care Provider Unavailabl e Encounter Details Date Type Department Care Team (Late st Contact Info) Description 07/14/2016 Abstract [facility] Family & Internal Medicine - [place] [address] [place] [address] Alli Reid MD Social History Tobacco Use [...] Sign Reading Time Taken Comments Blood Pressure 118/60 07/14/2016 8:59 AM TMD TEACHER ASSISTANT Pulse 88 07/14/2016 8:59 AM TMD TEACHER ASSISTANT Temperature - - Respiratory Rate - - Oxygen Saturation - - Inhaled Oxygen Concentration - - Weight 73 kg (161 lb) 07/14/2016 8:59 AM TMD TEACHER ASSISTANT Height 175.3 cm (5' 9 ) 07/14/2016 8:59 AM TMD TEACHER ASSISTANT Body Mass Index 23.78 07/14/2016 8:59 AM TMD TEACHER ASSISTANT documented in this encounter Progress Notes * Alli Reid MD - 07/14/2016 8:30 AM CST Reason For Visit Chronic Recheck Visit Chief Complaint Patient is here for school physical and immunizations. History of Present Illness HPI Free Text: Here for follow up of her recently started medicine. She is still currently taking Risperidone. Sheneeds an updated tetanus and meningitis shot today for school. She reports she feels fidgety when she was taking her medication and wonders if she will be able to stop that medicine. She is scheduledto see a psychiatrist in the next week or so. Other than that, she is doing well and has no new complaints. Review of Systems See HPI for pertinent positives. Active Problems 1. Schizophrenia (295.90) (F20.9) Surgical History 1. Denied: History of Surgery [...] 1. No Known Drug Allergies Vitals Recorded: [id number] 08:59AM Heart Rate 88 Respiration 16 Systolic 118 Diastolic 60 O2 Saturation 98 Height 5 ft 9 in Weight 161 lb BMI Calculated 23.78 BSA Calculated 1.88 Physical Exam Constitutional General appearance: No acute distress, well appearing and well nourished. Pulmonary Respiratory effort: No increased work of breathing or signs of respiratory distress. Auscultation of lungs: Clear to auscultation. Cardiovascular Auscultation of heart: Normal rate and rhythm, normal S1 and S2, without murmurs. Examination of extremities for edema and/or varicosities: Normal. Abdomen Abdomen: Non-tender, no masses. Lymphatic Palpation of lymph nodes in neck: No lymphadenopathy. Musculoskeletal Gait and station: Normal. Digits and nails: Normal without clubbing or cyanosis. Psychiatric Orientation to person, place, and time: Normal. Mood and affect: Abnormal. Mood and Affect: not agitated, not bizarre, constricted and unemotional. Assessment 1. Schizophrenia (295.90) (F20.9) Plan CPM and planned psychiatry f/u next week. Signatures Electronically signed by : Alli Reid M.D.; Jul 14 2016 1:49PM TMD TEACHER ASSISTANT (Author) documented in this encounter Plan of Treatment Not on file documented as of this encounter Visit Diagnoses Not on filedocumented in this encounter
--- OUTSIDE RECORDS SUMMARY | 2024-06-10 06:45 | XMS_ITS | Encounter Summary ---
Author Organization [facility] Address [facility]6 [facility]. [place], [place] [address] [place] [address] Care Team Providers Care Drupal Web Developer Name Role Phone Unavailable Primary Care Provider Unavailabl e Encounter Details Date Type Department Care Team (Latest Contact Info) Description 11/21/[address] [facility] Social History Tobacco Use Types Packs/Day Years Used Date Smoking Tobacco: Never Assessed Comments Unknown Sex and Gender Information Value Date Recorded Sex Assigned at Not on file Legal Sex Female 8:27 PM CDT Gender Identity Not on file Sexual Orientation Not on file documented as of this encounter Progress Notes * HOLLEY Roland - 11/21/2017 3:43 PM CDT Signatures Electronically signed by : Bernadette Posadas, ; Nov 21 2017 3:44PM MARINE DRILLER (Author) documented in this encounter Plan of Treatment Not on file documented as of this encounter Visit Diagnoses Not on filedocumented in this encounter
--- OUTSIDE RECORDS SUMMARY | 2024-06-10 06:45 | XMS_ITS | Encounter Summary ---
Author Organization [facility] Address [address] [place] [address]. [place], [place] [address] [place] [address] Care Team Providers Care Chief Engineer'S Helper Name Role Phone Teetee Bertrand Primary Care Provider [phone] Encounter Details Date Type Department Care Team (Latest Contact Info) Description 07/20/2018 Scan HEALTH INFO SRVCS Scanned, Documents Social [...] on filedocumented in this encounter Care Teams Chief Engineer'S Helper Relationship Specialty Start Date End Date Teetee Bertrand APNP [address] [place] [address] PCP - General FAMILY PRACTICE 05/01/18 documented as of this encounter
--- OUTSIDE RECORDS SUMMARY | 2024-06-10 06:45 | XMS_ITS | Encounter Summary ---
Author Organization [facility] Address [facility]. [place], [place] [address] [place] [address] Care Team Providers Care Supervisor Tunnel Heading Name Role Phone Unavailable Primary Care Provider Unavailabl e Encounter Details Date Type Department Care Team (Latest Contact Info) Description 11/15/2017 Abstract [facility] Medical Group Social History Tobacco Use [...]
--- OUTSIDE RECORDS SUMMARY | 2024-06-10 06:45 | XMS_ITS | Encounter Summary ---
Author Organization [facility] Address On license of [facility]. [place], [place] [address] [place] [address] Care Team Providers Care Job Developer For Deaf Adults Name Role Phone Teetee Bertrand Primary Care Provider [phone] Reason for Visit * Reason Comments Outside Record (SCAN) INSURANCE MEMBER E LIGIBILITY REPORT Encounter Details Date Type Department Care Team ([facility] st Contact Info) Description 05/04/2018 Scan HEALTH INFO SRVCS Scanned, Documents Outside Record (SCAN) (INSURANCE MEMBER ELIGIBILITY REPORT) Social History Tobacco Use Types Packs/Day Years [...] on filedocumented in this encounter Care Teams Job Developer For Deaf Adults Relationship Specialty Start Date End Date Teetee Bertrand APNP [address] [place] [address] PCP - General FAMILY PRACTICE 05/01/18 documented as of this encounter
--- OUTSIDE RECORDS SUMMARY | 2024-06-10 06:45 | XMS_ITS | Encounter Summary ---
Author Organization [facility] Address [facility] [place] [address] [place] [address] Care Team Providers Care Cutter Banana Room Name Role Phone Unavailable Primary Care Provider Unavailabl e Encounter Details Date Type Department Care Team (Latest Contact Info) Description 10/06/2017 Abstract [facility] Medical Group Teetee Bertrand APNP [address] [place], [place] [id number] Social History Tobacco Use Types Packs/Day Years [...] Procedure Name Priority Date/Time Associated Diagnosis Comments VITAMIN B-12 Routine 10/06/2017 8:55 AM CDT FOLIC ACID SERUM Routine 10/06/2017 8:55 AM CDT documented in this encounter Results * FOLIC ACID SERUM (10/06/2017 8:55 AM CDT) FOLATE 15.8 3.1 - 17.5 NG/ML [facility] TO EPIC CONVERSION 10/06/2017 8:55 AM CDT 10/06/2017 8:55 AM CDT Narrative [facility] TO EPIC CONVERSION - 10/10/2017 2:49 PM CDT Result Communication: No patient communication needed at this time us [facility] Final Resul t [facility] TO EPIC CONVERSION * VITAMIN B-12 (10/06/2017 8:55 AM CDT) VITAMIN B12 S/P/B 362 254 - 1320 PG/ML [facility] TO EPIC CONVERSION 10/06/2017 8:55 AM CDT 10/06/2017 8:55 AM CDT Narrative [facility] TO EPIC CONVERSION - 10/10/2017 2:49 PM CDT Result Communication: No patient communication needed at this time [facility] Final Resul t [facility] TO EPIC CONVERSION documented in this encounter Visit Diagnoses Not on filedocumented in this encounter
--- OUTSIDE RECORDS SUMMARY | 2024-06-10 06:45 | XMS_ITS | Encounter Summary ---
Author Organization [facility] Address [facility]. [place], [place] [address] [place] [address] Care Team Providers Care Instrumentation Technician Name Role Phone Unavailable Primary Care Provider Unavailabl e Encounter Details Date Type Department Care Team (Latest Contact Info) Description 10/11/2017 Abstract [facility] Medical Group Social History Tobacco Use Types Packs/Day Years Used Date Smoking Tobacco: Never Assessed Comments Unknown Sex and Gender Information Value Date Recorded Sex Assigned at Not on file Legal Sex Female 8:27 PM CDT Gender Identity Not on file Sexual Orientation Not on file documented as of this encounter Progress Notes * JONY Galvez - 10/11/2017 1:16 PM CDT Verified Results Vitamin B12 [id number] 08:55AM Teetee Bertrand Test Name Result Flag Reference Vitamin B12 362 PG/ML 254-1320 Folate [id number] 08:55AM Teetee Bertrand Test Name Result Flag Reference FOLATE 15.8 NG/ML 3.1-17.5 documented in this encounter Plan of Treatment Not on file documented as of this encounter Visit Diagnoses Not on filedocumented in this encounter
--- OUTSIDE RECORDS SUMMARY | 2024-06-10 06:45 | XMS_ITS | Encounter Summary ---
Author Organization [facility] Address [address] [place] [address]. [place] [address] [place] [address] Care Team Providers Care Director Of District Office Name Role Phone Teetee Bertrand Primary Care Provider [phone] Reason for Visit * Reason Comments Lab (SCAN) [facility] Main Lab Encounter Details Date Type Department Care Team ([facility] Contact Info) Description 06/06/2018 Scan HEALTH INFO SRVCS Scanned, Documents Lab (SCAN) ([facility] Main Lab) Social History Tobacco Use Types Packs/Day Years [...] Diagnosis Comments OUTSIDE LAB (SCAN ORDER) Routine 06/06/2018 documented in this encounter Results * OUTSIDE LAB (06/06/2018) 06/06/2018 us Documents Scanned SCANNING Final Result documented in this encounter Visit Diagnoses Not on filedocumented in this encounter Care Teams Director Of District Office Relationship Specialty Start Date End Date Teetee Bertrand APNP [address] [place] [address] PCP - General FAMILY PRACTICE 05/01/18 documented as of this encounter
--- OUTSIDE RECORDS SUMMARY | 2024-06-10 06:45 | XMS_ITS | Encounter Summary ---
Author Organization [facility] Address [facility] [place] [address] [place] [address] Care Team Providers Care Baker Test Name Role Phone Unavailable Primary Care Provider Unavailabl e Encounter Details Date Type Department Care Team (Latest Contact Info) Description 10/06/2017 1:58 PM CDT - 10/06/2017 7:27 PM CDT Hospital Encounter [facility] [place] [address] Teetee Bertrand H, JONY [address] [place] [address] Discharge Disposition: Home or Self Care (Routine [...] VITAMIN B-12 Routine 10/06/2017 8:55 AM CDT Macrocytosis FOLIC ACID SERUM Routine 10/06/2017 8:55 AM CDT Macrocytosis documented in this encounter Results * FOLIC ACID SERUM (10/06/2017 8:55 AM CDT) FOLATE 15.8 3.1 - 17.5 NG/ML 10/10/2017 2:49 PM CDT [facility] 10/06/2017 8:55 AM CDT [facility] Final Resul t Performing Organization Address City/[facility]/ZIP Co de Phone Number [facility] [address] [place] [address], [place] [phone] * VITAMIN B-12 (10/06/2017 8:55 AM CDT) VITAMIN B12 S/P/B 362 254 - 1,320 PG/ML 10/10/2017 2:49 PM CDT [facility] 10/06/2017 8:55 AM CDT [facility] Final Resul t [address] [address], [place] [phone] documented in this encounter Visit Diagnoses Diagnosis Macrocytosis- Primary Other specified diseases of blood and blood-forming organs documented in this encounter
--- OUTSIDE RECORDS SUMMARY | 2024-06-10 06:45 | XMS_ITS | Encounter Summary ---
Author Organization [facility] Address [facility] [place] [address] [place] [address] Care Team Providers Care Assistant Professor Of Psychology Name Role Phone Unavailable Primary Care Provider Unavailabl e Encounter Details Date Type Department Care Team (Latest Contact Info) Description 10/09/2017 Abstract [facility] Social History Tobacco Use Types Packs/Day Years Used Date Smoking Tobacco: Never Assessed Comments Unknown Sex and Gender Information Value Date Recorded Sex Assigned at Not on file Legal Sex Female 8:27 PM CDT Gender Identity Not on file Sexual Orientation Not on file documented as of this encounter Progress Notes * JONY Galvez - 10/09/2017 9:14 PM CDT Message Slight abnormality of the side of her RBC's. Would like to repeat in a couple of months. Other labsnml. Need to order CBC, please Verified Results CBC W Differential [id number] 08:55AM Teetee Bertrand Test Name Result Flag Reference WBC 6.5 x10'3/uL 4.8-10.8 RBC 4.28 x10'6/uL 4.20-5.40 Hemoglobin (HGB) 13.6 G/DL 12.0-16.0 Hematocrit (HCT) 43.8 % 38.0-48.0 Mean Corpuscular Volume (MCV) 102.3 FL H 81.0-99.0 Mean Corpuscular Hgb (MCH) 31.8 PG H 27.0-31.0 Mean Corpuscular Hgb Conc (MCH 31.1 G/DL L 32.0-36.0 RDW 13.3 % 11.5-14.5 PLATELET COUNT 258 x10'3/uL 130-400 Mean Platelet Volume (MPV) 11.6 FL 9.3-12.2 Basophils % (Auto) 0.9 % 0.0-1.0 Eosinophils % (Auto) 2.6 % 1.0-3.0 NEUTROPHILS 55.0 % 43.0-65.0 Lymphocytes % (Auto) 27.6 % 20.0-46.0 IMMATURE GRANULOCYTES 0.2 % 0.0-1.0 MONOCYTES 13.7 % H 5.0-12.0 Compr Metabolic Prof ( CMP ) [id number] 08:55AM Teetee Bertrand Test Name Result Flag Reference Sodium (Na) 143 MMOL/L 136-145 Potassium (K) 3.8 MMOL/L 3.5-5.1 Chloride (Cl) 108 MMOL/L 100-108 Carbon Dioxide (CO2) 26.2 MMOL/L 21-32 Anion Gap 12.6 MMOL/L 8-20 Blood Urea Nitrogen (BUN) 9 MG/DL 7-18 Creatinine 0.68 MG/DL 0.55-1.02 Glomerular Filt Rate Calc >90 ML/MIN/1.73 M2 >90 Glomerular Filt Rate (AA) Calc >90 ML/MIN/1.73 M2 >90 NOTE: eGFR is not calculated for patients <18 years of age. This is an estimated GFR (CKD EPI) and should not be used for calculating drug doses. BUN CREATININE RATIO 13.3 6-26 Glucose 87 MG/DL 70-99 Calcium 8.9 MG/DL 8.5-10.1 Total Bilirubin 0.8 MG/DL 0.2-1.2 AST/GOT 11 U/L L 15-37 ALT/GPT 20 U/L 14-55 Alkaline Phosphatase (ALKP) 74 U/L 50-136 Total Protein 6.7 G/DL 6.4-8.2 Albumin 3.8 G/DL 3.4-5.0 A:G Ratio 1.3 RATIO 1.0-2.0 Thyroid Stim Hormone ( TSH ) [id number] 08:55AM Teetee Bertrand Test Name Result Flag Reference Thyroid Stim Hormone (TSH) 2.200 uIU/ML 0.358-3.74 HIGH DOSES OF BIOTIN MAY INTERFERE WITH THIS TEST RESULT. CORRELATION TO CLINICAL HISTORY AND PRESENTATION RECOMMENDED. documented in this encounter Plan of Treatment Not on file documented as of this encounter Visit Diagnoses Not on filedocumented in this encounter
--- OUTSIDE RECORDS SUMMARY | 2024-06-10 06:45 | XMS_ITS | Encounter Summary ---
Author Organization [facility] Address [facility] [place] [address] [place] [address] Care Team Providers Care Watch Guard Gate Name Role Phone Unavailable Primary Care Provider Unavailabl e Encounter Details Date Type Department Care Team (Latest Contact Info) Description 11/07/2017 Abstract [facility] Social History Tobacco Use Types Packs/Day Years Used Date Smoking Tobacco: Never Assessed Comments Unknown Sex and Gender Information Value Date Recorded Sex Assigned at Not on file Legal Sex Female 8:27 PM CDT Gender Identity Not on file Sexual Orientation Not on file documented as of this encounter Progress Notes * Generic Conversion MD Nahun - 11/07/2017 1:27 PM CDT Message Recorded as Task Date: 10/31/2017 03:15 PM, Created By: Elen Maher Task Name: Medical Complaint Callback Assigned To: [facility] Nurse Team Regarding Patient: Stevie Liu, Status: In Progress Comment: Elen Maher - 31 Oct 2017 3:15 PM TASK CREATED Caller: Self; Medical Complaint; Mother calling, stated that pt was IP in [facility] d/c 10/17. She was rxd invega sustenna 156 mg (paliperidone) monthly shot. asking if Teetee can administer in office so that she does not have to go to the behavioral health office to get it done. They would have the injection sent to us (I do not believe this is something med group allows but am unsure) also stated [employer] needs PA for medical necessity for the medication fax [phone] Teetee Bertrand - 01 Nov 2017 9:43 AM TASK REASSIGNED: Previously Assigned To Teetee Bertrand Spoke with Dr. Adamson and this is not something we are not able to do. Jessy,An - 01 Nov 2017 2:08 PM TASK EDITED mother is not on HIPAA-[facility] JessyNa 01 Nov 2017 2:08 PM TASK EDITED lm for patient to call-[facility] Jessy,Na - 01 Nov 2017 2:09 PM TASK IN PROGRESS Message: I spoke with patient and she v/u --stevie Signatures Electronically signed by : Stevie Larios MA; Nov 07 2017 1:27PM CLINIC DIRECTOR (Author) documented in this encounter Plan of Treatment Not on file documented as of this encounter Visit Diagnoses Not on filedocumented in this encounter
--- OUTSIDE RECORDS SUMMARY | 2024-06-10 06:45 | XMS_ITS | Encounter Summary ---
Author Organization [facility] Address [facility] [facility]. [place], [place] [address] [place] [address] Care Team Providers Care Etymology Teacher Name Role Phone Unavailable Primary Care Provider Unavailabl e Encounter Details Date Type Department Care Team (Latest Contact Info) Description 11/11/2017 Abstract [facility] Social History Tobacco Use Types [...]
--- OUTSIDE RECORDS SUMMARY | 2024-06-10 06:46 | XMS_ITS | Encounter Summary ---
Author Organization [facility] Address [facility] [place] [address] [place] [address] Care Team Providers Care Aircraft Manager Name Role Phone Unavailable Primary Care Provider Unavailabl e Encounter Details Date Type Department Care Team (Late st Contact Info) Description 12/14/2012 Abstract [place] [address] , Generic Conversion, Social History Tobacco Use Types Packs/Day Years Used Date Smoking Tobacco: Never Assessed Comments Unknown Sex and Gender Information Value Date Recorded Sex Assigned at Not on file Legal Sex Female 8:27 PM CDT Gender Identity Not on file Sexual Orientation Not on file documented as of this encounter Plan of Treatment Not on file documented as of this encounter Visit Diagnoses Diagnosis 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
--- OUTSIDE RECORDS SUMMARY | 2024-06-10 06:46 | XMS_ITS | Encounter Summary ---
Author Organization [facility] Address [facility] [place] [address] [place] [address] Care Team Providers Care Boarder Hand Name Role Phone Unavailable Primary Care Provider Unavailabl e Encounter Details Date Type Department Care Team (Late st Contact Info) Description 10/01/2013 Abstract [facility] Family & Internal Medicine - [place] [address] [place] [address] Alli Reid MD Social History Tobacco Use [...] Sign Reading Time Taken Comments Blood Pressure 109/60 10/01/2013 3:06 PM CDT Pulse 57 10/01/2013 3:06 PM CDT Temperature - - Respiratory Rate - - Oxygen Saturation - - Inhaled Oxygen Concentration - - Weight 66.7 kg (147 lb) 10/01/2013 3:06 PM CDT Height 172.7 cm (5' 8 ) 10/01/2013 3:06 PM CDT Body Mass Index 22.35 10/01/2013 3:06 PM CDT documented in this encounter Progress Notes * Alli Reid MD - 10/01/2013 3:00 PM CDT Reason For Visit Reason For Visit: New Patient Visit, 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 Forgot form, will bring in later History of Present Illness HPI Free Text: Here in the office for the first time to be established as a new patient. She would like a general physical exam. She has no ongoing complaints and is not requiring any chronic medicines. She is active without any disabilities. She is starting a new job and likely looking forward to going to a local university in the fall. HM, Adult Female: The patient is being seen for a health maintenance evaluation. The last health maintenance visit was few year(s) ago. General Health: The patient's health since the last visit is described as good. She has regular dental visits. She denies vision problems. She denies hearing loss. Immunizations status: up to date. Lifestyle:. She does not have a healthy diet. She does not have any weight concerns. She exercises regularly. She does not use tobacco. She denies alcohol use. She denies drug use. Reproductive health:. She reports normal menses. Screening: Cancer screening reviewed and current. Metabolic screening reviewed and current. Review of Systems Complete-Female: See HPI for pertinent positives. Constitutional: no fever, no chills and no fatigue. Eyes: no blurred vision. ENT: no hearing loss. Respiratory: no shortness of breath, no cough and no wheezing. Gastrointestinal: no abdominal pain, no nausea, no constipation, no vomiting and no diarrhea. Genitourinary: no dysuria and no pelvic pain. Musculoskeletal: no diffuse joint pain and no generalized muscle aches. Integumentary no rash. Neurological no headache. Surgical History 1. Denied: History of Surgery Family History Mother 1. No pertinent family history Father 2. No pertinent family history Social History ?? Never a smoker ?? Single Current Meds 1. No Reported Medications Recorded MERA = N; Record; Last Updated By: Alberto Sanders; 10/01/2013 3:08:01 PM Allergies 1. No Known Drug Allergies Recorded By: Alberto Sanders; 10/01/2013 3:08:01 PM Vitals Vital Signs [Data Includes: Current Encounter] Recorded by : Alberto Sanders at [id number] 03:06PM Heart Rate 57 Respiration 16 Systolic 109 Diastolic 60 O2 Saturation 99 Not able to obtain height Patient stated height Patient stated height Height 5 ft 8 in Weight 147 lb BMI Calculated 22.35 BSA Calculated 1.79 Physical Exam Eyes Conjunctiva and lids: No swelling, erythema or discharge. Pupils and irises: Equal, round, reactive to light. Ears, Nose, Mouth, and Throat External inspection of ears and nose: Normal. Otoscopic examination: Tympanic membranes translucent with normal light reflex. Canals patent without erythema. Nasal mucosa, septum, and turbinates: Normal without edema or erythema. Oropharynx: Normal with no erythema, edema, exudate or lesions. Neck Neck: Supple, symmetric, trachea midline, no masses. Thyroid: Normal, no thyromegaly. Pulmonary Respiratory effort: No increased work of [...] nails: Normal without clubbing or cyanosis. Psychiatric Mood and affect: Normal. Assessment 1. Encounter for preventive health examination (V70.0) (Z00.00) Plan No restrictions. She will bring in any official papers she may need for school or employment. Signatures Electronically signed by : Alli Reid M.D.; Oct 01 2013 4:47PM CHOPPING MACHINE OPERATOR (Author) PING MACHINE OPERATOR documented in this encounter Plan of Treatment Not on file documented as of this encounter Visit Diagnoses Not on filedocumented in this encounter
--- OUTSIDE RECORDS SUMMARY | 2024-06-10 06:46 | XMS_ITS | Encounter Summary ---
Author Organization [facility] Address [facility] [facility]. [place], [place] [address] [place] [address] Care Team Providers Care Home Health Travel Pt Name Role Phone Unavailable Primary Care Provider Unavailabl e Encounter Details Date Type Department Care Team (Latest Contact Info) Description 06/01/2016 Abstract [facility] Social History Tobacco Use [...]
== END 2024-06-03 15:30 | disposition home or self-care (01) ==
LOC: ANHED 15:25
PROVIDERS: Emergency Provider Student in an Organized Health Care Education/Training Program
DX: S61.202A Unspecified open wound of right middle finger without damage to nail, initial encounter (principal); W26.8XXA Contact with other sharp object(s), not elsewhere classified, initial encounter; F20.9 Schizophrenia, unspecified
CPT/HCPCS: 99282

== ENCOUNTER 2025-01-31 09:13 | Emergency (ER) | payer OTHER, SELFPAY ==
--- NOTE | ~2025-01-31 | XR_ITS ---
EXAMINATION: XR hand RT min 3V DATE: 01/31/2025 09:40 INDICATION: Right hand injury after punching a wall one month prior TECHNIQUE: Posteroanterior, oblique and lateral views of the right hand were obtained. COMPARISON: None. FINDINGS: Subacute appearing transverse fracture across the distal neck of the right fifth metacarpal with 2 mm palmar/radial displacement and 35 degree ulnar/radial angulation. There is a small amount of callus formation without solid bridging at the palmar/radial aspect of the fracture. No other fractures identified. Normal alignment throughout the remainder of the hands. Joint spaces are normal. IMPRESSION: 1. Early changes of healing at a still ununited subacute boxer's fracture at the distal neck of the right fifth metacarpal with 2 mm palmar/radial displacement and 35 degrees palmar/radial angulation. Reviewed, dictated and finalized at location A. IMPRESSION: 1. Early changes of healing at a still ununited subacute boxer's fracture at th e distal neck of the right fifth metacarpal with 2 mm palmar/radial displacemen t and 35 degrees palmar/radial angulation.
[2025-01-31 09:20] VITALS: BP 121/70; PULSE 60; RESP 17; TEMP 36.5; O2SAT 97
--- NOTE | 2025-01-31 09:22 | ED_ITS ---
HPI - Extremity Injury (Upper) General Chief Complaint: Extremity Injury, Upper Stated Complaint: R hand pain Time Seen by Provider: 01/31/25 09:18 History of Present Illness HPI narrative: 34-year-old female history of anxiety, depression, schizophrenia presents ER complaining of right hand pain. Patient states 4 weeks ago she accidentally hit a wall. The complaining of pain for to the right 5th metacarpal. No swelling. Has been taking aspirin without improvement her symptoms. Related Data Home Medications ?Medication ?Instructions ?Recorded ?Confirmed ?Last Taken ?Type risperidone 1 mg tablet 2 mg HS 09/09/20 11/24/20 Un known History paliperidone palmitate 234 mg/1.5 234 mg IM 01/04/21 12/14/20 History mL intramuscular syringe (Invega Sustenna) carbamazepine 200 mg tablet 200 mg DAILY 02/22/2101/29 Unknown History Allergies Allergy/AdvReac Type Severity Reaction Status Date / Time latex Allergy Unknown Rash Verified 10/20/23 11:00 crab Allergy Unknown Verified 10/20/23 11:00 shellfish derived Allergy Unknown Verified 10/20/23 11:00 Review of Systems Review of Systems: All systems reviewed & are unremarkable except as noted in HPI and below PMFSH Past Medical History Medical History (Updated 01/31/25 @ 10:23 by Tommy Davies APRN) History of schizophrenia Family History Family History Father No problems noted. Mother No problems noted. Sibling No problems noted. Social History Social History Smoking status: Light tobacco smoker Alcohol intake: never Substance use: never Substance use type: unknown Gender identity (if verbalized by the patient): Female Exam Const: General: no acute distress and alert Nutritional Appearance: well nourished Orientation/consciousness: patient oriented x3 HENMT: Head: normal to inspection Eyes: Conjunctivae: conjunctivae normal Pupils: Equal, round and reactive pupils present Direct Ophthalmoscopy: no photophobia Resp: Effort & Inspection: normal respiratory effort Auscultation: clear to auscultation bilaterally Cardio: Rate: regular rate Rhythm: regular rhythm Skin: General skin exam: normal color Rashes: no rashes Wounds: no wounds Neuro: General: patient oriented x3, moves all extremities and CN's II-XI intact bilaterally Extrem: Other: left hand: TTP with STS over the distal 5th metacarpal. MAEW. No rashes intact distally Course Vital Signs Vital signs: Vital Signs Temperature 36.5 C 01/31/25 09:20 Pulse Rate 60 01/31/25 09:20 Respiratory Rate 17 01/31/25 09:20 Blood Pressure 121/70 01/31/25 09:20 Pulse Oximetry 97 01/31/25 09:20 Oxygen Delivery Room Air 01/31/25 09:20 Temperature 36.5 C 01/31/25 09:20 Pulse Rate 60 01/31/25 09:20 Respiratory Rate 17 01/31/25 09:20 Blood Pressure 121/70 01/31/25 09:20 Pulse Oximetry 97 01/31/25 09:20 Oxygen Delivery Room Air 01/31/25 09:20 MDM - Extremity Injury (Upper) MDM Narrative Medical decision making narrative: In summary: 34-year-old female presents ER complaining of right hand pain. Patient states that she punched a wall several weeks ago has been experiencing pain and swelling. Imaging shows a displaced the right 5th meta carpal fracture with early healing. Patient is placed into an ulnar gutter splint and referred to Orthopedics. Discharged home in stable condition Discharge Plan Discharge Clinical Impression: Fracture of fifth metacarpal bone of right hand Qualifiers: Encounter type: initial encounter Fracture type: closed Metacarpal location: neck Fracture alignment: displaced Qualified Code(s): S62.336A - Displaced fracture of neck of fifth metacarpal bone, right hand, initial encounter for closed fracture Patient Disposition: Home Condition: Stable Instructions: Antibiotic Form, Boxer Fracture (ED) Patient Language: Vietnamese Prescriptions: No Action carbamazepine 200 mg tablet 200 mg DAILY ibuprofen 600 mg tablet 600 mg PO TID PRN (Reason: fever or pain) Qty: 30 0RF risperidone 1 mg tablet 2 mg HS Invega Sustenna 234 mg/1.5 mL syringe 234 mg IM penicillin V potassium 500 mg tablet 500 mg PO Q12H 10 Days Qty: 20 0RF cephalexin 500 mg capsule 500 mg PO QID 7 Days Qty: 28 0RF Follow-up/Referrals: Boone Mobley MD [Physician, Orthopedics] UNKNOWN,DOCTOR [Primary Care Provider] Time of Disposition: 10:21
--- OUTSIDE RECORDS SUMMARY | 2025-01-31 09:28 | XMS_ITS | Patient Health Record ---
Author Organization [facility] Address [address] [place] [address] Care Team Providers Care Digital Product Specialist Name Role Phone Bowen Ortiz Primary Care Provider Rai Mehta Unavailable [phone] Allergies Allergen (clinical drug ingredient) Drug/Non Drug Allergy documented on EMR Reaction Allergy Type Onset Date Status Shellfish (FN) Shellfish-derived Products Unknown Drug Allergy Active Results Component Value Reference Range Notes HIV Screen *HIV 1, 2 Ab, p24 Ag ([id number]) (Not yet reviewed by provider) Interpretation: Performing Lab:[facility], [address] [facility], Phone - [phone], Director - [facility] Notes/Report: HIV Ab/p24 Ag Screen Non Reactive Non Reactive HIV-1/HIV-2 antibodies and HIV-1 p24 antigen were NOT detected. There is no laboratory evidence of HIV infection. HIV Negative Vitamin B12 and Folate Reviewed date:05/18/2024 03:03:17 PM Interpretation: Performing Lab:[facility], [address] [facility], Phone - [phone], [facility] Notes/Report: Vitamin B12 [phone] pg/mL Folate (Folic Acid), Serum 9.8 >3.0 ng/mL A serum folate concentration of less than 3.1 ng/mL is considered to represent clinical deficiency. CBC With Differential/Platel et* Reviewed date:05/18/2024 03:03:05 PM Interpretation: Performing Lab:[facility], [address] [facility], Phone - [phone], Director - Muriel Notes/Report: WBC 5.7 3.4-10.8 x10E3/uL RBC 4.70 [...] (Abs) 0.0 0.0-0.1 x10E3/uL Carbamazepine(Tegretol), S Reviewed date:05/18/2024 03:02:18 PM Interpretation: Performing Lab:[facility], [address] [facility], Phone - [phone], Director - [facility] Notes/Report: Carbamazepine(Tegretol), S 3.9 4.0-12.0 ug/mL In conjunction with other antiepileptic drugs Therapeutic 4.0 - 8.0 Toxicity 9.0 - 12.0 . Carbamazepine alone Therapeutic 8.0 - 12.0 . Detection Limit = 2.0 <2.0 indicates None Detected TSH Rfx on Abnormal to Free T4 Reviewed date:05/18/2024 03:02:36 PM Interpretation: Performing Lab:[facility], [address] [facility], Phone - [phone], Director - [facility] Notes/Report: TSH 2.210 0.450-4.500 uIU/mL CBC With Differential/Platel et* Reviewed date:10/12/2024 10:50:56 AM Interpretation: Performing Lab:[facility] Mor[facility], [address] [facility], Phone - [phone], [facility] Notes/Report: WBC 5.2 3.4-10.8 x10E3/uL RBC 4.47 3.77-5.28 x10E6/uL Hemoglobin 15.2 11.1-15.9 g/dL Hematocrit 46.5 34.0-46.6 % MCV 104 79-97 fL MCH 34.0 26.6-33.0 pg MCHC 32.7 31.5-35.7 g/dL RDW 11.9 11.7-15.4 % Platelets 213 150-450 x10E3/uL Neutrophils 49 Not Estab. % Lymphs 30 Not Estab. % Monocytes 16 Not Estab. % Eos 4 Not Estab. % Basos 1 Not Estab. % Neutrophils (Absolute) 2.6 1.4-7.0 x10E3/uL Lymphs (Absolute) 1.6 0.7-3.1 x10E3/uL Monocytes(Absolute) 0.8 0.1-0.9 x10E3/uL Eos (Absolute) 0.2 0.0-0.4 x10E3/uL Baso (Absolute) 0.1 0.0-0.2 x10E3/uL Immature Granulocytes 0 Not Estab. % Immature Grans (Abs) 0.0 0.0-0.1 x10E3/uL Carbamazepine(Tegretol), S Reviewed date:10/12/2024 10:50:22 AM Interpretation: Performing Lab:[facility], [address] [facility], Phone - [phone], Director - [facility] Notes/Report: Carbamazepine(Tegretol), S 3.7 4.0-12.0 ug/mL In conjunction with other antiepileptic drugs Therapeutic 4.0 - 8.0 Toxicity 9.0 - 12.0 . Carbamazepine alone Therapeutic 8.0 - 12.0 . Detection Limit = 2.0 <2.0 indicates None Detected CMP 14 Comprehensive Metabol ic Panel* Reviewed date:10/12/2024 10:51:24 AM Interpretation: Performing Lab:[facility], [address] [facility], Phone - [phone], [facility] Notes/Report: Glucose 78 70-99 mg/dL BUN 8 6-20 mg/dL Creatinine 0.71 0.57-1.00 mg/dL eGFR 117 >59 mL/min/1.73 BUN/Creatinine Ratio 11 9-23 Sodium 139 134-144 mmol/L Potassium 3.7 3.5-5.2 mmol/L Chloride 102 96-106 mmol/L Carbon Dioxide, Total 21 20-29 mmol/L Calcium 9.4 8.7-10.2 mg/dL Protein, Total 6.5 6.0-8.5 g/dL Albumin 4.4 3.9-4.9 g/dL Globulin, Total 2.1 1.5-4.5 g/dL Bilirubin, Total 0.5 0.0-1.2 mg/dL Alkaline Phosphatase 78 44-121 IU/L AST (SGOT) 19 0-40 IU/L ALT (SGPT) 17 0-32 IU/L Reason For Referral No Information Medications Medication SIG (Take, Route, Frequency, Duration) Notes Start Date End Date Status risperiDONE 2 MG 1 tablet Orally Once a day; Duration: 30 days Active Vraylar 3 MG 1 capsule Orally Onc e a day; Duration: 30 days Active FLUoxetine HCl 20 MG 1 tablet Orally Onc e a day; Duration: 30 days Active carBAMazepine 200 MG 1 tablet Orally onc e daily; Duration: 30 days Active Multi Vitamin - 1 tablet Orally Once a day; Duration: 30 days 04/23/2024 Active Invega Sustenna 234 MG/1.5ML as directed Intramuscular monthly; Duration: 30 days Activ e GoodSense Nicotine 2 MG 1 LOZENGE Mouth/Throat EVERY 2 HOURS As needed SMOKING CESSATION 11/17/2023 Active Social History Tobacco Use: Social History Observation Description Date Details (start date - stop date) Current some da y smoker NA - NA Sex Assigned At : Social History Observation Description Sex Assigned At Female Tobacco Control (Standard) Question Answer Notes Tobacco use: Current some day smoker Problems Problem Type SNOMED Code ICD Code Onset Dates Problem Status W/U Status Risk Notes Problem Tobacco user (819001620) Nicotine dependence, unspecified, uncomplicated (F17.200) Active confirmed Problem Schizophrenia (41587004) Schizophrenia (F20.9) Active confirmed Problem Macrocytosis - no anemia (228497323) Macrocytosis without anemia (D75.89) Active confirmed Problem 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 Active confirmed Vital Signs Heart Rate 74 /min 01/29/2025 Temperature 98.3 degrees Fahrenheit 01/29/2025 Respiratory Rate 16 /min 01/29/2025 Oximetry 96 % 01/29/2025 Blood pressure diastolic 60 mm Hg 01/29/2025 Height 70in in 01/29/2025 Blood pressure systolic 110 mm Hg 01/29/2025 Weight 148.6lbs lbs 01/29/2025 BMI 21.32 kg/m2 01/29/2025 Encounters Encounter Location Date Provider Diagnosis [address] [address] 02/22/2024 Arif Habib Schizophrenia F20.[address] [address] 03/21/2024 Arif Habib Schizophrenia F20.[address] [address] 04/17/2024 Arif Habib Schizophrenia F20.[address] [address] 04/23/2024 Rai Mehta Macrocytosis without anemia D75.89 ; Fatigue R53.83 and Medication monitoring encounter Z51.[address] [address] 05/16/2024 Arif Habib Schizophrenia F20.[address] [address] 05/16/2024 Arif Habib Macrocytosis without anemia D75.89 ; Fatigue R53.83 and Medication monitoring encounter Z51.[address] [address] 06/13/2024 Arif Habib Schizophrenia F20.[address] [address] 07/10/2024 Arif Habib Nicotine dependence, unspecified, uncomplicated F17.200 and Schizophrenia F20.[address] [place] [address] 08/07/2024 Arif Habib Nicotine dependence, unspecified, uncomplicated F17.200 and Schizophrenia F20.[address] [place] [address] 09/04/2024 Arif Habib Nicotine dependence, unspecified, uncomplicated F17.200 and Schizophrenia F20.[address] [place] [address] 10/02/2024 Arif Habib Nicotine dependence, unspecified, uncomplicated F17.200 and Schizophrenia F20.[address] [place] [address] 11/01/2024 Arif Habib Schizophrenia F20.[address] [place] [address] 12/04/2024 Arif Habib Nicotine dependence, unspecified, uncomplicated F17.200 and Schizophrenia F20.[address] [place] [address] 01/01/2025 Arif Habib Schizophrenia F20.[address] [place] [address] 01/29/2025 Arif Habib Nicotine dependence, unspecified, uncomplicated F17.200 and Schizophrenia F20.[address] [place] [address] 01/29/2025 Rai Mehta Contact with and (suspected) exposure to other communicable diseases Z20.[address] [place] [address] 08/15/2024 Rai Mehta [address] [place] [address] 10/09/2024 Arif Habib [address] [place] [address] 12/17/2024 Arif Habib Schizophrenia F20.[address] [place] [address] 01/29/2025 Rai Mehta Contact with and (suspected) exposure to other communicable diseases Z20.89 Assessments Encounter Date Diagnosis (ICD Code) Assessment Notes Treatment Notes Treatment Clinical Notes Section Notes 04/23/2024 Macrocytosis without anemia (ICD-10 - D75.89) 03/21/2024 Schizophrenia (ICD-10 - F20.9) 04/23/2024 Fatigue (ICD-10 - R53.83) 05/16/2024 Macrocytosis without anemia (ICD-10 - D75.89) 06/13/2024 Schizophrenia (ICD-10 - F20.9) 07/10/2024 Nicotine dependence, unspecified, uncomplicated (ICD-10 - F17.200) 11/01/2024 Schizophrenia (ICD-10 - F20.9) 12/17/2024 Schizophrenia (ICD-10 - F20.9) 01/01/2025 Schizophrenia (ICD-10 - F20.9) 01/29/2025 Nicotine dependence, unspecified, uncomplicated (ICD-10 - F17.200) 01/29/2025 Contact with and (suspected) exposure to other communicable diseases (ICD-10 - Z20.89) Patient Educated with: HIV testing Care Instructions.p df (HIV testing Care Instructions.p df) 01/29/2025 Contact with and (suspected) exposure to other communicable diseases (ICD-10 - Z20.89) 12/04/2024 Nicotine dependence, unspecified, uncomplicated (ICD-10 - F17.200) 09/04/2024 Nicotine dependence, unspecified, uncomplicated (ICD-10 - F17.200) 10/02/2024 Nicotine dependence, unspecified, uncomplicated (ICD-10 - F17.200) 05/16/2024 Schizophrenia (ICD-10 - F20.9) 04/17/2024 Schizophrenia (ICD-10 - F20.9) risk & benefits discussed. Continue current treatment . Tegretol level was 4.5 on 08/09/23. Was 6.1 on 11/23/22. 02/22/2024 Schizophrenia (ICD-10 - F20.9) 08/07/2024 Nicotine dependence, unspecified, uncomplicated (ICD-10 - F17.200) 08/07/2024 Schizophrenia (ICD-10 - F20.9) risk & benefits discussed. Continue current treatment, Increase Vraylar 3 mg daily for psychosis. . Tegretol level was 3.9 on 05/17/24 . It was 4.5 on 08/09/23. Was 6.1 on 11/23/22. 10/02/2024 Schizophrenia (ICD-10 - F20.9) risk & benefits discussed. Continue current treatment, Vraylar 3 mg daily for psychosis. Check Tegretol level, CBC, CMP. . Tegretol level was 3.9 on 05/17/24 . It was 4.5 on 08/09/23. Was 6.1 on 11/23/22. 09/04/2024 Schizophrenia (ICD-10 - F20.9) risk & benefits discussed. Continue current treatment, Vraylar 3 mg daily for psychosis. . Tegretol level was 3.9 on 05/17/24 . It was 4.5 on 08/09/23. Was 6.1 on 11/23/22. 12/04/2024 Schizophrenia (ICD-10 - F20.9) risk & benefits discussed. Continue current treatment, . Tegretol level was 3.7 on 10/08/24. It was 3.9 on 05/17/24 . It was 4.5 on 08/09/23. Was 6.1 on 11/23/22. 01/29/2025 Schizophrenia (ICD-10 - F20.9) risk & benefits discussed. Continue current treatment, . Tegretol level was 3.7 on 10/08/24. It was 3.9 on 05/17/24 . It was 4.5 on 08/09/23. Was 6.1 on 11/23/22. 07/10/2024 Schizophrenia (ICD-10 - F20.9) risk & benefits discussed. Continue current treatment, Add Vraylar 1.5 mg daily for psychosis. . Tegretol level was 3.9 on 05/17/24 . It was 4.5 on 08/09/23. Was 6.1 on 11/23/22. 04/23/2024 Medication monitoring encounter (ICD-10 - Z51.81) 05/16/2024 Fatigue (ICD-10 - R53.83) 05/16/2024 Medication monitoring encounter (ICD-10 - Z51.81) Plan Of Treatment Pending Test Test Name Order Date HIV Screen *HIV 1, 2 Ab, p24 Ag ([id number]) 01/29/2025 Next Appt Details Provider Name:Bowen Ortiz, 10:40:00 AM, [address], [place], [address], Provider Name:Bowen Ortiz, 10:40:00 AM, [address], [place], [address], Insurance Providers Payer Name Payer Address Payer Phone Subscriber Number Group Number Insured Name Patient Relationship to Insured Coverage Start Date Coverage End Date [employer] [address] [place] [address] [id number] Bhavana de la rosaTesha Self - patient is the insured 3 [employer] [facility] [address] [place] [address] [id number] Bhavana de la rosaTesha Self - patient is the insured 3 MEDICARE PART A [address] [facility] [place] [address] [id number] Bhavana Tesha de la rosa Self - patient is the insured 2 MEDICAID [address] [place] [address] [id number] Bhavana de la rosaTesha Self - patient is the insured 2 [...] we ll. Manufact by [employer] Invega Sustenna 03/22/2023 234 mg Pt arabella we ll. Invega Sustenna 04/20/2023 234 mg Invega Sustenna 05/17/2023 234 mg Pt arabella we ll. Invega Sustenna 06/15/2023 234 mg Pt arabella we ll. Manufact by [employer] Invega Sustenna 07/14/2023 234 mg Pt arabella we ll. Invega Sustenna 08/09/2023 234 mg Manufact by Geovanna Pt arabella well. Invega Sustenna 09/07/2023 234 mg Pt arabella we ll. Manufact by [employer] Invega Sustenna 10/05/2023 234 mg Manufact by [employer] Pt arabella well. Invega Sustenna 11/03/2023 234 mg Pt arabella we ll. Invega Sustenna 11/30/2023 234 mg Pt arabella we ll. Invega Sustenna 12/28/2023 234 mg Manufact by [employer] Pt arabella well. Invega Sustenna 01/24/2024 234 mg Manufact by Geovanna Pt arabella well. Invega Sustenna 02/22/2024 234 mg Shaun 02/22/2024 10:37:40 AM CDT >Pt tolerated well Invega Sustenna 03/21/2024 234 mg Manufact by Geov[employer] Pt arabella well. Invega Sustenna 04/17/2024 234 mg Manufact by [employer] Pt arabella well. Invega Sustenna 05/16/2024 234 mg Manufact by [employer] Pt arabella well. Invega Sustenna 06/13/2024 234 mg Manufact by Geovanna Pt arabella well. Invega Sustenna 07/10/2024 234 mg Invega Sustenna 08/07/2024 234 mg Pt arabella we ll. Invega Sustenna 09/04/2024 234 mg Pt arabella we ll. Invega Sustenna 10/02/2024 234 mg Pt arabella we ll. Invega Sustenna 11/01/2024 234 mg Manufact by Geovanna Pt arabella well. Invega Sustenna 12/04/2024 234 mg Pt arabella we ll. Invega Sustenna 01/01/2025 234 mg Pt arabella we ll. Invega Sustenna 01/29/2025 234 mg Pt arabella we ll. Medical (General) History Hospitalization History Reason Date(Month/Year) Jimenez illiness mono type 2 06/2024
--- OUTSIDE RECORDS SUMMARY | 2025-01-31 09:45 | XMS_ITS | Clinical Summary ---
Author Organization [facility] Address [address] [facility] [place] [address] Care Team Providers Care Honey Processor Name Role Phone Alli Reid MD Primary Care Provide r Source Comments [facility],non-owned Affiliates and Associated Physician Practices is amultiple site organization consisting of ambulatory clinics and hospital sitesin [place], [place], [place] and [place]. This disclosure is being madepursuant to the Care Everywhere program and may not contain all information available regarding this patient. Last updated 18.[facility] Allergies Active Allergy Reactions Criticality Noted Date Comments Shellfish Allergy Angioedema High 10/10/2018 Medications * Be aware that medications may not be up to date on this document. Alwaysverify current medications with the patient. benzoyl peroxide (BENZOYL PEROXIDE) 5 % wash Apply to affected area 2 times daily. 148 g 3 06/22/2013 Active adapalene-benzo yl peroxide (EPIDUO) 0.1-2.5 % gel Apply to affected area at bedtime. 45 g 3 06/22/2013 Active Active Problems Problem Noted Date Diagnosed Date Allergic rhinitis 02/20/2010 Immunizations Immunization Administration Dates Next Due DPT 10/08/1997, 5,05/25/1993,03/09,01/05/1993 HEP A PEDS 2 DOSE 02/24/2007,03/11/2006 HEP B VACCINE, PED/ADOL 07/27/1993,1992, HIB BOOSTER 02/25/1994, 3,03/09/1993,01/05 Human Papilloma Virus Sherry valent Vaccine 07/20/2010 Human Papilloma Virus Vaccine 03/10/2009, 008 MEASLES 11/09/1993 MENINGOCOCAL MENINGITIS 03/11/2006 MENINGOCOCCAL ACWY (MCV4P) VAC IM 01/11/2013 MMR 11/04/1997 MUMPS 02/09/1994 POLIO OPV 10/08/1997, 5,05/25/1993,03/09,01/05/1993 RUBELLA 02/09/1994 TDAP (7yrs+) 03/11/2006 Social History Tobacco Use Types Packs/Day Years Used Date Smoking Tobacco: Never Smokeless Tobacco: Never Alcohol Use Standard Drinks/Week Comments No 0 (1 standard drink = 0.6 oz pur e alcohol) Comments No Sex and Gender Information Value Date Recorded Sex Assigned at Not on file Legal 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 Gender Identity Not on file Sexual Orientation Not on file Last Filed Vital Signs Vital Sign Reading Time Taken Comments Blood Pressure 134/60 10/10/2018 12:24 AM CDT Pulse 64 10/10/2018 12:24 AM CDT Temperature 36.8 C (98.2 F) 10/10/2018 12:24 AM CDT Respiratory Rate 14 10/10/2018 12:2 4 AM CDT Oxygen Saturation 99% 10/10/2018 12: 24 AM CDT Inhaled Oxygen Concentration - - Weight 70.8 kg (156 lb) 10/10/2018 12:2 4 AM CDT actual weight Height 177.8 cm (5' 10) 10/10/2018 12: 24 AM CDT Body Mass Index 22.38 10/10/2018 12:24 AM CDT Plan of Treatment Health Maintenance Due Date Last Done Comments HIV SCREENING 10/24/2007 HEPATITIS C SCREENING 10/19/2010 DTAP/TDAP/TD VACCINES (7 - Td or Tdap) 03/11/2016 03/11/2006, 10/08/1997, 06/07/1994, Additional history exists COVID-19 VACCINE ( - 2023- season) 2024 DEPRESSION SCREENING 05/30/2024 INFLUENZA VACCINE (#1) 2025 ZOSTER VACCINE (1 of 2) 2042 HEPATITIS B VACCINE Completed 07/27/1993, 1992, 1992 HIB VACCINE Completed 02/25/1994, 04/30, 03/09/1993, Additional history exists HPV VACCINE Completed 07/20/2010, 02/27, 03/08/2008 MENINGOCOCCAL GROUPS A/C/Y/W VACCINE Aged Out 01/11/2013, 03/11/2006 No longer eligibl e based on patient's age to complete this topic MENINGOCOCCAL (Group B) VACCINE SHARED DECISION-MAKING Aged Out No longer eligible based on patient's age to complete this topic PNEUMOCOCCAL VACCINE Aged Out No long er eligible based on patient's age to complete this topic Insurance [facility] Care Teams Honey Processor Relationship Specialty Start Date End Date Alli Reid MD PCP - General Family Medicine 10/09/18
--- OUTSIDE RECORDS SUMMARY | 2025-01-31 09:45 | XMS_ITS | Clinical Summary ---
Author Organization [facility] Address [facility] [place] [address] Care Team Providers Care Health Safety Specialist Name Role Phone Teetee Bertrand Primary Care Provider Allergies No known active allergies Medications Cholecalciferol (VITAMIN D3) 400 units Cap 8 Active risperiDONE 2 MG tabletIndications:S chizophrenia, unspecified type ([facility]) Take 1 tablet (2 mg total) by [...] Weight gain 08/17/2016 Immunizations incomplete 07/20/2016 Schizophrenia ([facility]) 06/29/2016 Allergic rhinitis 02/20/2010 Resolved Problems Problem Noted Date Diagnosed Date Resolved Date Abdominal pain 12/12/2017 05/04/2018 Bacterial vaginosis 11/08/2017 05/04/20 18 Pelvic pain 11/03/2017 05/04/2018 Immunizations Immunization Administration Dates Next Due Dpt/Hib 10/08/1997, 5,05/25/1993,03/09/1993 ,01/05/1993 HPV 07/20/2010,03/10/2009,03/08/2008 Hepatitis A Vaccine - 2 Dose 02/24/2007,03/11/20 06 Hepatitis B Pediatric 07/27/1993,1992,09/28 Hib Vaccine, Prp-D 02/25/1994,05/25/1993, 993,01/05/1993 MMR (Generic) 11/04/1997 Measles 11/09/1993 Meningococcal Vac A,C,Y,W-135 Sc 07/20/2016,12/28 Meningococcal(Mcv 4)Silvia Turk 03/11/2006 Opv 10/08/1997, 5,05/25/1993,03/09/1993 ,01/05/1993 Rubella (Generic) [...] Comments Blood Pressure 125/62 07/18/2018 11:44 AM CARPET WEAVER Pulse 64 07/18/2018 11:44 AM CARPET WEAVER Temperature 36.3 C (97.4 F) 07/18/2018 11:44 AM CARPET WEAVER Respiratory Rate 16 07/18/2018 11:4 4 AM CARPET WEAVER Oxygen Saturation 100% 07/18/2018 11: 44 AM CARPET WEAVER Inhaled Oxygen Concentration - - Weight 69.3 kg (152 lb 11.2 oz) 019 11:44 AM CARPET WEAVER Height 175.3 cm (5' 9) 07/18/2018 11:4 4 AM CARPET WEAVER Body Mass Index 22.55 07/18/2018 11:44 AM CARPET WEAVER Plan of Treatment Health Maintenance Due Date Last Done Comments Cervical Cancer Screening Pap Smear (Age 30 to 64) Every 3 Years 1992 Annual Physical 10/24/1995 Hepatitis C 2010 Cervical Cancer Screening Pap with HPV Testing (Age 30 to 64) Every 5 Years 2022 11/03/2017 Cervical Cancer Screening with HPV 2022 COVID-19 Vaccine ( season) 2025 DTaP, Tdap and Td Vaccines (3 - Td or Tdap) 07/20/2026 07/20/2016, 03/11/2006, 10/08/1997, Additional history exists Hepatitis B Vaccines Completed 07/27/1993, 1992, 1992 HPV Vaccines Completed 07/20/2010, 02/27, 03/08/2008 Meningococcal Vaccine Aged Out 07/20/2016, 013 No longer eligible based on patient's age to complete this topic Meningococcal B Vaccine Aged Out No l onger eligible based on patient's age to complete this topic Pneumococcal Vaccine: Pediatrics (0 to 5 Years) and At-Risk Patients (6 to 49 Years) Aged Out No longer eligible based on patient's age to complete this topic RSV Immunizations Under 20 Months Aged Out No longer eligible based on patient's age to complete this topic Procedures Procedure Name Priority Date/Time Associated Diagnosis Comments THINPREP PAP AND HPV DNA, [facility] Routine 11/03/2017 11:27 AM CDT from Last 3 Months or Most Recently Relevant to Health Maintenance Results * THINPREP PAP AND HPV DNA, [facility] (11/03/2017 11:27 AM CDT) SOURCE (QST) [...] has been evaluated with computer assisted technology. DAIRY TECHNICIAN SEE NOTE MED GROUP TO EPIC CONVERSION Comment: Result Comment: KMY, CT(ASCP) CT screening location: [place] [address] [place] [address] COMMENT SEE NOTE [facility] T O EPIC [...] and current clinical information. Test Performed at: [address] [address] BENSON DEAN MD 11/03/2017 11:2 7 AM CDT 11/03/2017 11:27 AM CDT Narrative [facility] TO EPIC CONVERSION - 11/08/2017 2:00 PM CDT Result Communication: Call patient with results Teetee BORGES PATHOLOGY/CYTOLOGY ORDERABL ES Final Result [facility] TO EPIC CONVERSION from Last 3 Months or Most Recently Relevant to Health Maintenance Insurance [employer] Care Teams Health Safety Specialist Relationship Specialty Start Date End Date Teetee Bertrand APNP [address] [place], [place] [id number] PCP - General FAMILY PRACTICE 05/01/18
== END 2025-01-31 10:52 | disposition home or self-care (01) ==
PROVIDERS: Emergency Provider Nurse Practitioner Family
DX: S62.336A Displaced fracture of neck of fifth metacarpal bone, right hand, initial encounter for closed fracture (principal); F41.9 Anxiety disorder, unspecified; F32.A Depression, unspecified; F20.9 Schizophrenia, unspecified; F17.200 Nicotine dependence, unspecified, uncomplicated; Z79.899 Other long term (current) drug therapy; W22.01XA Walked into wall, initial encounter
CPT/HCPCS: 29125; 73130; 99284